=== PATIENT | male | born 1935 | race Caucasian/White ===

== ENCOUNTER → 2018-07-20 11:55 | Outpatient (CLI) | payer MEDICARE, OTHER, SELFPAY ==
[2018-07-20 12:31] LABS: Add Manual Diff / Slide Review NO; Basophils Percent Auto 0.5 % (0-2); Eosinophils Percent Auto 6.8 % (2-4); Hematocrit 43.9 % (41-53); Hemoglobin 14.9 g/dL (13.5-17.5); Lymphocytes Percent Auto 53.1 % (25-40); Mean Corpuscular HGB Conc 33.9 % (30-36); Mean Corpuscular Hemoglobin 32.4 PG (26-34); Mean Corpuscular Volume 95.3 fL (80-100); Monocytes Percent Auto 5.9 % (3-14); Neutrophils Absolute Auto 2600 /uL (3000-5900); Neutrophils Percent Auto 33.7 % (50-75); Platelet Count 151 X10^3/uL (150-400); Red Blood Cell Count 4.61 X10^6/uL (4.5-5.9); Red Cell Distribution Width 15.1 % (11.6-14.8); White Blood Cell Count 7.7 X10^3/uL (4.5-11.0)
[2018-07-20 12:49] LABS: Erythrocyte Sedimentation Rate 6 MM/HR (0-15)
[2018-07-20 12:55] LABS: Creatine Kinase 64 U/L (55-170)
[2018-07-20 13:11] LABS: C-Reactive Protein Quant < 0.5 mg/dL (<1.0)
[2018-07-20 13:57] LABS: TSH w/ Reflex to FT4 3.29 uIU/mL (0.47-4.68)
== END ==
PROVIDERS: PCP Family Medicine; Visit Provider Family Medicine
DX: R29.898 Other symptoms and signs involving the musculoskeletal system (principal); E03.9 Hypothyroidism, unspecified
CPT/HCPCS: 36415; 82550; 84443; 85025; 85651; 86140

== ENCOUNTER → 2018-07-27 10:30 | Outpatient (CLI) | payer MEDICARE, OTHER, SELFPAY ==
--- NOTE | 2018-08-07 09:59 | PM.CARDMON.1 ---
[employer] Pot Tender Report Referral & Results Date Patient Seen: 07/27/18 Requesting provider: Camden Hoang Indication: Palpitations Duration of monitoring (days): 6 Diary information: There were 5 patient diary entries associated only with sinus rhythm There 7 triggered events associated with sinus rhythm, SVT, as well as PACs and PVCs Data: Minimum heart rate identified was 57 beats per minute at 07:32 on 07/30/2018 Maximum sinus heart rate was 133 beats per minute at 13:04 on 07/28/2018 Maximum overall heart rate was 190 beats per minute during a 11.6 sec run of SVT at 03:49 on 08/02/2018 Patient had approximate 1% of identified beats as PACs Patient had less than 1% of identified beats as PVCs Patient had a 6 beat run of ventricular tachycardia Patient also had 17 runs of SVT the fastest of which was 190 beats per minute the longest of which lasted 41.6 sec Impression: This study demonstrates brief episodes of SVT as well as other supraventricular dysrhythmias Patient also had a single 6 beat run of ventricular tachycardia as above Clinical correlation suggested
--- NOTE | 2018-08-07 10:02 | P.HOLT.S_ITS ---
Senior Professional Services Consultant Report Referral & Results Date Patient Seen: 07/27/18 Requesting provider: Camden Hoang Indication: Palpitations Duration of monitoring (days): 6 Diary information: There were 5 patient diary entries associated only with sinus rhythm There 7 triggered events associated with sinus rhythm, SVT, as well as PACs and PVCs Data: Minimum heart rate identified was 57 beats per minute at 07:32 on 2017 Maximum sinus heart rate was 133 beats per minute at 13:04 on 07/28/2018 Maximum overall heart rate was 190 beats per minute during a 11.6 sec run of SVT at 03:49 on 08/02/2018 Patient had approximate 1% of identified beats as PACs Patient had less than 1% of identified beats as PVCs Patient had a 6 beat run of ventricular tachycardia Patient also had 17 runs of SVT the fastest of which was 190 beats per minute the longest of which lasted 41.6 sec Impression: This study demonstrates brief episodes of SVT as well as other supraventricular dysrhythmias Patient also had a single 6 beat run of ventricular tachycardia as above Clinical correlation suggested
== END ==
PROVIDERS: Family Provider Family Medicine; PCP Family Medicine; Visit Provider Family Medicine
DX: R00.2 Palpitations (principal)
CPT/HCPCS: 0296T

== ENCOUNTER → 2019-07-26 13:14 | Outpatient (CLI) | payer MEDICARE, OTHER, SELFPAY ==
--- NOTE | 2019-07-26 13:17 | DI.RAD.S_ITS ---
PROCEDURE: XR HAND RT MIN 3V INDICATIONS: rt hand hogan after fall TECHNIQUE: 3 views of the hand(s) acquired. COMPARISON: None. FINDINGS: Bones: No fractures or dislocations. Carpal bones are normally aligned. No suspicious bony lesions. Soft tissues: No suspicious soft tissue calcifications. IMPRESSION: No trauma. 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 Mild to moderate osteoarthritis at the base of the first metacarpal. Dictated by: Clay Shook M.D. on 07/26/2019 at 21:21 Approved by: Clay Shook M.D. on 07/26/2019 at 21:21
== END ==
PROVIDERS: PCP Family Medicine; Visit Provider Family Medicine
DX: M79.641 Pain in right hand (principal); M19.011 Primary osteoarthritis, right shoulder
CPT/HCPCS: 73130

== ENCOUNTER 2019-07-28 10:15 | Outpatient (RCR) | payer MEDICARE, OTHER, SELFPAY ==
--- NOTE | 2019-06-14 15:37 | PT.OIE ---
Current Diagnoses Chronic embolism and thrombosis of unspecified deep veins of unspecified lower extremity (06/14/19) Radiculopathy, lumbosacral region (06/14/19) Arthrodesis status (06/14/19) Provider Visit Care Team Role Provider Type Camden Hoang MD Family Provider Physician Primary Care Provider Specialty: Family Practice Address: [address] [place] [address], [id number] Email: [email or web address] Howie Otoole MD Attending Provider Physician Specialty: Orthopedics Address: [address] [place] [address], [phone] Email: [email or web address] Initial Evaluation PT-OP-A Visit Information Start: 06/14/19 08:15 Freq: Status: Active Protocol: Document 06/14/19 08:15 AMB (Rec: 06/14/19 17:37 AMB [email or web address]) Out-Patient Physical Therapy Visit Information Visit Information Visit Type Initial Evaluation Visit Start Time 08:15 Visit Stop Time 09:00 Total Visit Minutes 45 Visit Number 1 PT-OP-B Current Condition Start: 06/14/19 08:15 Freq: Status: Active Protocol: Document 06/14/19 08:15 AMB (Rec: 06/14/19 17:37 AMB [email or web address]) Current Condition History of Current Condition Onset Date August 2018 Current Complaints back pain that radiates into left leg making mobility difficult History of Current Condition Timothy reports he fractured his spine playing tennis in August, he is unsure of the level but had to have surgery and documentation looks as if it is a thoracic fusion. He had to go to rehab and has had prior physical therapy that he was very sore from. He has rehabilitated himself previously with aquatic therapy from multiple fractures in 1964 and is hoping to be able to do PT in the pool. He reports his back pain is below his surgery and radiates into the left leg with the left foot going numb and tingling intermittently. Treatment Goals Patient/Caregiver Goals Don socks/shoes, return to tennis. He is concerned about his balance. Prior Functional Status Baseline Function- Recreation/Hobbies Pt was able to play tennis 2 hours a day before his most recent spine surgery, he has not returned to it since. Current Functional Impairments (Reported) Functional Limitations- ADL's difficulty dressing, donning socks and shoes, difficulty bending forward to pick things up from the floor Functional Limitations- Mobility/Gait fearful of falling but denies recent falls, difficulty ascending/descending stairs due to weakness in L leg. 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) PT-OP-C Subjective Start: 06/14/19 08:15 Freq: Status: Active Protocol: Document 06/14/19 08:15 AMB (Rec: 06/14/19 17:37 AMB [email or web address]) Patient Questionnaires Oswestry Low Back Index Oswestry Score 48 Oswestry Impairment 40 to 59% Impaired (Score 40- 59) OP-PT Pain Assessment Location low back/left leg Pain Location Details below surgery/approx L4 dermatome Intensity 6 Scale Used Numeric (1 - 10) PT-OP-D Balance Start: 06/15/19 07:18 Freq: Status: Active Protocol: Document 06/14/19 08:15 AMB (Rec: 06/15/19 07:28 AMB [email or web address]) Balance Tests Single Limb Standing Single Limb- Right 10 seconds Single Limb- Left 10 seconds PT-OP-E Functional Tests Start: 06/15/19 07:18 Freq: Status: Active Protocol: Document 06/14/19 08:15 AMB (Rec: 06/15/19 07:28 AMB [email or web address]) Functional Tests Dynamic Gait Index (DGI) Score 15 DGI Impairment Rating 20 to <40% Impaired (Score 15- 19) PT-OP-G Mobility & Gait Start: 06/14/19 08:15 Freq: Status: Active Protocol: Document 06/14/19 08:15 AMB (Rec: 06/15/19 07:28 AMB [email or web address]) OP Mobility Evaluation Transfers Sit to Stand uses UEs heavily for support OP Gait Assessment Comments Gait Comments Decreased trunk rotation with short step length PT-OP-J Posture/Palpation/Skin Start: 06/14/19 08:15 Freq: Status: Active Protocol: Document 06/14/19 08:15 AMB (Rec: 06/15/19 07:28 AMB [email or web address]) Posture Evaluation Comments Posture Comments flat lumbar and lower thoracic spine with severe kyphosis at thoracic- cervical junction Skin Assessment Incisional Assessment Incision Appearance/Comments scar from upper thoracic to upper lumbar spine, tight paraspinals. Scar adhesions at mid thoracic spine. PT-OP-K Range of Motion Start: 06/14/19 08:32 Freq: Status: Active Protocol: Document 06/14/19 08:15 AMB (Rec: 06/15/19 09:28 AMB [email or web address]) Lumbar Spine Range of Motion Lumbar Spine Active Degrees Testing Position Standing Flexion 40 Extension 15 Lateral Flexion Left 15 Lateral Flexion Right 15 Comments flat thoracic spine PT-OP-M Strength Start: 06/14/19 08:15 Freq: Status: Active Protocol: Document 06/14/19 08:15 AMB (Rec: 06/15/19 09:28 AMB [email or web address]) Hip Strength Hip Manual Muscle Testing Right Flexion (L2) 4+ Good+ Abduction 4+ Good+ Adduction 4+ Good+ Left Flexion (L2) 4- Good- Abduction 4 Good Adduction 4 Good Comments pt's MMT better than function, pt displays weakness in hip/ knee ankle with sit to stand and ascending stairs, especially on L. Knee Strength Knee Manual Muscle Testing Right Flexion (S2) 5 Normal Extension (L3) 5 Normal Left Flexion (S2) 5 Normal Extension (L3) 5 Normal Ankle/Foot Strength Ankle and Foot Manual Muscle Testing Right Dorsiflexion (L4) 4+ Good+ Plantarflexion (S1) 4+ Good+ Left Dorsiflexion (L4) 4+ Good+ Plantarflexion (S1) 4 Good PT-OP-T Assessment and Plan Start: 06/14/19 08:15 Freq: Status: Active Protocol: Document 06/14/19 08:15 AMB (Rec: 06/15/19 09:46 AMB [email or web address]) Physical Therapy Assessment Rehab Potential Rehabilitation Potential Good Evaluation Complexity Number of Personal Factors/Comorbidities 3 or More Number of Body Systems Impaired 4 or More Clinical Presentation at Evaluation Evolving Impairments Impairments Edema Functional Activities Gait Pain Posture ROM Strength Goals Four Impairment fall risk Jail Goal (LTG) Timothy will improve his DGI score to 19/24 to show decreased risk of falling. LTG Duration 10 weeks Three Impairment strength Short Term Goal (STG) Timothy will improve his lower extremity strength so that he can ascend a flight of stairs with one rail with step over step gait pattern. STG Duration 5 weeks Nursing Faculty Goal (LTG) Timothy will improve his strength so that he can move from sit to stand from a standard height chair without the need for UE support. LTG Duration 10 weeks Two Impairment pain Short Term Goal (STG) Timothy will walk for 5 minutes without increasing his back or leg pain from baseline. STG Duration 4 weeks Nursing Faculty Goal (LTG) Timothy will don his shoes and socks without an increase in baseline pain. LTG Duration 10 weeks One Impairment ROM Short Term Goal (STG) Timothy will increase his lumbar flexion AROM to 50 degrees without an increase in pain. STG Duration 4 weeks Assessment Summary Assessment Timothy attends physical therapy with multiple impairments that were recently exacerbated by spinal fusion s/p fracture 10 months ago. He has been unable to return to his prior level of function due to low back and left leg pain, left leg weakness especially with sit to stand and stairs, and reduced spinal range of motion . His DGI score of 15/24 does put him in an increased fall risk category. He will benefit from PT to improve his overall mobility and reduce pain so that he can return as much as possible to his previous level of function. Physical Therapy Plan Frequency and Duration Frequency of Treatment 2x/Week Duration of Treatment 10 weeks Plan of Care Start Date 06/14/19 Plan of Care End Date 08/23/19 Therapeutic Interventions Therapeutic Interventions Aquatic Therapy Balance Training Gait Training Home Exercise Program Manual Therapy Neuromuscular Re-education Self-Care/Home Management Taping Therapeutic Exercises Modalities Cold Pack/Ice Massage Electric Stimulation Hot Packs Next Visit Focus/Plan Next Note Type Treatment Note Next Visit Plan Establish land based HEP for LE strengthening, pain control , and balance gait, then progress with aquatic therapy
--- NOTE | 2019-06-18 11:36 | PT.OTN ---
Current Diagnoses Chronic embolism and thrombosis of unspecified deep veins of unspecified lower extremity (06/18/19) Radiculopathy, lumbosacral region (06/18/19) Arthrodesis status (06/18/19) Physical Therapy Treatment Note PT-OP-A Visit Information Start: 06/14/19 08:15 Freq: Status: Active Protocol: Document 06/18/19 09:00 AMB (Rec: 06/18/19 09:09 AMB [email or web address]) Out-Patient Physical Therapy Visit Information Visit Information Visit Type Treatment Note Visit Start Time 09:00 Visit Stop Time 09:45 Total Visit Minutes 45 Visit Number 2 PT-OP-B Current Condition Start: 06/14/19 08:15 Freq: Status: Active Protocol: Document 06/14/19 08:15 AMB (Rec: 06/14/19 17:37 AMB [email or web address]) Current Condition History of Current Condition Onset Date August 2018 Current Complaints back pain that radiates into left leg making mobility difficult History of Current Condition Timothy reports he fractured his spine playing tennis in August, he is unsure of the level but had to have surgery and documentation looks as if it is a thoracic fusion. He had to go to rehab and has had prior physical therapy that he was very sore from. He has rehabilitated himself previously with aquatic therapy from multiple fractures in 1964 and is hoping to be able to do PT in the pool. He reports his back pain is below his surgery and radiates into the left leg with the left foot going numb and tingling intermittently. Treatment Goals Patient/Caregiver Goals Don socks/shoes, return to tennis. He is concerned about his balance. Prior Functional Status Baseline Function- Recreation/Hobbies Pt was able to play tennis 2 hours a day before his most recent spine surgery, he has not returned to it since. Current Functional Impairments (Reported) Functional Limitations- ADL's difficulty dressing, donning socks and shoes, difficulty bending forward to pick things up from the floor Functional Limitations- Mobility/Gait fearful of falling but denies recent falls, difficulty ascending/descending stairs due to weakness in L leg. 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) PT-OP-C Subjective Start: 06/14/19 08:15 Freq: Status: Active Protocol: Document 06/18/19 09:00 AMB (Rec: 06/18/19 09:09 AMB [id number]) OP-PT Subjective Patient Comments Patient Comments Pt reports he felt fine after evalutation PT-OP-D Balance Start: 06/15/19 07:18 Freq: Status: Active Protocol: Document 06/14/19 08:15 AMB (Rec: 06/15/19 07:28 AMB [email or web address]) Balance Tests Single Limb Standing Single Limb- Right 10 seconds Single Limb- Left 10 seconds PT-OP-E Functional Tests Start: 06/15/19 07:18 Freq: Status: Active Protocol: Document 06/14/19 08:15 AMB (Rec: 06/15/19 07:28 AMB [email or web address]) Functional Tests Dynamic Gait Index (DGI) Score 15 DGI Impairment Rating 20 to <40% Impaired (Score 15- 19) PT-OP-G Mobility & Gait Start: 06/14/19 08:15 Freq: Status: Active Protocol: Document 06/14/19 08:15 AMB (Rec: 06/15/19 07:28 AMB [email or web address]) OP Mobility Evaluation Transfers Sit to Stand uses UEs heavily for support OP Gait Assessment Comments Gait Comments Decreased trunk rotation with short step length PT-OP-J Posture/Palpation/Skin Start: 06/14/19 08:15 Freq: Status: Active Protocol: Document 06/14/19 08:15 AMB (Rec: 06/15/19 07:28 AMB [email or web address]) Posture Evaluation Comments Posture Comments flat lumbar and lower thoracic spine with severe kyphosis at thoracic- cervical junction Skin Assessment Incisional Assessment Incision Appearance/Comments scar from upper thoracic to upper lumbar spine, tight paraspinals. Scar adhesions at mid thoracic spine. PT-OP-K Range of Motion Start: 06/14/19 08:32 Freq: Status: Active Protocol: Document 06/14/19 08:15 AMB (Rec: 06/15/19 09:28 AMB [email or web address]) Lumbar Spine Range of Motion Lumbar Spine Active Degrees Testing Position Standing Flexion 40 Extension 15 Lateral Flexion Left 15 Lateral Flexion Right 15 Comments flat thoracic spine PT-OP-M Strength Start: 06/14/19 08:15 Freq: Status: Active Protocol: Document 08/05/19 08:15 AMB (Rec: 06/15/19 09:28 AMB [email or web address]) Hip Strength Hip Manual Muscle Testing Right Flexion (L2) 4+ Good+ Abduction 4+ Good+ Adduction 4+ Good+ Left Flexion (L2) 4- Good- Abduction 4 Good Adduction 4 Good Comments pt's MMT better than function, pt displays weakness in hip/ knee ankle with sit to stand and ascending stairs, especially on L. Knee Strength Knee Manual Muscle Testing Right Flexion (S2) 5 Normal Extension (L3) 5 Normal Left Flexion (S2) 5 Normal Extension (L3) 5 Normal Ankle/Foot Strength Ankle and Foot Manual Muscle Testing Right Dorsiflexion (L4) 4+ Good+ Plantarflexion (S1) 4+ Good+ Left Dorsiflexion (L4) 4+ Good+ Plantarflexion (S1) 4 Good PT-OP-Q Treatments Start: 06/14/19 08:15 Freq: Status: Active Protocol: Document 06/18/19 09:00 AMB (Rec: 06/18/19 11:36 AMB [email or web address]) Cardio Equipment Recumbent Stepper (Sci-Fit) Duration (Minutes) 7 Resistance 4 Therapeutic Exercises Supine Exercises 5 Supine Exercise Name lower trunk rotation Reps/Minutes 2x10 4 Supine Exercise Name adductor stretch Reps/Minutes 30x2 3 Supine Exercise Name hip flexor stretch Reps/Minutes 30x2 2 Supine Exercise Name hamstring stretch Reps/Minutes 30x4 1 Supine Exercise Name piriformis stretch Reps/Minutes 30x4 PT-OP-T Assessment and Plan Start: 06/14/19 08:15 Freq: Status: Active Protocol: Document 06/18/19 09:00 AMB (Rec: 06/18/19 11:36 AMB [email or web address]) Physical Therapy Assessment Assessment Summary Assessment Timothy needed physical and verbal cueing for correct performance of stretching, but was able to tolerate well, L significantly tighter than R. Physical Therapy Plan Next Visit Focus/Plan Next Note Type Treatment Note Next Visit Plan Progress stretching and core stability land HEP then aquatic program.
--- NOTE | 2019-06-21 16:48 | PT.OTN ---
Current Diagnoses Chronic embolism and thrombosis of unspecified deep veins of unspecified lower extremity (06/21/19) Radiculopathy, lumbosacral region (06/21/19) Arthrodesis status (06/21/19) Physical Therapy Treatment Note PT-OP-A Visit Information Start: 06/14/19 08:15 Freq: Status: Active Protocol: Document 06/21/19 11:18 SAK (Rec: 06/21/19 11:57 SAK [id number]) Out-Patient Physical Therapy Visit Information Visit Information Visit Type Treatment Note Visit Start Time 11:15 Visit Stop Time 12:10 Total Visit Minutes 55 Visit Number 3 PT-OP-B Current Condition Start: 06/14/19 08:15 Freq: Status: Active Protocol: Document 06/14/19 08:15 AMB (Rec: 06/14/19 17:37 AMB [email or web address]) Current Condition History of Current Condition Onset Date August 2018 Current Complaints back pain that radiates into left leg making mobility difficult History of Current Condition Timothy reports he fractured his spine playing tennis in August, he is unsure of the level but had to have surgery and documentation looks as if it is a thoracic fusion. He had to go to rehab and has had prior physical therapy that he was very sore from. He has rehabilitated himself previously with aquatic therapy from multiple fractures in 1964 and is hoping to be able to do PT in the pool. He reports his back pain is below his surgery and radiates into the left leg with the left foot going numb and tingling intermittently. Treatment Goals Patient/Caregiver Goals Don socks/shoes, return to tennis. He is concerned about his balance. Prior Functional Status Baseline Function- Recreation/Hobbies Pt was able to play tennis 2 hours a day before his most recent spine surgery, he has not returned to it since. Current Functional Impairments (Reported) Functional Limitations- ADL's difficulty dressing, donning socks and shoes, difficulty bending forward to pick things up from the floor Functional Limitations- Mobility/Gait fearful of falling but denies recent falls, difficulty ascending/descending stairs due to weakness in L leg. 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 Plus his hot tub stopped working 2 days ago. PT-OP-D Balance Start: 06/15/19 07:18 Freq: Status: Active Protocol: Document 06/14/19 08:15 AMB (Rec: 06/15/19 07:28 AMB [email or web address]) Balance Tests Single Limb Standing Single Limb- Right 10 seconds Single Limb- Left 10 seconds PT-OP-E Functional Tests Start: 06/15/19 07:18 Freq: Status: Active Protocol: Document 06/14/19 08:15 AMB (Rec: 06/15/19 07:28 AMB [email or web address]) Functional Tests Dynamic Gait Index (DGI) Score 15 DGI Impairment Rating 20 to <40% Impaired (Score 15- 19) PT-OP-G Mobility & Gait Start: 06/14/19 08:15 Freq: Status: Active Protocol: Document 06/14/19 08:15 AMB (Rec: 06/15/19 07:28 AMB [email or web address]) OP Mobility Evaluation Transfers Sit to Stand uses UEs heavily for support OP Gait Assessment Comments Gait Comments Decreased trunk rotation with short step length PT-OP-J Posture/Palpation/Skin Start: 06/14/19 08:15 Freq: Status: Active Protocol: Document 06/14/19 08:15 AMB (Rec: 06/15/19 07:28 AMB [email or web address]) Posture Evaluation Comments Posture Comments flat lumbar and lower thoracic spine with severe kyphosis at thoracic- cervical junction Skin Assessment Incisional Assessment Incision Appearance/Comments scar from upper thoracic to upper lumbar spine, tight paraspinals. Scar adhesions at mid thoracic spine. PT-OP-K Range of Motion Start: 06/14/19 08:32 Freq: Status: Active Protocol: Document 06/14/19 08:15 AMB (Rec: 06/15/19 09:28 AMB [email or web address]) Lumbar Spine Range of Motion Lumbar Spine Active Degrees Testing Position Standing Flexion 40 Extension 15 Lateral Flexion Left 15 Lateral Flexion Right 15 Comments flat thoracic spine PT-OP-M Strength Start: 06/14/19 08:15 Freq: Status: Active Protocol: Document 06/14/19 08:15 AMB (Rec: 06/15/19 09:28 AMB [email or web address]) Hip Strength Hip Manual Muscle Testing Right Flexion (L2) 4+ Good+ Abduction 4+ Good+ Adduction 4+ Good+ Left Flexion (L2) 4- Good- Abduction 4 Good Adduction 4 Good Comments pt's MMT better than function, pt displays weakness in hip/ knee ankle with sit to stand and ascending stairs, especially on L. Knee Strength Knee Manual Muscle Testing Right Flexion (S2) 5 Normal Extension (L3) 5 Normal Left Flexion (S2) 5 Normal Extension (L3) 5 Normal Ankle/Foot Strength Ankle and Foot Manual Muscle Testing Right Dorsiflexion (L4) 4+ Good+ Plantarflexion (S1) 4+ Good+ Left Dorsiflexion (L4) 4+ Good+ Plantarflexion (S1) 4 Good PT-OP-Q Treatments Start: 06/14/19 08:15 Freq: Status: Active Protocol: Document 06/21/19 11:18 SAK (Rec: 06/21/19 11:57 SAK [id number]) Cardio Equipment Recumbent Stepper (Sci-Fit) Duration (Minutes) 8 Resistance 4 Gym Equipment Shuttle Recovery Unilateral Squats Resistance 37 Shuttle Recovery Platform Stable Bilateral Squats Resistance 62 Shuttle Recovery Platform Stable Therapeutic Exercises Supine Exercises 5 Supine Exercise Name lower trunk rotation Reps/Minutes 2x10 4 Supine Exercise Name adductor stretch Reps/Minutes 30x2 3 Supine Exercise Name hip flexor stretch Reps/Minutes 30x2 2 Supine Exercise Name hamstring stretch Reps/Minutes 30x4 1 Supine Exercise Name piriformis stretch Reps/Minutes 30x4 PT-OP-R Modalities Start: 06/21/19 11:58 Freq: Status: Active Protocol: Document 06/21/19 11:18 SAK (Rec: 06/21/19 16:47 SAK [id number]) Electric Stimulation Electric Stimulation Interferential Current (IFC) Body Location low back Duration (Minutes) 15 PT-OP-T Assessment and Plan Start: 06/14/19 08:15 Freq: Status: Active Protocol: Document 06/21/19 11:18 SAK (Rec: 06/21/19 11:57 SAK [id number]) Physical Therapy Assessment Goals Four Impairment fall risk Snf Goal (LTG) Timothy will improve his DGI score to 19/24 to show decreased risk of falling. LTG Duration 10 weeks Three Impairment strength Short Term Goal (STG) Timothy will improve his lower extremity strength so that he can ascend a flight of stairs with one rail with step over step gait pattern. STG Duration 5 weeks Alodize Machine Helper Goal (LTG) Timothy will improve his strength so that he can move from sit to stand from a standard height chair without the need for UE support. LTG Duration 10 weeks Two Impairment pain Short Term Goal (STG) Timothy will walk for 5 minutes without increasing his back or leg pain from baseline. STG Duration 4 weeks Snf Goal (LTG) Timothy will don his shoes and socks without an increase in baseline pain. LTG Duration 10 weeks One Impairment ROM Short Term Goal (STG) Timothy will increase his lumbar flexion AROM to 50 degrees without an increase in pain. STG Duration 4 weeks Assessment Summary Assessment Timothy was very stiff and sore today due to taking care of livestock and doing yardwork plus hot tub stopping working 2 days ago. He needs verbal and manual cues for correct exercise performance. He tolerated addition of shuttle leg press well, and benefited from moist heat to lumbar spine during supine exercises. Physical Therapy Plan Frequency and Duration Frequency of Treatment 2x/Week Duration of Treatment 10 weeks Plan of Care Start Date 06/14/19 Plan of Care End Date 08/23/19 Therapeutic Interventions Therapeutic Interventions Aquatic Therapy Balance Training Gait Training Home Exercise Program Manual Therapy Neuromuscular Re-education Self-Care/Home Management Taping Therapeutic Exercises Modalities Cold Pack/Ice Massage Electric Stimulation Hot Packs Next Visit Focus/Plan Next Note Type Treatment Note Next Visit Plan Continue PT per POC, add core stab ex. Aquatic PT when pool reopens.
--- NOTE | 2019-06-23 14:13 | PT.OTN ---
Current Diagnoses Chronic embolism and thrombosis of unspecified deep veins of unspecified lower extremity (06/23/19) Radiculopathy, lumbosacral region (06/23/19) Arthrodesis status (06/23/19) Physical Therapy Treatment Note PT-OP-A Visit Information Start: 06/14/19 08:15 Freq: Status: Active Protocol: Document 06/23/19 11:17 SAK (Rec: 06/23/19 11:49 SAK [id number]) Out-Patient Physical Therapy Visit Information Visit Information Visit Type Treatment Note Visit Start Time 11:15 Visit Stop Time 12:10 Total Visit Minutes 55 Visit Number 3 PT-OP-B Current Condition Start: 06/14/19 08:15 Freq: Status: Active Protocol: Document 06/14/19 08:15 AMB (Rec: 06/14/19 17:37 AMB [email or web address]) Current Condition History of Current Condition Onset Date August 2018 Current Complaints back pain that radiates into left leg making mobility difficult History of Current Condition Timothy reports he fractured his spine playing tennis in August, he is unsure of the level but had to have surgery and documentation looks as if it is a thoracic fusion. He had to go to rehab and has had prior physical therapy that he was very sore from. He has rehabilitated himself previously with aquatic therapy from multiple fractures in 1964 and is hoping to be able to do PT in the pool. He reports his back pain is below his surgery and radiates into the left leg with the left foot going numb and tingling intermittently. Treatment Goals Patient/Caregiver Goals Don socks/shoes, return to tennis. He is concerned about his balance. Prior Functional Status Baseline Function- Recreation/Hobbies Pt was able to play tennis 2 hours a day before his most recent spine surgery, he has not returned to it since. Current Functional Impairments (Reported) Functional Limitations- ADL's difficulty dressing, donning socks and shoes, difficulty bending forward to pick things up from the floor Functional Limitations- Mobility/Gait fearful of falling but denies recent falls, difficulty ascending/descending stairs due to weakness in L leg. 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) PT-OP-C Subjective Start: 06/14/19 08:15 Freq: Status: Active Protocol: Document 06/23/19 11:17 SAK (Rec: 06/23/19 11:49 SAK [id number]) OP-PT Subjective Patient Comments Patient Comments Tingling in bottom of left foot this am. Got hot tub fixed, was in today. Wants to get back to tennis. Has massage therapy 1x/wk PT-OP-D Balance Start: 06/15/19 07:18 Freq: Status: Active Protocol: Document 06/14/19 08:15 AMB (Rec: 06/15/19 07:28 AMB [email or web address]) Balance Tests Single Limb Standing Single Limb- Right 10 seconds Single Limb- Left 10 seconds PT-OP-E Functional Tests Start: 06/15/19 07:18 Freq: Status: Active Protocol: Document 06/14/19 08:15 AMB (Rec: 06/15/19 07:28 AMB [email or web address]) Functional Tests Dynamic Gait Index (DGI) Score 15 DGI Impairment Rating 20 to <40% Impaired (Score 15- 19) PT-OP-G Mobility & Gait Start: 06/14/19 08:15 Freq: Status: Active Protocol: Document 06/14/19 08:15 AMB (Rec: 06/15/19 07:28 AMB [email or web address]) OP Mobility Evaluation Transfers Sit to Stand uses UEs heavily for support OP Gait Assessment Comments Gait Comments Decreased trunk rotation with short step length PT-OP-J Posture/Palpation/Skin Start: 06/14/19 08:15 Freq: Status: Active Protocol: Document 06/14/19 08:15 AMB (Rec: 06/15/19 07:28 AMB [email or web address]) Posture Evaluation Comments Posture Comments flat lumbar and lower thoracic spine with severe kyphosis at thoracic- cervical junction Skin Assessment Incisional Assessment Incision Appearance/Comments scar from upper thoracic to upper lumbar spine, tight paraspinals. Scar adhesions at mid thoracic spine. PT-OP-K Range of Motion Start: 06/14/19 08:32 Freq: Status: Active Protocol: Document 06/14/19 08:15 AMB (Rec: 06/15/19 09:28 AMB [email or web address]) Lumbar Spine Range of Motion Lumbar Spine Active Degrees Testing Position Standing Flexion 40 Extension 15 Lateral Flexion Left 15 Lateral Flexion Right 15 Comments flat thoracic spine PT-OP-M Strength Start: 06/14/19 08:15 Freq: Status: Active Protocol: Document 06/14/19 08:15 AMB (Rec: 06/15/19 09:28 AMB [email or web address]) Hip Strength Hip Manual Muscle Testing Right Flexion (L2) 4+ Good+ Abduction 4+ Good+ Adduction 4+ Good+ Left Flexion (L2) 4- Good- Abduction 4 Good Adduction 4 Good Comments pt's MMT better than function, pt displays weakness in hip/ knee ankle with sit to stand and ascending stairs, especially on L. Knee Strength Knee Manual Muscle Testing Right Flexion (S2) 5 Normal Extension (L3) 5 Normal Left Flexion (S2) 5 Normal Extension (L3) 5 Normal Ankle/Foot Strength Ankle and Foot Manual Muscle Testing Right Dorsiflexion (L4) 4+ Good+ Plantarflexion (S1) 4+ Good+ Left Dorsiflexion (L4) 4+ Good+ Plantarflexion (S1) 4 Good PT-OP-Q Treatments Start: 06/14/19 08:15 Freq: Status: Active Protocol: Document 06/23/19 11:17 SAK (Rec: 06/23/19 11:49 SAK [id number]) Cardio Equipment Recumbent Stepper (Sci-Fit) Duration (Minutes) 10 Resistance 4 Gym Equipment Shuttle Recovery Unilateral Squats Resistance 50 Shuttle Recovery Platform Stable Reps/Time 2x10 Bilateral Squats Resistance 75, 87 Shuttle Recovery Platform Stable Reps/Time 2x10 Therapeutic Exercises Supine Exercises pec stretch Reps/Minutes 30x1 pillow squeeze Reps/Minutes 10x5 SKTC Reps/Minutes 30x2 4 Supine Exercise Name adductor stretch Reps/Minutes 30x2 3 Supine Exercise Name hip flexor stretch Reps/Minutes 30x2 2 Supine Exercise Name hamstring stretch Reps/Minutes 30x4 1 Supine Exercise Name piriformis stretch Reps/Minutes 30x4 Standing Exercises row, shld ext Resistance L2 Reps/Minutes 10x heel/toe raise Reps/Minutes 10x Hip ab/ad Reps/Minutes 10x PT-OP-R Modalities Start: 06/21/19 11:58 Freq: Status: Active Protocol: Document 06/23/19 11:17 SAK (Rec: 06/23/19 11:49 SAK [id number]) Electric Stimulation Electric Stimulation Interferential Current (IFC) Body Location low back Duration (Minutes) 15 Combined With Heat/Cold Hot Pack PT-OP-T Assessment and Plan Start: 06/14/19 08:15 Freq: Status: Active Protocol: Document 06/23/19 11:17 HENRIQUE (Rec: 06/23/19 14:13 [facility] [id number]) Physical Therapy Assessment Goals Four Impairment fall risk Mcc Goal (LTG) Timothy will improve his DGI score to 19/24 to show decreased risk of falling. LTG Duration 10 weeks Three Impairment strength Short Term Goal (STG) Timothy will improve his lower extremity strength so that he can ascend a flight of stairs with one rail with step over step gait pattern. STG Duration 5 weeks Senior Software Quality Engineer Goal (LTG) Timothy will improve his strength so that he can move from sit to stand from a standard height chair without the need for UE support. LTG Duration 10 weeks Two Impairment pain Short Term Goal (STG) Timothy will walk for 5 minutes without increasing his back or leg pain from baseline. STG Duration 4 weeks Senior Software Quality Engineer Goal (LTG) Timothy will don his shoes and socks without an increase in baseline pain. LTG Duration 10 weeks One Impairment ROM Short Term Goal (STG) Timothy will increase his lumbar flexion AROM to 50 degrees without an increase in pain. STG Duration 4 weeks Assessment Summary Assessment Able to tolerate progression of ther ex today, needs moderate cues for postural alignment and core stabilization Physical Therapy Plan Frequency and Duration Frequency of Treatment 2x/Week Duration of Treatment 10 weeks Plan of Care Start Date 06/14/19 Plan of Care End Date 08/23/19 Therapeutic Interventions Therapeutic Interventions Aquatic Therapy Balance Training Gait Training Home Exercise Program Manual Therapy Neuromuscular Re-education Self-Care/Home Management Taping Therapeutic Exercises Modalities Cold Pack/Ice Massage Electric Stimulation Hot Packs Next Visit Focus/Plan Next Note Type Treatment Note Next Visit Plan Continue PT per POC, add core stab ex. Aquatic PT when pool reopens.
--- NOTE | 2019-06-28 13:00 | PT.OTN ---
Current Diagnoses Chronic embolism and thrombosis of unspecified deep veins of unspecified lower extremity (06/28/19) Radiculopathy, lumbosacral region (06/28/19) Arthrodesis status (06/28/19) Physical Therapy Treatment Note PT-OP-A Visit Information Start: 06/14/19 08:15 Freq: Status: Active Protocol: Document 06/29/19 16:24 SAK (Rec: 06/29/19 16:33 SAK [id number]) Out-Patient Physical Therapy Visit Information Visit Information Visit Type Aquatic Treatment Note Visit Start Time 13:00 Visit Stop Time 13:45 Total Visit Minutes 45 Visit Number 5 PT-OP-B Current Condition Start: 06/14/19 08:15 Freq: Status: Active Protocol: Document 06/14/19 08:15 AMB (Rec: 06/14/19 17:37 AMB [email or web address]) Current Condition History of Current Condition Onset Date August 2018 Current Complaints back pain that radiates into left leg making mobility difficult History of Current Condition Timothy reports he fractured his spine playing tennis in August, he is unsure of the level but had to have surgery and documentation looks as if it is a thoracic fusion. He had to go to rehab and has had prior physical therapy that he was very sore from. He has rehabilitated himself previously with aquatic therapy from multiple fractures in 1964 and is hoping to be able to do PT in the pool. He reports his back pain is below his surgery and radiates into the left leg with the left foot going numb and tingling intermittently. Treatment Goals Patient/Caregiver Goals Don socks/shoes, return to tennis. He is concerned about his balance. Prior Functional Status Baseline Function- Recreation/Hobbies Pt was able to play tennis 2 hours a day before his most recent spine surgery, he has not returned to it since. Current Functional Impairments (Reported) Functional Limitations- ADL's difficulty dressing, donning socks and shoes, difficulty bending forward to pick things up from the floor Functional Limitations- Mobility/Gait fearful of falling but denies recent falls, difficulty ascending/descending stairs due to weakness in L leg. 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 Excited to try aquatic therapy. PT-OP-D Balance Start: 06/15/19 07:18 Freq: Status: Active Protocol: Document 06/14/19 08:15 AMB (Rec: 06/15/19 07:28 AMB [email or web address]) Balance Tests Single Limb Standing Single Limb- Right 10 seconds Single Limb- Left 10 seconds PT-OP-E Functional Tests Start: 06/15/19 07:18 Freq: Status: Active Protocol: Document 06/14/19 08:15 AMB (Rec: 06/15/19 07:28 AMB [email or web address]) Functional Tests Dynamic Gait Index (DGI) Score 15 DGI Impairment Rating 20 to <40% Impaired (Score 15- 19) PT-OP-G Mobility & Gait Start: 06/14/19 08:15 Freq: Status: Active Protocol: Document 06/14/19 08:15 AMB (Rec: 06/15/19 07:28 AMB [email or web address]) OP Mobility Evaluation Transfers Sit to Stand uses UEs heavily for support OP Gait Assessment Comments Gait Comments Decreased trunk rotation with short step length PT-OP-J Posture/Palpation/Skin Start: 06/14/19 08:15 Freq: Status: Active Protocol: Document 06/14/19 08:15 AMB (Rec: 06/15/19 07:28 AMB [email or web address]) Posture Evaluation Comments Posture Comments flat lumbar and lower thoracic spine with severe kyphosis at thoracic- cervical junction Skin Assessment Incisional Assessment Incision Appearance/Comments scar from upper thoracic to upper lumbar spine, tight paraspinals. Scar adhesions at mid thoracic spine. PT-OP-K Range of Motion Start: 06/14/19 08:32 Freq: Status: Active Protocol: Document 06/14/19 08:15 AMB (Rec: 06/15/19 09:28 AMB [email or web address]) Lumbar Spine Range of Motion Lumbar Spine Active Degrees Testing Position Standing Flexion 40 Extension 15 Lateral Flexion Left 15 Lateral Flexion Right 15 Comments flat thoracic spine PT-OP-M Strength Start: 06/14/19 08:15 Freq: Status: Active Protocol: Document 06/14/19 08:15 AMB (Rec: 06/15/19 09:28 AMB [email or web address]) Hip Strength Hip Manual Muscle Testing Right Flexion (L2) 4+ Good+ Abduction 4+ Good+ Adduction 4+ Good+ Left Flexion (L2) 4- Good- Abduction 4 Good Adduction 4 Good Comments pt's MMT better than function, pt displays weakness in hip/ knee ankle with sit to stand and ascending stairs, especially on L. Knee Strength Knee Manual Muscle Testing Right Flexion (S2) 5 Normal Extension (L3) 5 Normal Left Flexion (S2) 5 Normal Extension (L3) 5 Normal Ankle/Foot Strength Ankle and Foot Manual Muscle Testing Right Dorsiflexion (L4) 4+ Good+ Plantarflexion (S1) 4+ Good+ Left Dorsiflexion (L4) 4+ Good+ Plantarflexion (S1) 4 Good PT-OP-Q Treatments Start: 06/14/19 08:15 Freq: Status: Active Protocol: Document 06/23/19 11:17 SAK (Rec: 06/23/19 11:49 [facility] [id number]) Cardio Equipment Recumbent Stepper (Sci-Fit) Duration (Minutes) 10 Resistance 4 Gym Equipment Shuttle Recovery Unilateral Squats Resistance 50 Shuttle Recovery Platform Stable Reps/Time 2x10 Bilateral Squats Resistance 75, 87 Shuttle Recovery Platform Stable Reps/Time 2x10 Therapeutic Exercises Supine Exercises pec stretch Reps/Minutes 30x1 pillow squeeze Reps/Minutes 10x5 SKTC Reps/Minutes 30x2 4 Supine Exercise Name adductor stretch Reps/Minutes 30x2 3 Supine Exercise Name hip flexor stretch Reps/Minutes 30x2 2 Supine Exercise Name hamstring stretch Reps/Minutes 30x4 1 Supine Exercise Name piriformis stretch Reps/Minutes 30x4 Standing Exercises row, shld ext Resistance L2 Reps/Minutes 10x heel/toe raise Reps/Minutes 10x Hip ab/ad Reps/Minutes 10x PT-OP-R Modalities Start: 06/21/19 11:58 Freq: Status: Active Protocol: Document 06/23/19 11:17 SAK (Rec: 06/23/19 11:49 SAK [id number]) Electric Stimulation Electric Stimulation Interferential Current (IFC) Body Location low back Duration (Minutes) 15 Combined With Heat/Cold Hot Pack PT-OP-S Aquatic Treatment Start: 06/14/19 08:15 Freq: Status: Active Protocol: Document 06/29/19 16:24 [facility] (Rec: 06/29/19 16:33 [facility] [id number]) Aquatics Treatment Pool Entry/Exit Pool Entry/Exit Method Stairs Assistance Independent Water Walking [place] March Water Level Chest Level Level of Assistance Verbal Cues Marching Water Level Chest Level Level of Assistance Verbal Cues Sideways Water Level Chest Level Level of Assistance Verbal Cues Backwards Water Level Chest Level Level of Assistance Verbal Cues forward Water Level Chest Level Level of Assistance Verbal Cues Lower Extremity Stretches figure-4 Details squat at pool wall Water Level Neck Level Reps/Duration 2x30 ITB Body Position Standing Water Level Chest Level Equipment Small Noodle Reps/Duration 2x30 HS Body Position Standing Water Level Chest Level Equipment Small Noodle Reps/Duration 2x30 Spinal Exercises Deep water DLS Details vertical, medium barbells Water Level [place] Reps/Duration 10x ea Comments pull downs nam and unil, pendulums [place] Activities [place] Activities Bicycle [place] Equipment flotation belt Duration 10 min PT-OP-T Assessment and Plan Start: 06/14/19 08:15 Freq: Status: Active Protocol: Document 06/28/19 13:00 [facility] (Rec: 06/29/19 16:33 [facility] [id number]) Physical Therapy Assessment Goals Four Impairment fall risk [facility] Goal (LTG) Timothy will improve his DGI score to 19/24 to show decreased risk of falling. LTG Duration 10 weeks Three Impairment strength Short Term Goal (STG) Timothy will improve his lower extremity strength so that he can ascend a flight of stairs with one rail with step over step gait pattern. STG Duration 5 weeks [facility] Goal (LTG) Timothy will improve his strength so that he can move from sit to stand from a standard height chair without the need for UE support. LTG Duration 10 weeks Two Impairment pain Short Term Goal (STG) Timothy will walk for 5 minutes without increasing his back or leg pain from baseline. STG Duration 4 weeks [employer] Goal (LTG) Timothy will don his shoes and socks without an increase in baseline pain. LTG Duration 10 weeks One Impairment ROM Short Term Goal (STG) Timothy will increase his lumbar flexion AROM to 50 degrees without an increase in pain. STG Duration 4 weeks Assessment Summary Assessment Good tolerance for aquatic therapy with moderate verbal and manual cues. Comfortable in the water. Feel he will benefit from aquatic PT. Physical Therapy Plan Frequency and Duration Frequency of Treatment 2x/Week Duration of Treatment 10 weeks Plan of Care Start Date 06/14/19 Plan of Care End Date 08/23/19 Therapeutic Interventions Therapeutic Interventions Aquatic Therapy Balance Training Gait Training Home Exercise Program Manual Therapy Neuromuscular Re-education Self-Care/Home Management Taping Therapeutic Exercises Modalities Cold Pack/Ice Massage Electric Stimulation Hot Packs Next Visit Focus/Plan Next Note Type Treatment Note Next Visit Plan Progress aquatic exercises as tolerated. Consider trial of deep water traction
--- NOTE | 2019-06-30 14:57 | PT.OTN ---
Current Diagnoses Chronic embolism and thrombosis of unspecified deep veins of unspecified lower extremity (06/28/19) Radiculopathy, lumbosacral region (06/28/19) Arthrodesis status (06/28/19) Physical Therapy Treatment Note PT-OP-A Visit Information Start: 06/14/19 08:15 Freq: Status: Active Protocol: Document 06/30/19 14:51 SAK (Rec: 06/30/19 14:56 SAK [id number]) Out-Patient Physical Therapy Visit Information Visit Information Visit Type Aquatic Treatment Note Visit Start Time 11:30 Visit Stop Time 12:15 Total Visit Minutes 45 Visit Number 6 PT-OP-B Current Condition Start: 06/14/19 08:15 Freq: Status: Active Protocol: Document 06/14/19 08:15 AMB (Rec: 06/14/19 17:37 AMB [email or web address]) Current Condition History of Current Condition Onset Date August 2018 Current Complaints back pain that radiates into left leg making mobility difficult History of Current Condition Timothy reports he fractured his spine playing tennis in August, he is unsure of the level but had to have surgery and documentation looks as if it is a thoracic fusion. He had to go to rehab and has had prior physical therapy that he was very sore from. He has rehabilitated himself previously with aquatic therapy from multiple fractures in 1964 and is hoping to be able to do PT in the pool. He reports his back pain is below his surgery and radiates into the left leg with the left foot going numb and tingling intermittently. Treatment Goals Patient/Caregiver Goals Don socks/shoes, return to tennis. He is concerned about his balance. Prior Functional Status Baseline Function- Recreation/Hobbies Pt was able to play tennis 2 hours a day before his most recent spine surgery, he has not returned to it since. Current Functional Impairments (Reported) Functional Limitations- ADL's difficulty dressing, donning socks and shoes, difficulty bending forward to pick things up from the floor Functional Limitations- Mobility/Gait fearful of falling but denies recent falls, difficulty ascending/descending stairs due to weakness in L leg. 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 States he wishes he could walk on land PT-OP-D Balance Start: 06/15/19 07:18 Freq: Status: Active Protocol: Document 06/14/19 08:15 AMB (Rec: 06/15/19 07:28 AMB [email or web address]) Balance Tests Single Limb Standing Single Limb- Right 10 seconds Single Limb- Left 10 seconds PT-OP-E Functional Tests Start: 06/15/19 07:18 Freq: Status: Active Protocol: Document 06/14/19 08:15 AMB (Rec: 06/15/19 07:28 AMB [email or web address]) Functional Tests Dynamic Gait Index (DGI) Score 15 DGI Impairment Rating 20 to <40% Impaired (Score 15- 19) PT-OP-G Mobility & Gait Start: 06/14/19 08:15 Freq: Status: Active Protocol: Document 06/14/19 08:15 AMB (Rec: 06/15/19 07:28 AMB [email or web address]) OP Mobility Evaluation Transfers Sit to Stand uses UEs heavily for support OP Gait Assessment Comments Gait Comments Decreased trunk rotation with short step length PT-OP-J Posture/Palpation/Skin Start: 06/14/19 08:15 Freq: Status: Active Protocol: Document 06/14/19 08:15 AMB (Rec: 06/15/19 07:28 AMB [email or web address]) Posture Evaluation Comments Posture Comments flat lumbar and lower thoracic spine with severe kyphosis at thoracic- cervical junction Skin Assessment Incisional Assessment Incision Appearance/Comments scar from upper thoracic to upper lumbar spine, tight paraspinals. Scar adhesions at mid thoracic spine. PT-OP-K Range of Motion Start: 06/14/19 08:32 Freq: Status: Active Protocol: Document 06/14/19 08:15 AMB (Rec: 06/15/19 09:28 AMB [email or web address]) Lumbar Spine Range of Motion Lumbar Spine Active Degrees Testing Position Standing Flexion 40 Extension 15 Lateral Flexion Left 15 Lateral Flexion Right 15 Comments flat thoracic spine PT-OP-M Strength Start: 06/14/19 08:15 Freq: Status: Active Protocol: Document 06/14/19 08:15 AMB (Rec: 06/15/19 09:28 AMB [email or web address]) Hip Strength Hip Manual Muscle Testing Right Flexion (L2) 4+ Good+ Abduction 4+ Good+ Adduction 4+ Good+ Left Flexion (L2) 4- Good- Abduction 4 Good Adduction 4 Good Comments pt's MMT better than function, pt displays weakness in hip/ knee ankle with sit to stand and ascending stairs, especially on L. Knee Strength Knee Manual Muscle Testing Right Flexion (S2) 5 Normal Extension (L3) 5 Normal Left Flexion (S2) 5 Normal Extension (L3) 5 Normal Ankle/Foot Strength Ankle and Foot Manual Muscle Testing Right Dorsiflexion (L4) 4+ Good+ Plantarflexion (S1) 4+ Good+ Left Dorsiflexion (L4) 4+ Good+ Plantarflexion (S1) 4 Good PT-OP-Q Treatments Start: 06/14/19 08:15 Freq: Status: Active Protocol: Document 06/23/19 11:17 SAK (Rec: 06/23/19 11:49 SAK [id number]) Cardio Equipment Recumbent Stepper (Sci-Fit) Duration (Minutes) 10 Resistance 4 Gym Equipment Shuttle Recovery Unilateral Squats Resistance 50 Shuttle Recovery Platform Stable Reps/Time 2x10 Bilateral Squats Resistance 75, 87 Shuttle Recovery Platform Stable Reps/Time 2x10 Therapeutic Exercises Supine Exercises pec stretch Reps/Minutes 30x1 pillow squeeze Reps/Minutes 10x5 SKTC Reps/Minutes 30x2 4 Supine Exercise Name adductor stretch Reps/Minutes 30x2 3 Supine Exercise Name hip flexor stretch Reps/Minutes 30x2 2 Supine Exercise Name hamstring stretch Reps/Minutes 30x4 1 Supine Exercise Name piriformis stretch Reps/Minutes 30x4 Standing Exercises row, shld ext Resistance L2 Reps/Minutes 10x heel/toe raise Reps/Minutes 10x Hip ab/ad Reps/Minutes 10x PT-OP-R Modalities Start: 06/21/19 11:58 Freq: Status: Active Protocol: Document 06/23/19 11:17 SAK (Rec: 06/23/19 11:49 SAK [id number]) Electric Stimulation Electric Stimulation Interferential Current (IFC) Body Location low back Duration (Minutes) 15 Combined With Heat/Cold Hot Pack PT-OP-S Aquatic Treatment Start: 06/14/19 08:15 Freq: Status: Active Protocol: Document 06/30/19 14:51 [facility] (Rec: 06/30/19 14:56 [facility] [id number]) Aquatics Treatment Pool Entry/Exit Pool Entry/Exit Method Stairs Assistance Independent Water Walking [place] March Water Level Chest Level Level of Assistance Verbal Cues Marching Water Level Chest Level Level of Assistance Verbal Cues Sideways Water Level Chest Level Level of Assistance Verbal Cues Backwards Water Level Chest Level Level of Assistance Verbal Cues forward Water Level Chest Level Level of Assistance Verbal Cues Lower Extremity Stretches figure-4 Details squat at pool wall Water Level Neck Level Reps/Duration 2x30 ITB Body Position Standing Water Level Chest Level Equipment Large Noodle Reps/Duration 2x30 HS Body Position Standing Water Level Chest Level Equipment Large Noodle Reps/Duration 2x30 [place] Activities [place] Activities Bicycle Bicycle Backwards [place] Running Equipment flotation belt Duration 15 min Comments 5 rounds of intervals 30:30 run Other deep water traction Details lumbar Body Position Standing Water Level [place] Equipment [place] float, 5# nam PT-OP-T Assessment and Plan Start: 06/14/19 08:15 Freq: Status: Active Protocol: Document 06/30/19 14:51 [facility] (Rec: 06/30/19 14:56 [facility] [id number]) Physical Therapy Assessment Goals Four Impairment fall risk [employer] Goal (LTG) Timothy will improve his DGI score to 19/24 to show decreased risk of falling. LTG Duration 10 weeks Three Impairment strength Short Term Goal (STG) Timothy will improve his lower extremity strength so that he can ascend a flight of stairs with one rail with step over step gait pattern. STG Duration 5 weeks Detention Goal (LTG) Timothy will improve his strength so that he can move from sit to stand from a standard height chair without the need for UE support. LTG Duration 10 weeks Two Impairment pain Short Term Goal (STG) Timothy will walk for 5 minutes without increasing his back or leg pain from baseline. STG Duration 4 weeks Detention Goal (LTG) Timothy will don his shoes and socks without an increase in baseline pain. LTG Duration 10 weeks One Impairment ROM Short Term Goal (STG) Timothy will increase his lumbar flexion AROM to 50 degrees without an increase in pain. STG Duration 4 weeks Assessment Summary Assessment Fair tolerance for deep water traction with 5#. Good tolerance for 5 rounds of intervals in deep water. Frequent cues for postural alignment and core stabilization. Physical Therapy Plan Frequency and Duration Frequency of Treatment 2x/Week Duration of Treatment 10 weeks Plan of Care Start Date 06/14/19 Plan of Care End Date 08/23/19 Therapeutic Interventions Therapeutic Interventions Aquatic Therapy Balance Training Gait Training Home Exercise Program Manual Therapy Neuromuscular Re-education Self-Care/Home Management Taping Therapeutic Exercises Modalities Cold Pack/Ice Massage Electric Stimulation Hot Packs Next Visit Focus/Plan Next Note Type Treatment Note Next Visit Plan Add stretch cord exercises and UE ex with paddles for core strengthening and stabilization.
--- NOTE | 2019-07-05 15:27 | PT.OTN ---
Current Diagnoses Chronic embolism and thrombosis of unspecified deep veins of unspecified lower extremity (07/05/19) Radiculopathy, lumbosacral region (07/05/19) Arthrodesis status (07/05/19) Physical Therapy Treatment Note PT-OP-A Visit Information Start: 06/14/19 08:15 Freq: Status: Active Protocol: Document 07/05/19 13:00 LJ (Rec: 07/05/19 15:26 LJ [email or web address]) Out-Patient Physical Therapy Visit Information Visit Information Visit Type Aquatic Treatment Note Visit Start Time 13:00 Visit Stop Time 13:45 Total Visit Minutes 45 Visit Number 7 PT-OP-B Current Condition Start: 06/14/19 08:15 Freq: Status: Active Protocol: Document 06/14/19 08:15 AMB (Rec: 06/14/19 17:37 AMB [email or web address]) Current Condition History of Current Condition Onset Date August 2018 Current Complaints back pain that radiates into left leg making mobility difficult History of Current Condition Timothy reports he fractured his spine playing tennis in August, he is unsure of the level but had to have surgery and documentation looks as if it is a thoracic fusion. He had to go to rehab and has had prior physical therapy that he was very sore from. He has rehabilitated himself previously with aquatic therapy from multiple fractures in 1964 and is hoping to be able to do PT in the pool. He reports his back pain is below his surgery and radiates into the left leg with the left foot going numb and tingling intermittently. Treatment Goals Patient/Caregiver Goals Don socks/shoes, return to tennis. He is concerned about his balance. Prior Functional Status Baseline Function- Recreation/Hobbies Pt was able to play tennis 2 hours a day before his most recent spine surgery, he has not returned to it since. Current Functional Impairments (Reported) Functional Limitations- ADL's difficulty dressing, donning socks and shoes, difficulty bending forward to pick things up from the floor Functional Limitations- Mobility/Gait fearful of falling but denies recent falls, difficulty ascending/descending stairs due to weakness in L leg. 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 PT-OP-D Balance Start: 06/15/19 07:18 Freq: Status: Active Protocol: Document 06/14/19 08:15 AMB (Rec: 06/15/19 07:28 AMB [email or web address]) Balance Tests Single Limb Standing Single Limb- Right 10 seconds Single Limb- Left 10 seconds PT-OP-E Functional Tests Start: 06/15/19 07:18 Freq: Status: Active Protocol: Document 06/14/19 08:15 AMB (Rec: 06/15/19 07:28 AMB [email or web address]) Functional Tests Dynamic Gait Index (DGI) Score 15 DGI Impairment Rating 20 to <40% Impaired (Score 15- 19) PT-OP-G Mobility & Gait Start: 06/14/19 08:15 Freq: Status: Active Protocol: Document 06/14/19 08:15 AMB (Rec: 06/15/19 07:28 AMB [email or web address]) OP Mobility Evaluation Transfers Sit to Stand uses UEs heavily for support OP Gait Assessment Comments Gait Comments Decreased trunk rotation with short step length PT-OP-J Posture/Palpation/Skin Start: 06/14/19 08:15 Freq: Status: Active Protocol: Document 06/14/19 08:15 AMB (Rec: 06/15/19 07:28 AMB [email or web address]) Posture Evaluation Comments Posture Comments flat lumbar and lower thoracic spine with severe kyphosis at thoracic- cervical junction Skin Assessment Incisional Assessment Incision Appearance/Comments scar from upper thoracic to upper lumbar spine, tight paraspinals. Scar adhesions at mid thoracic spine. PT-OP-K Range of Motion Start: 06/14/19 08:32 Freq: Status: Active Protocol: Document 06/14/19 08:15 AMB (Rec: 06/15/19 09:28 AMB [email or web address]) Lumbar Spine Range of Motion Lumbar Spine Active Degrees Testing Position Standing Flexion 40 Extension 15 Lateral Flexion Left 15 Lateral Flexion Right 15 Comments flat thoracic spine PT-OP-M Strength Start: 06/14/19 08:15 Freq: Status: Active Protocol: Document 06/14/19 08:15 AMB (Rec: 06/15/19 09:28 AMB [email or web address]) Hip Strength Hip Manual Muscle Testing Right Flexion (L2) 4+ Good+ Abduction 4+ Good+ Adduction 4+ Good+ Left Flexion (L2) 4- Good- Abduction 4 Good Adduction 4 Good Comments pt's MMT better than function, pt displays weakness in hip/ knee ankle with sit to stand and ascending stairs, especially on L. Knee Strength Knee Manual Muscle Testing Right Flexion (S2) 5 Normal Extension (L3) 5 Normal Left Flexion (S2) 5 Normal Extension (L3) 5 Normal Ankle/Foot Strength Ankle and Foot Manual Muscle Testing Right Dorsiflexion (L4) 4+ Good+ Plantarflexion (S1) 4+ Good+ Left Dorsiflexion (L4) 4+ Good+ Plantarflexion (S1) 4 Good PT-OP-Q Treatments Start: 06/14/19 08:15 Freq: Status: Active Protocol: Document 06/23/19 11:17 SAK (Rec: 06/23/19 11:49 SAK [id number]) Cardio Equipment Recumbent Stepper (Sci-Fit) Duration (Minutes) 10 Resistance 4 Gym Equipment Shuttle Recovery Unilateral Squats Resistance 50 Shuttle Recovery Platform Stable Reps/Time 2x10 Bilateral Squats Resistance 75, 87 Shuttle Recovery Platform Stable Reps/Time 2x10 Therapeutic Exercises Supine Exercises pec stretch Reps/Minutes 30x1 pillow squeeze Reps/Minutes 10x5 SKTC Reps/Minutes 30x2 4 Supine Exercise Name adductor stretch Reps/Minutes 30x2 3 Supine Exercise Name hip flexor stretch Reps/Minutes 30x2 2 Supine Exercise Name hamstring stretch Reps/Minutes 30x4 1 Supine Exercise Name piriformis stretch Reps/Minutes 30x4 Standing Exercises row, shld ext Resistance L2 Reps/Minutes 10x heel/toe raise Reps/Minutes 10x Hip ab/ad Reps/Minutes 10x PT-OP-R Modalities Start: 06/21/19 11:58 Freq: Status: Active Protocol: Document 06/23/19 11:17 SAK (Rec: 06/23/19 11:49 SAK [id number]) Electric Stimulation Electric Stimulation Interferential Current (IFC) Body Location low back Duration (Minutes) 15 Combined With Heat/Cold Hot Pack PT-OP-S Aquatic Treatment Start: 06/14/19 08:15 Freq: Status: Active Protocol: Document 07/05/19 13:00 JULIET (Rec: 07/05/19 15:26 LJ [email or web address]) Aquatics Treatment Pool Entry/Exit Pool Entry/Exit Method Stairs Assistance Independent Water Walking [place] March Water Level Chest Level Level of Assistance Verbal Cues Marching Water Level Chest Level Level of Assistance Verbal Cues Sideways Water Level Chest Level Level of Assistance Verbal Cues Backwards Water Level Chest Level Level of Assistance Verbal Cues forward Water Level Chest Level Level of Assistance Verbal Cues Lower Extremity Stretches figure-4 Details squat at pool wall Water Level Neck Level Reps/Duration 2x30 ITB Body Position Standing Water Level Chest Level Equipment Large Noodle Reps/Duration 2x45 HS Body Position Standing Water Level Chest Level Equipment Large Noodle Reps/Duration 2x45 Spinal Exercises Deep water DLS Details vertical, medium barbells Water Level [place] Reps/Duration 10x ea Comments pull downs nam and unil, pendulums [place] Activities [place] Activities Bicycle Bicycle Backwards [place] Running Equipment flotation belt Duration 15 min Comments 5 rounds of intervals 30:30 run Other deep water traction Details lumbar Body Position Standing Water Level [place] Equipment [email or web address] float, 5# nam PT-OP-T Assessment and Plan Start: 06/14/19 08:15 Freq: Status: Active Protocol: Document 07/05/19 13:00 JULIET (Rec: 07/05/19 15:26 LJ [email or web address]) Physical Therapy Assessment Goals Four Impairment fall risk Group Home Goal (LTG) Timothy will improve his DGI score to 19/24 to show decreased risk of falling. LTG Duration 10 weeks Three Impairment strength Short Term Goal (STG) Timothy will improve his lower extremity strength so that he can ascend a flight of stairs with one rail with step over step gait pattern. STG Duration 5 weeks Group Home Goal (LTG) Timothy will improve his strength so that he can move from sit to stand from a standard height chair without the need for UE support. LTG Duration 10 weeks Two Impairment pain Short Term Goal (STG) Timothy will walk for 5 minutes without increasing his back or leg pain from baseline. STG Duration 4 weeks Corn Breeder Goal (LTG) Timothy will don his shoes and socks without an increase in baseline pain. LTG Duration 10 weeks One Impairment ROM Short Term Goal (STG) Timothy will increase his lumbar flexion AROM to 50 degrees without an increase in pain. STG Duration 4 weeks Assessment Summary Assessment Pt with forward head position and rounded shoulders requiring postural cues frequently. Good tolerance for exercises and pt remained in the water with lg buoys to continue exercising on his own . Physical Therapy Plan Frequency and Duration Frequency of Treatment 2x/Week Duration of Treatment 10 weeks Plan of Care Start Date 06/14/19 Plan of Care End Date 08/23/19 Therapeutic Interventions Therapeutic Interventions Aquatic Therapy Balance Training Gait Training Home Exercise Program Manual Therapy Neuromuscular Re-education Self-Care/Home Management Taping Therapeutic Exercises Modalities Cold Pack/Ice Massage Electric Stimulation Hot Packs Next Visit Focus/Plan Next Note Type Treatment Note Next Visit Plan Add stretch cord exercises and UE ex with paddles for core strengthening and stabilization.
--- NOTE | 2019-07-07 16:59 | PT.OTN ---
Current Diagnoses Chronic embolism and thrombosis of unspecified deep veins of unspecified lower extremity (07/07/19) Radiculopathy, lumbosacral region (07/07/19) Arthrodesis status (07/07/19) Physical Therapy Treatment Note PT-OP-A Visit Information Start: 06/14/19 08:15 Freq: Status: Active Protocol: Document 07/07/19 16:53 SAK (Rec: 07/07/19 16:59 SAK [id number]) Out-Patient Physical Therapy Visit Information Visit Information Visit Type Aquatic Treatment Note Visit Start Time 12:13 Visit Stop Time 13:00 Total Visit Minutes 47 Visit Number 8 PT-OP-B Current Condition Start: 06/14/19 08:15 Freq: Status: Active Protocol: Document 06/14/19 08:15 AMB (Rec: 06/14/19 17:37 AMB [email or web address]) Current Condition History of Current Condition Onset Date August 2018 Current Complaints back pain that radiates into left leg making mobility difficult History of Current Condition Timothy reports he fractured his spine playing tennis in August, he is unsure of the level but had to have surgery and documentation looks as if it is a thoracic fusion. He had to go to rehab and has had prior physical therapy that he was very sore from. He has rehabilitated himself previously with aquatic therapy from multiple fractures in 1964 and is hoping to be able to do PT in the pool. He reports his back pain is below his surgery and radiates into the left leg with the left foot going numb and tingling intermittently. Treatment Goals Patient/Caregiver Goals Don socks/shoes, return to tennis. He is concerned about his balance. Prior Functional Status Baseline Function- Recreation/Hobbies Pt was able to play tennis 2 hours a day before his most recent spine surgery, he has not returned to it since. Current Functional Impairments (Reported) Functional Limitations- ADL's difficulty dressing, donning socks and shoes, difficulty bending forward to pick things up from the floor Functional Limitations- Mobility/Gait fearful of falling but denies recent falls, difficulty ascending/descending stairs due to weakness in L leg. 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 PT-OP-D Balance Start: 06/15/19 07:18 Freq: Status: Active Protocol: Document 06/14/19 08:15 AMB (Rec: 06/15/19 07:28 AMB [email or web address]) Balance Tests Single Limb Standing Single Limb- Right 10 seconds Single Limb- Left 10 seconds PT-OP-E Functional Tests Start: 06/15/19 07:18 Freq: Status: Active Protocol: Document 06/14/19 08:15 AMB (Rec: 06/15/19 07:28 AMB [email or web address]) Functional Tests Dynamic Gait Index (DGI) Score 15 DGI Impairment Rating 20 to <40% Impaired (Score 15- 19) PT-OP-G Mobility & Gait Start: 06/14/19 08:15 Freq: Status: Active Protocol: Document 06/14/19 08:15 AMB (Rec: 06/15/19 07:28 AMB [email or web address]) OP Mobility Evaluation Transfers Sit to Stand uses UEs heavily for support OP Gait Assessment Comments Gait Comments Decreased trunk rotation with short step length PT-OP-J Posture/Palpation/Skin Start: 06/14/19 08:15 Freq: Status: Active Protocol: Document 06/14/19 08:15 AMB (Rec: 06/15/19 07:28 AMB [email or web address]) Posture Evaluation Comments Posture Comments flat lumbar and lower thoracic spine with severe kyphosis at thoracic- cervical junction Skin Assessment Incisional Assessment Incision Appearance/Comments scar from upper thoracic to upper lumbar spine, tight paraspinals. Scar adhesions at mid thoracic spine. PT-OP-K Range of Motion Start: 06/14/19 08:32 Freq: Status: Active Protocol: Document 06/14/19 08:15 AMB (Rec: 06/15/19 09:28 AMB [email or web address]) Lumbar Spine Range of Motion Lumbar Spine Active Degrees Testing Position Standing Flexion 40 Extension 15 Lateral Flexion Left 15 Lateral Flexion Right 15 Comments flat thoracic spine PT-OP-M Strength Start: 06/14/19 08:15 Freq: Status: Active Protocol: Document 06/14/19 08:15 AMB (Rec: 06/15/19 09:28 AMB [email or web address]) Hip Strength Hip Manual Muscle Testing Right Flexion (L2) 4+ Good+ Abduction 4+ Good+ Adduction 4+ Good+ Left Flexion (L2) 4- Good- Abduction 4 Good Adduction 4 Good Comments pt's MMT better than function, pt displays weakness in hip/ knee ankle with sit to stand and ascending stairs, especially on L. Knee Strength Knee Manual Muscle Testing Right Flexion (S2) 5 Normal Extension (L3) 5 Normal Left Flexion (S2) 5 Normal Extension (L3) 5 Normal Ankle/Foot Strength Ankle and Foot Manual Muscle Testing Right Dorsiflexion (L4) 4+ Good+ Plantarflexion (S1) 4+ Good+ Left Dorsiflexion (L4) 4+ Good+ Plantarflexion (S1) 4 Good PT-OP-Q Treatments Start: 06/14/19 08:15 Freq: Status: Active Protocol: Document 06/23/19 11:17 SAK (Rec: 06/23/19 11:49 [facility] [id number]) Cardio Equipment Recumbent Stepper (Sci-Fit) Duration (Minutes) 10 Resistance 4 Gym Equipment Shuttle Recovery Unilateral Squats Resistance 50 Shuttle Recovery Platform Stable Reps/Time 2x10 Bilateral Squats Resistance 75, 87 Shuttle Recovery Platform Stable Reps/Time 2x10 Therapeutic Exercises Supine Exercises pec stretch Reps/Minutes 30x1 pillow squeeze Reps/Minutes 10x5 SKTC Reps/Minutes 30x2 4 Supine Exercise Name adductor stretch Reps/Minutes 30x2 3 Supine Exercise Name hip flexor stretch Reps/Minutes 30x2 2 Supine Exercise Name hamstring stretch Reps/Minutes 30x4 1 Supine Exercise Name piriformis stretch Reps/Minutes 30x4 Standing Exercises row, shld ext Resistance L2 Reps/Minutes 10x heel/toe raise Reps/Minutes 10x Hip ab/ad Reps/Minutes 10x PT-OP-R Modalities Start: 06/21/19 11:58 Freq: Status: Active Protocol: Document 06/23/19 11:17 SAK (Rec: 06/23/19 11:49 SAK [id number]) Electric Stimulation Electric Stimulation Interferential Current (IFC) Body Location low back Duration (Minutes) 15 Combined With Heat/Cold Hot Pack PT-OP-S Aquatic Treatment Start: 06/14/19 08:15 Freq: Status: Active Protocol: Document 07/07/19 16:53 [facility] (Rec: 07/07/19 16:59 [facility] [id number]) Aquatics Treatment Pool Entry/Exit Pool Entry/Exit Method Stairs Assistance Independent Water Walking [place] March Water Level Chest Level Walking Equipment Resistance Fins large Level of Assistance Verbal Cues Marching Water Level Chest Level Walking Equipment resistance fins large Level of Assistance Verbal Cues Sideways Water Level Chest Level Walking Equipment resistance fins large Level of Assistance Verbal Cues Backwards Water Level Chest Level Walking Equipment resistance fins large Level of Assistance Verbal Cues forward Water Level Chest Level Walking Equipment resistance fins large Level of Assistance Verbal Cues Lower Extremity Stretches figure-4 Details squat at pool wall Water Level Neck Level Reps/Duration 2x30 ITB Body Position Standing Water Level Chest Level Equipment Large Noodle Reps/Duration 2x45 HS Body Position Standing Water Level Chest Level Equipment Large Noodle Reps/Duration 2x45 Spinal Exercises Deep water DLS Details vertical, medium barbells Water Level [place] Reps/Duration 10x ea Comments pull downs nam and unil, pendulums [place] Activities [place] Activities Bicycle,Bicycle Backwards, Cross [place],Running,Sit Kicks Equipment flotation belt Duration 17 min Comments 5 rounds of intervals 30:30 run Other deep water traction Details lumbar Body Position Standing Water Level [place] Equipment [place] float, 7# nam PT-OP-T Assessment and Plan Start: 06/14/19 08:15 Freq: Status: Active Protocol: Document 07/07/19 16:53 [facility] (Rec: 07/07/19 16:59 [facility] [id number]) Physical Therapy Assessment Goals Four Impairment fall risk Intermediate Goal (LTG) Timothy will improve his DGI score to 19/24 to show decreased risk of falling. LTG Duration 10 weeks Three Impairment strength Short Term Goal (STG) Timothy will improve his lower extremity strength so that he can ascend a flight of stairs with one rail with step over step gait pattern. STG Duration 5 weeks Media Strategist Goal (LTG) Timothy will improve his strength so that he can move from sit to stand from a standard height chair without the need for UE support. LTG Duration 10 weeks Two Impairment pain Short Term Goal (STG) Timothy will walk for 5 minutes without increasing his back or leg pain from baseline. STG Duration 4 weeks Media Strategist Goal (LTG) Timothy will don his shoes and socks without an increase in baseline pain. LTG Duration 10 weeks One Impairment ROM Short Term Goal (STG) Timothy will increase his lumbar flexion AROM to 50 degrees without an increase in pain. STG Duration 4 weeks Assessment Summary Assessment Patient tolerating increased intensity of exercises, denied pain except with straight leg march with resistance fins, no pain when modified with smaller range of motion. Physical Therapy Plan Frequency and Duration Frequency of Treatment 2x/Week Duration of Treatment 10 weeks Plan of Care Start Date 06/14/19 Plan of Care End Date 08/23/19 Therapeutic Interventions Therapeutic Interventions Aquatic Therapy,Balance Training,Gait Training,Home Exercise Program,Manual Therapy,Neuromuscular Re- education,Self-Care/Home Management,Taping,Therapeutic Exercises Modalities Cold Pack/Ice Massage,Electric Stimulation,Hot Packs Next Visit Focus/Plan Next Note Type Treatment Note Next Visit Plan Add stretch cord exercises and UE ex with paddles for core strengthening and stabilization. Also functional tennis movements in shallow and possibly with stretch cords.
--- NOTE | 2019-07-14 16:47 | PT.OTN ---
Current Diagnoses Chronic embolism and thrombosis of unspecified deep veins of unspecified lower extremity (07/14/19) Radiculopathy, lumbosacral region (07/14/19) Arthrodesis status (07/14/19) Physical Therapy Treatment Note PT-OP-A Visit Information Start: 06/14/19 08:15 Freq: Status: Active Protocol: Document 07/14/19 10:15 LJ (Rec: 07/14/19 16:47 LJ [email or web address]) Out-Patient Physical Therapy Visit Information Visit Information Visit Type Aquatic Treatment Note Visit Start Time 10:15 Visit Stop Time 11:00 Total Visit Minutes 45 Visit Number 9 Number of CONVALESCENT SITTER Visits 1 PT-OP-B Current Condition Start: 06/14/19 08:15 Freq: Status: Active Protocol: Document 06/14/19 08:15 AMB (Rec: 06/14/19 17:37 AMB [email or web address]) Current Condition History of Current Condition Onset Date August 2018 Current Complaints back pain that radiates into left leg making mobility difficult History of Current Condition Timothy reports he fractured his spine playing tennis in August, he is unsure of the level but had to have surgery and documentation looks as if it is a thoracic fusion. He had to go to rehab and has had prior physical therapy that he was very sore from. He has rehabilitated himself previously with aquatic therapy from multiple fractures in 1964 and is hoping to be able to do PT in the pool. He reports his back pain is below his surgery and radiates into the left leg with the left foot going numb and tingling intermittently. Treatment Goals Patient/Caregiver Goals Don socks/shoes, return to tennis. He is concerned about his balance. Prior Functional Status Baseline Function- Recreation/Hobbies Pt was able to play tennis 2 hours a day before his most recent spine surgery, he has not returned to it since. Current Functional Impairments (Reported) Functional Limitations- ADL's difficulty dressing, donning socks and shoes, difficulty bending forward to pick things up from the floor Functional Limitations- Mobility/Gait fearful of falling but denies recent falls, difficulty ascending/descending stairs due to weakness in L leg. 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 PT-OP-D Balance Start: 06/15/19 07:18 Freq: Status: Active Protocol: Document 06/14/19 08:15 AMB (Rec: 06/15/19 07:28 AMB [email or web address]) Balance Tests Single Limb Standing Single Limb- Right 10 seconds Single Limb- Left 10 seconds PT-OP-E Functional Tests Start: 06/15/19 07:18 Freq: Status: Active Protocol: Document 06/14/19 08:15 AMB (Rec: 06/15/19 07:28 AMB [email or web address]) Functional Tests Dynamic Gait Index (DGI) Score 15 DGI Impairment Rating 20 to <40% Impaired (Score 15- 19) PT-OP-G Mobility & Gait Start: 06/14/19 08:15 Freq: Status: Active Protocol: Document 06/14/19 08:15 AMB (Rec: 06/15/19 07:28 AMB [email or web address]) OP Mobility Evaluation Transfers Sit to Stand uses UEs heavily for support OP Gait Assessment Comments Gait Comments Decreased trunk rotation with short step length PT-OP-J Posture/Palpation/Skin Start: 06/14/19 08:15 Freq: Status: Active Protocol: Document 06/14/19 08:15 AMB (Rec: 06/15/19 07:28 AMB [email or web address]) Posture Evaluation Comments Posture Comments flat lumbar and lower thoracic spine with severe kyphosis at thoracic- cervical junction Skin Assessment Incisional Assessment Incision Appearance/Comments scar from upper thoracic to upper lumbar spine, tight paraspinals. Scar adhesions at mid thoracic spine. PT-OP-K Range of Motion Start: 06/14/19 08:32 Freq: Status: Active Protocol: Document 06/14/19 08:15 AMB (Rec: 06/15/19 09:28 AMB [email or web address]) Lumbar Spine Range of Motion Lumbar Spine Active Degrees Testing Position Standing Flexion 40 Extension 15 Lateral Flexion Left 15 Lateral Flexion Right 15 Comments flat thoracic spine PT-OP-M Strength Start: 06/14/19 08:15 Freq: Status: Active Protocol: Document 06/14/19 08:15 AMB (Rec: 06/15/19 09:28 AMB [email or web address]) Hip Strength Hip Manual Muscle Testing Right Flexion (L2) 4+ Good+ Abduction 4+ Good+ Adduction 4+ Good+ Left Flexion (L2) 4- Good- Abduction 4 Good Adduction 4 Good Comments pt's MMT better than function, pt displays weakness in hip/ knee ankle with sit to stand and ascending stairs, especially on L. Knee Strength Knee Manual Muscle Testing Right Flexion (S2) 5 Normal Extension (L3) 5 Normal Left Flexion (S2) 5 Normal Extension (L3) 5 Normal Ankle/Foot Strength Ankle and Foot Manual Muscle Testing Right Dorsiflexion (L4) 4+ Good+ Plantarflexion (S1) 4+ Good+ Left Dorsiflexion (L4) 4+ Good+ Plantarflexion (S1) 4 Good PT-OP-Q Treatments Start: 06/14/19 08:15 Freq: Status: Active Protocol: Document 06/23/19 11:17 SAK (Rec: 06/23/19 11:49 SAK [id number]) Cardio Equipment Recumbent Stepper (Sci-Fit) Duration (Minutes) 10 Resistance 4 Gym Equipment Shuttle Recovery Unilateral Squats Resistance 50 Shuttle Recovery Platform Stable Reps/Time 2x10 Bilateral Squats Resistance 75, 87 Shuttle Recovery Platform Stable Reps/Time 2x10 Therapeutic Exercises Supine Exercises pec stretch Reps/Minutes 30x1 pillow squeeze Reps/Minutes 10x5 SKTC Reps/Minutes 30x2 4 Supine Exercise Name adductor stretch Reps/Minutes 30x2 3 Supine Exercise Name hip flexor stretch Reps/Minutes 30x2 2 Supine Exercise Name hamstring stretch Reps/Minutes 30x4 1 Supine Exercise Name piriformis stretch Reps/Minutes 30x4 Standing Exercises row, shld ext Resistance L2 Reps/Minutes 10x heel/toe raise Reps/Minutes 10x Hip ab/ad Reps/Minutes 10x PT-OP-R Modalities Start: 06/21/19 11:58 Freq: Status: Active Protocol: Document 06/23/19 11:17 SAK (Rec: 06/23/19 11:49 SAK [id number]) Electric Stimulation Electric Stimulation Interferential Current (IFC) Body Location low back Duration (Minutes) 15 Combined With Heat/Cold Hot Pack PT-OP-S Aquatic Treatment Start: 06/14/19 08:15 Freq: Status: Active Protocol: Document 07/14/19 10:15 JULIET (Rec: 07/14/19 16:47 LJ [email or web address]) Aquatics Treatment Pool Entry/Exit Pool Entry/Exit Method Stairs Assistance Independent Water Walking [place] March Water Level Chest Level Walking Equipment Resistance Fins large Level of Assistance Verbal Cues Marching Water Level Chest Level Walking Equipment resistance fins large Level of Assistance Verbal Cues Sideways Water Level Chest Level Walking Equipment resistance fins large Level of Assistance Verbal Cues Backwards Water Level Chest Level Walking Equipment resistance fins large Level of Assistance Verbal Cues forward Water Level Chest Level Walking Equipment resistance fins large Level of Assistance Verbal Cues Lower Extremity Exercises HS curls Body Position Standing Water Level Chest Level Reps/Duration 2x10 Comments verbal and manual cues for posture Bilateral hip flex/ext, abd/add Body Position Standing Water Level Chest Level Reps/Duration 2x15 ea Comments verbal cues for posture Lower Extremity Stretches figure-4 Details squat at pool wall Water Level Neck Level Reps/Duration 2x30 ITB Body Position Standing Water Level Chest Level Equipment Large Noodle Reps/Duration 2x45 HS Body Position Standing Water Level Chest Level Equipment Large Noodle Reps/Duration 2x45 Upper Extremity Stretches forward walking with paddles Comments cues for keeping arms extended rather than flexing pecs Spinal Exercises Deep water DLS Details vertical, medium barbells Water Level [place] Reps/Duration 10x ea Comments pull downs nam and unil, pendulums [place] Activities [place] Activities Bicycle,Bicycle Backwards, Cross Country,Running,Sit Kicks Equipment flotation belt Duration 12 min Comments 4 rounds of intervals 30:30 run PT-OP-T Assessment and Plan Start: 06/14/19 08:15 Freq: Status: Active Protocol: Document 07/14/19 10:15 JULIET (Rec: 07/14/19 16:47 LJ [email or web address]) Physical Therapy Assessment Goals Four Impairment fall risk Snf Goal (LTG) Timothy will improve his DGI score to 19/24 to show decreased risk of falling. LTG Duration 10 weeks Three Impairment strength Short Term Goal (STG) Timothy will improve his lower extremity strength so that he can ascend a flight of stairs with one rail with step over step gait pattern. STG Duration 5 weeks Control Panel Operator Crude Unit Goal (LTG) Timothy will improve his strength so that he can move from sit to stand from a standard height chair without the need for UE support. LTG Duration 10 weeks Two Impairment pain Short Term Goal (STG) Timothy will walk for 5 minutes without increasing his back or leg pain from baseline. STG Duration 4 weeks Snf Goal (LTG) Timothy will don his shoes and socks without an increase in baseline pain. LTG Duration 10 weeks One Impairment ROM Short Term Goal (STG) Timothy will increase his lumbar flexion AROM to 50 degrees without an increase in pain. STG Duration 4 weeks Assessment Summary Assessment Pt complained of ppain in right low back with soldier march and hip flexion. When cued to tighten glutes pain went away and ROM increased. Pt remained in the water for several minutes after session ended and continued to walk in shallow water. Physical Therapy Plan Frequency and Duration Frequency of Treatment 2x/Week Duration of Treatment 10 weeks Plan of Care Start Date 06/14/19 Plan of Care End Date 08/23/19 Therapeutic Interventions Therapeutic Interventions Aquatic Therapy,Balance Training,Gait Training,Home Exercise Program,Manual Therapy,Neuromuscular Re- education,Self-Care/Home Management,Taping,Therapeutic Exercises Modalities Cold Pack/Ice Massage,Electric Stimulation,Hot Packs Next Visit Focus/Plan Next Note Type Treatment Note Next Visit Plan Add stretch cord exercises and UE ex with paddles for core strengthening and stabilization. Also functional tennis movements in shallow and possibly with stretch cords.
--- NOTE | 2019-07-16 15:48 | PT.OTN ---
Current Diagnoses Chronic embolism and thrombosis of unspecified deep veins of unspecified lower extremity (07/16/19) Radiculopathy, lumbosacral region (07/16/19) Arthrodesis status (07/16/19) Physical Therapy Treatment Note PT-OP-A Visit Information Start: 06/14/19 08:15 Freq: Status: Active Protocol: Document 07/16/19 10:15 LJ (Rec: 07/16/19 15:35 LJ [email or web address]) Out-Patient Physical Therapy Visit Information Visit Information Visit Type Aquatic Treatment Note Visit Start Time 10:15 Visit Stop Time 11:00 Total Visit Minutes 45 Visit Number 9 Number of SPECIAL EFFECTS TECHNICIAN Visits 1 PT-OP-B Current Condition Start: 06/14/19 08:15 Freq: Status: Active Protocol: Document 06/14/19 08:15 AMB (Rec: 06/14/19 17:37 AMB [email or web address]) Current Condition History of Current Condition Onset Date August 2018 Current Complaints back pain that radiates into left leg making mobility difficult History of Current Condition Timothy reports he fractured his spine playing tennis in August, he is unsure of the level but had to have surgery and documentation looks as if it is a thoracic fusion. He had to go to rehab and has had prior physical therapy that he was very sore from. He has rehabilitated himself previously with aquatic therapy from multiple fractures in 1964 and is hoping to be able to do PT in the pool. He reports his back pain is below his surgery and radiates into the left leg with the left foot going numb and tingling intermittently. Treatment Goals Patient/Caregiver Goals Don socks/shoes, return to tennis. He is concerned about his balance. Prior Functional Status Baseline Function- Recreation/Hobbies Pt was able to play tennis 2 hours a day before his most recent spine surgery, he has not returned to it since. Current Functional Impairments (Reported) Functional Limitations- ADL's difficulty dressing, donning socks and shoes, difficulty bending forward to pick things up from the floor Functional Limitations- Mobility/Gait fearful of falling but denies recent falls, difficulty ascending/descending stairs due to weakness in L leg. 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) PT-OP-C Subjective Start: 06/14/19 08:15 Freq: Status: Active Protocol: Document 07/16/19 10:15 LJ (Rec: 07/16/19 15:35 LJ [email or web address]) OP-PT Subjective Patient Comments Patient Comments Pt still complaining about feeling stiff. Says he wants to lose weight and exercise more. He had a massage before pool therapy and MT pointed out a depression on his lateral thigh. Pt states it is not sore or painful but tender when palpated by this therapist. PT-OP-D Balance Start: 06/15/19 07:18 Freq: Status: Active Protocol: Document 06/14/19 08:15 AMB (Rec: 06/15/19 07:28 AMB [email or web address]) Balance Tests Single Limb Standing Single Limb- Right 10 seconds Single Limb- Left 10 seconds PT-OP-E Functional Tests Start: 06/15/19 07:18 Freq: Status: Active Protocol: Document 06/14/19 08:15 AMB (Rec: 06/15/19 07:28 AMB [email or web address]) Functional Tests Dynamic Gait Index (DGI) Score 15 DGI Impairment Rating 20 to <40% Impaired (Score 15- 19) PT-OP-G Mobility & Gait Start: 06/14/19 08:15 Freq: Status: Active Protocol: Document 06/14/19 08:15 AMB (Rec: 06/15/19 07:28 AMB [email or web address]) OP Mobility Evaluation Transfers Sit to Stand uses UEs heavily for support OP Gait Assessment Comments Gait Comments Decreased trunk rotation with short step length PT-OP-J Posture/Palpation/Skin Start: 06/14/19 08:15 Freq: Status: Active Protocol: Document 06/14/19 08:15 AMB (Rec: 06/15/19 07:28 AMB [email or web address]) Posture Evaluation Comments Posture Comments flat lumbar and lower thoracic spine with severe kyphosis at thoracic- cervical junction Skin Assessment Incisional Assessment Incision Appearance/Comments scar from upper thoracic to upper lumbar spine, tight paraspinals. Scar adhesions at mid thoracic spine. PT-OP-K Range of Motion Start: 06/14/19 08:32 Freq: Status: Active Protocol: Document 06/14/19 08:15 AMB (Rec: 06/15/19 09:28 AMB [email or web address]) Lumbar Spine Range of Motion Lumbar Spine Active Degrees Testing Position Standing Flexion 40 Extension 15 Lateral Flexion Left 15 Lateral Flexion Right 15 Comments flat thoracic spine PT-OP-M Strength Start: 06/14/19 08:15 Freq: Status: Active Protocol: Document 06/14/19 08:15 AMB (Rec: 06/15/19 09:28 AMB [email or web address]) Hip Strength Hip Manual Muscle Testing Right Flexion (L2) 4+ Good+ Abduction 4+ Good+ Adduction 4+ Good+ Left Flexion (L2) 4- Good- Abduction 4 Good Adduction 4 Good Comments pt's MMT better than function, pt displays weakness in hip/ knee ankle with sit to stand and ascending stairs, especially on L. Knee Strength Knee Manual Muscle Testing Right Flexion (S2) 5 Normal Extension (L3) 5 Normal Left Flexion (S2) 5 Normal Extension (L3) 5 Normal Ankle/Foot Strength Ankle and Foot Manual Muscle Testing Right Dorsiflexion (L4) 4+ Good+ Plantarflexion (S1) 4+ Good+ Left Dorsiflexion (L4) 4+ Good+ Plantarflexion (S1) 4 Good PT-OP-Q Treatments Start: 06/14/19 08:15 Freq: Status: Active Protocol: Document 06/23/19 11:17 SAK (Rec: 06/23/19 11:49 SAK [id number]) Cardio Equipment Recumbent Stepper (Sci-Fit) Duration (Minutes) 10 Resistance 4 Gym Equipment Shuttle Recovery Unilateral Squats Resistance 50 Shuttle Recovery Platform Stable Reps/Time 2x10 Bilateral Squats Resistance 75, 87 Shuttle Recovery Platform Stable Reps/Time 2x10 Therapeutic Exercises Supine Exercises pec stretch Reps/Minutes 30x1 pillow squeeze Reps/Minutes 10x5 SKTC Reps/Minutes 30x2 4 Supine Exercise Name adductor stretch Reps/Minutes 30x2 3 Supine Exercise Name hip flexor stretch Reps/Minutes 30x2 2 Supine Exercise Name hamstring stretch Reps/Minutes 30x4 1 Supine Exercise Name piriformis stretch Reps/Minutes 30x4 Standing Exercises row, shld ext Resistance L2 Reps/Minutes 10x heel/toe raise Reps/Minutes 10x Hip ab/ad Reps/Minutes 10x PT-OP-R Modalities Start: 06/21/19 11:58 Freq: Status: Active Protocol: Document 06/23/19 11:17 SAK (Rec: 06/23/19 11:49 SAK [id number]) Electric Stimulation Electric Stimulation Interferential Current (IFC) Body Location low back Duration (Minutes) 15 Combined With Heat/Cold Hot Pack PT-OP-S Aquatic Treatment Start: 06/14/19 08:15 Freq: Status: Active Protocol: Document 07/16/19 10:15 JULIET (Rec: 07/16/19 15:35 LJ [email or web address]) Aquatics Treatment Pool Entry/Exit Pool Entry/Exit Method Stairs Assistance Independent Water Walking [place] March Water Level Chest Level Walking Equipment Resistance Fins large Level of Assistance Verbal Cues Marching Water Level Chest Level Walking Equipment resistance fins large Level of Assistance Verbal Cues Sideways Water Level Chest Level Walking Equipment resistance fins large Level of Assistance Verbal Cues Backwards Water Level Chest Level Walking Equipment resistance fins large Level of Assistance Verbal Cues forward Water Level Chest Level Walking Equipment resistance fins large Level of Assistance Verbal Cues Comments added arm floats for increased resistance and pec stretch Lower Extremity Exercises HS curls Body Position Standing Water Level Chest Level Reps/Duration 2x10 Comments verbal and manual cues for posture Bilateral hip flex/ext, abd/add Body Position Standing Water Level Chest Level Reps/Duration 2x15 ea Comments verbal cues for posture Lower Extremity Stretches figure-4 Details squat at pool wall Water Level Neck Level Reps/Duration 2x30 ITB Body Position Standing Water Level Chest Level Equipment Large Noodle Reps/Duration 2x45 Balance seated on lg noodle Body Position Sitting Water Level Chest Level Reps/Duration 12 min Comments with movement and without [place] Activities [place] Activities Bicycle,Cross Country Equipment flotation belt Duration 12 min PT-OP-T Assessment and Plan Start: 06/14/19 08:15 Freq: Status: Active Protocol: Document 07/16/19 10:15 JULIET (Rec: 07/16/19 15:35 [email or web address]) Physical Therapy Assessment Goals Four Impairment fall risk Haunted History Tour Guide Goal (LTG) Timothy will improve his DGI score to 19/24 to show decreased risk of falling. LTG Duration 10 weeks Three Impairment strength Short Term Goal (STG) Timothy will improve his lower extremity strength so that he can ascend a flight of stairs with one rail with step over step gait pattern. STG Duration 5 weeks Haunted History Tour Guide Goal (LTG) Timothy will improve his strength so that he can move from sit to stand from a standard height chair without the need for UE support. LTG Duration 10 weeks Two Impairment pain Short Term Goal (STG) Timothy will walk for 5 minutes without increasing his back or leg pain from baseline. STG Duration 4 weeks Fdc Goal (LTG) Timothy will don his shoes and socks without an increase in baseline pain. LTG Duration 10 weeks One Impairment ROM Short Term Goal (STG) Timothy will increase his lumbar flexion AROM to 50 degrees without an increase in pain. STG Duration 4 weeks Assessment Summary Assessment Pt had a few c/o slight, short instances of pain with directional changes during exercise. Had some difficulty with balance on noodle inintially but was able to stabilize with movement and gentle perturbations after a few minutes. Physical Therapy Plan Frequency and Duration Frequency of Treatment 2x/Week Duration of Treatment 10 weeks Plan of Care Start Date 06/14/19 Plan of Care End Date 08/23/19 Therapeutic Interventions Therapeutic Interventions Aquatic Therapy,Balance Training,Gait Training,Home Exercise Program,Manual Therapy,Neuromuscular Re- education,Self-Care/Home Management,Taping,Therapeutic Exercises Modalities Cold Pack/Ice Massage,Electric Stimulation,Hot Packs Next Visit Focus/Plan Next Note Type Treatment Note Next Visit Plan Add stretch cord exercises and UE ex with paddles for core strengthening and stabilization. Also functional tennis movements in shallow and possibly with stretch cords.
--- NOTE | 2019-07-19 15:57 | PT.OTN ---
Current Diagnoses Chronic embolism and thrombosis of unspecified deep veins of unspecified lower extremity (07/19/19) Radiculopathy, lumbosacral region (07/19/19) Arthrodesis status (07/19/19) Physical Therapy Treatment Note PT-OP-A Visit Information Start: 06/14/19 08:15 Freq: Status: Active Protocol: Document 07/19/19 10:15 LJ (Rec: 07/19/19 15:57 LJ [id number]) Out-Patient Physical Therapy Visit Information Visit Information Visit Type Aquatic Treatment Note Visit Start Time 10:15 Visit Stop Time 11:00 Total Visit Minutes 45 Visit Number 10 Number of PROGRAM SUPPORT CLERK Visits 2 PT-OP-B Current Condition Start: 06/14/19 08:15 Freq: Status: Active Protocol: Document 06/14/19 08:15 AMB (Rec: 06/14/19 17:37 AMB [email or web address]) Current Condition History of Current Condition Onset Date August 2018 Current Complaints back pain that radiates into left leg making mobility difficult History of Current Condition Timothy reports he fractured his spine playing tennis in August, he is unsure of the level but had to have surgery and documentation looks as if it is a thoracic fusion. He had to go to rehab and has had prior physical therapy that he was very sore from. He has rehabilitated himself previously with aquatic therapy from multiple fractures in 1964 and is hoping to be able to do PT in the pool. He reports his back pain is below his surgery and radiates into the left leg with the left foot going numb and tingling intermittently. Treatment Goals Patient/Caregiver Goals Don socks/shoes, return to tennis. He is concerned about his balance. Prior Functional Status Baseline Function- Recreation/Hobbies Pt was able to play tennis 2 hours a day before his most recent spine surgery, he has not returned to it since. Current Functional Impairments (Reported) Functional Limitations- ADL's difficulty dressing, donning socks and shoes, difficulty bending forward to pick things up from the floor Functional Limitations- Mobility/Gait fearful of falling but denies recent falls, difficulty ascending/descending stairs due to weakness in L leg. 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 PT-OP-D Balance Start: 06/15/19 07:18 Freq: Status: Active Protocol: Document 06/14/19 08:15 AMB (Rec: 06/15/19 07:28 AMB [email or web address]) Balance Tests Single Limb Standing Single Limb- Right 10 seconds Single Limb- Left 10 seconds PT-OP-E Functional Tests Start: 06/15/19 07:18 Freq: Status: Active Protocol: Document 06/14/19 08:15 AMB (Rec: 06/15/19 07:28 AMB [email or web address]) Functional Tests Dynamic Gait Index (DGI) Score 15 DGI Impairment Rating 20 to <40% Impaired (Score 15- 19) PT-OP-G Mobility & Gait Start: 06/14/19 08:15 Freq: Status: Active Protocol: Document 06/14/19 08:15 AMB (Rec: 06/15/19 07:28 AMB [email or web address]) OP Mobility Evaluation Transfers Sit to Stand uses UEs heavily for support OP Gait Assessment Comments Gait Comments Decreased trunk rotation with short step length PT-OP-J Posture/Palpation/Skin Start: 06/14/19 08:15 Freq: Status: Active Protocol: Document 06/14/19 08:15 AMB (Rec: 06/15/19 07:28 AMB [email or web address]) Posture Evaluation Comments Posture Comments flat lumbar and lower thoracic spine with severe kyphosis at thoracic- cervical junction Skin Assessment Incisional Assessment Incision Appearance/Comments scar from upper thoracic to upper lumbar spine, tight paraspinals. Scar adhesions at mid thoracic spine. PT-OP-K Range of Motion Start: 06/14/19 08:32 Freq: Status: Active Protocol: Document 06/14/19 08:15 AMB (Rec: 06/15/19 09:28 AMB [email or web address]) Lumbar Spine Range of Motion Lumbar Spine Active Degrees Testing Position Standing Flexion 40 Extension 15 Lateral Flexion Left 15 Lateral Flexion Right 15 Comments flat thoracic spine PT-OP-M Strength Start: 06/14/19 08:15 Freq: Status: Active Protocol: Document 06/14/19 08:15 AMB (Rec: 06/15/19 09:28 AMB [email or web address]) Hip Strength Hip Manual Muscle Testing Right Flexion (L2) 4+ Good+ Abduction 4+ Good+ Adduction 4+ Good+ Left Flexion (L2) 4- Good- Abduction 4 Good Adduction 4 Good Comments pt's MMT better than function, pt displays weakness in hip/ knee ankle with sit to stand and ascending stairs, especially on L. Knee Strength Knee Manual Muscle Testing Right Flexion (S2) 5 Normal Extension (L3) 5 Normal Left Flexion (S2) 5 Normal Extension (L3) 5 Normal Ankle/Foot Strength Ankle and Foot Manual Muscle Testing Right Dorsiflexion (L4) 4+ Good+ Plantarflexion (S1) 4+ Good+ Left Dorsiflexion (L4) 4+ Good+ Plantarflexion (S1) 4 Good PT-OP-Q Treatments Start: 06/14/19 08:15 Freq: Status: Active Protocol: Document 06/23/19 11:17 SAK (Rec: 06/23/19 11:49 SAK [id number]) Cardio Equipment Recumbent Stepper (Sci-Fit) Duration (Minutes) 10 Resistance 4 Gym Equipment Shuttle Recovery Unilateral Squats Resistance 50 Shuttle Recovery Platform Stable Reps/Time 2x10 Bilateral Squats Resistance 75, 87 Shuttle Recovery Platform Stable Reps/Time 2x10 Therapeutic Exercises Supine Exercises pec stretch Reps/Minutes 30x1 pillow squeeze Reps/Minutes 10x5 SKTC Reps/Minutes 30x2 4 Supine Exercise Name adductor stretch Reps/Minutes 30x2 3 Supine Exercise Name hip flexor stretch Reps/Minutes 30x2 2 Supine Exercise Name hamstring stretch Reps/Minutes 30x4 1 Supine Exercise Name piriformis stretch Reps/Minutes 30x4 Standing Exercises row, shld ext Resistance L2 Reps/Minutes 10x heel/toe raise Reps/Minutes 10x Hip ab/ad Reps/Minutes 10x PT-OP-R Modalities Start: 06/21/19 11:58 Freq: Status: Active Protocol: Document 06/23/19 11:17 SAK (Rec: 06/23/19 11:49 SAK [id number]) Electric Stimulation Electric Stimulation Interferential Current (IFC) Body Location low back Duration (Minutes) 15 Combined With Heat/Cold Hot Pack PT-OP-S Aquatic Treatment Start: 06/14/19 08:15 Freq: Status: Active Protocol: Document 07/19/19 10:15 JULIET (Rec: 07/19/19 15:57 LJ [id number]) Aquatics Treatment Pool Entry/Exit Pool Entry/Exit Method Stairs Assistance Independent Water Walking [place] March Water Level Chest Level Walking Equipment Resistance Fins large Level of Assistance Verbal Cues Marching Water Level Chest Level Walking Equipment resistance fins large Level of Assistance Verbal Cues Sideways Water Level Chest Level Walking Equipment Ankle Weight- 5.0# Level of Assistance Verbal Cues Backwards Water Level Chest Level Walking Equipment Ankle Weight- 5.0# Level of Assistance Verbal Cues forward Water Level Chest Level Walking Equipment Ankle Weight- 5.0# Level of Assistance Verbal Cues Lower Extremity Exercises Bilateral hip flex/ext, abd/add Body Position Standing Water Level Chest Level Reps/Duration 2x15 ea Comments verbal cues for posture Lower Extremity Stretches ITB Body Position Standing Water Level Chest Level Equipment Large Noodle Reps/Duration 2x45 HS Body Position Standing Water Level Chest Level Equipment Large Noodle Reps/Duration 2x45 Upper Extremity Exercises flex/ext, abd/add, overhead ext- Details varying forms of tennis swings Body Position Standing Water Level Chest Level Equipment green band attached to flag pole Reps/Duration 5 min Upper Extremity Stretches forward walking with paddles Comments cues for keeping arms extended rather than flexing pecs Spinal Exercises Deep water DLS Details vertical, medium barbells Water Level [place] Reps/Duration 10x ea Comments pull downs nam and unil, pendulums Balance kneeling on lg noodle Reps/Duration 5 min Comments with difficulty seated on lg noodle Body Position Sitting Water Level Chest Level Reps/Duration 5 min Comments with movement and without [place] Activities [place] Activities Bicycle,Cross Country Duration 8 min PT-OP-T Assessment and Plan Start: 06/14/19 08:15 Freq: Status: Active Protocol: Document 07/19/19 10:15 JULIET (Rec: 07/19/19 15:57 JULIET [id number]) Physical Therapy Assessment Goals Four Impairment fall risk Usp Goal (LTG) Timothy will improve his DGI score to 19/24 to show decreased risk of falling. LTG Duration 10 weeks Three Impairment strength Short Term Goal (STG) Timothy will improve his lower extremity strength so that he can ascend a flight of stairs with one rail with step over step gait pattern. STG Duration 5 weeks Usp Goal (LTG) Timothy will improve his strength so that he can move from sit to stand from a standard height chair without the need for UE support. LTG Duration 10 weeks Two Impairment pain Short Term Goal (STG) Timothy will walk for 5 minutes without increasing his back or leg pain from baseline. STG Duration 4 weeks Architectural Renderer Goal (LTG) Timothy will don his shoes and socks without an increase in baseline pain. LTG Duration 10 weeks One Impairment ROM Short Term Goal (STG) Timothy will increase his lumbar flexion AROM to 50 degrees without an increase in pain. STG Duration 4 weeks Assessment Summary Assessment No c/o pain this session. Pt is improving with posture when cued. Re'q verbal cueing with tennis swimg exercises. Pt remained after session to continue water walking. Physical Therapy Plan Frequency and Duration Frequency of Treatment 2x/Week Duration of Treatment 10 weeks Plan of Care Start Date 06/14/19 Plan of Care End Date 08/23/19 Therapeutic Interventions Therapeutic Interventions Aquatic Therapy,Balance Training,Gait Training,Home Exercise Program,Manual Therapy,Neuromuscular Re- education,Self-Care/Home Management,Taping,Therapeutic Exercises Modalities Cold Pack/Ice Massage,Electric Stimulation,Hot Packs Next Visit Focus/Plan Next Note Type Treatment Note Next Visit Plan Continue with functional tennis movements and posture correction.
--- NOTE | 2019-07-21 14:24 | PT.OTN ---
Current Diagnoses Chronic embolism and thrombosis of unspecified deep veins of unspecified lower extremity (07/21/19) Radiculopathy, lumbosacral region (07/21/19) Arthrodesis status (07/21/19) Physical Therapy Treatment Note PT-OP-A Visit Information Start: 06/14/19 08:15 Freq: Status: Active Protocol: Document 07/21/19 10:15 LJ (Rec: 07/21/19 14:23 LJ [email or web address]) Out-Patient Physical Therapy Visit Information Visit Information Visit Type Aquatic Treatment Note Visit Start Time 10:15 Visit Stop Time 11:00 Total Visit Minutes 45 Visit Number 10 Number of TRANSPORTATION ESCORT Visits 2 PT-OP-B Current Condition Start: 06/14/19 08:15 Freq: Status: Active Protocol: Document 06/14/19 08:15 AMB (Rec: 06/14/19 17:37 AMB [email or web address]) Current Condition History of Current Condition Onset Date August 2018 Current Complaints back pain that radiates into left leg making mobility difficult History of Current Condition Timothy reports he fractured his spine playing tennis in August, he is unsure of the level but had to have surgery and documentation looks as if it is a thoracic fusion. He had to go to rehab and has had prior physical therapy that he was very sore from. He has rehabilitated himself previously with aquatic therapy from multiple fractures in 1964 and is hoping to be able to do PT in the pool. He reports his back pain is below his surgery and radiates into the left leg with the left foot going numb and tingling intermittently. Treatment Goals Patient/Caregiver Goals Don socks/shoes, return to tennis. He is concerned about his balance. Prior Functional Status Baseline Function- Recreation/Hobbies Pt was able to play tennis 2 hours a day before his most recent spine surgery, he has not returned to it since. Current Functional Impairments (Reported) Functional Limitations- ADL's difficulty dressing, donning socks and shoes, difficulty bending forward to pick things up from the floor Functional Limitations- Mobility/Gait fearful of falling but denies recent falls, difficulty ascending/descending stairs due to weakness in L leg. 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) PT-OP-C Subjective Start: 06/14/19 08:15 Freq: Status: Active Protocol: Document 07/21/19 10:15 LJ (Rec: 07/21/19 14:23 LJ [email or web address]) OP-PT Subjective Patient Comments Patient Comments Pt has no complaints of pain today. PT-OP-D Balance Start: 06/15/19 07:18 Freq: Status: Active Protocol: Document 06/14/19 08:15 AMB (Rec: 06/15/19 07:28 AMB [email or web address]) Balance Tests Single Limb Standing Single Limb- Right 10 seconds Single Limb- Left 10 seconds PT-OP-E Functional Tests Start: 06/15/19 07:18 Freq: Status: Active Protocol: Document 06/14/19 08:15 AMB (Rec: 06/15/19 07:28 AMB [email or web address]) Functional Tests Dynamic Gait Index (DGI) Score 15 DGI Impairment Rating 20 to <40% Impaired (Score 15- 19) PT-OP-G Mobility & Gait Start: 06/14/19 08:15 Freq: Status: Active Protocol: Document 06/14/19 08:15 AMB (Rec: 06/15/19 07:28 AMB [email or web address]) OP Mobility Evaluation Transfers Sit to Stand uses UEs heavily for support OP Gait Assessment Comments Gait Comments Decreased trunk rotation with short step length PT-OP-J Posture/Palpation/Skin Start: 06/14/19 08:15 Freq: Status: Active Protocol: Document 06/14/19 08:15 AMB (Rec: 06/15/19 07:28 AMB [email or web address]) Posture Evaluation Comments Posture Comments flat lumbar and lower thoracic spine with severe kyphosis at thoracic- cervical junction Skin Assessment Incisional Assessment Incision Appearance/Comments scar from upper thoracic to upper lumbar spine, tight paraspinals. Scar adhesions at mid thoracic spine. PT-OP-K Range of Motion Start: 06/14/19 08:32 Freq: Status: Active Protocol: Document 06/14/19 08:15 AMB (Rec: 06/15/19 09:28 AMB [email or web address]) Lumbar Spine Range of Motion Lumbar Spine Active Degrees Testing Position Standing Flexion 40 Extension 15 Lateral Flexion Left 15 Lateral Flexion Right 15 Comments flat thoracic spine PT-OP-M Strength Start: 06/14/19 08:15 Freq: Status: Active Protocol: Document 06/14/19 08:15 AMB (Rec: 06/15/19 09:28 AMB [email or web address]) Hip Strength Hip Manual Muscle Testing Right Flexion (L2) 4+ Good+ Abduction 4+ Good+ Adduction 4+ Good+ Left Flexion (L2) 4- Good- Abduction 4 Good Adduction 4 Good Comments pt's MMT better than function, pt displays weakness in hip/ knee ankle with sit to stand and ascending stairs, especially on L. Knee Strength Knee Manual Muscle Testing Right Flexion (S2) 5 Normal Extension (L3) 5 Normal Left Flexion (S2) 5 Normal Extension (L3) 5 Normal Ankle/Foot Strength Ankle and Foot Manual Muscle Testing Right Dorsiflexion (L4) 4+ Good+ Plantarflexion (S1) 4+ Good+ Left Dorsiflexion (L4) 4+ Good+ Plantarflexion (S1) 4 Good PT-OP-Q Treatments Start: 06/14/19 08:15 Freq: Status: Active Protocol: Document 06/23/19 11:17 [facility] (Rec: 06/23/19 11:49 [facility] [id number]) Cardio Equipment Recumbent Stepper (Sci-Fit) Duration (Minutes) 10 Resistance 4 Gym Equipment Shuttle Recovery Unilateral Squats Resistance 50 Shuttle Recovery Platform Stable Reps/Time 2x10 Bilateral Squats Resistance 75, 87 Shuttle Recovery Platform Stable Reps/Time 2x10 Therapeutic Exercises Supine Exercises pec stretch Reps/Minutes 30x1 pillow squeeze Reps/Minutes 10x5 SKTC Reps/Minutes 30x2 4 Supine Exercise Name adductor stretch Reps/Minutes 30x2 3 Supine Exercise Name hip flexor stretch Reps/Minutes 30x2 2 Supine Exercise Name hamstring stretch Reps/Minutes 30x4 1 Supine Exercise Name piriformis stretch Reps/Minutes 30x4 Standing Exercises row, shld ext Resistance L2 Reps/Minutes 10x heel/toe raise Reps/Minutes 10x Hip ab/ad Reps/Minutes 10x PT-OP-R Modalities Start: 06/21/19 11:58 Freq: Status: Active Protocol: Document 06/23/19 11:17 SAK (Rec: 06/23/19 11:49 SAK [id number]) Electric Stimulation Electric Stimulation Interferential Current (IFC) Body Location low back Duration (Minutes) 15 Combined With Heat/Cold Hot Pack PT-OP-S Aquatic Treatment Start: 06/14/19 08:15 Freq: Status: Active Protocol: Document 07/21/19 10:15 JULIET (Rec: 07/21/19 14:23 [email or web address]) Aquatics Treatment Pool Entry/Exit Pool Entry/Exit Method Stairs Assistance Independent Water Walking [place] March Water Level Chest Level Walking Equipment Ankle Weight- 2.5# Level of Assistance Verbal Cues Marching Water Level Chest Level Walking Equipment Ankle Weight- 2.5# Level of Assistance Verbal Cues Sideways Water Level Chest Level Walking Equipment Ankle Weight- 2.5# Level of Assistance Verbal Cues Backwards Water Level Chest Level Walking Equipment Ankle Weight- 2.5# Level of Assistance Verbal Cues forward Water Level Chest Level Walking Equipment Ankle Weight- 2.5# Level of Assistance Verbal Cues Lower Extremity Exercises HS curls Body Position Standing Water Level Chest Level Equipment Ankle Weight- 2.5# Reps/Duration 2x10 Comments verbal and manual cues for posture Bilateral hip flex/ext, abd/add Body Position Standing Water Level Chest Level Equipment Ankle Weight- 2.5# Reps/Duration 2x15 ea Comments verbal cues for posture Lower Extremity Stretches ITB Body Position Standing Water Level Chest Level Reps/Duration 2x45 Comments using table HS Body Position Standing Water Level Chest Level Reps/Duration 2x45 Comments using table Upper Extremity Exercises lat pull downs Body Position Standing Water Level Chest Level Reps/Duration 2x10 stretch cords Details rows, ER - bilat Body Position Standing Water Level Chest Level Reps/Duration 2x10 flex/ext, abd/add, overhead ext- Details varying forms of tennis swings Body Position Standing Water Level Chest Level Equipment green band attached to flag pole Reps/Duration 5 min Upper Extremity Stretches forward walking with paddles Comments cues for keeping arms extended rather than flexing pecs Spinal Exercises trunk rotation Body Position Standing Water Level Chest Level Equipment stretch cords Reps/Duration 2x10 both directions [place] Activities [place] Activities Bicycle,Cross [place] Duration 10 min PT-OP-T Assessment and Plan Start: 06/14/19 08:15 Freq: Status: Active Protocol: Document 07/21/19 10:15 JULIET (Rec: 07/21/19 14:23 [email or web address]) Physical Therapy Assessment Goals Four Impairment fall risk Longterm Goal (LTG) Timothy will improve his DGI score to 19/24 to show decreased risk of falling. LTG Duration 10 weeks Three Impairment strength Short Term Goal (STG) Timothy will improve his lower extremity strength so that he can ascend a flight of stairs with one rail with step over step gait pattern. STG Duration 5 weeks Longterm Goal (LTG) Timothy will improve his strength so that he can move from sit to stand from a standard height chair without the need for UE support. LTG Duration 10 weeks Two Impairment pain Short Term Goal (STG) Timothy will walk for 5 minutes without increasing his back or leg pain from baseline. STG Duration 4 weeks Longterm Goal (LTG) Timothy will don his shoes and socks without an increase in baseline pain. LTG Duration 10 weeks One Impairment ROM Short Term Goal (STG) Timothy will increase his lumbar flexion AROM to 50 degrees without an increase in pain. STG Duration 4 weeks Assessment Summary Assessment No c/o pain this session. Pt is improving with posture when cued. Using table for HS stretches and piriformis stretch seemed more effective than noodle. Pt remained after session to continue water walking. Physical Therapy Plan Frequency and Duration Frequency of Treatment 2x/Week Duration of Treatment 10 weeks Plan of Care Start Date 06/14/19 Plan of Care End Date 08/23/19 Therapeutic Interventions Therapeutic Interventions Aquatic Therapy,Balance Training,Gait Training,Home Exercise Program,Manual Therapy,Neuromuscular Re- education,Self-Care/Home Management,Taping,Therapeutic Exercises Modalities Cold Pack/Ice Massage,Electric Stimulation,Hot Packs Next Visit Focus/Plan Next Note Type Treatment Note Next Visit Plan Continue with functional tennis movements and posture correction. Increase resistance as tolerated
--- NOTE | 2019-07-26 15:31 | PT.OTN ---
Current Diagnoses Chronic embolism and thrombosis of unspecified deep veins of unspecified lower extremity (07/26/19) Radiculopathy, lumbosacral region (07/26/19) Arthrodesis status (07/26/19) Physical Therapy Treatment Note PT-OP-A Visit Information Start: 06/14/19 08:15 Freq: Status: Active Protocol: Document 07/26/19 10:15 LJ (Rec: 07/26/19 15:31 LJ [id number]) Out-Patient Physical Therapy Visit Information Visit Information Visit Type Aquatic Treatment Note Visit Start Time 10:15 Visit Stop Time 11:00 Total Visit Minutes 45 Visit Number 10 Number of ENVIRONMENTAL SERVICES FLOOR TECH Visits 2 PT-OP-B Current Condition Start: 06/14/19 08:15 Freq: Status: Active Protocol: Document 06/14/19 08:15 AMB (Rec: 06/14/19 17:37 AMB [email or web address]) Current Condition History of Current Condition Onset Date August 2018 Current Complaints back pain that radiates into left leg making mobility difficult History of Current Condition Timothy reports he fractured his spine playing tennis in August, he is unsure of the level but had to have surgery and documentation looks as if it is a thoracic fusion. He had to go to rehab and has had prior physical therapy that he was very sore from. He has rehabilitated himself previously with aquatic therapy from multiple fractures in 1964 and is hoping to be able to do PT in the pool. He reports his back pain is below his surgery and radiates into the left leg with the left foot going numb and tingling intermittently. Treatment Goals Patient/Caregiver Goals Don socks/shoes, return to tennis. He is concerned about his balance. Prior Functional Status Baseline Function- Recreation/Hobbies Pt was able to play tennis 2 hours a day before his most recent spine surgery, he has not returned to it since. Current Functional Impairments (Reported) Functional Limitations- ADL's difficulty dressing, donning socks and shoes, difficulty bending forward to pick things up from the floor Functional Limitations- Mobility/Gait fearful of falling but denies recent falls, difficulty ascending/descending stairs due to weakness in L leg. 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 States he has no pain anywhere else but is kind of stiff all over. Right thumb is swollen and pt was probably going to the walk in clinic after the pool session. PT-OP-D Balance Start: 06/15/19 07:18 Freq: Status: Active Protocol: Document 06/14/19 08:15 AMB (Rec: 06/15/19 07:28 AMB [email or web address]) Balance Tests Single Limb Standing Single Limb- Right 10 seconds Single Limb- Left 10 seconds PT-OP-E Functional Tests Start: 06/15/19 07:18 Freq: Status: Active Protocol: Document 06/14/19 08:15 AMB (Rec: 06/15/19 07:28 AMB [email or web address]) Functional Tests Dynamic Gait Index (DGI) Score 15 DGI Impairment Rating 20 to <40% Impaired (Score 15- 19) PT-OP-G Mobility & Gait Start: 06/14/19 08:15 Freq: Status: Active Protocol: Document 06/14/19 08:15 AMB (Rec: 06/15/19 07:28 AMB [email or web address]) OP Mobility Evaluation Transfers Sit to Stand uses UEs heavily for support OP Gait Assessment Comments Gait Comments Decreased trunk rotation with short step length PT-OP-J Posture/Palpation/Skin Start: 06/14/19 08:15 Freq: Status: Active Protocol: Document 06/14/19 08:15 AMB (Rec: 06/15/19 07:28 AMB [email or web address]) Posture Evaluation Comments Posture Comments flat lumbar and lower thoracic spine with severe kyphosis at thoracic- cervical junction Skin Assessment Incisional Assessment Incision Appearance/Comments scar from upper thoracic to upper lumbar spine, tight paraspinals. Scar adhesions at mid thoracic spine. PT-OP-K Range of Motion Start: 06/14/19 08:32 Freq: Status: Active Protocol: Document 06/14/19 08:15 AMB (Rec: 06/15/19 09:28 AMB [email or web address]) Lumbar Spine Range of Motion Lumbar Spine Active Degrees Testing Position Standing Flexion 40 Extension 15 Lateral Flexion Left 15 Lateral Flexion Right 15 Comments flat thoracic spine PT-OP-M Strength Start: 06/14/19 08:15 Freq: Status: Active Protocol: Document 06/14/19 08:15 AMB (Rec: 06/15/19 09:28 AMB [email or web address]) Hip Strength Hip Manual Muscle Testing Right Flexion (L2) 4+ Good+ Abduction 4+ Good+ Adduction 4+ Good+ Left Flexion (L2) 4- Good- Abduction 4 Good Adduction 4 Good Comments pt's MMT better than function, pt displays weakness in hip/ knee ankle with sit to stand and ascending stairs, especially on L. Knee Strength Knee Manual Muscle Testing Right Flexion (S2) 5 Normal Extension (L3) 5 Normal Left Flexion (S2) 5 Normal Extension (L3) 5 Normal Ankle/Foot Strength Ankle and Foot Manual Muscle Testing Right Dorsiflexion (L4) 4+ Good+ Plantarflexion (S1) 4+ Good+ Left Dorsiflexion (L4) 4+ Good+ Plantarflexion (S1) 4 Good PT-OP-Q Treatments Start: 06/14/19 08:15 Freq: Status: Active Protocol: Document 06/23/19 11:17 SAK (Rec: 06/23/19 11:49 SAK [id number]) Cardio Equipment Recumbent Stepper (Sci-Fit) Duration (Minutes) 10 Resistance 4 Gym Equipment Shuttle Recovery Unilateral Squats Resistance 50 Shuttle Recovery Platform Stable Reps/Time 2x10 Bilateral Squats Resistance 75, 87 Shuttle Recovery Platform Stable Reps/Time 2x10 Therapeutic Exercises Supine Exercises pec stretch Reps/Minutes 30x1 pillow squeeze Reps/Minutes 10x5 SKTC Reps/Minutes 30x2 4 Supine Exercise Name adductor stretch Reps/Minutes 30x2 3 Supine Exercise Name hip flexor stretch Reps/Minutes 30x2 2 Supine Exercise Name hamstring stretch Reps/Minutes 30x4 1 Supine Exercise Name piriformis stretch Reps/Minutes 30x4 Standing Exercises row, shld ext Resistance L2 Reps/Minutes 10x heel/toe raise Reps/Minutes 10x Hip ab/ad Reps/Minutes 10x PT-OP-R Modalities Start: 06/21/19 11:58 Freq: Status: Active Protocol: Document 06/23/19 11:17 SAK (Rec: 06/23/19 11:49 SAK [id number]) Electric Stimulation Electric Stimulation Interferential Current (IFC) Body Location low back Duration (Minutes) 15 Combined With Heat/Cold Hot Pack PT-OP-S Aquatic Treatment Start: 06/14/19 08:15 Freq: Status: Active Protocol: Document 07/26/19 10:15 JULIET (Rec: 07/26/19 15:31 [id number]) Aquatics Treatment Pool Entry/Exit Pool Entry/Exit Method Stairs Assistance Independent Water Walking [place] March Water Level Chest Level Level of Assistance Verbal Cues Marching Water Level Chest Level Sideways Water Level Chest Level Backwards Water Level Chest Level Level of Assistance Verbal Cues forward Water Level Chest Level Level of Assistance Verbal Cues Lower Extremity Exercises hip circles Body Position Standing Water Level Chest Level Equipment Ankle Floats Reps/Duration 2x15 each direction HS curls Body Position Standing Water Level Chest Level Equipment Ankle Floats Reps/Duration 2x10 Bilateral hip flex/ext, abd/add Body Position Standing Water Level Chest Level Equipment Ankle Floats Reps/Duration 2x15 ea Comments verbal cues for posture; limited hand hold Lower Extremity Stretches figure-4 Details squat at pool wall Water Level Neck Level Reps/Duration 2x30 ITB Body Position Standing Water Level Chest Level Reps/Duration 2x45 Comments using table HS Body Position Standing Water Level Chest Level Equipment Large Noodle Reps/Duration 2x45 Upper Extremity Exercises lat pull downs Body Position Standing Water Level Chest Level Equipment UE paddles Reps/Duration 2x10 Comments no paddle in right hand flex/ext, abd/add, overhead ext- Details varying forms of tennis swings Body Position Standing Water Level Chest Level Equipment UE paddles Reps/Duration 2 min Comments left hand using paddle Upper Extremity Stretches forward walking with paddles Comments left hand using paddle Spinal Exercises Deep water DLS Details vertical, medium barbells Water Level [place] Reps/Duration 10x ea Comments pull downs nam and unil, pendulums [place] Activities [place] Activities Bicycle,Cross [place] Duration 10 min PT-OP-T Assessment and Plan Start: 06/14/19 08:15 Freq: Status: Active Protocol: Document 07/26/19 10:15 JULIET (Rec: 07/26/19 15:31 JULIET [id number]) Physical Therapy Assessment Goals Four Impairment fall risk Mechanical Design Engineer Goal (LTG) Timothy will improve his DGI score to 19/24 to show decreased risk of falling. LTG Duration 10 weeks Three Impairment strength Short Term Goal (STG) Timothy will improve his lower extremity strength so that he can ascend a flight of stairs with one rail with step over step gait pattern. STG Duration 5 weeks Mechanical Design Engineer Goal (LTG) Timothy will improve his strength so that he can move from sit to stand from a standard height chair without the need for UE support. LTG Duration 10 weeks Two Impairment pain Short Term Goal (STG) Timothy will walk for 5 minutes without increasing his back or leg pain from baseline. STG Duration 4 weeks Alf Goal (LTG) Timothy will don his shoes and socks without an increase in baseline pain. LTG Duration 10 weeks One Impairment ROM Short Term Goal (STG) Timothy will increase his lumbar flexion AROM to 50 degrees without an increase in pain. STG Duration 4 weeks Assessment Summary Assessment Pt used the ankle floats for stretching and resistance exercises. Used modified hand hold with BBs in deep water. Pt was given HEP for aquatic exercise. Physical Therapy Plan Frequency and Duration Frequency of Treatment 2x/Week Duration of Treatment 10 weeks Plan of Care Start Date 06/14/19 Plan of Care End Date 08/23/19 Therapeutic Interventions Therapeutic Interventions Aquatic Therapy,Balance Training,Gait Training,Home Exercise Program,Manual Therapy,Neuromuscular Re- education,Self-Care/Home Management,Taping,Therapeutic Exercises Modalities Cold Pack/Ice Massage,Electric Stimulation,Hot Packs Next Visit Focus/Plan Next Note Type Treatment Note Next Visit Plan Pt given HEP for aquatic exercises. Review exercises next visit.
--- NOTE | 2019-07-28 20:26 | PT.OTN ---
Current Diagnoses Chronic embolism and thrombosis of unspecified deep veins of unspecified lower extremity (07/28/19) Radiculopathy, lumbosacral region (07/28/19) Arthrodesis status (07/28/19) Physical Therapy Treatment Note PT-OP-A Visit Information Start: 06/14/19 08:15 Freq: Status: Active Protocol: Document 07/28/19 10:15 SAK (Rec: 07/28/19 20:26 SAK [id number]) Out-Patient Physical Therapy Visit Information Visit Information Visit Type Aquatic Treatment Note Visit Start Time 10:15 Visit Stop Time 11:00 Total Visit Minutes 45 Visit Number 11 Number of SCRAP CUTTER Visits 2 PT-OP-B Current Condition Start: 06/14/19 08:15 Freq: Status: Active Protocol: Document 06/14/19 08:15 AMB (Rec: 06/14/19 17:37 AMB [email or web address]) Current Condition History of Current Condition Onset Date August 2018 Current Complaints back pain that radiates into left leg making mobility difficult History of Current Condition Timothy reports he fractured his spine playing tennis in August, he is unsure of the level but had to have surgery and documentation looks as if it is a thoracic fusion. He had to go to rehab and has had prior physical therapy that he was very sore from. He has rehabilitated himself previously with aquatic therapy from multiple fractures in 1964 and is hoping to be able to do PT in the pool. He reports his back pain is below his surgery and radiates into the left leg with the left foot going numb and tingling intermittently. Treatment Goals Patient/Caregiver Goals Don socks/shoes, return to tennis. He is concerned about his balance. Prior Functional Status Baseline Function- Recreation/Hobbies Pt was able to play tennis 2 hours a day before his most recent spine surgery, he has not returned to it since. Current Functional Impairments (Reported) Functional Limitations- ADL's difficulty dressing, donning socks and shoes, difficulty bending forward to pick things up from the floor Functional Limitations- Mobility/Gait fearful of falling but denies recent falls, difficulty ascending/descending stairs due to weakness in L leg. 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 Plans to continue with aquatic exercises independently, was issued handouts last session. PT-OP-D Balance Start: 06/15/19 07:18 Freq: Status: Active Protocol: Document 06/14/19 08:15 AMB (Rec: 06/15/19 07:28 AMB [email or web address]) Balance Tests Single Limb Standing Single Limb- Right 10 seconds Single Limb- Left 10 seconds PT-OP-E Functional Tests Start: 06/15/19 07:18 Freq: Status: Active Protocol: Document 06/14/19 08:15 AMB (Rec: 06/15/19 07:28 AMB [email or web address]) Functional Tests Dynamic Gait Index (DGI) Score 15 DGI Impairment Rating 20 to <40% Impaired (Score 15- 19) PT-OP-G Mobility & Gait Start: 06/14/19 08:15 Freq: Status: Active Protocol: Document 06/14/19 08:15 AMB (Rec: 06/15/19 07:28 AMB [email or web address]) OP Mobility Evaluation Transfers Sit to Stand uses UEs heavily for support OP Gait Assessment Comments Gait Comments Decreased trunk rotation with short step length PT-OP-J Posture/Palpation/Skin Start: 06/14/19 08:15 Freq: Status: Active Protocol: Document 06/14/19 08:15 AMB (Rec: 06/15/19 07:28 AMB [email or web address]) Posture Evaluation Comments Posture Comments flat lumbar and lower thoracic spine with severe kyphosis at thoracic- cervical junction Skin Assessment Incisional Assessment Incision Appearance/Comments scar from upper thoracic to upper lumbar spine, tight paraspinals. Scar adhesions at mid thoracic spine. PT-OP-K Range of Motion Start: 06/14/19 08:32 Freq: Status: Active Protocol: Document 06/14/19 08:15 AMB (Rec: 06/15/19 09:28 AMB [email or web address]) Lumbar Spine Range of Motion Lumbar Spine Active Degrees Testing Position Standing Flexion 40 Extension 15 Lateral Flexion Left 15 Lateral Flexion Right 15 Comments flat thoracic spine PT-OP-M Strength Start: 06/14/19 08:15 Freq: Status: Active Protocol: Document 06/14/19 08:15 AMB (Rec: 06/15/19 09:28 AMB [email or web address]) Hip Strength Hip Manual Muscle Testing Right Flexion (L2) 4+ Good+ Abduction 4+ Good+ Adduction 4+ Good+ Left Flexion (L2) 4- Good- Abduction 4 Good Adduction 4 Good Comments pt's MMT better than function, pt displays weakness in hip/ knee ankle with sit to stand and ascending stairs, especially on L. Knee Strength Knee Manual Muscle Testing Right Flexion (S2) 5 Normal Extension (L3) 5 Normal Left Flexion (S2) 5 Normal Extension (L3) 5 Normal Ankle/Foot Strength Ankle and Foot Manual Muscle Testing Right Dorsiflexion (L4) 4+ Good+ Plantarflexion (S1) 4+ Good+ Left Dorsiflexion (L4) 4+ Good+ Plantarflexion (S1) 4 Good PT-OP-Q Treatments Start: 06/14/19 08:15 Freq: Status: Active Protocol: Document 06/23/19 11:17 SAK (Rec: 06/23/19 11:49 [facility] [id number]) Cardio Equipment Recumbent Stepper (Sci-Fit) Duration (Minutes) 10 Resistance 4 Gym Equipment Shuttle Recovery Unilateral Squats Resistance 50 Shuttle Recovery Platform Stable Reps/Time 2x10 Bilateral Squats Resistance 75, 87 Shuttle Recovery Platform Stable Reps/Time 2x10 Therapeutic Exercises Supine Exercises pec stretch Reps/Minutes 30x1 pillow squeeze Reps/Minutes 10x5 SKTC Reps/Minutes 30x2 4 Supine Exercise Name adductor stretch Reps/Minutes 30x2 3 Supine Exercise Name hip flexor stretch Reps/Minutes 30x2 2 Supine Exercise Name hamstring stretch Reps/Minutes 30x4 1 Supine Exercise Name piriformis stretch Reps/Minutes 30x4 Standing Exercises row, shld ext Resistance L2 Reps/Minutes 10x heel/toe raise Reps/Minutes 10x Hip ab/ad Reps/Minutes 10x PT-OP-R Modalities Start: 06/21/19 11:58 Freq: Status: Active Protocol: Document 06/23/19 11:17 SAK (Rec: 06/23/19 11:49 SAK [id number]) Electric Stimulation Electric Stimulation Interferential Current (IFC) Body Location low back Duration (Minutes) 15 Combined With Heat/Cold Hot Pack PT-OP-S Aquatic Treatment Start: 06/14/19 08:15 Freq: Status: Active Protocol: Document 07/28/19 10:15 HENRIQUE (Rec: 07/28/19 20:26 [facility] [id number]) Aquatics Treatment Pool Entry/Exit Pool Entry/Exit Method Stairs Assistance Independent Water Walking [place] March Water Level Chest Level Level of Assistance Verbal Cues Marching Water Level Chest Level Sideways Water Level Chest Level Backwards Water Level Chest Level Level of Assistance Verbal Cues forward Water Level Chest Level Level of Assistance Verbal Cues Lower Extremity Exercises hip circles Body Position Standing Water Level Chest Level Equipment Ankle Floats Reps/Duration 2x15 each direction HS curls Body Position Standing Water Level Chest Level Equipment Ankle Floats Reps/Duration 2x10 Bilateral hip flex/ext, abd/add Body Position Standing Water Level Chest Level Equipment Ankle Floats Reps/Duration 2x15 ea Comments verbal cues for posture; limited hand hold Lower Extremity Stretches figure-4 Details squat at pool wall Water Level Neck Level Reps/Duration 2x30 ITB Body Position Standing Water Level Chest Level Reps/Duration 2x45 Comments large noodle HS Body Position Standing Water Level Chest Level Equipment Large Noodle Reps/Duration 2x45 Upper Extremity Exercises figure 8 Body Position Standing Water Level Chest Level Equipment water dots Reps/Duration 20x Comments emphasis on core stab flex/ext, abd/add, overhead ext- Details varying forms of tennis swings Body Position Standing Water Level Chest Level Equipment UE paddles Reps/Duration 2 min Comments emphasis on core stab, wt shift Upper Extremity Stretches forward walking with paddles Comments nam Spinal Exercises Deep water DLS Details vertical, medium barbells Water Level [place] Reps/Duration 10x ea Comments pull downs nam and unil, pendulums [place] Activities [place] Activities Bicycle,Cross Country,Running Duration 10 min Comments 5 sets intervals 30:30 PT-OP-T Assessment and Plan Start: 06/14/19 08:15 Freq: Status: Active Protocol: Document 07/28/19 10:15 HENRIQUE (Rec: 07/28/19 20:26 [facility] [id number]) Physical Therapy Assessment Goals Four Impairment fall risk Outsole Tacker Goal (LTG) Timothy will improve his DGI score to 19/24 to show decreased risk of falling. LTG Duration 10 weeks Three Impairment strength Short Term Goal (STG) Timothy will improve his lower extremity strength so that he can ascend a flight of stairs with one rail with step over step gait pattern. STG Duration 5 weeks Fpc Goal (LTG) Timothy will improve his strength so that he can move from sit to stand from a standard height chair without the need for UE support. LTG Duration 10 weeks Two Impairment pain Short Term Goal (STG) Timothy will walk for 5 minutes without increasing his back or leg pain from baseline. STG Duration 4 weeks Fpc Goal (LTG) Timothy will don his shoes and socks without an increase in baseline pain. LTG Duration 10 weeks One Impairment ROM Short Term Goal (STG) Timothy will increase his lumbar flexion AROM to 50 degrees without an increase in pain. STG Duration 4 weeks Assessment Summary Assessment Patient ready for discharge to independent aquatic exercise program. He is highly motivated to continue and is considering attending community aquatic execise class to continue to address his impairments. May benefit from further PT in the future but is not interested in land- based PT at this time. Physical Therapy Plan Frequency and Duration Frequency of Treatment 2x/Week Duration of Treatment 10 weeks Plan of Care Start Date 06/14/19 Plan of Care End Date 08/23/19 Therapeutic Interventions Therapeutic Interventions Aquatic Therapy,Balance Training,Gait Training,Home Exercise Program,Manual Therapy,Neuromuscular Re- education,Self-Care/Home Management,Taping,Therapeutic Exercises Modalities Cold Pack/Ice Massage,Electric Stimulation,Hot Packs Discharge Physical Therapy Discharge Reasons Plateau in Progress
== END 2019-07-28 11:08 ==
LOC: PHYS 10:15
PROVIDERS: Family Provider Family Medicine; PCP Family Medicine; Visit Provider Physical Medicine & Rehabilitation
DX: M54.17 Radiculopathy, lumbosacral region (principal); Z98.1 Arthrodesis status; I82.509 Chronic embolism and thrombosis of unspecified deep veins of unspecified lower extremity
CPT/HCPCS: 97014; 97110; 97113; 97162; G0283

== ENCOUNTER → 2020-05-16 10:09 | Outpatient (CLI) | payer MEDICARE, OTHER, SELFPAY ==
[2020-05-16 10:44] LABS: Add Manual Diff / Slide Review NO; Basophils Absolute Auto 0 /uL (0-100); Basophils Percent Auto 0.5 % (0-2); Eosinophils Absolute Auto 300 /uL (0-450); Eosinophils Percent Auto 4.3 % (2-4); Hemoglobin 14.7 g/dL (13.5-17.5); Lymphocytes Absolute Auto 2400 /uL (1100-4500); Lymphocytes Percent Auto 40.5 % (25-40); Mean Corpuscular HGB Conc 33.4 % (30-36); Mean Corpuscular Hemoglobin 32.3 PG (26-34); Mean Corpuscular Volume 96.7 fL (80-100); Monocytes Absolute Auto 500 /uL (0-900); Monocytes Percent Auto 7.5 % (3-14); Neutrophils Absolute Auto 2800 /uL (1500-7000); Neutrophils Percent Auto 47.2 % (50-75); Platelet Count 144 X10^3/uL (150-400); Red Blood Cell Count 4.55 X10^6/uL (4.5-5.9); Red Cell Distribution Width 15.4 % (11.6-14.8)
[2020-05-16 10:56] LABS: Alanine Aminotransferase 28 IU/L (<50); Albumin 4.2 g/dL (3.5-5.0); Albumin Globulin Ratio 1.2 (1.0-2.8); Alkaline Phosphatase 81 U/L (38-126); Aspartate Aminotransferase 37 IU/L (17-59); BUN Creatinine Ratio 14.1 (6-22); Blood Urea Nitrogen 13 mg/dL (9-20); Calcium 9.4 mg/dL (8.4-10.2); Carbon Dioxide 29 mmol/L (22-32); Chloride 102 mmol/L (98-107); Estimated Glomerular Filt Rate > 60.0 mL/min (>60); Globulin 3.5 g/dL (1.7-4.1); Glucose 117 mg/dL (80-110); HEMOLYSIS < 15 (0-50); Potassium 4.5 mmol/L (3.4-5.1); Sodium 136 mmol/L (137-145); Total Protein 7.7 g/dL (6.3-8.2)
== END ==
PROVIDERS: PCP Family Medicine
DX: C82.90 Follicular lymphoma, unspecified, unspecified site (principal)
CPT/HCPCS: 36415; 80053; 85025

== ENCOUNTER → 2021-05-09 12:33 | Outpatient (CLI) | payer MEDICARE, OTHER, SELFPAY ==
--- NOTE | 2021-05-09 12:38 | DI.ECHO.S_ITS ---
[facility] +---------+ : : [address] : : : : [id number] : : : : Phone: [phone]+ Echocardiogram Report + + :Name: JOO MENA Study Date: 05/09/2021 Height: 72 in : :[facility] ReadingLocation: Weight: 250 lb : : Gender: Male BSA: 2.3 m2 : :: 1935 Age: 85 yrs BP: 157/92 mmHg: :Reason For Study: EDEMA : :Ordering Physician: KUSUM, : :DANIEL Performed By: Anahi Edwards : :Referring: DANIEL NOE : + + Interpretation Summary The study quality was technically difficult. The left ventricular cavity is small. The ejection fraction is estimated to be 65-70%. The right ventricle is not well visualized. The right ventricular systolic function is normal. All the valves were not well visualized however no gross abnormalities seen. The IVC is of normal diameter and collapses greater than 50% with a sniff. This suggests a low right atrial pressure of 3 mm Hg. Procedure: A two-dimensional transthoracic echocardiogram with color flow and Doppler was performed. The study quality was technically difficult. A contrast injection of Definity was performed to improve assessment of LV function. The patient was in sinus rhythm with heart rates between 73-79 bpm during the exam. Left Ventricle: The left ventricular cavity is small. There is normal left ventricular wall thickness. There is no thrombus. The ejection fraction is estimated to be 65-70%. There are no focal wall motion abnormalities. Diastolic parameters suggest a relaxation abnormality of the left ventricle, consistent with probable normal filling pressures. Right Ventricle: The right ventricle is not well visualized. The right ventricular systolic function is normal. Atria: The left atrial size is normal. Right atrial size is normal. There is no Doppler evidence for an interatrial shunt. Mitral Valve: There is mild mitral annular calcification. The mitral valve is not well visualized. The mitral valve leaflets are mildly calcified. There is trace mitral regurgitation. Aortic Valve: The aortic valve is not well visualized. There is no aortic valve stenosis. No aortic regurgitation is present. Tricuspid Valve: The tricuspid valve is not well visualized, but is grossly normal. There is trace tricuspid regurgitation. Pulmonary artery pressures cannot be estimated because of the lack of a measurable TR jet velocity but the IVC suggests a CVP of around 3 mmHg. Pulmonic Valve: The pulmonic valve is not well visualized. There is no pulmonic valvular regurgitation. Great Vessels: The aortic root is normal size. The dimensions of the ascending aorta are normal. The IVC is of normal diameter and collapses greater than 50% with a sniff. This suggests a low right atrial pressure of 3 mm Hg. Pericardium/ Pleura There is no pericardial effusion. There is no pleural effusion. MMode/2D Measurements & Calculations LVIDd: 3.5 cm LVOT diam: 2.3 cm LVIDs: 2.3 cm Ao root diam: 3.5 cm FS: 34.6 % asc Aorta Diam: 3.1 cm IVSd: 0.74 cm Ao Arch Diam (Prox Trans): 3.0 cm LVPWd: 0.94 cm LV cisse. diameter/BSA (cm/m^2): 1.5 LV sys. diameter/BSA (cm/m^2): 0.98 LA A2 area: 19.3 cm2 RA long axis: 4.9 cm LA A4 area: 20.1 cm2 RA area: 19.4 cm2 LA length (vol): 5.3 cm RA vol: 65.3 ml LA vol: 62.5 ml RA : 27.9 ml/m2 LA vol index: 26.7 ml/m2 IVC diam: 1.0 cm TAPSE: 1.8 cm Doppler Measurements & Calculations Ao V2 max: 97.7 cm/sec LVOT Max Casey: 104.6 cm/sec Ao V2 mean: 69.5 cm/sec LV V1 max P.4 mmHg Ao max P.8 mmHg LV V1 VTI: 19.7 cm Ao mean P.2 mmHg NORTH(I,D): 3.8 cm2 Ao V2 VTI: 20.9 cm NORTH(V,D): 4.3 cm2 sev ratio: 0.95 NORTH indexed to BSA (cm^2/m^2): 1.6 MV E max casey: 93.2 cm/sec PA V2 max: 65.9 cm/sec MV A max casey: 118.6 cm/sec PA V2 mean: 46.9 cm/sec MV E/A: 0.79 PA mean P.99 mmHg Med Peak E' Casey: 6.9 cm/sec PA pr(Accel): 48.2 mmHg E/E' med: 13.6 Lat Peak E' Casey: 6.5 cm/sec E/E' lat: 14.3 E/e' average: 13.9 MV dec time: 0.24 sec SV(LVOT): 79.1 ml Reading Physician:04:15 PM
[2021-05-09 14:00] LABS: Add Manual Diff / Slide Review NO; Basophils Absolute Auto 0 /uL (0-100); Basophils Percent Auto 0.5 % (0-2); Eosinophils Absolute Auto 200 /uL (0-450); Eosinophils Percent Auto 3.8 % (2-4); Hematocrit 41.2 % (41-53); Hemoglobin 13.7 g/dL (13.5-17.5); Lymphocytes Absolute Auto 2500 /uL (1100-4500); Lymphocytes Percent Auto 41.2 % (25-40); Mean Corpuscular HGB Conc 33.3 % (30-36); Mean Corpuscular Hemoglobin 33.1 PG (26-34); Mean Corpuscular Volume 99.3 fL (80-100); Monocytes Absolute Auto 300 /uL (0-900); Monocytes Percent Auto 5.5 % (3-14); Neutrophils Absolute Auto 3000 /uL (1500-7000); Platelet Count 151 X10^3/uL (150-400); Red Blood Cell Count 4.15 X10^6/uL (4.5-5.9); Red Cell Distribution Width 14.5 % (11.6-14.8)
[2021-05-09 14:32] LABS: Alanine Aminotransferase 23 IU/L (<50); Albumin Globulin Ratio 1.1 (1.0-2.8); Alkaline Phosphatase 70 U/L (38-126); Aspartate Aminotransferase 31 IU/L (17-59); BUN Creatinine Ratio 22.2 (6-22); Bilirubin Total 0.8 mg/dL (0.2-1.3); Blood Urea Nitrogen 16 mg/dL (9-20); Calcium 9.3 mg/dL (8.4-10.2); Carbon Dioxide 28 mmol/L (22-32); Chloride 106 mmol/L (98-107); Estimated Glomerular Filt Rate > 60.0 mL/min (>60); Globulin 3.6 g/dL (1.7-4.1); Glucose 101 mg/dL (80-110); HEMOLYSIS < 15 (0-50); Potassium 4.6 mmol/L (3.4-5.1); Sodium 139 mmol/L (137-145); Total Protein 7.6 g/dL (6.3-8.2)
[2021-05-09 16:22] LABS: TSH w/ Reflex to FT4 2.11 uIU/mL (0.47-4.68)
== END ==
PROVIDERS: PCP Family Medicine; Referring Provider Family Medicine; Visit Provider Family Medicine
DX: R06.02 Shortness of breath (principal); R60.9 Edema, unspecified; E03.9 Hypothyroidism, unspecified
CPT/HCPCS: 36415; 80053; 84443; 85025; 93306; Q9957

== ENCOUNTER → 2021-09-17 07:56 | Outpatient (CLI) | payer MEDICARE, OTHER, SELFPAY ==
[2021-09-17 08:43] LABS: Add Manual Diff / Slide Review NO; Basophils Absolute Auto 0 /uL (0-100); Basophils Percent Auto 0.5 % (0-2); Eosinophils Absolute Auto 200 /uL (0-450); Eosinophils Percent Auto 4.2 % (2-4); Hematocrit 43.3 % (41-53); Hemoglobin 14.5 g/dL (13.5-17.5); Lymphocytes Absolute Auto 2400 /uL (1100-4500); Lymphocytes Percent Auto 42.8 % (25-40); Mean Corpuscular HGB Conc 33.5 % (30-36); Mean Corpuscular Volume 98.4 fL (80-100); Monocytes Absolute Auto 300 /uL (0-900); Monocytes Percent Auto 5.8 % (3-14); Neutrophils Absolute Auto 2700 /uL (1500-7000); Neutrophils Percent Auto 46.7 % (50-75); Platelet Count 166 X10^3/uL (150-400); White Blood Cell Count 5.7 X10^3/uL (4.5-11.0)
[2021-09-17 09:39] LABS: Alanine Aminotransferase 34 IU/L (<50); Albumin 4.1 g/dL (3.5-5.0); Albumin Globulin Ratio 1.3 (1.0-2.8); Alkaline Phosphatase 88 U/L (38-126); Aspartate Aminotransferase 36 IU/L (17-59); BUN Creatinine Ratio 16.7 (6-22); Bilirubin Total 0.8 mg/dL (0.2-1.3); Blood Urea Nitrogen 14 mg/dL (9-20); Calcium 9.3 mg/dL (8.4-10.2); Carbon Dioxide 32 mmol/L (22-32); Chloride 102 mmol/L (98-107); Estimated Glomerular Filt Rate > 60.0 mL/min (>60); Globulin 3.2 g/dL (1.7-4.1); Glucose 112 mg/dL (80-110); HEMOLYSIS < 15 (0-50); Lactate Dehydrogenase 377 U/L (313-618); Potassium 5.1 mmol/L (3.4-5.1); Sodium 139 mmol/L (137-145); Total Protein 7.3 g/dL (6.3-8.2)
== END ==
PROVIDERS: PCP Family Medicine; Referring Provider Internal Medicine Hematology & Oncology; Visit Provider Internal Medicine Hematology & Oncology
DX: C85.93 Non-Hodgkin lymphoma, unspecified, intra-abdominal lymph nodes (principal)
CPT/HCPCS: 36415; 80053; 83615; 85025

== ENCOUNTER 2021-11-07 12:00 | Outpatient (RCR) | payer MEDICARE, OTHER, SELFPAY ==
--- NOTE | 2021-09-27 15:15 | PT.OPPOC ---
Physical, Occupational & Speech Therapy At [facility] Current Diagnoses Other abnormalities of gait and mobility (09/27/21) Weakness (09/27/21) Visit Care Team Role Provider Type Camden Hoang MD Attending Provider Physician Primary Care Provider Referring Provider Specialty: Family Practice Address: [address] [place] [address], [id number] Email: [email or web address] Plan Of Care PT-OP-T Assessment and Plan Start: 09/27/21 17:44 Freq: Status: Active Protocol: Document 09/27/21 14:30 DCW (Rec: 09/28/21 09:01 DCW [id number]) Physical Therapy Assessment Rehab Potential Rehabilitation Potential Fair Evaluation Complexity Number of Personal Factors/Comorbidities 3 or More Number of Body Systems Impaired 3 Clinical Presentation at Evaluation Unstable Impairments Impairments Activity Tolerance,Edema, Functional Activities, Functional Mobility,ROM,Soft Tissue Mobility,Strength Goals Three Impairment Pt exhibits extreme edeema in bilateral lower extremities Internet Webmaster Goal (LTG) Pt LE circumfrential measurements to decrease by at least 2 cm around bilateral knees, mid calf, and transmalleolar measures to decrease total volume of lower legs in order to improve pt's ability to ambulate and lift legs. LTG Duration 11/27/21 Two Impairment Pt ambulates 883' without an AD during his 6 MWT Internet Webmaster Goal (LTG) Pt to demonstrate ability to ambulate 1075' without an assistive device during a 6 MWT to demonstrate improved gait speed and activity tolerance LTG Duration 11/27/21 One Impairment Pt does not have an appropriate home exercise program Short Term Goal (STG) Pt to be independent and compliant with an appropriate HEP STG Duration 10/27/21 Assessment Summary Assessment Pt presents with myriad symptoms including severe lower extremity edema, decreased activity levels, hip weakness (specifically bilateral flexion and right internal rotation), and low back pain secondary to a long history of multiple back fractures. Pt's main concern is his edema, and he feels strongly that since his most recent injury, he has become very sedentary, and if he can get more active, he can better control his swelling. Physical therapy will be slightly restricted, in that come November, pt will be leaving the area for [place], and therefore wants to work on improving activity tolerance and getting a good exercise plan for home prior to leaving the [facility]. Physical Therapy Plan Frequency and Duration Frequency of Treatment 2x/Week Duration of Treatment Two months Plan of Care Start Date 09/27/21 Plan of Care End Date 11/27/21 Therapeutic Interventions Therapeutic Interventions Aquatic Therapy,Home Exercise Program,Lymphedema Management, Manual Therapy,Patient/ Caregiver Education,Self-Care/ Home Management,Soft Tissue Mobilization,Therapeutic Activities,Therapeutic Exercises Next Visit Focus/Plan Next Note Type Treatment Note Next Visit Plan Edema management, increased activity tolerance Plan of Care Dates Plan of Care Start Date 09/27/21 Plan of Care End Date 11/27/21 Electronically Signed by: Sanjay Zuleta PT 09/28/21 0903 Please Sign and Return: I have reviewed this Plan of Care and certify that the skilled therapy services above are required to meet the patient?s needs. Physician Signature Date Printed Name and Credentials Clinical Instructor Signature Printed Name and Credentials
--- NOTE | 2021-09-27 15:15 | PT.OIE ---
Current Diagnoses Other abnormalities of gait and mobility (09/27/21) Weakness (09/27/21) Visit Care Team Role Provider Type Camden Hoang MD Attending Provider Physician Primary Care Provider Referring Provider Specialty: Family Practice Address: [address] [place] [address], [id number] Email: [email or web address] Physical Therapy Initial Evaluation PT-OP-A Visit Information Start: 09/27/21 17:44 Freq: Status: Active Protocol: Document 09/27/21 14:30 DCW (Rec: 09/27/21 17:53 DCW [id number]) Out-Patient Physical Therapy Visit Information Visit Information Visit Type Initial Evaluation Visit Start Time 14:30 Visit Stop Time 15:15 Total Visit Minutes 45 Visit Number 1 Number of AUTOMOBILE MECHANIC RADIATOR Visits 0 Evaluation Information Evaluation Date 09/27/21 PT-OP-B Current Condition Start: 09/27/21 17:44 Freq: Status: Active Protocol: Document 09/27/21 14:30 DCW (Rec: 09/27/21 17:53 DCW [id number]) Current Condition History of Current Condition Onset Date Multi-year history Current Complaints LE edema, decreased activity tolerance, weakness History of Current Condition Pt is an 85 year old male presenting with worsening lower extremity edema. Pt notes that no one has been able to tell him what is causing his swelling, but he and his PCP feel that if he is more active, it may help. 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 At that time, he broke his right shoulder, his neck, clavicle, 10 ribs, an dpunctured a lung. Admits he wore a back brace for 18 years, and then I got sick of it and threw it out. Was doing fairly well overall until, after retiring, he began playing tennis, and two years ago, dove for a ball, crashed into a fence, and broke two vertebrae. Pt reports he has had both a laminectomy and two 16 rods placed in his thoracic spine, and it feels much better, but now his low back bothers him more. He does experience radicular pain in his left leg when up doing too much. Pt' s main goal is to just improve his activity level in hopes that it reduces his leg edema. Treatment Goals Patient/Caregiver Goals Pt wants to increased activity tolerance and activty levels to see if it helps his LE edema PT-OP-C Subjective Start: 09/27/21 17:44 Freq: Status: Active Protocol: Document 09/27/21 14:30 DCW (Rec: 09/27/21 17:53 DCW [id number]) OP-PT Subjective Patient Comments Patient Comments I struggle picking things up off the floor, I just find that I can't get down there, I don't have much motion. OP-PT Pain Assessment Location Lower Back Intensity 8 Scale Used Numeric (0 - 10) Description Shooting Frequency Occasional Radiating Location Lateral left thigh, across anterior knee, into lateral lower leg PT-OP-E Functional Tests Start: 09/27/21 17:44 Freq: Status: Active Protocol: Document 09/27/21 14:30 DCW (Rec: 09/27/21 17:54 DCW [id number]) Functional Tests 6 Minute Walk Test Distance 883' Device Used none Comments 2.45 ft/sec PT-OP-J Posture/Palpation/Skin Start: 09/28/21 08:30 Freq: Status: Active Protocol: Document 09/27/21 14:30 DCW (Rec: 09/28/21 08:36 DCW [id number]) Skin Assessment Circumference Measurement 5 Location L Mid-arch Measurement (Centimeters) 26.7 Comments R = 26.2 4 Location L Figure-8 Measurement (Centimeters) 69.6 Comments R = 68.8 3 Location L Transmalleolar Measurement (Centimeters) 39.0 Comments R = 37.1 2 Location L Mid-calf Measurement (Centimeters) 42.4 Comments R = 39.9 1 Location L Knee Measurement (Centimeters) 44.5 Comments R = 44.0 cm PT-OP-M Strength Start: 09/27/21 17:44 Freq: Status: Active Protocol: Document 09/27/21 14:30 DCW (Rec: 09/28/21 08:36 DCW [id number]) Hip Strength Hip Manual Muscle Testing Right Flexion (L2) 4 Good Extension (S1) 4+ Good+ Abduction 4 Good Adduction 4 Good External Rotation 4+ Good+ Internal Rotation 3+ Fair+ Left Flexion (L2) 4- Good- Extension (S1) 4+ Good+ Abduction 4 Good Adduction 4 Good External Rotation 4+ Good+ Internal Rotation 4 Good Knee Strength Knee Manual Muscle Testing Right Flexion (S2) 4+ Good+ Extension (L3) 5 Normal Left Flexion (S2) 4+ Good+ Extension (L3) 5 Normal Ankle/Foot Strength Ankle and Foot Manual Muscle Testing Right Dorsiflexion (L4) 4 Good Plantarflexion (S1) 4 Good Left Dorsiflexion (L4) 4 Good Plantarflexion (S1) 4 Good PT-OP-T Assessment and Plan Start: 09/27/21 17:44 Freq: Status: Active Protocol: Document 09/27/21 14:30 DCW (Rec: 09/28/21 09:01 DCW [id number]) Physical Therapy Assessment Rehab Potential Rehabilitation Potential Fair Evaluation Complexity Number of Personal Factors/Comorbidities 3 or More Number of Body Systems Impaired 3 Clinical Presentation at Evaluation Unstable Impairments Impairments Activity Tolerance,Edema, Functional Activities, Functional Mobility,ROM,Soft Tissue Mobility,Strength Goals Three Impairment Pt exhibits extreme edeema in bilateral lower extremities Skilled Nursing Goal (LTG) Pt LE circumfrential measurements to decrease by at least 2 cm around bilateral knees, mid calf, and transmalleolar measures to decrease total volume of lower legs in order to improve pt's ability to ambulate and lift legs. LTG Duration 11/27/21 Two Impairment Pt ambulates 883' without an AD during his 6 MWT Skilled Nursing Goal (LTG) Pt to demonstrate ability to ambulate 1075' without an assistive device during a 6 MWT to demonstrate improved gait speed and activity tolerance LTG Duration 11/27/21 One Impairment Pt does not have an appropriate home exercise program Short Term Goal (STG) Pt to be independent and compliant with an appropriate HEP STG Duration 10/27/21 Assessment Summary Assessment Pt presents with myriad symptoms including severe lower extremity edema, decreased activity levels, hip weakness (specifically bilateral flexion and right internal rotation), and low back pain secondary to a long history of multiple back fractures. Pt's main concern is his edema, and he feels strongly that since his most recent injury, he has become very sedentary, and if he can get more active, he can better control his swelling. Physical therapy will be slightly restricted, in that come November, pt will be leaving the area for [place], and therefore wants to work on improving activity tolerance and getting a good exercise plan for home prior to leaving the state. Physical Therapy Plan Frequency and Duration Frequency of Treatment 2x/Week Duration of Treatment Two months Plan of Care Start Date 09/27/21 Plan of Care End Date 11/27/21 Therapeutic Interventions Therapeutic Interventions Aquatic Therapy,Home Exercise Program,Lymphedema Management, Manual Therapy,Patient/ Caregiver Education,Self-Care/ Home Management,Soft Tissue Mobilization,Therapeutic Activities,Therapeutic Exercises Next Visit Focus/Plan Next Note Type Treatment Note Next Visit Plan Edema management, increased activity tolerance
--- NOTE | 2021-09-28 09:01 | PT.OIE ---
Current Diagnoses Other abnormalities of gait and mobility (09/27/21) Weakness (09/27/21) Visit Care Team Role Provider Type Camden Hoang MD Attending Provider Physician Primary Care Provider Referring Provider Specialty: Family Practice Address: [address] [place] [address], [id number] Email: [email or web address] Physical Therapy Initial Evaluation PT-OP-A Visit Information Start: 09/27/21 17:44 Freq: Status: Active Protocol: Document 09/27/21 14:30 DCW (Rec: 09/27/21 17:53 DCW [id number]) Out-Patient Physical Therapy Visit Information Visit Information Visit Type Initial Evaluation Visit Start Time 14:30 Visit Stop Time 15:15 Total Visit Minutes 45 Visit Number 1 Number of CONTINUOUS PICKLING LINE PICKLER Visits 0 Evaluation Information Evaluation Date 09/27/21 PT-OP-B Current Condition Start: 09/27/21 17:44 Freq: Status: Active Protocol: Document 09/27/21 14:30 DCW (Rec: 09/27/21 17:53 DCW [id number]) Current Condition History of Current Condition Onset Date Multi-year history Current Complaints LE edema, decreased activity tolerance, weakness History of Current Condition Pt is an 85 year old male presenting with worsening lower extremity edema. Pt notes that no one has been able to tell him what is causing his swelling, but he and his PCP feel that if he is more active, it may help. 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 At that time, he broke his right shoulder, his neck, clavicle, 10 ribs, an punctured a lung. Admits he wore a back brace for 18 years, and then I got sick of it and threw it out. Was doing fairly well overall until, after retiring, he began playing tennis, and two years ago, dove for a ball, crashed into a fence, and broke two vertebrae. Pt reports he has had both a laminectomy and two 16 rods placed in his thoracic spine, and it feels much better, but now his low back bothers him more. He does experience radicular pain in his left leg when up doing too much. Pt' s main goal is to just improve his activity level in hopes that it reduces his leg edema. Treatment Goals Patient/Caregiver Goals Pt wants to increased activity tolerance and activty levels to see if it helps his LE edema PT-OP-C Subjective Start: 09/27/21 17:44 Freq: Status: Active Protocol: Document 09/27/21 14:30 DCW (Rec: 09/27/21 17:53 DCW [id number]) OP-PT Subjective Patient Comments Patient Comments I struggle picking things up off the floor, I just find that I can't get down there, I don't have much motion. OP-PT Pain Assessment Location Lower Back Intensity 8 Scale Used Numeric (0 - 10) Description Shooting Frequency Occasional Radiating Location Lateral left thigh, across anterior knee, into lateral lower leg PT-OP-E Functional Tests Start: 09/27/21 17:44 Freq: Status: Active Protocol: Document 09/27/21 14:30 DCW (Rec: 09/27/21 17:54 DCW [id number]) Functional Tests 6 Minute Walk Test Distance 883' Device Used none Comments 2.45 ft/sec PT-OP-J Posture/Palpation/Skin Start: 09/28/21 08:30 Freq: Status: Active Protocol: Document 09/27/21 14:30 DCW (Rec: 09/28/21 08:36 DCW [id number]) Skin Assessment Circumference Measurement 5 Location L Mid-arch Measurement (Centimeters) 26.7 Comments R = 26.2 4 Location L Figure-8 Measurement (Centimeters) 69.6 Comments R = 68.8 3 Location L Transmalleolar Measurement (Centimeters) 39.0 Comments R = 37.1 2 Location L Mid-calf Measurement (Centimeters) 42.4 Comments R = 39.9 1 Location L Knee Measurement (Centimeters) 44.5 Comments R = 44.0 cm PT-OP-M Strength Start: 09/27/21 17:44 Freq: Status: Active Protocol: Document 09/27/21 14:30 DCW (Rec: 09/28/21 08:36 DCW [id number]) Hip Strength Hip Manual Muscle Testing Right Flexion (L2) 4 Good Extension (S1) 4+ Good+ Abduction 4 Good Adduction 4 Good External Rotation 4+ Good+ Internal Rotation 3+ Fair+ Left Flexion (L2) 4- Good- Extension (S1) 4+ Good+ Abduction 4 Good Adduction 4 Good External Rotation 4+ Good+ Internal Rotation 4 Good Knee Strength Knee Manual Muscle Testing Right Flexion (S2) 4+ Good+ Extension (L3) 5 Normal Left Flexion (S2) 4+ Good+ Extension (L3) 5 Normal Ankle/Foot Strength Ankle and Foot Manual Muscle Testing Right Dorsiflexion (L4) 4 Good Plantarflexion (S1) 4 Good Left Dorsiflexion (L4) 4 Good Plantarflexion (S1) 4 Good PT-OP-T Assessment and Plan Start: 09/27/21 17:44 Freq: Status: Active Protocol: Document 09/27/21 14:30 DCW (Rec: 09/28/21 09:01 DCW [id number]) Physical Therapy Assessment Rehab Potential Rehabilitation Potential Fair Evaluation Complexity Number of Personal Factors/Comorbidities 3 or More Number of Body Systems Impaired 3 Clinical Presentation at Evaluation Unstable Impairments Impairments Activity Tolerance,Edema, Functional Activities, Functional Mobility,ROM,Soft Tissue Mobility,Strength Goals Three Impairment Pt exhibits extreme edeema in bilateral lower extremities Fpc Goal (LTG) Pt LE circumfrential measurements to decrease by at least 2 cm around bilateral knees, mid calf, and transmalleolar measures to decrease total volume of lower legs in order to improve pt's ability to ambulate and lift legs. LTG Duration 11/27/21 Two Impairment Pt ambulates 883' without an AD during his 6 MWT Fire Controlman Goal (LTG) Pt to demonstrate ability to ambulate 1075' without an assistive device during a 6 MWT to demonstrate improved gait speed and activity tolerance LTG Duration 11/27/21 One Impairment Pt does not have an appropriate home exercise program Short Term Goal (STG) Pt to be independent and compliant with an appropriate HEP STG Duration 10/27/21 Assessment Summary Assessment Pt presents with myriad symptoms including severe lower extremity edema, decreased activity levels, hip weakness (specifically bilateral flexion and right internal rotation), and low back pain secondary to a long history of multiple back fractures. Pt's main concern is his edema, and he feels strongly that since his most recent injury, he has become very sedentary, and if he can get more active, he can better control his swelling. Physical therapy will be slightly restricted, in that come November, pt will be leaving the area for [place], and therefore wants to work on improving activity tolerance and getting a good exercise plan for home prior to leaving the state. Physical Therapy Plan Frequency and Duration Frequency of Treatment 2x/Week Duration of Treatment Two months Plan of Care Start Date 09/27/21 Plan of Care End Date 11/27/21 Therapeutic Interventions Therapeutic Interventions Aquatic Therapy,Home Exercise Program,Lymphedema Management, Manual Therapy,Patient/ Caregiver Education,Self-Care/ Home Management,Soft Tissue Mobilization,Therapeutic Activities,Therapeutic Exercises Next Visit Focus/Plan Next Note Type Treatment Note Next Visit Plan Edema management, increased activity tolerance
--- NOTE | 2021-10-01 09:03 | PT.OTN ---
Current Diagnoses Other abnormalities of gait and mobility (10/01/21) Weakness (10/01/21) Physical Therapy Treatment Note PT-OP-A Visit Information Start: 09/27/21 17:44 Freq: Status: Active Protocol: Document 10/01/21 08:14 SP (Rec: 10/01/21 09:04 SP [id number]) Out-Patient Physical Therapy Visit Information Visit Information Visit Type Treatment Note Visit Start Time 08:15 Visit Stop Time 09:03 Total Visit Minutes 48 Visit Number 2 Number of FIBER MACHINE TENDER Visits 1 Evaluation Information Evaluation Date 09/27/21 PT-OP-B Current Condition Start: 09/27/21 17:44 Freq: Status: Active Protocol: Document 09/27/21 14:30 DCW (Rec: 09/27/21 17:53 DCW [id number]) Current Condition History of Current Condition Onset Date Multi-year history Current Complaints LE edema, decreased activity tolerance, weakness History of Current Condition Pt is an 85 year old male presenting with worsening lower extremity edema. Pt notes that no one has been able to tell him what is causing his swelling, but he and his PCP feel that if he is more active, it may help. 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 At that time, he broke his right shoulder, his neck, clavicle, 10 ribs, an dpunctured a lung. Admits he wore a back brace for 18 years, and then I got sick of it and threw it out. Was doing fairly well overall until, after retiring, he began playing tennis, and two years ago, dove for a ball, crashed into a fence, and broke two vertebrae. Pt reports he has had both a laminectomy and two 16 rods placed in his thoracic spine, and it feels much better, but now his low back bothers him more. He does experience radicular pain in his left leg when up doing too much. Pt' s main goal is to just improve his activity level in hopes that it reduces his leg edema. Treatment Goals Patient/Caregiver Goals Pt wants to increased activity tolerance and activty levels to see if it helps his LE edema PT-OP-C Subjective Start: 09/27/21 17:44 Freq: Status: Active Protocol: Document 10/01/21 08:14 SP (Rec: 10/01/21 09:04 SP [id number]) OP-PT Subjective Patient Comments Patient Comments Pt stated felt ok after last time, didn't do much just assessed what can do. Pt reported can only sleep on R side at home. Pt states leaves in Nov back to [place] for 4 months. So wants to get as active as can til then to allow back to tennis activities. Frustrated with L leg lymphedema and pain having and trying to find someone that knows more about the edema and how get it to go away, decrease pain and get stronger back to playing tennis. PT-OP-E Functional Tests Start: 09/27/21 17:44 Freq: Status: Active Protocol: Document 09/27/21 14:30 DCW (Rec: 09/27/21 17:54 DCW [id number]) Functional Tests 6 Minute Walk Test Distance 883' Device Used none Comments 2.45 ft/sec PT-OP-J Posture/Palpation/Skin Start: 09/28/21 08:30 Freq: Status: Active Protocol: Document 09/27/21 14:30 DCW (Rec: 09/28/21 08:36 DCW [id number]) Skin Assessment Circumference Measurement 5 Location L Mid-arch Measurement (Centimeters) 26.7 Comments R = 26.2 4 Location L Figure-8 Measurement (Centimeters) 69.6 Comments R = 68.8 3 Location L Transmalleolar Measurement (Centimeters) 39.0 Comments R = 37.1 2 Location L Mid-calf Measurement (Centimeters) 42.4 Comments R = 39.9 1 Location L Knee Measurement (Centimeters) 44.5 Comments R = 44.0 cm PT-OP-M Strength Start: 09/27/21 17:44 Freq: Status: Active Protocol: Document 09/27/21 14:30 DCW (Rec: 09/28/21 08:36 DCW [id number]) Hip Strength Hip Manual Muscle Testing Right Flexion (L2) 4 Good Extension (S1) 4+ Good+ Abduction 4 Good Adduction 4 Good External Rotation 4+ Good+ Internal Rotation 3+ Fair+ Left Flexion (L2) 4- Good- Extension (S1) 4+ Good+ Abduction 4 Good Adduction 4 Good External Rotation 4+ Good+ Internal Rotation 4 Good Knee Strength Knee Manual Muscle Testing Right Flexion (S2) 4+ Good+ Extension (L3) 5 Normal Left Flexion (S2) 4+ Good+ Extension (L3) 5 Normal Ankle/Foot Strength Ankle and Foot Manual Muscle Testing Right Dorsiflexion (L4) 4 Good Plantarflexion (S1) 4 Good Left Dorsiflexion (L4) 4 Good Plantarflexion (S1) 4 Good PT-OP-Q Treatments Start: 09/27/21 17:44 Freq: Status: Active Protocol: Document 10/01/21 08:14 SP (Rec: 10/01/21 09:04 SP [id number]) Therapeutic Exercises Sitting Exercises sciatic nerve glide w/ AP Sitting Exercise Name L> R tight ( added to HEP) Side left Reps/Minutes x5 Comments hip hinge to tolerant range w/ tolerant LE knee ext w/add small range AP sit<> stands Equipment Used BUE>1 hand table, other on lap Reps/Minutes x5 Comments cued scoot forward, feet under , hip hinge up/ down- improved painfree hip abd Sitting Exercise Name added to HEP Resistance Tb #2 Reps/Minutes x10 Comments good feedback response hip adduction isometric Sitting Exercise Name added to HEP Equipment Used small ball Reps/Minutes 5s x10 Comments cued Standing Exercises Self STMs Standing Exercise Name interscap, glut, lumbar paraspinals Side bilateral Equipment Used tennis ball on wall Self-Care/Home Management Treatment Education Patient Education Body Mechanics,Home Exercise Program,Pain Management Other Education Initiated seated clamshell, hip add isometric, sciatic nerve glide, sit<>stands and self STMs using ball on wall with good feedback with low level reps and rest between sets for decrease latent response. Provided handouts for recall and form. Pt motiviated to get better before Scottie moves back to warmer weather for 4 months. PT-OP-T Assessment and Plan Start: 09/27/21 17:44 Freq: Status: Active Protocol: Document 10/01/21 08:14 SP (Rec: 10/01/21 09:04 SP [id number]) Physical Therapy Assessment Goals Three Impairment Pt exhibits extreme edeema in bilateral lower extremities [place] Hand Goal (LTG) Pt LE circumfrential measurements to decrease by at least 2 cm around bilateral knees, mid calf, and transmalleolar measures to decrease total volume of lower legs in order to improve pt's ability to ambulate and lift legs. LTG Duration 11/27/21 Two Impairment Pt ambulates 883' without an AD during his 6 MWT Half-Way Goal (LTG) Pt to demonstrate ability to ambulate 1075' without an assistive device during a 6 MWT to demonstrate improved gait speed and activity tolerance LTG Duration 11/27/21 One Impairment Pt does not have an appropriate home exercise program Short Term Goal (STG) Pt to be independent and compliant with an appropriate HEP STG Duration 10/27/21 Assessment Summary Assessment Tx focused on initiating comfort positioning HEP that can be successful but not over tired to be able to get around. Pt good understanding, set up and response to seated HEP today to continue to do at home, will recheck in future tx and progress as able . Discussed PT next tx is specialized in lymphedema and can further address this and give guidence on activities to progress forward during 1 month's time have, due to leaving town for 4 months end of Oct/ beginning of Nov. Pt in agreement a good plan for future appts. Pt had good response, painfree during seated activities and self STMs in standing for LBP carryover at home with HO given for recall/ form. Physical Therapy Plan Frequency and Duration Frequency of Treatment 2x/Week Duration of Treatment Two months Plan of Care Start Date 09/27/21 Plan of Care End Date 11/27/21 Therapeutic Interventions Therapeutic Interventions Aquatic Therapy,Home Exercise Program,Lymphedema Management, Manual Therapy,Patient/ Caregiver Education,Self-Care/ Home Management,Soft Tissue Mobilization,Therapeutic Activities,Therapeutic Exercises Next Visit Focus/Plan Next Note Type Treatment Note Next Visit Plan Recheck HEP seated last tx. Next appt: address L LE Lymphedema management, progression safet for increased activity tolerance
--- NOTE | 2021-10-08 13:11 | PT.OTN ---
Current Diagnoses Other abnormalities of gait and mobility (10/08/21) Weakness (10/08/21) Physical Therapy Treatment Note PT-OP-A Visit Information Start: 09/27/21 17:44 Freq: Status: Active Protocol: Document 10/08/21 07:33 ER (Rec: 10/08/21 09:46 ER [id number]) Out-Patient Physical Therapy Visit Information Visit Information Visit Type Treatment Note Visit Note ABIGAIL Nichols lead treatment and provided education under direct supervision and instruction of JAMARCUS Chatterjee. Visit Start Time 07:33 Visit Stop Time 08:15 Total Visit Minutes 43 Visit Number 3 Number of REINFORCING IRON WORKER HELPER Visits 2 PT-OP-B Current Condition Start: 09/27/21 17:44 Freq: Status: Active Protocol: Document 09/27/21 14:30 DCW (Rec: 09/27/21 17:53 DCW [id number]) Current Condition History of Current Condition Onset Date Multi-year history Current Complaints LE edema, decreased activity tolerance, weakness History of Current Condition Pt is an 85 year old male presenting with worsening lower extremity edema. Pt notes that no one has been able to tell him what is causing his swelling, but he and his PCP feel that if he is more active, it may help. 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 At that time, he broke his right shoulder, his neck, clavicle, 10 ribs, an dpunctured a lung. Admits he wore a back brace for 18 years, and then I got sick of it and threw it out. Was doing fairly well overall until, after retiring, he began playing tennis, and two years ago, dove for a ball, crashed into a fence, and broke two vertebrae. Pt reports he has had both a laminectomy and two 16 rods placed in his thoracic spine, and it feels much better, but now his low back bothers him more. He does experience radicular pain in his left leg when up doing too much. Pt' s main goal is to just improve his activity level in hopes that it reduces his leg edema. Treatment Goals Patient/Caregiver Goals Pt wants to increased activity tolerance and activty levels to see if it helps his LE edema PT-OP-C Subjective Start: 09/27/21 17:44 Freq: Status: Active Protocol: Document 10/08/21 07:33 ER (Rec: 10/08/21 09:46 ER [id number]) OP-PT Subjective Patient Comments Patient Comments Patient stated that he had some groin pain with some home exercises (unspecified), but resolved quickly. PT-OP-E Functional Tests Start: 09/27/21 17:44 Freq: Status: Active Protocol: Document 09/27/21 14:30 DCW (Rec: 09/27/21 17:54 DCW [id number]) Functional Tests 6 Minute Walk Test Distance 883' Device Used none Comments 2.45 ft/sec PT-OP-J Posture/Palpation/Skin Start: 09/28/21 08:30 Freq: Status: Active Protocol: Document 09/27/21 14:30 DCW (Rec: 09/28/21 08:36 DCW [id number]) Skin Assessment Circumference Measurement 5 Location L Mid-arch Measurement (Centimeters) 26.7 Comments R = 26.2 4 Location L Figure-8 Measurement (Centimeters) 69.6 Comments R = 68.8 3 Location L Transmalleolar Measurement (Centimeters) 39.0 Comments R = 37.1 2 Location L Mid-calf Measurement (Centimeters) 42.4 Comments R = 39.9 1 Location L Knee Measurement (Centimeters) 44.5 Comments R = 44.0 cm PT-OP-M Strength Start: 09/27/21 17:44 Freq: Status: Active Protocol: Document 09/27/21 14:30 DCW (Rec: 09/28/21 08:36 DCW [id number]) Hip Strength Hip Manual Muscle Testing Right Flexion (L2) 4 Good Extension (S1) 4+ Good+ Abduction 4 Good Adduction 4 Good External Rotation 4+ Good+ Internal Rotation 3+ Fair+ Left Flexion (L2) 4- Good- Extension (S1) 4+ Good+ Abduction 4 Good Adduction 4 Good External Rotation 4+ Good+ Internal Rotation 4 Good Knee Strength Knee Manual Muscle Testing Right Flexion (S2) 4+ Good+ Extension (L3) 5 Normal Left Flexion (S2) 4+ Good+ Extension (L3) 5 Normal Ankle/Foot Strength Ankle and Foot Manual Muscle Testing Right Dorsiflexion (L4) 4 Good Plantarflexion (S1) 4 Good Left Dorsiflexion (L4) 4 Good Plantarflexion (S1) 4 Good PT-OP-Q Treatments Start: 09/27/21 17:44 Freq: Status: Active Protocol: Document 10/08/21 07:33 ER (Rec: 10/08/21 09:46 ER [id number]) Therapeutic Exercises Supine Exercises Supine clamshells Supine Exercise Name in hooklying added to HEP Side bilateral Reps/Minutes 10x Comments for L>R LE lymphedema management elevated heel slides Supine Exercise Name TA with lower legs elevated ( bolster under calves and feet) added to HEP Side bilateral Reps/Minutes 15x each Comments Modified to hands over tummy to brace for hernia. for lymphedema management Ankle pumps Supine Exercise Name with lower legs elevated ( bolster under calves and feet) added HEP Side bilateral Reps/Minutes 2 min Comments for lymphedema management Sitting Exercises sciatic nerve glide w/ AP Sitting Exercise Name Reviewed HEP Side bilateral Reps/Minutes x5 Comments finds effective on L though tight HS, R feels like ROM sit<> stands Sitting Exercise Name reviewed HEP Equipment Used BUE suppport Reps/Minutes x10 Comments cues to come to full height on standing, tires after 2 with 1 UE support hip abd Sitting Exercise Name reviewed HEP Resistance Tb #2 (full length for ease of usage, to hard to don/ doff loop) Reps/Minutes x10 Comments good feedback response hip adduction isometric Sitting Exercise Name reviewed HEP Equipment Used small ball (thigh master at home) Reps/Minutes 5s x10 Comments good form good inner thigh muscle work Gait Training Gait Activity 6MWT Device Used 0 Level of Assistance S Surface firm Distance/Duration 877 ft Treatment Focus baseline endurance assessment Comments Pt demonstrated stooped posture, moderate L recurvatum , shortened stride, and decreased foot clearance L>R Pt began to become SOB in last minue. Cues for increased stride length, upright posture . Decreased foot clearance resolved with increased stride length. Self-Care/Home Management Treatment Education Patient Education Body Mechanics,Home Exercise Program,Pain Management Other Education Instructed on lymphedema management exercises in supine . PT-OP-T Assessment and Plan Start: 09/27/21 17:44 Freq: Status: Active Protocol: Document 10/08/21 07:33 ER (Rec: 10/08/21 09:46 ER [id number]) Physical Therapy Assessment Goals Three Impairment Pt exhibits extreme edeema in bilateral lower extremities Halfway Goal (LTG) Pt LE circumfrential measurements to decrease by at least 2 cm around bilateral knees, mid calf, and transmalleolar measures to decrease total volume of lower legs in order to improve pt's ability to ambulate and lift legs. LTG Duration 11/27/21 Two Impairment Pt ambulates 883' without an AD during his 6 MWT Halfway Goal (LTG) Pt to demonstrate ability to ambulate 1075' without an assistive device during a 6 MWT to demonstrate improved gait speed and activity tolerance LTG Duration 11/27/21 One Impairment Pt does not have an appropriate home exercise program Short Term Goal (STG) Pt to be independent and compliant with an appropriate HEP STG Duration 10/27/21 Assessment Summary Assessment Reviewed HEP. Pt unable to do more than 2 STS w/o B UE support, tires quickly demonstrating decreased strength and endurance. Noted tight hamstrings on L with sciatic nerve glide. Instructed on lymphedema management exercises in supine . Heel slides and clamshells required modification to hands laid across tummy to support TA during ex. Pt instructed not to push or put excessive strain of abdominals due to heriation. Gait required cues for stride length and upright posture. Improved efficiency and decreased energy expenditure with increased stride length. Still became mildly SOB in last minute of 6MWT. Physical Therapy Plan Frequency and Duration Frequency of Treatment 2x/Week Duration of Treatment Two months Plan of Care Start Date 09/27/21 Plan of Care End Date 11/27/21 Therapeutic Interventions Therapeutic Interventions Aquatic Therapy,Home Exercise Program,Lymphedema Management, Manual Therapy,Patient/ Caregiver Education,Self-Care/ Home Management,Soft Tissue Mobilization,Therapeutic Activities,Therapeutic Exercises Next Visit Focus/Plan Next Note Type Treatment Note Next Visit Plan Check response to HEP for lymphedema. Review and adjust for safety and effectiveness. Recheck HEP seated last tx. Next appt: PT to address L LE Lymphedema management, progression safet for increased activity tolerance
--- NOTE | 2021-10-10 17:38 | PT.OTN ---
Current Diagnoses Other abnormalities of gait and mobility (10/10/21) Weakness (10/10/21) Physical Therapy Treatment Note PT-OP-A Visit Information Start: 09/27/21 17:44 Freq: Status: Active Protocol: Document 10/10/21 14:38 MA (Rec: 10/10/21 15:19 MA [id number]) Out-Patient Physical Therapy Visit Information Visit Information Visit Type Treatment Note Visit Start Time 14:30 Visit Stop Time 15:15 Total Visit Minutes 45 Visit Number 4 Number of SOIL SCIENTIST Visits 3 PT-OP-B Current Condition Start: 09/27/21 17:44 Freq: Status: Active Protocol: Document 09/27/21 14:30 DCW (Rec: 09/27/21 17:53 DCW [id number]) Current Condition History of Current Condition Onset Date Multi-year history Current Complaints LE edema, decreased activity tolerance, weakness History of Current Condition Pt is an 85 year old male presenting with worsening lower extremity edema. Pt notes that no one has been able to tell him what is causing his swelling, but he and his PCP feel that if he is more active, it may help. 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 At that time, he broke his right shoulder, his neck, clavicle, 10 ribs, an dpunctured a lung. Admits he wore a back brace for 18 years, and then I got sick of it and threw it out. Was doing fairly well overall until, after retiring, he began playing tennis, and two years ago, dove for a ball, crashed into a fence, and broke two vertebrae. Pt reports he has had both a laminectomy and two 16 rods placed in his thoracic spine, and it feels much better, but now his low back bothers him more. He does experience radicular pain in his left leg when up doing too much. Pt' s main goal is to just improve his activity level in hopes that it reduces his leg edema. Treatment Goals Patient/Caregiver Goals Pt wants to increased activity tolerance and activty levels to see if it helps his LE edema PT-OP-C Subjective Start: 09/27/21 17:44 Freq: Status: Active Protocol: Document 10/10/21 14:38 MA (Rec: 12/01/21 15:19 MA [id number]) OP-PT Subjective Patient Comments Patient Comments Pt states, my butt is sore from last session PT-OP-E Functional Tests Start: 09/27/21 17:44 Freq: Status: Active Protocol: Document 09/27/21 14:30 DCW (Rec: 09/27/21 17:54 DCW [id number]) Functional Tests 6 Minute Walk Test Distance 883' Device Used none Comments 2.45 ft/sec PT-OP-J Posture/Palpation/Skin Start: 09/28/21 08:30 Freq: Status: Active Protocol: Document 09/27/21 14:30 DCW (Rec: 09/28/21 08:36 DCW [id number]) Skin Assessment Circumference Measurement 5 Location L Mid-arch Measurement (Centimeters) 26.7 Comments R = 26.2 4 Location L Figure-8 Measurement (Centimeters) 69.6 Comments R = 68.8 3 Location L Transmalleolar Measurement (Centimeters) 39.0 Comments R = 37.1 2 Location L Mid-calf Measurement (Centimeters) 42.4 Comments R = 39.9 1 Location L Knee Measurement (Centimeters) 44.5 Comments R = 44.0 cm PT-OP-M Strength Start: 09/27/21 17:44 Freq: Status: Active Protocol: Document 09/27/21 14:30 DCW (Rec: 09/28/21 08:36 DCW [id number]) Hip Strength Hip Manual Muscle Testing Right Flexion (L2) 4 Good Extension (S1) 4+ Good+ Abduction 4 Good Adduction 4 Good External Rotation 4+ Good+ Internal Rotation 3+ Fair+ Left Flexion (L2) 4- Good- Extension (S1) 4+ Good+ Abduction 4 Good Adduction 4 Good External Rotation 4+ Good+ Internal Rotation 4 Good Knee Strength Knee Manual Muscle Testing Right Flexion (S2) 4+ Good+ Extension (L3) 5 Normal Left Flexion (S2) 4+ Good+ Extension (L3) 5 Normal Ankle/Foot Strength Ankle and Foot Manual Muscle Testing Right Dorsiflexion (L4) 4 Good Plantarflexion (S1) 4 Good Left Dorsiflexion (L4) 4 Good Plantarflexion (S1) 4 Good PT-OP-Q Treatments Start: 09/27/21 17:44 Freq: Status: Active Protocol: Document 10/10/21 14:38 MA (Rec: 10/10/21 15:19 MA [id number]) Cardio Equipment Recumbent Elliptical (Biodex) Duration (Minutes) 5 Resistance 1 Seat Position 12 Therapeutic Exercises Supine Exercises SLR Supine Exercise Name Straight leg raise Side bilateral Reps/Minutes 2x6 Comments cues for core engagement due to hernia elevated heel slides Supine Exercise Name TA with lower legs elevated ( bolster under calves and feet) added to HEP Side bilateral Reps/Minutes 15x each Comments Modified to hands over tummy to brace for hernia. for lymphedema management Ankle pumps Supine Exercise Name with lower legs elevated ( bolster under calves and feet) added HEP Side bilateral Reps/Minutes 2 min Comments for lymphedema management Sitting Exercises sciatic nerve glide w/ AP Sitting Exercise Name Reviewed HEP Side bilateral Reps/Minutes x5 Comments finds effective on L though tight HS, R feels like ROM sit<> stands Sitting Exercise Name reviewed HEP Equipment Used BUE suppport Reps/Minutes x10 Comments cues to come to full height on standing, tires after 2 with 1 UE support hip abd Sitting Exercise Name reviewed HEP Resistance Tb #2 (full length for ease of usage, to hard to don/ doff loop) Reps/Minutes x10 Comments good feedback response hip adduction isometric Sitting Exercise Name reviewed HEP Equipment Used small ball (thigh master at home) Reps/Minutes 5s x10 Comments good form good inner thigh muscle work Self-Care/Home Management Treatment Education Other Education Educated pt in aquatic therapy for swelling and elevating LEs for lymphedema managmenet. PT-OP-T Assessment and Plan Start: 09/27/21 17:44 Freq: Status: Active Protocol: Document 10/10/21 14:38 MA (Rec: 10/10/21 15:19 MA [id number]) Physical Therapy Assessment Goals Three Impairment Pt exhibits extreme edeema in bilateral lower extremities [facility] Goal (LTG) Pt LE circumfrential measurements to decrease by at least 2 cm around bilateral knees, mid calf, and transmalleolar measures to decrease total volume of lower legs in order to improve pt's ability to ambulate and lift legs. LTG Duration 11/27/21 Two Impairment Pt ambulates 883' without an AD during his 6 MWT [employer] Goal (LTG) Pt to demonstrate ability to ambulate 1075' without an assistive device during a 6 MWT to demonstrate improved gait speed and activity tolerance LTG Duration 11/27/21 One Impairment Pt does not have an appropriate home exercise program Short Term Goal (STG) Pt to be independent and compliant with an appropriate HEP STG Duration 10/27/21 Assessment Summary Assessment Reviewed HEP with pt fatiguing quickly throughout exercises requiring frequent rest breaks . Attempted SLR with pt having difficutly lifting LLE independenlty and having increased LBP with difficulty engageing core. Pt brought in his thigh master and prefers perfomring adduction exercise with it vs ball. Discussed aquatic therapy with pt who states he will not try aquatic therapy in [place] due to the cold temps in the pool but he does aquatic work outs 5x/ wk usually when he is in [place]. He returns to [place] in November and will get a referral for aquatic PT there. Physical Therapy Plan Frequency and Duration Frequency of Treatment 2x/Week Duration of Treatment Two months Plan of Care Start Date 09/27/21 Plan of Care End Date 11/27/21 Therapeutic Interventions Therapeutic Interventions Aquatic Therapy,Home Exercise Program,Lymphedema Management, Manual Therapy,Patient/ Caregiver Education,Self-Care/ Home Management,Soft Tissue Mobilization,Therapeutic Activities,Therapeutic Exercises Next Visit Focus/Plan Next Note Type Treatment Note Next Visit Plan Check response to HEP for lymphedema. Review and adjust for safety and effectiveness. Recheck HEP seated last tx. Next appt: PT to address L LE Lymphedema management, progression safet for increased activity tolerance
--- NOTE | 2021-10-15 14:40 | PT.OTN ---
Current Diagnoses Other abnormalities of gait and mobility (10/15/21) Weakness (10/15/21) Physical Therapy Treatment Note PT-OP-A Visit Information Start: 09/27/21 17:44 Freq: Status: Active Protocol: Document 10/15/21 08:15 ER (Rec: 10/15/21 10:25 ER [id number]) Out-Patient Physical Therapy Visit Information Visit Information Visit Type Treatment Note Visit Note ABIGAIL Nichols lead treatment and provided education under the direct supervision and instruction of COMPLAINT COORDINATOR Shena Visit Start Time 08:15 Visit Stop Time 09:00 Total Visit Minutes 45 Visit Number 5 Number of COMPLAINT COORDINATOR Visits 4 PT-OP-B Current Condition Start: 09/27/21 17:44 Freq: Status: Active Protocol: Document 09/27/21 14:30 DCW (Rec: 09/27/21 17:53 DCW [id number]) Current Condition History of Current Condition Onset Date Multi-year history Current Complaints LE edema, decreased activity tolerance, weakness History of Current Condition Pt is an 85 year old male presenting with worsening lower extremity edema. Pt notes that no one has been able to tell him what is causing his swelling, but he and his PCP feel that if he is more active, it may help. 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 At that time, he broke his right shoulder, his neck, clavicle, 10 ribs, an dpunctured a lung. Admits he wore a back brace for 18 years, and then I got sick of it and threw it out. Was doing fairly well overall until, after retiring, he began playing tennis, and two years ago, dove for a ball, crashed into a fence, and broke two vertebrae. Pt reports he has had both a laminectomy and two 16 rods placed in his thoracic spine, and it feels much better, but now his low back bothers him more. He does experience radicular pain in his left leg when up doing too much. Pt' s main goal is to just improve his activity level in hopes that it reduces his leg edema. Treatment Goals Patient/Caregiver Goals Pt wants to increased activity tolerance and activty levels to see if it helps his LE edema PT-OP-C Subjective Start: 09/27/21 17:44 Freq: Status: Active Protocol: Document 10/15/21 08:15 ER (Rec: 10/15/21 10:25 ER [id number]) OP-PT Subjective Patient Comments Patient Comments Pt indicated that he had pain in his L lower leg for approximately 15 seconds and then it faded and returned. Indicated that it continued all day long. He walked and stretched, and eventually it resolved on its own. Pt getting a massage once a week with lymphedema management. Pt said he can stand for a couple of hours, but then becomes fatigued. Pt said that when he wakes up in the mornings, edema is less, and R leg looks normal to him. PT-OP-E Functional Tests Start: 09/27/21 17:44 Freq: Status: Active Protocol: Document 09/27/21 14:30 DCW (Rec: 09/27/21 17:54 DCW [id number]) Functional Tests 6 Minute Walk Test Distance 883' Device Used none Comments 2.45 ft/sec PT-OP-J Posture/Palpation/Skin Start: 09/28/21 08:30 Freq: Status: Active Protocol: Document 09/27/21 14:30 DCW (Rec: 09/28/21 08:36 DCW [id number]) Skin Assessment Circumference Measurement 5 Location L Mid-arch Measurement (Centimeters) 26.7 Comments R = 26.2 4 Location L Figure-8 Measurement (Centimeters) 69.6 Comments R = 68.8 3 Location L Transmalleolar Measurement (Centimeters) 39.0 Comments R = 37.1 2 Location L Mid-calf Measurement (Centimeters) 42.4 Comments R = 39.9 1 Location L Knee Measurement (Centimeters) 44.5 Comments R = 44.0 cm PT-OP-M Strength Start: 09/27/21 17:44 Freq: Status: Active Protocol: Document 09/27/21 14:30 DCW (Rec: 09/28/21 08:36 DCW [id number]) Hip Strength Hip Manual Muscle Testing Right Flexion (L2) 4 Good Extension (S1) 4+ Good+ Abduction 4 Good Adduction 4 Good External Rotation 4+ Good+ Internal Rotation 3+ Fair+ Left Flexion (L2) 4- Good- Extension (S1) 4+ Good+ Abduction 4 Good Adduction 4 Good External Rotation 4+ Good+ Internal Rotation 4 Good Knee Strength Knee Manual Muscle Testing Right Flexion (S2) 4+ Good+ Extension (L3) 5 Normal Left Flexion (S2) 4+ Good+ Extension (L3) 5 Normal Ankle/Foot Strength Ankle and Foot Manual Muscle Testing Right Dorsiflexion (L4) 4 Good Plantarflexion (S1) 4 Good Left Dorsiflexion (L4) 4 Good Plantarflexion (S1) 4 Good PT-OP-Q Treatments Start: 09/27/21 17:44 Freq: Status: Active Protocol: Document 10/15/21 08:15 ER (Rec: 10/15/21 10:25 ER [id number]) Therapeutic Exercises Supine Exercises Diaphragmatic Breathing Supine Exercise Name for lymphedema mgmt Reps/Minutes 2 min Comments cues to breath in through nose , relax, allow tummy to fill and fall Supine clamshells Supine Exercise Name in hooklying added to HEP Side bilateral Reps/Minutes 20x, 10x, 10x Comments for L>R LE lymphedema management elevated heel slides Supine Exercise Name TA with lower legs elevated ( bolster under calves and feet) added to HEP Side bilateral Reps/Minutes 20x, 10x, 10x Comments Modified to hands over tummy to brace for hernia. for lymphedema management Ankle pumps Supine Exercise Name with lower legs elevated ( bolster under calves and feet) added HEP Side bilateral Reps/Minutes 2 min, 1 min, Comments for lymphedema management Sitting Exercises sciatic nerve glide w/ AP Sitting Exercise Name Reviewed HEP Side bilateral Reps/Minutes x10 ea side Comments very tight on L ham Like a board {Pt indicates helps with walking sit<> stands Sitting Exercise Name reviewed HEP Equipment Used BUE suppport Reps/Minutes x10 Comments good form with BUE on knees. Gait Training Gait Activity 6MWT Device Used 0 Level of Assistance SBA Surface firm Distance/Duration 995 Comments Pt reported feeling wobbley, but maintained pace with no LOB. Pt demonstrated stooped posture, shortened stride, decreased foot clearance with toe of R foot catching the floor x 2. No imbalance resulting. Pt was able to perform full test without becoming SOB. Decreased foot clearance resolved with cues to increase stride length. Cues to maintain upright posture. Manual Therapy Treatment Soft Tissue Mobilization retrograde lymphatic gentle STMs Body Location L anterior hip<> thigh<>lower leg<> foot Mobilization Type Manual Lymphatic Drainage Intensity/Depth Superficial Body Position Hooklying Comments 10 min Modest decrease in edema. Pt reported able to move LLE a little better post tx. Self-Care/Home Management Treatment Education Patient Education Body Mechanics,Home Exercise Program,Pain Management Other Education Pt educated on lymphedema management, use of compression hose (daytime hours only at this time) use of potential assistive device for donning compression hose. Provided with sheet for potential assistive device. PT-OP-T Assessment and Plan Start: 09/27/21 17:44 Freq: Status: Active Protocol: Document 10/15/21 08:15 ER (Rec: 10/15/21 10:25 ER [id number]) Physical Therapy Assessment Goals Three Impairment Pt exhibits extreme edeema in bilateral lower extremities Sharebroker Goal (LTG) Pt LE circumfrential measurements to decrease by at least 2 cm around bilateral knees, mid calf, and transmalleolar measures to decrease total volume of lower legs in order to improve pt's ability to ambulate and lift legs. LTG Duration 11/27/21 Two Impairment Pt ambulates 883' without an AD during his 6 MWT [facility] Goal (LTG) Pt to demonstrate ability to ambulate 1075' without an assistive device during a 6 MWT to demonstrate improved gait speed and activity tolerance LTG Duration 11/27/21 One Impairment Pt does not have an appropriate home exercise program Short Term Goal (STG) Pt to be independent and compliant with an appropriate HEP STG Duration 10/27/21 Assessment Summary Assessment Pt entered clinic with tight, edemic LLE L>R. Complained of pain in L calf that lasted 15 seconds at a time all day yesterday. He performed his home exercises with no resolution to pain. Pain resolved on it's own later in the day. Inspected BLE distal to knee. Found significant edema along both legs, extending through ankles and into feet. Skin was tight, but undamaged. Skin temperature WNL, no redness or wounds noted. Initiated manual therapy, which produced minimal reduction in edema. Pt performed lymphatic drainage exercises, with Pt reporting some reduction in tightness. Pt increased 6MWT to 995', from 887'. Gait is unchanged from previous observations, but Pt did not become SOB. Instructed Pt to bring shorts next time, as well as compression hose and any assisistive device he is using to don same. Pt. is looking to leave area in November. His primary complaint remains pain and swelling in his LLE. Physical Therapy Plan Frequency and Duration Frequency of Treatment 2x/Week Duration of Treatment Two months Plan of Care Start Date 09/27/21 Plan of Care End Date 11/27/21 Therapeutic Interventions Therapeutic Interventions Aquatic Therapy,Home Exercise Program,Lymphedema Management, Manual Therapy,Patient/ Caregiver Education,Self-Care/ Home Management,Soft Tissue Mobilization,Therapeutic Activities,Therapeutic Exercises Next Visit Focus/Plan Next Note Type Treatment Note Next Visit Plan Continue lymphedema management treatment and education. Address compression hose and assistive devices to help Pt don them. Check response to HEP and review for lymphedema. Adjust for safety and effectiveness. Next appt: PT to address L LE Lymphedema management, progression safet for increased activity tolerance
--- NOTE | 2021-10-17 15:14 | PT.OTN ---
Current Diagnoses Other abnormalities of gait and mobility (10/17/21) Weakness (10/17/21) Physical Therapy Treatment Note PT-OP-A Visit Information Start: 09/27/21 17:44 Freq: Status: Active Protocol: Document 10/17/21 13:57 AW (Rec: 10/17/21 13:58 AW [id number]) Out-Patient Physical Therapy Visit Information Visit Information Visit Type Treatment Note Visit Start Time 13:00 Visit Stop Time 13:57 Total Visit Minutes 57 Visit Number 6 Number of PHARMACY DELIVERY DRIVER Visits 0 Evaluation Information Evaluation Date 09/27/21 PT-OP-B Current Condition Start: 09/27/21 17:44 Freq: Status: Active Protocol: Document 09/27/21 14:30 DCW (Rec: 09/27/21 17:53 DCW [id number]) Current Condition History of Current Condition Onset Date Multi-year history Current Complaints LE edema, decreased activity tolerance, weakness History of Current Condition Pt is an 85 year old male presenting with worsening lower extremity edema. Pt notes that no one has been able to tell him what is causing his swelling, but he and his PCP feel that if he is more active, it may help. 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 At that time, he broke his right shoulder, his neck, clavicle, 10 ribs, an dpunctured a lung. Admits he wore a back brace for 18 years, and then I got sick of it and threw it out. Was doing fairly well overall until, after retiring, he began playing tennis, and two years ago, dove for a ball, crashed into a fence, and broke two vertebrae. Pt reports he has had both a laminectomy and two 16 rods placed in his thoracic spine, and it feels much better, but now his low back bothers him more. He does experience radicular pain in his left leg when up doing too much. Pt' s main goal is to just improve his activity level in hopes that it reduces his leg edema. Treatment Goals Patient/Caregiver Goals Pt wants to increased activity tolerance and activty levels to see if it helps his LE edema PT-OP-C Subjective Start: 09/27/21 17:44 Freq: Status: Active Protocol: Document 10/17/21 13:57 AW (Rec: 10/17/21 14:56 AW [id number]) OP-PT Subjective Patient Comments Patient Comments I sure hope you can help me with this swelling. PT-OP-E Functional Tests Start: 09/27/21 17:44 Freq: Status: Active Protocol: Document 09/27/21 14:30 DCW (Rec: 09/27/21 17:54 DCW [id number]) Functional Tests 6 Minute Walk Test Distance 883' Device Used none Comments 2.45 ft/sec PT-OP-J Posture/Palpation/Skin Start: 09/28/21 08:30 Freq: Status: Active Protocol: Document 09/27/21 14:30 DCW (Rec: 09/28/21 08:36 DCW [id number]) Skin Assessment Circumference Measurement 5 Location L Mid-arch Measurement (Centimeters) 26.7 Comments R = 26.2 4 Location L Figure-8 Measurement (Centimeters) 69.6 Comments R = 68.8 3 Location L Transmalleolar Measurement (Centimeters) 39.0 Comments R = 37.1 2 Location L Mid-calf Measurement (Centimeters) 42.4 Comments R = 39.9 1 Location L Knee Measurement (Centimeters) 44.5 Comments R = 44.0 cm PT-OP-M Strength Start: 09/27/21 17:44 Freq: Status: Active Protocol: Document 09/27/21 14:30 DCW (Rec: 09/28/21 08:36 DCW [id number]) Hip Strength Hip Manual Muscle Testing Right Flexion (L2) 4 Good Extension (S1) 4+ Good+ Abduction 4 Good Adduction 4 Good External Rotation 4+ Good+ Internal Rotation 3+ Fair+ Left Flexion (L2) 4- Good- Extension (S1) 4+ Good+ Abduction 4 Good Adduction 4 Good External Rotation 4+ Good+ Internal Rotation 4 Good Knee Strength Knee Manual Muscle Testing Right Flexion (S2) 4+ Good+ Extension (L3) 5 Normal Left Flexion (S2) 4+ Good+ Extension (L3) 5 Normal Ankle/Foot Strength Ankle and Foot Manual Muscle Testing Right Dorsiflexion (L4) 4 Good Plantarflexion (S1) 4 Good Left Dorsiflexion (L4) 4 Good Plantarflexion (S1) 4 Good PT-OP-Q Treatments Start: 09/27/21 17:44 Freq: Status: Active Protocol: Document 10/17/21 13:57 AW (Rec: 10/17/21 13:58 AW [id number]) Cardio Equipment Recumbent Elliptical (Biodex) Duration (Minutes) 5 Resistance 1 Seat Position 12 Therapeutic Exercises Supine Exercises Diaphragmatic Breathing Supine Exercise Name for lymphedema mgmt Reps/Minutes 2 min Comments cues to breath in through nose , relax, allow tummy to fill and fall Ankle pumps Supine Exercise Name with lower legs elevated ( bolster under calves and feet) added HEP Side bilateral Reps/Minutes 2 min, 1 min, Comments for lymphedema management Self-Care/Home Management Treatment Education Other Education Edema management. See lymphedema treatment section for details Lymphedema Treatment Manual Lymphatic Drainage Location BLE Duration 35 min Comments Focused on AIA pathways BLE to increase lymphangiomotoricity . Applied Cetaphil to BLE for skin care and educated pt on importance of maintaining intact skin. Compression Garment Assessment Compression Garment Assessment Details Assisted pt to don his own knee-high compression socks using pt's own sock slider. Pt would likely benefit from higher level of compression and may need alternate donning device. Patient Education Lymphedema Pathology Initiated education on superficial lymphatic system and rationale for tx Compression Garments Pt would likely benefit from compression wrapping PT-OP-T Assessment and Plan Start: 09/27/21 17:44 Freq: Status: Active Protocol: Document 10/17/21 13:57 AW (Rec: 10/17/21 15:14 AW [id number]) Physical Therapy Assessment Goals Three Impairment Pt exhibits extreme edeema in bilateral lower extremities Bike Technician Goal (LTG) Pt LE circumfrential measurements to decrease by at least 2 cm around bilateral knees, mid calf, and transmalleolar measures to decrease total volume of lower legs in order to improve pt's ability to ambulate and lift legs. LTG Duration 11/27/21 Two Impairment Pt ambulates 883' without an AD during his 6 MWT [facility] Goal (LTG) Pt to demonstrate ability to ambulate 1075' without an assistive device during a 6 MWT to demonstrate improved gait speed and activity tolerance LTG Duration 11/27/21 One Impairment Pt does not have an appropriate home exercise program Short Term Goal (STG) Pt to be independent and compliant with an appropriate HEP STG Duration 10/27/21 Assessment Summary Assessment Pt has fibrotic changes to lower extremities consistent with lymphedema. He would benefit from therapy specifically directed at edema reduction. Will forward this treatment note to referring provider for hopeful update to PT plan of care. Physical Therapy Plan Frequency and Duration Frequency of Treatment 2x/Week Duration of Treatment Two months Plan of Care Start Date 09/27/21 Plan of Care End Date 11/27/21 Therapeutic Interventions Therapeutic Interventions Aquatic Therapy,Home Exercise Program,Lymphedema Management, Manual Therapy,Patient/ Caregiver Education,Self-Care/ Home Management,Soft Tissue Mobilization,Therapeutic Activities,Therapeutic Exercises Next Visit Focus/Plan Next Note Type Treatment Note Next Visit Plan Continue lymphedema management treatment and education. Address compression hose and assistive devices to help Pt don them. Check response to HEP and review for lymphedema. Adjust for safety and effectiveness. Next appt: PT to address L LE Lymphedema management, progression safet for increased activity tolerance
--- NOTE | 2021-10-22 10:30 | PT.OTN ---
Current Diagnoses Other abnormalities of gait and mobility (10/22/21) Weakness (10/22/21) Physical Therapy Treatment Note PT-OP-A Visit Information Start: 09/27/21 17:44 Freq: Status: Active Protocol: Document 10/22/21 09:49 DCW (Rec: 10/22/21 10:29 DCW [id number]) Out-Patient Physical Therapy Visit Information Visit Information Visit Type Treatment Note Visit Start Time 09:49 Visit Stop Time 10:30 Total Visit Minutes 41 Visit Number 7 Number of BINDER SORTER Visits 0 Evaluation Information Evaluation Date 09/27/21 PT-OP-B Current Condition Start: 09/27/21 17:44 Freq: Status: Active Protocol: Document 09/27/21 14:30 DCW (Rec: 09/27/21 17:53 DCW [id number]) Current Condition History of Current Condition Onset Date Multi-year history Current Complaints LE edema, decreased activity tolerance, weakness History of Current Condition Pt is an 85 year old male presenting with worsening lower extremity edema. Pt notes that no one has been able to tell him what is causing his swelling, but he and his PCP feel that if he is more active, it may help. 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 At that time, he broke his right shoulder, his neck, clavicle, 10 ribs, an dpunctured a lung. Admits he wore a back brace for 18 years, and then I got sick of it and threw it out. Was doing fairly well overall until, after retiring, he began playing tennis, and two years ago, dove for a ball, crashed into a fence, and broke two vertebrae. Pt reports he has had both a laminectomy and two 16 rods placed in his thoracic spine, and it feels much better, but now his low back bothers him more. He does experience radicular pain in his left leg when up doing too much. Pt' s main goal is to just improve his activity level in hopes that it reduces his leg edema. Treatment Goals Patient/Caregiver Goals Pt wants to increased activity tolerance and activty levels to see if it helps his LE edema PT-OP-C Subjective Start: 09/27/21 17:44 Freq: Status: Active Protocol: Document 10/22/21 09:49 DCW (Rec: 10/22/21 10:29 DCW [id number]) OP-PT Subjective Patient Comments Patient Comments That woman gave me those socks for my legs, and ever since I've had a little pain in my knee. PT-OP-E Functional Tests Start: 09/27/21 17:44 Freq: Status: Active Protocol: Document 09/27/21 14:30 DCW (Rec: 09/27/21 17:54 DCW [id number]) Functional Tests 6 Minute Walk Test Distance 883' Device Used none Comments 2.45 ft/sec PT-OP-J Posture/Palpation/Skin Start: 09/28/21 08:30 Freq: Status: Active Protocol: Document 09/27/21 14:30 DCW (Rec: 09/28/21 08:36 DCW [id number]) Skin Assessment Circumference Measurement 5 Location L Mid-arch Measurement (Centimeters) 26.7 Comments R = 26.2 4 Location L Figure-8 Measurement (Centimeters) 69.6 Comments R = 68.8 3 Location L Transmalleolar Measurement (Centimeters) 39.0 Comments R = 37.1 2 Location L Mid-calf Measurement (Centimeters) 42.4 Comments R = 39.9 1 Location L Knee Measurement (Centimeters) 44.5 Comments R = 44.0 cm PT-OP-M Strength Start: 09/27/21 17:44 Freq: Status: Active Protocol: Document 09/27/21 14:30 DCW (Rec: 09/28/21 08:36 DCW [id number]) Hip Strength Hip Manual Muscle Testing Right Flexion (L2) 4 Good Extension (S1) 4+ Good+ Abduction 4 Good Adduction 4 Good External Rotation 4+ Good+ Internal Rotation 3+ Fair+ Left Flexion (L2) 4- Good- Extension (S1) 4+ Good+ Abduction 4 Good Adduction 4 Good External Rotation 4+ Good+ Internal Rotation 4 Good Knee Strength Knee Manual Muscle Testing Right Flexion (S2) 4+ Good+ Extension (L3) 5 Normal Left Flexion (S2) 4+ Good+ Extension (L3) 5 Normal Ankle/Foot Strength Ankle and Foot Manual Muscle Testing Right Dorsiflexion (L4) 4 Good Plantarflexion (S1) 4 Good Left Dorsiflexion (L4) 4 Good Plantarflexion (S1) 4 Good PT-OP-Q Treatments Start: 09/27/21 17:44 Freq: Status: Active Protocol: Document 10/22/21 09:49 DCW (Rec: 10/22/21 10:29 DCW [id number]) Cardio Equipment Recumbent Elliptical (Biodex) Duration (Minutes) 6 Resistance 4 Seat Position 12 Gym Equipment Shuttle Recovery Bilateral Heel Raises Resistance 75# Unilateral Squats Resistance 50# Shuttle Recovery Platform Stable Reps/Time 2x10 Bilateral Squats Resistance 100# Shuttle Recovery Platform Stable Reps/Time 2x10 Therapeutic Exercises Supine Exercises Hip Adduction Supine Exercise Name Adductor ball squeeze Side bilateral Resistance small ball SLR Supine Exercise Name Straight leg raise Side bilateral Reps/Minutes x8 Comments cues for core engagement due to hernia Supine clamshells Supine Exercise Name in hooklying Side bilateral Resistance Lv 2 Equipment Used T-band Sidelying Exercises Hip Abduction Sidelying Exercise Name hip abd Side left Reps/Minutes x6 Comments difficulty lying on L side Sitting Exercises calf stretch Sitting Exercise Name Seated calf stretch Side bilateral hamstring stretch Sitting Exercise Name Seated HS stretch Side bilateral Manual Therapy Treatment Soft Tissue Mobilization gastroc Body Location B calf STM Mobilization Type Strumming,Sustained Pressure Body Position Sitting PT-OP-T Assessment and Plan Start: 09/27/21 17:44 Freq: Status: Active Protocol: Document 10/22/21 09:49 DCW (Rec: 10/22/21 10:29 DCW [id number]) Physical Therapy Assessment Goals Three Impairment Pt exhibits extreme edeema in bilateral lower extremities Veterinarian Helper Goal (LTG) Pt LE circumfrential measurements to decrease by at least 2 cm around bilateral knees, mid calf, and transmalleolar measures to decrease total volume of lower legs in order to improve pt's ability to ambulate and lift legs. LTG Duration 11/27/21 Two Impairment Pt ambulates 883' without an AD during his 6 MWT Long-Term Goal (LTG) Pt to demonstrate ability to ambulate 1075' without an assistive device during a 6 MWT to demonstrate improved gait speed and activity tolerance LTG Duration 11/27/21 One Impairment Pt does not have an appropriate home exercise program Short Term Goal (STG) Pt to be independent and compliant with an appropriate HEP STG Duration 10/27/21 Assessment Summary Assessment Pt showing fairly good improvement with edema levels since eval, pt happy with current progress, discussed continuing as scheduled or switching to Lymphedema PT, decided to continue as scheduled for now, although pt will be leaving for [place] at the end of this month. Physical Therapy Plan Frequency and Duration Frequency of Treatment 2x/Week Duration of Treatment Two months Plan of Care Start Date 09/27/21 Plan of Care End Date 11/27/21 Therapeutic Interventions Therapeutic Interventions Aquatic Therapy,Home Exercise Program,Lymphedema Management, Manual Therapy,Patient/ Caregiver Education,Self-Care/ Home Management,Soft Tissue Mobilization,Therapeutic Activities,Therapeutic Exercises Next Visit Focus/Plan Next Note Type Treatment Note Next Visit Plan Continue lymphedema management treatment and education. Address compression hose and assistive devices to help Pt don them. Check response to HEP and review for lymphedema. Adjust for safety and effectiveness. Next appt: PT to address L LE Lymphedema management, progression safet for increased activity tolerance
--- NOTE | 2021-10-24 17:12 | PT.OTN ---
Current Diagnoses Other abnormalities of gait and mobility (10/24/21) Weakness (10/24/21) Physical Therapy Treatment Note PT-OP-A Visit Information Start: 09/27/21 17:44 Freq: Status: Active Protocol: Document 10/24/21 14:30 AW (Rec: 10/24/21 14:32 AW [id number]) Out-Patient Physical Therapy Visit Information Visit Information Visit Type Treatment Note Visit Start Time 13:45 Visit Stop Time 14:30 Total Visit Minutes 45 Visit Number 8 Number of TRAFFIC WAREHOUSE SUPERVISOR Visits 0 Evaluation Information Evaluation Date 09/27/21 PT-OP-B Current Condition Start: 09/27/21 17:44 Freq: Status: Active Protocol: Document 09/27/21 14:30 DCW (Rec: 09/27/21 17:53 DCW [id number]) Current Condition History of Current Condition Onset Date Multi-year history Current Complaints LE edema, decreased activity tolerance, weakness History of Current Condition Pt is an 85 year old male presenting with worsening lower extremity edema. Pt notes that no one has been able to tell him what is causing his swelling, but he and his PCP feel that if he is more active, it may help. 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 At that time, he broke his right shoulder, his neck, clavicle, 10 ribs, an dpunctured a lung. Admits he wore a back brace for 18 years, and then I got sick of it and threw it out. Was doing fairly well overall until, after retiring, he began playing tennis, and two years ago, dove for a ball, crashed into a fence, and broke two vertebrae. Pt reports he has had both a laminectomy and two 16 rods placed in his thoracic spine, and it feels much better, but now his low back bothers him more. He does experience radicular pain in his left leg when up doing too much. Pt' s main goal is to just improve his activity level in hopes that it reduces his leg edema. Treatment Goals Patient/Caregiver Goals Pt wants to increased activity tolerance and activty levels to see if it helps his LE edema PT-OP-C Subjective Start: 09/27/21 17:44 Freq: Status: Active Protocol: Document 10/24/21 14:30 AW (Rec: 10/24/21 14:32 AW [id number]) OP-PT Subjective Patient Comments Patient Comments I'm a little wobbly today. Pt confirms he is interested in continuing with exercise- based approach to PT PT-OP-E Functional Tests Start: 09/27/21 17:44 Freq: Status: Active Protocol: Document 09/27/21 14:30 DCW (Rec: 09/27/21 17:54 DCW [id number]) Functional Tests 6 Minute Walk Test Distance 883' Device Used none Comments 2.45 ft/sec PT-OP-J Posture/Palpation/Skin Start: 09/28/21 08:30 Freq: Status: Active Protocol: Document 09/27/21 14:30 DCW (Rec: 09/28/21 08:36 DCW [id number]) Skin Assessment Circumference Measurement 5 Location L Mid-arch Measurement (Centimeters) 26.7 Comments R = 26.2 4 Location L Figure-8 Measurement (Centimeters) 69.6 Comments R = 68.8 3 Location L Transmalleolar Measurement (Centimeters) 39.0 Comments R = 37.1 2 Location L Mid-calf Measurement (Centimeters) 42.4 Comments R = 39.9 1 Location L Knee Measurement (Centimeters) 44.5 Comments R = 44.0 cm PT-OP-M Strength Start: 09/27/21 17:44 Freq: Status: Active Protocol: Document 09/27/21 14:30 DCW (Rec: 09/28/21 08:36 DCW [id number]) Hip Strength Hip Manual Muscle Testing Right Flexion (L2) 4 Good Extension (S1) 4+ Good+ Abduction 4 Good Adduction 4 Good External Rotation 4+ Good+ Internal Rotation 3+ Fair+ Left Flexion (L2) 4- Good- Extension (S1) 4+ Good+ Abduction 4 Good Adduction 4 Good External Rotation 4+ Good+ Internal Rotation 4 Good Knee Strength Knee Manual Muscle Testing Right Flexion (S2) 4+ Good+ Extension (L3) 5 Normal Left Flexion (S2) 4+ Good+ Extension (L3) 5 Normal Ankle/Foot Strength Ankle and Foot Manual Muscle Testing Right Dorsiflexion (L4) 4 Good Plantarflexion (S1) 4 Good Left Dorsiflexion (L4) 4 Good Plantarflexion (S1) 4 Good PT-OP-Q Treatments Start: 09/27/21 17:44 Freq: Status: Active Protocol: Document 10/24/21 14:30 AW (Rec: 10/24/21 14:32 AW [id number]) Cardio Equipment Recumbent Stepper (Sci-Fit) Duration (Minutes) 6 Resistance 3 Seat Position 14 Therapeutic Exercises Supine Exercises Hip Adduction Supine Exercise Name Adductor ball squeeze Side bilateral Resistance small ball SLR Supine Exercise Name Straight leg raise Side bilateral Reps/Minutes x8 Comments cues for core engagement due to hernia Supine clamshells Supine Exercise Name in hooklying Side bilateral Resistance Lv 2 Equipment Used T-band Ankle pumps Supine Exercise Name with lower legs elevated ( bolster under calves and feet) added HEP Side bilateral Reps/Minutes 1 min x 2 Comments encouraged increased mm recruitment Sitting Exercises sit<> stands Equipment Used BUE suppport; 22 tx mat Reps/Minutes x10 Comments good form with BUE on knees. Manual Therapy Treatment Soft Tissue Mobilization retrograde lymphatic gentle STMs Body Location L anterior hip<> thigh<>lower leg<> foot Mobilization Type Manual Lymphatic Drainage Intensity/Depth Superficial Body Position Hooklying Comments 10 min abbreviated tx before ther ex PT-OP-T Assessment and Plan Start: 09/27/21 17:44 Freq: Status: Active Protocol: Document 10/24/21 14:30 AW (Rec: 10/24/21 17:12 AW [id number]) Physical Therapy Assessment Goals Three Impairment Pt exhibits extreme edeema in bilateral lower extremities Nursing Home Goal (LTG) Pt LE circumfrential measurements to decrease by at least 2 cm around bilateral knees, mid calf, and transmalleolar measures to decrease total volume of lower legs in order to improve pt's ability to ambulate and lift legs. LTG Duration 11/27/21 Two Impairment Pt ambulates 883' without an AD during his 6 MWT Copyist Goal (LTG) Pt to demonstrate ability to ambulate 1075' without an assistive device during a 6 MWT to demonstrate improved gait speed and activity tolerance LTG Duration 11/27/21 One Impairment Pt does not have an appropriate home exercise program Short Term Goal (STG) Pt to be independent and compliant with an appropriate HEP STG Duration 10/27/21 Assessment Summary Assessment Pt fatigues easily and complains of soreness after last PT session. Educated pt on soreness vs pain and need for continued exercise to improve tissue adaptation. Pt agrees to continue with exercise-based approach to edema management. Encouraged pt to continue using compression garments for improvement in lymphatic flow. Physical Therapy Plan Frequency and Duration Frequency of Treatment 2x/Week Duration of Treatment Two months Plan of Care Start Date 09/27/21 Plan of Care End Date 11/27/21 Therapeutic Interventions Therapeutic Interventions Aquatic Therapy,Home Exercise Program,Lymphedema Management, Manual Therapy,Patient/ Caregiver Education,Self-Care/ Home Management,Soft Tissue Mobilization,Therapeutic Activities,Therapeutic Exercises Next Visit Focus/Plan Next Note Type Treatment Note Next Visit Plan Continue lymphedema management treatment and education. Assess response to HEP. Consider circumferential or other measurements to track edema progress.
--- NOTE | 2021-10-29 10:28 | PT.OTN ---
Current Diagnoses Other abnormalities of gait and mobility (10/29/21) Weakness (10/29/21) Physical Therapy Treatment Note PT-OP-A Visit Information Start: 09/27/21 17:44 Freq: Status: Active Protocol: Document 10/29/21 09:45 DCW (Rec: 10/29/21 10:28 DCW [id number]) Out-Patient Physical Therapy Visit Information Visit Information Visit Type Treatment Note Visit Start Time 09:45 Visit Stop Time 10:30 Total Visit Minutes 45 Visit Number 9 Number of BOTTLING LINE ATTENDANT Visits 0 Evaluation Information Evaluation Date 09/27/21 PT-OP-B Current Condition Start: 09/27/21 17:44 Freq: Status: Active Protocol: Document 09/27/21 14:30 DCW (Rec: 09/27/21 17:53 DCW [id number]) Current Condition History of Current Condition Onset Date Multi-year history Current Complaints LE edema, decreased activity tolerance, weakness History of Current Condition Pt is an 85 year old male presenting with worsening lower extremity edema. Pt notes that no one has been able to tell him what is causing his swelling, but he and his PCP feel that if he is more active, it may help. 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 At that time, he broke his right shoulder, his neck, clavicle, 10 ribs, an dpunctured a lung. Admits he wore a back brace for 18 years, and then I got sick of it and threw it out. Was doing fairly well overall until, after retiring, he began playing tennis, and two years ago, dove for a ball, crashed into a fence, and broke two vertebrae. Pt reports he has had both a laminectomy and two 16 rods placed in his thoracic spine, and it feels much better, but now his low back bothers him more. He does experience radicular pain in his left leg when up doing too much. Pt' s main goal is to just improve his activity level in hopes that it reduces his leg edema. Treatment Goals Patient/Caregiver Goals Pt wants to increased activity tolerance and activty levels to see if it helps his LE edema PT-OP-C Subjective Start: 09/27/21 17:44 Freq: Status: Active Protocol: Document 10/29/21 09:45 DCW (Rec: 10/29/21 10:28 DCW [id number]) OP-PT Subjective Patient Comments Patient Comments I just seem ot be unsteady on my feet, I don't really know why. PT-OP-E Functional Tests Start: 09/27/21 17:44 Freq: Status: Active Protocol: Document 09/27/21 14:30 DCW (Rec: 09/27/21 17:54 DCW [id number]) Functional Tests 6 Minute Walk Test Distance 883' Device Used none Comments 2.45 ft/sec PT-OP-J Posture/Palpation/Skin Start: 09/28/21 08:30 Freq: Status: Active Protocol: Document 09/27/21 14:30 DCW (Rec: 09/28/21 08:36 DCW [id number]) Skin Assessment Circumference Measurement 5 Location L Mid-arch Measurement (Centimeters) 26.7 Comments R = 26.2 4 Location L Figure-8 Measurement (Centimeters) 69.6 Comments R = 68.8 3 Location L Transmalleolar Measurement (Centimeters) 39.0 Comments R = 37.1 2 Location L Mid-calf Measurement (Centimeters) 42.4 Comments R = 39.9 1 Location L Knee Measurement (Centimeters) 44.5 Comments R = 44.0 cm PT-OP-M Strength Start: 09/27/21 17:44 Freq: Status: Active Protocol: Document 09/27/21 14:30 DCW (Rec: 09/28/21 08:36 DCW [id number]) Hip Strength Hip Manual Muscle Testing Right Flexion (L2) 4 Good Extension (S1) 4+ Good+ Abduction 4 Good Adduction 4 Good External Rotation 4+ Good+ Internal Rotation 3+ Fair+ Left Flexion (L2) 4- Good- Extension (S1) 4+ Good+ Abduction 4 Good Adduction 4 Good External Rotation 4+ Good+ Internal Rotation 4 Good Knee Strength Knee Manual Muscle Testing Right Flexion (S2) 4+ Good+ Extension (L3) 5 Normal Left Flexion (S2) 4+ Good+ Extension (L3) 5 Normal Ankle/Foot Strength Ankle and Foot Manual Muscle Testing Right Dorsiflexion (L4) 4 Good Plantarflexion (S1) 4 Good Left Dorsiflexion (L4) 4 Good Plantarflexion (S1) 4 Good PT-OP-Q Treatments Start: 09/27/21 17:44 Freq: Status: Active Protocol: Document 10/29/21 09:45 DCW (Rec: 10/29/21 10:28 DCW [id number]) Cardio Equipment Recumbent Elliptical (Biodex) Duration (Minutes) 6 Resistance 5 Seat Position 13 Gym Equipment Shuttle Recovery Bilateral Heel Raises Resistance 75# Unilateral Squats Resistance 50# Shuttle Recovery Platform Stable Reps/Time 2x10 Bilateral Squats Resistance 100# Shuttle Recovery Platform Stable Reps/Time 2x10 Therapeutic Exercises Supine Exercises Hip Adduction Supine Exercise Name Adductor ball squeeze Side bilateral Resistance small ball SLR Supine Exercise Name Straight leg raise Side bilateral Reps/Minutes x8 Comments cues for core engagement due to hernia Supine clamshells Supine Exercise Name in hooklying Side bilateral Resistance Lv 2 Equipment Used T-band Sidelying Exercises Clamshell Sidelying Exercise Name Clamshell Side left Comments difficulty lying on L side Sitting Exercises calf stretch Sitting Exercise Name Seated calf stretch Side bilateral hamstring stretch Sitting Exercise Name Seated HS stretch Side bilateral Manual Therapy Treatment Soft Tissue Mobilization gastroc Body Location B calf STM Mobilization Type Strumming,Sustained Pressure Body Position Sitting PT-OP-T Assessment and Plan Start: 09/27/21 17:44 Freq: Status: Active Protocol: Document 10/29/21 09:45 DCW (Rec: 10/29/21 10:28 DCW [id number]) Physical Therapy Assessment Goals Three Impairment Pt exhibits extreme edeema in bilateral lower extremities Shoe Repair Cobbler Goal (LTG) Pt LE circumfrential measurements to decrease by at least 2 cm around bilateral knees, mid calf, and transmalleolar measures to decrease total volume of lower legs in order to improve pt's ability to ambulate and lift legs. LTG Duration 11/27/21 Two Impairment Pt ambulates 883' without an AD during his 6 MWT Senior Living Goal (LTG) Pt to demonstrate ability to ambulate 1075' without an assistive device during a 6 MWT to demonstrate improved gait speed and activity tolerance LTG Duration 11/27/21 One Impairment Pt does not have an appropriate home exercise program Short Term Goal (STG) Pt to be independent and compliant with an appropriate HEP STG Duration 10/27/21 Assessment Summary Assessment Pt fairly tired out today, but happy with how his legs are responding. Was complaining of low back tightness at end of session today. Physical Therapy Plan Frequency and Duration Frequency of Treatment 2x/Week Duration of Treatment Two months Plan of Care Start Date 09/27/21 Plan of Care End Date 11/27/21 Therapeutic Interventions Therapeutic Interventions Aquatic Therapy,Home Exercise Program,Lymphedema Management, Manual Therapy,Patient/ Caregiver Education,Self-Care/ Home Management,Soft Tissue Mobilization,Therapeutic Activities,Therapeutic Exercises Next Visit Focus/Plan Next Note Type Treatment Note Next Visit Plan Continue lymphedema management treatment and education. Assess response to HEP. Consider circumferential or other measurements to track edema progress.
--- NOTE | 2021-10-31 12:44 | PT.OTN ---
Current Diagnoses Other abnormalities of gait and mobility (10/31/21) Weakness (10/31/21) Physical Therapy Treatment Note PT-OP-A Visit Information Start: 09/27/21 17:44 Freq: Status: Active Protocol: Document 10/31/21 12:00 DCW (Rec: 10/31/21 12:44 DCW [id number]) Out-Patient Physical Therapy Visit Information Visit Information Visit Type Treatment Note Visit Start Time 12:00 Visit Stop Time 12:45 Total Visit Minutes 45 Visit Number 10 Number of DETECTIVE PRIVATE EYE Visits 0 Evaluation Information Evaluation Date 09/27/21 PT-OP-B Current Condition Start: 09/27/21 17:44 Freq: Status: Active Protocol: Document 09/27/21 14:30 DCW (Rec: 09/27/21 17:53 DCW [id number]) Current Condition History of Current Condition Onset Date Multi-year history Current Complaints LE edema, decreased activity tolerance, weakness History of Current Condition Pt is an 85 year old male presenting with worsening lower extremity edema. Pt notes that no one has been able to tell him what is causing his swelling, but he and his PCP feel that if he is more active, it may help. 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 At that time, he broke his right shoulder, his neck, clavicle, 10 ribs, an dpunctured a lung. Admits he wore a back brace for 18 years, and then I got sick of it and threw it out. Was doing fairly well overall until, after retiring, he began playing tennis, and two years ago, dove for a ball, crashed into a fence, and broke two vertebrae. Pt reports he has had both a laminectomy and two 16 rods placed in his thoracic spine, and it feels much better, but now his low back bothers him more. He does experience radicular pain in his left leg when up doing too much. Pt' s main goal is to just improve his activity level in hopes that it reduces his leg edema. Treatment Goals Patient/Caregiver Goals Pt wants to increased activity tolerance and activty levels to see if it helps his LE edema PT-OP-C Subjective Start: 09/27/21 17:44 Freq: Status: Active Protocol: Document 10/31/21 12:00 DCW (Rec: 10/31/21 12:44 DCW [id number]) OP-PT Subjective Patient Comments Patient Comments I should be more limber today , I just had a massage. Pt notes that he took his compression socks off for the massage, and so his legs are more swollen than what they have been. PT-OP-E Functional Tests Start: 09/27/21 17:44 Freq: Status: Active Protocol: Document 09/27/21 14:30 DCW (Rec: 09/27/21 17:54 DCW [id number]) Functional Tests 6 Minute Walk Test Distance 883' Device Used none Comments 2.45 ft/sec PT-OP-J Posture/Palpation/Skin Start: 09/28/21 08:30 Freq: Status: Active Protocol: Document 09/27/21 14:30 DCW (Rec: 09/28/21 08:36 DCW [id number]) Skin Assessment Circumference Measurement 5 Location L Mid-arch Measurement (Centimeters) 26.7 Comments R = 26.2 4 Location L Figure-8 Measurement (Centimeters) 69.6 Comments R = 68.8 3 Location L Transmalleolar Measurement (Centimeters) 39.0 Comments R = 37.1 2 Location L Mid-calf Measurement (Centimeters) 42.4 Comments R = 39.9 1 Location L Knee Measurement (Centimeters) 44.5 Comments R = 44.0 cm PT-OP-M Strength Start: 09/27/21 17:44 Freq: Status: Active Protocol: Document 09/27/21 14:30 DCW (Rec: 09/28/21 08:36 DCW [id number]) Hip Strength Hip Manual Muscle Testing Right Flexion (L2) 4 Good Extension (S1) 4+ Good+ Abduction 4 Good Adduction 4 Good External Rotation 4+ Good+ Internal Rotation 3+ Fair+ Left Flexion (L2) 4- Good- Extension (S1) 4+ Good+ Abduction 4 Good Adduction 4 Good External Rotation 4+ Good+ Internal Rotation 4 Good Knee Strength Knee Manual Muscle Testing Right Flexion (S2) 4+ Good+ Extension (L3) 5 Normal Left Flexion (S2) 4+ Good+ Extension (L3) 5 Normal Ankle/Foot Strength Ankle and Foot Manual Muscle Testing Right Dorsiflexion (L4) 4 Good Plantarflexion (S1) 4 Good Left Dorsiflexion (L4) 4 Good Plantarflexion (S1) 4 Good PT-OP-Q Treatments Start: 09/27/21 17:44 Freq: Status: Active Protocol: Document 10/31/21 12:00 DCW (Rec: 10/31/21 12:44 DCW [id number]) Cardio Equipment Recumbent Elliptical (Biodex) Duration (Minutes) 6 Resistance 5 Seat Position 13 Gym Equipment Shuttle Recovery Bilateral Heel Raises Resistance 75# Unilateral Squats Resistance 50# Shuttle Recovery Platform Stable Reps/Time 2x10 Bilateral Squats Resistance 100# Shuttle Recovery Platform Stable Reps/Time 2x10 Therapeutic Ball LTR Exercise Details Low Trunk Rotations Ball Size/Color Red - 55 cm Body Position Supine Therapeutic Exercises Supine Exercises SAQ Supine Exercise Name SAQ Side bilateral Hip Adduction Supine Exercise Name Adductor ball squeeze Side bilateral Resistance small ball SLR Supine Exercise Name Straight leg raise Side bilateral Reps/Minutes x8 Comments cues for core engagement due to hernia Supine clamshells Supine Exercise Name in hooklying Side bilateral Resistance Lv 2 Equipment Used T-band Sitting Exercises calf stretch Sitting Exercise Name Seated calf stretch Side bilateral hamstring stretch Sitting Exercise Name Seated HS stretch Side bilateral Manual Therapy Treatment Soft Tissue Mobilization gastroc Body Location B calf STM Mobilization Type Strumming,Sustained Pressure Body Position Sitting PT-OP-T Assessment and Plan Start: 09/27/21 17:44 Freq: Status: Active Protocol: Document 10/31/21 12:00 DCW (Rec: 10/31/21 12:44 DCW [id number]) Physical Therapy Assessment Goals Three Impairment Pt exhibits extreme edeema in bilateral lower extremities Prison Goal (LTG) Pt LE circumfrential measurements to decrease by at least 2 cm around bilateral knees, mid calf, and transmalleolar measures to decrease total volume of lower legs in order to improve pt's ability to ambulate and lift legs. LTG Duration 11/27/21 Two Impairment Pt ambulates 883' without an AD during his 6 MWT Prison Goal (LTG) Pt to demonstrate ability to ambulate 1075' without an assistive device during a 6 MWT to demonstrate improved gait speed and activity tolerance LTG Duration 11/27/21 One Impairment Pt does not have an appropriate home exercise program Short Term Goal (STG) Pt to be independent and compliant with an appropriate HEP STG Duration 10/27/21 Assessment Summary Assessment Pt again fairly tired today with rehab activities, increased LE edema today, noted his back has been a bit better since last session. Physical Therapy Plan Frequency and Duration Frequency of Treatment 2x/Week Duration of Treatment Two months Plan of Care Start Date 09/27/21 Plan of Care End Date 11/27/21 Therapeutic Interventions Therapeutic Interventions Aquatic Therapy,Home Exercise Program,Lymphedema Management, Manual Therapy,Patient/ Caregiver Education,Self-Care/ Home Management,Soft Tissue Mobilization,Therapeutic Activities,Therapeutic Exercises Next Visit Focus/Plan Next Note Type Treatment Note Next Visit Plan Continue lymphedema management treatment and education. Assess response to HEP. Consider circumferential or other measurements to track edema progress.
--- NOTE | 2021-11-07 12:46 | PT.OTN ---
Current Diagnoses Other abnormalities of gait and mobility (11/07/21) Weakness (11/07/21) Physical Therapy Treatment Note PT-OP-A Visit Information Start: 09/27/21 17:44 Freq: Status: Active Protocol: Document 11/07/21 12:00 DCW (Rec: 11/07/21 12:46 DCW [id number]) Out-Patient Physical Therapy Visit Information Visit Information Visit Type Treatment Note Visit Start Time 12:00 Visit Stop Time 12:45 Total Visit Minutes 45 Visit Number 11 Number of PROSTHODONTIST/EDUCATOR Visits 0 Evaluation Information Evaluation Date 09/27/21 PT-OP-B Current Condition Start: 09/27/21 17:44 Freq: Status: Active Protocol: Document 09/27/21 14:30 DCW (Rec: 09/27/21 17:53 DCW [id number]) Current Condition History of Current Condition Onset Date Multi-year history Current Complaints LE edema, decreased activity tolerance, weakness History of Current Condition Pt is an 85 year old male presenting with worsening lower extremity edema. Pt notes that no one has been able to tell him what is causing his swelling, but he and his PCP feel that if he is more active, it may help. 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 At that time, he broke his right shoulder, his neck, clavicle, 10 ribs, an dpunctured a lung. Admits he wore a back brace for 18 years, and then I got sick of it and threw it out. Was doing fairly well overall until, after retiring, he began playing tennis, and two years ago, dove for a ball, crashed into a fence, and broke two vertebrae. Pt reports he has had both a laminectomy and two 16 rods placed in his thoracic spine, and it feels much better, but now his low back bothers him more. He does experience radicular pain in his left leg when up doing too much. Pt' s main goal is to just improve his activity level in hopes that it reduces his leg edema. Treatment Goals Patient/Caregiver Goals Pt wants to increased activity tolerance and activty levels to see if it helps his LE edema PT-OP-C Subjective Start: 09/27/21 17:44 Freq: Status: Active Protocol: Document 11/07/21 12:00 DCW (Rec: 11/07/21 12:46 DCW [id number]) OP-PT Subjective Patient Comments Patient Comments Pt removed compression socks today prior to a massage, feels edema is a little worse now. PT-OP-E Functional Tests Start: 09/27/21 17:44 Freq: Status: Active Protocol: Document 11/07/21 12:00 DCW (Rec: 11/07/21 12:15 DCW [id number]) Functional Tests 6 Minute Walk Test Distance 1036' Device Used none Comments 2.88 ft/sec PT-OP-J Posture/Palpation/Skin Start: 09/28/21 08:30 Freq: Status: Active Protocol: Document 11/07/21 12:00 DCW (Rec: 11/07/21 12:15 DCW [id number]) Skin Assessment Circumference Measurement 5 Location L Mid-arch Measurement (Centimeters) 26.8 Comments R = 26.5 4 Location L Figure-8 Measurement (Centimeters) 72.6 Comments R = 66.0 3 Location L Transmalleolar Measurement (Centimeters) 39.5 Comments R = 36.8 2 Location L Mid-calf Measurement (Centimeters) 45.1 Comments R = 42.9 PT-OP-M Strength Start: 09/27/21 17:44 Freq: Status: Active Protocol: Document 09/27/21 14:30 DCW (Rec: 09/28/21 08:36 DCW [id number]) Hip Strength Hip Manual Muscle Testing Right Flexion (L2) 4 Good Extension (S1) 4+ Good+ Abduction 4 Good Adduction 4 Good External Rotation 4+ Good+ Internal Rotation 3+ Fair+ Left Flexion (L2) 4- Good- Extension (S1) 4+ Good+ Abduction 4 Good Adduction 4 Good External Rotation 4+ Good+ Internal Rotation 4 Good Knee Strength Knee Manual Muscle Testing Right Flexion (S2) 4+ Good+ Extension (L3) 5 Normal Left Flexion (S2) 4+ Good+ Extension (L3) 5 Normal Ankle/Foot Strength Ankle and Foot Manual Muscle Testing Right Dorsiflexion (L4) 4 Good Plantarflexion (S1) 4 Good Left Dorsiflexion (L4) 4 Good Plantarflexion (S1) 4 Good PT-OP-Q Treatments Start: 09/27/21 17:44 Freq: Status: Active Protocol: Document 11/07/21 12:00 DCW (Rec: 11/07/21 12:46 DCW [id number]) Gym Equipment Cable Column (Body Solid) Hip Adduction Resistance 30# Reps/Time 2x15 Hip Abduction Resistance 30# Reps/Time 2x15 Shuttle Recovery Bilateral Heel Raises Resistance 75# Unilateral Squats Resistance 50# Shuttle Recovery Platform Stable Reps/Time 2x10 Bilateral Squats Resistance 100# Shuttle Recovery Platform Stable Reps/Time 2x10 Manual Therapy Treatment Other Other Manual Treatments Circumfrential measurements, 6MWT PT-OP-T Assessment and Plan Start: 09/27/21 17:44 Freq: Status: Active Protocol: Document 11/07/21 12:00 DCW (Rec: 11/07/21 12:46 DCW [id number]) Physical Therapy Assessment Goals Three Impairment Pt exhibits extreme edeema in bilateral lower extremities [facility] Goal (LTG) Pt LE circumfrential measurements to decrease by at least 2 cm around bilateral knees, mid calf, and transmalleolar measures to decrease total volume of lower legs in order to improve pt's ability to ambulate and lift legs. LTG Duration 11/27/21 Two Impairment Pt ambulates 883' without an AD during his 6 MWT Flange Machine Operator Goal (LTG) Pt to demonstrate ability to ambulate 1075' without an assistive device during a 6 MWT to demonstrate improved gait speed and activity tolerance LTG Duration 11/27/21 One Impairment Pt does not have an appropriate home exercise program Short Term Goal (STG) Pt to be independent and compliant with an appropriate HEP STG Duration Met Assessment Summary Assessment Pt unfortunately showing increased LE edema today, was doing much better, however has been less consistent with wearing compression socks recently. Pt will be discharged at this time, leaving the state for the winter. Recommended pt continue to work on strengthening and increasing activity tolerance at gym he has access to at the place he is staying in [place]. Physical Therapy Plan Frequency and Duration Frequency of Treatment 2x/Week Duration of Treatment Two months Plan of Care Start Date 09/27/21 Plan of Care End Date 11/27/21 Therapeutic Interventions Therapeutic Interventions Aquatic Therapy,Home Exercise Program,Lymphedema Management, Manual Therapy,Patient/ Caregiver Education,Self-Care/ Home Management,Soft Tissue Mobilization,Therapeutic Activities,Therapeutic Exercises Discharge Physical Therapy Discharge Reasons No Longer Attending PT Next Visit Focus/Plan Next Note Type Discharge Summary Next Visit Plan Pt leaving state
== END 2021-12-11 08:44 ==
LOC: PHYS 12:00
PROVIDERS: PCP Family Medicine; Referring Provider Family Medicine; Visit Provider Family Medicine
DX: R53.1 Weakness (principal); R26.89 Other abnormalities of gait and mobility
CPT/HCPCS: 97110; 97116; 97140; 97162; 97535

== ENCOUNTER → 2022-11-01 10:54 | Outpatient (CLI) | payer MEDICARE, OTHER, SELFPAY ==
[2022-11-01 11:34] LABS: Add Manual Diff / Slide Review NO; Basophils Absolute Auto 0 /uL (0-100); Basophils Percent Auto 0.4 % (0-2); Eosinophils Absolute Auto 200 /uL (0-450); Eosinophils Percent Auto 4.9 % (2-4); Hematocrit 43.9 % (41-53); Hemoglobin 14.5 g/dL (13.5-17.5); Lymphocytes Absolute Auto 1900 /uL (1100-4500); Lymphocytes Percent Auto 40.5 % (25-40); Mean Corpuscular HGB Conc 32.9 % (30-36); Mean Corpuscular Hemoglobin 32.6 PG (26-34); Mean Corpuscular Volume 99.2 fL (80-100); Monocytes Absolute Auto 200 /uL (0-900); Monocytes Percent Auto 4.8 % (3-14); Neutrophils Absolute Auto 2400 /uL (1500-7000); Neutrophils Percent Auto 49.4 % (50-75); Platelet Count 170 X10^3/uL (150-400); Red Blood Cell Count 4.43 X10^6/uL (4.5-5.9); Red Cell Distribution Width 15.2 % (11.6-14.8); White Blood Cell Count 4.8 X10^3/uL (4.5-11.0)
[2022-11-01 12:08] LABS: Alanine Aminotransferase 53 IU/L (<50); Albumin 3.7 g/dL (3.5-5.0); Alkaline Phosphatase 82 U/L (38-126); Aspartate Aminotransferase 33 IU/L (17-59); BUN Creatinine Ratio 16.7 (6-22); Bilirubin Total 1.4 mg/dL (0.2-1.3); Blood Urea Nitrogen 13 mg/dL (9-20); Calcium 8.8 mg/dL (8.4-10.2); Carbon Dioxide 33 mmol/L (22-32); Chloride 101 mmol/L (98-107); Cholesterol 236 mg/dL (140-199); Estimated Glomerular Filt Rate > 60 mL/min (>60); Globulin 3.7 g/dL (1.7-4.1); Glucose 115 mg/dL (80-110); HDL Cholesterol 69 mg/dL (40-60); HEMOLYSIS < 15 (0-50); LDL Cholesterol Calculated 151 mg/dL (<100); Lactate Dehydrogenase 155 U/L (120-246); Potassium 4.5 mmol/L (3.4-5.1); Sodium 139 mmol/L (137-145); Total Protein 7.4 g/dL (6.3-8.2); Triglycerides 81 mg/dL (35-150)
[2022-11-01 12:38] LABS: Thyroid Stimulating Hormone 3.64 uIU/mL (0.47-4.68)
== END ==
PROVIDERS: PCP Family Medicine; Referring Provider Family Medicine; Visit Provider Family Medicine
DX: E03.9 Hypothyroidism, unspecified (principal); I82.409 Acute embolism and thrombosis of unspecified deep veins of unspecified lower extremity; I89.0 Lymphedema, not elsewhere classified; Z79.899 Other long term (current) drug therapy; C82.93 Follicular lymphoma, unspecified, intra-abdominal lymph nodes
CPT/HCPCS: 36415; 80053; 80061; 83615; 84443; 85025

== ENCOUNTER 2022-11-07 09:45 | Outpatient (RCR) | payer MEDICARE, OTHER, SELFPAY ==
--- NOTE | 2022-08-21 08:45 | PT.OIE ---
Current Diagnoses Lymphedema, not elsewhere classified (08/21/22) Difficulty in walking, not elsewhere classified (08/21/22) Edema, unspecified (08/21/22) Visit Care Team Role Provider Type Camden Hoang MD Attending Provider Physician Primary Care Provider Referring Provider Specialty: Family Practice Address: [address] [place] [address], [id number] Email: [email or web address] Physical Therapy Initial Evaluation PT-OP-A Visit Information Start: 08/20/22 17:31 Freq: Status: Active Protocol: Document 08/21/22 10:30 AW (Rec: 08/20/22 17:38 AW [id number]) Out-Patient Physical Therapy Visit Information Visit Information Visit Type Initial Evaluation Visit Start Time 09:00 Visit Stop Time 10:30 Total Visit Minutes 90 Visit Number 11/28 Evaluation Information Evaluation Date 08/21/22 PT-OP-B Current Condition Start: 08/20/22 17:31 Freq: Status: Active Protocol: Document 08/21/22 10:30 AW (Rec: 08/20/22 17:38 AW [id number]) Current Condition History of Current Condition Onset Date a few years, worsening Current Complaints bilateral lower extremity swelling, impaired mobility History of Current Condition Timothy has dealt with ongoing lower extremity edema that has been present for a few years. Has a history of factor V Leiden mutation, recurrent deep vein thrombosis, on chronic anticoagulation. He has [id number]-[id number] compression socks and likes how they feel but is unable to don them without great difficulty. His feet feel like balloons at the end of the day. He states they go down at night, but then they re-accumulate. He states elevation helps, but he spends more and more time in the chair. He has tried oral Lasix which has not been helpful and he does not like the side effects, which is causing increased urination. He states elevation does help. Heavy feeling in his legs has been limiting his ability to walk very far and he has had at least two falls in the past few months. He is not using any assistive device today but states he sometimes uses a walking stick or cane. He has trouble picking up objects from the floor. 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 At that time, he broke his right shoulder, his neck, clavicle, 10 ribs, and punctured a lung. He was doing relatively well overall until he fell during a tennis match a few years ago and broke two vertebrae. He had laminectomy and two 16 rods placed in his thoracic spine. He continues to have back and left leg pain. Left leg usually feels achy but is sometimes shooting and radiating into the back of his leg. Prior Treatments and Tests No prior treatment for lymphedema. Pt was seen at this clinic last year but had hoped to decrease swelling by increasing activity and exercise. Treatment Goals Patient/Caregiver Goals Reduce swelling to make it easier to get more exercise. Pt would like to be able to walk 1-2 miles at a time. Prior Functional Status Baseline Function- ADL's Independent Baseline Function- Mobility Independent Baseline Function- Gait Independent, no device Current Functional Impairments (Reported) Functional Limitations- ADL's Difficulty donning regular socks. Only wears shoes he can slip on. Can not don compression socks without assist. Functional Limitations- Mobility/Gait Recent falls reported. Pt able to ambulate ~10 minutes at a time and often needs walking stick or cane. Personal Factors Other Personal Factors That May Effect Pt plans to spend winter in Therapy/[place]. Will leave in November . PT-OP-C Subjective Start: 08/20/22 17:31 Freq: Status: Active Protocol: Document 08/21/22 10:30 AW (Rec: 08/21/22 14:19 AW [id number]) OP-PT Subjective Patient Comments Patient Comments I'll do anything you tell me to. I just want this swelling gone so I can do more. Patient Questionnaires Lymphedema Life Impact Score Lymphedema Score 36 Lymphedema Impairment 20 to 39% Impaired (Score 33- 46) OP-PT Pain Assessment Pain Assessment Grid Paper Pain Assessment Grid Completed Yes: Scanned to EMR PT-OP-D Balance Start: 08/20/22 17:31 Freq: Status: Active Protocol: Document 08/21/22 10:30 AW (Rec: 08/21/22 14:19 AW [id number]) Tinetti Balance Assessment Sitting Balance Sitting Balance Steady, safe Arising from Chair Ability to Arise Able, uses arms to help Attempts to Arise Able, requires >1 attempt Standing Balance Immediate Standing Balance Steady with support Standing Balance Steady, wide stance Nudged Response Begins to fall Standing with Eyes Closed Unsteady Turning Step Pattern Turning 360 Degrees Discontinuous steps Stability Turning 360 Degrees Unsteady, grabs/staggers Sitting Down Sitting Down Uses arms or unsteady Gait and Step Initiation of Gait No hesitancy Right Foot Step Length Does pass stance foot Right Foot Step Height Does not clear floor Left Foot Step Length Does pass stance foot Left Foot Step Height Does not clear floor Step Description Step Symmetry Step length appears equal Step Continuity Steps appear continuous Gait Description Path Description Mild/moderate deviation Trunk Description No sway but posturing Walking Stance Heels apart Scoring and Interpretation Tinetti Composite Score (points) 13 Interpretation of Scores High risk for falls(< 19) Tinetti Impairment Rating from Composite 40 to <60% Impaired (Score 12- Score 16) PT-OP-G Mobility & Gait Start: 08/20/22 17:31 Freq: Status: Active Protocol: Document 08/21/22 10:30 AW (Rec: 08/21/22 14:28 AW [id number]) OP Mobility Evaluation Bed Mobility Supine to and from Sit painful and needing min assist to move legs off table after wrapping treatment Transfers Sit to Stand heavy use of hands Functional Movements Squats unable to pick item up from the floor OP Gait Assessment Gait Gait Assistance Required: Standby Assistance,Contact Guard Assist Assistive Devices Assistive Device None Gait Deviations General Gait Pattern Antalgic,Decreased Stride Length,Decreased Feet Clearance,Flexed Trunk,Wide Based Gait Comments Gait Comments Gait limited by heaviness in lower legs, weakness bilaterally, and poor balance. PT-OP-H Neuro Start: 08/20/22 17:31 Freq: Status: Active Protocol: Document 08/21/22 10:30 AW (Rec: 08/21/22 14:28 AW [id number]) Sensation Evaluation Gross Sensation Gross Sensation Left LE Impaired,Right LE Impaired Sensation Description Numbness Comments Summary Comments Dull light touch sensation in bilateral feet PT-OP-J Posture/Palpation/Skin Start: 08/20/22 17:31 Freq: Status: Active Protocol: Document 08/21/22 10:30 AW (Rec: 08/21/22 14:28 AW [id number]) Skin Assessment Other Assessments Skin Assessment Comments Edematous BLE (3+ pitting) with some skin tautness. No wounds. Ankles and lower legs most affected by swelling. See circumferential measurements documented separately. PT-OP-K Range of Motion Start: 08/20/22 17:31 Freq: Status: Active Protocol: Document 08/21/22 10:30 AW (Rec: 08/21/22 17:37 AW [id number]) Hip Goniometric Range of Motion Hip ROM Limitations Comments AROM hip extension past neutral is limited Knee Goniometric Range of Motion Knee ROM Limitations Knee ROM Limitations Soft Tissue Tightness Comments Pt lacks full knee extension bilaterally but left is more affected than right Ankle and Foot Goniometric Range of Motion Ankle and Foot ROM Limitations ROM Limitations Swelling PT-OP-M Strength Start: 08/20/22 17:31 Freq: Status: Active Protocol: Document 08/21/22 10:30 AW (Rec: 08/21/22 17:37 AW [id number]) Hip Strength Hip Manual Muscle Testing Left Flexion (L2) 4- Good- Extension (S1) 4- Good- Abduction 4- Good- External Rotation 4 Good Internal Rotation 4- Good- Right Flexion (L2) 4 Good Extension (S1) 4 Good Abduction 4 Good External Rotation 4 Good Internal Rotation 4- Good- Knee Strength Knee Manual Muscle Testing bilat Flexion (S2) 4+ Good+ Extension (L3) 5 Normal Ankle/Foot Strength Ankle and Foot Manual Muscle Testing bilat Dorsiflexion (L4) 4 Good Plantarflexion (S1) 4- Good- PT-OP-N Lymphedema Start: 08/20/22 17:31 Freq: Status: Active Protocol: Document 08/21/22 10:30 AW (Rec: 08/21/22 14:33 AW [id number]) Lymphedema Measurements Lower Extremity Circumference Measurements Right Affected MT Heads 27.3 cm Mid-foot 27.7 cm Medial Malleolus 35.7 cm 10 cm From Medial Malleolus 31.6 cm 20 cm From Medial Malleolus 37.6 cm 30 cm From Medial Malleolus 41.7 cm 40 cm From Medial Malleolus 39.3 cm 50 cm From Medial Malleolus 46.2 cm 60 cm From Medial Malleolus 49.5 cm 70 cm From Medial Malleolus 54.9 cm Knee Joint 44 cm Left Affected MT Heads 26.8 cm Mid-foot 28.2 cm Medial Malleolus 38.2 cm 10 cm From Medial Malleolus 36 cm 20 cm From Medial Malleolus 40 cm 30 cm From Medial Malleolus 42.9 cm 40 cm From Medial Malleolus 39.2 cm 50 cm From Medial Malleolus 45 cm 60 cm From Medial Malleolus 48.8 cm 70 cm From Medial Malleolus 54.1 cm Knee Joint 43.1 cm PT-OP-Q Treatments Start: 08/20/22 17:31 Freq: Status: Active Protocol: Document 08/21/22 10:30 AW (Rec: 08/21/22 17:37 AW [id number]) Lymphedema Treatment Manual Lymphatic Drainage Location BLE Duration 55 min Comments MLD focused on AIA pathways to stimulate lymphangiomotoricity. Lymphedema Wrapping Body Location BLE Materials Tricofix, Artiflex, and Comprilan 6, 8, 10, 12). Wrapped toes with coban today since toe wraps not available. Other Cetaphil lotion applied to BLE . Educated pt on importance of skin care component of CDT. Sequential Lymphedema Exercises Comments Discussed but not performed today due to time constraints. Compression Garment Assessment Compression Garment Assessment Details Asked pt to bring own compression socks next visit to assess fit and assist with troubleshooting donning problems. Patient Education Lymphedema Pathology Eduated pt on superficial vs deep lymphatic system and rationale for tx Lymphedema Precautions Educated pt to avoid scratches or punctures PT-OP-T Assessment and Plan Start: 08/20/22 17:31 Freq: Status: Active Protocol: Document 08/21/22 10:30 AW (Rec: 08/21/22 17:39 AW [id number]) Physical Therapy Assessment Rehab Potential Rehabilitation Potential Good Evaluation Complexity Number of Personal Factors/Comorbidities 1-2 Number of Body Systems Impaired 4 or More Clinical Presentation at Evaluation Evolving Impairments Impairments Balance,Edema,Gait,Pain,ROM, Sensation,Soft Tissue Mobility ,Strength,Transfers Other Concerns Fall Risk high per Tinetti score 13 and self-reported history of falls Barriers to Rehabilitation Timothy lives alone and has history of back pain which limits his ability to tend to his legs and to don compression garments. Goals Three Impairment lymphedema BLE Short Term Goal (STG) Pt and his spouse will be instructed in all aspects of lymphedema care including skin care, manual lymphatic drainage, lymphedema exercises , and compression garments or alternative. STG Duration 10/02/22 Art Psychotherapist Or Therapist Goal (LTG) Pt will demonstrate reduction and stabilization of lymphedema (no change greater than 1 cm over the course of 1 week) and be independent with all aspects of lymphedema self-care including donning/ doffing compression garment or alternative. LTG Duration 11/13/22 Two Impairment impaired balance Art Psychotherapist Or Therapist Goal (LTG) Pt will improve Tinetti score from 13 to 20 or greater as a measure of reduced falls risk LTG Duration 11/13/22 One Impairment function limited by lymphedema Senior Care Goal (LTG) Pt will score 15 or less on Lymphedema Life Impact Scale ( 36 at initial eval) as a measure of improvement in daily function LTG Duration 11/13/22 Assessment Summary Assessment Timothy is an 86 yo man with long history of back pain and reduced activity levels. He has had lower extremity swelling for the past two years. Swelling and associated heaviness in the legs is limiting his function. Skin is intact and pt has no wounds at this time. Lower extremity weakness is most apparent proximally. Timothy tolerated manual lymphatic drainage and compression bandaging today without significant complaint. He is motivated to reduce his swelling but treatment may be complicated by his lack of assist at home combined with difficulty donning his own compression socks. May need to consider compression alternative such as velcro- style wraps for maintenance phase. Timothy should benefit from physical therapy to decrease lymphedema, improve functional mobility, and educate him on lymphedema care for long-term independent management. Physical Therapy Plan Frequency and Duration Frequency of Treatment 3x/Week Duration of treatment (weeks) 12 Plan of Care Start Date 08/21/22 Plan of Care End Date 11/13/22 Therapeutic Interventions Therapeutic Interventions Balance Training,Gait Training ,Home Exercise Program, Lymphedema Management,Manual Therapy,Patient/Caregiver Education,Self-Care/Home Management,Soft Tissue Mobilization,Therapeutic Activities,Therapeutic Exercises Modalities Cold Pack/Ice Massage, Vasopneumatic Devices Next Visit Focus/Plan Next Note Type Treatment Note Next Visit Plan Continue lymphedema management with MLD, bilateral LE bandaging including toes pending response to today's bandaging. Consider use of lymphedema pump. Follow up on pt's own compression garments . Lymphedema exercises.
--- NOTE | 2022-08-21 08:46 | PT.OPPOC ---
Physical, Occupational & Speech Therapy At Current Diagnoses Lymphedema, not elsewhere classified (08/21/22) Difficulty in walking, not elsewhere classified (08/21/22) Edema, unspecified (08/21/22) Visit Care Team Role Provider Type Camden Hoang MD Attending Provider Physician Primary Care Provider Referring Provider Specialty: Family Practice Address: [address] [place] [address], [place] Email: [email or web address] Plan Of Care PT-OP-T Assessment and Plan Start: 08/20/22 17:31 Freq: Status: Active Protocol: Document 08/21/22 10:30 AW (Rec: 08/21/22 17:39 AW [id number]) Physical Therapy Assessment Rehab Potential Rehabilitation Potential Good Evaluation Complexity Number of Personal Factors/Comorbidities 1-2 Number of Body Systems Impaired 4 or More Clinical Presentation at Evaluation Evolving Impairments Impairments Balance,Edema,Gait,Pain,ROM, Sensation,Soft Tissue Mobility ,Strength,Transfers Other Concerns Fall Risk high per Tinetti score 13 and self-reported history of falls Barriers to Rehabilitation Timothy lives alone and has history of back pain which limits his ability to tend to his legs and to don compression garments. Goals Three Impairment lymphedema BLE Short Term Goal (STG) Pt and his spouse will be instructed in all aspects of lymphedema care including skin care, manual lymphatic drainage, lymphedema exercises , and compression garments or alternative. STG Duration 10/02/22 Group Home Goal (LTG) Pt will demonstrate reduction and stabilization of lymphedema (no change greater than 1 cm over the course of 1 week) and be independent with all aspects of lymphedema self-care including donning/ doffing compression garment or alternative. LTG Duration 11/13/22 Two Impairment impaired balance Group Home Goal (LTG) Pt will improve Tinetti score from 13 to 20 or greater as a measure of reduced falls risk LTG Duration 11/13/22 One Impairment function limited by lymphedema High School Guidance Counselor Goal (LTG) Pt will score 15 or less on Lymphedema Life Impact Scale ( 36 at initial eval) as a measure of improvement in daily function LTG Duration 11/13/22 Assessment Summary Assessment Timothy is an 86 yo man with long history of back pain and reduced activity levels. He has had lower extremity swelling for the past two years. Swelling and associated heaviness in the legs is limiting his function. Skin is intact and pt has no wounds at this time. Lower extremity weakness is most apparent proximally. Timothy tolerated manual lymphatic drainage and compression bandaging today without significant complaint. He is motivated to reduce his swelling but treatment may be complicated by his lack of assist at home combined with difficulty donning his own compression socks. May need to consider compression alternative such as velcro- style wraps for maintenance phase. Timothy should benefit from physical therapy to decrease lymphedema, improve functional mobility, and educate him on lymphedema care for long-term independent management. Physical Therapy Plan Frequency and Duration Frequency of Treatment 3x/Week Duration of treatment (weeks) 12 Plan of Care Start Date 08/21/22 Plan of Care End Date 11/13/22 Therapeutic Interventions Therapeutic Interventions Balance Training,Gait Training ,Home Exercise Program, Lymphedema Management,Manual Therapy,Patient/Caregiver Education,Self-Care/Home Management,Soft Tissue Mobilization,Therapeutic Activities,Therapeutic Exercises Modalities Cold Pack/Ice Massage, Vasopneumatic Devices Next Visit Focus/Plan Next Note Type Treatment Note Next Visit Plan Continue lymphedema management with MLD, bilateral LE bandaging including toes pending response to today's bandaging. Consider use of lymphedema pump. Follow up on pt's own compression garments . Lymphedema exercises. Plan of Care Dates Plan of Care Start Date 08/21/22 Plan of Care End Date 11/13/22 Electronically Signed by: Ana Hedz PT 08/22/22 0846 If you are in agreement with this Plan of Care, please return a signed and dated copy. I have reviewed this Plan of Care and certify that the skilled therapy services above are required to meet the patient?s needs. Physician Signature Date Printed Name and Credentials Clinical Instructor Signature Printed Name and Credentials
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
--- NOTE | 2022-08-29 17:08 | PT.OTN ---
Current Diagnoses Lymphedema, not elsewhere classified (08/29/22) Difficulty in walking, not elsewhere classified (08/29/22) Edema, unspecified (08/29/22) Physical Therapy Treatment Note PT-OP-A Visit Information Start: 08/20/22 17:31 Freq: Status: Active Protocol: Document 08/29/22 14:20 AW (Rec: 08/29/22 14:23 AW [id number]) Out-Patient Physical Therapy Visit Information Visit Information Visit Type Treatment Note Visit Start Time 13:05 Visit Stop Time 14:20 Total Visit Minutes 75 Visit Number 01/26 Evaluation Information Evaluation Date 08/21/22 PT-OP-B Current Condition Start: 08/20/22 17:31 Freq: Status: Active Protocol: Document 08/21/22 10:30 AW (Rec: 08/20/22 17:38 AW [id number]) Current Condition History of Current Condition Onset Date a few years, worsening Current Complaints bilateral lower extremity swelling, impaired mobility History of Current Condition Timothy has dealt with ongoing lower extremity edema that has been present for a few years. Has a history of factor V Leiden mutation, recurrent deep vein thrombosis, on chronic anticoagulation. He has [id number] compression socks and likes how they feel but is unable to don them without great difficulty. His feet feel like balloons at the end of the day. He states they go down at night, but then they re-accumulate. He states elevation helps, but he spends more and more time in the chair. He has tried oral Lasix which has not been helpful and he does not like the side effects, which is causing increased urination. He states elevation does help. Heavy feeling in his legs has been limiting his ability to walk very far and he has had at least two falls in the past few months. He is not using any assistive device today but states he sometimes uses a walking stick or cane. He has trouble picking up objects from the floor. 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 At that time, he broke his right shoulder, his neck, clavicle, 10 ribs, and punctured a lung. He was doing relatively well overall until he fell during a tennis match a few years ago and broke two vertebrae. He had laminectomy and two 16 rods placed in his thoracic spine. He continues to have back and left leg pain. Left leg usually feels achy but is sometimes shooting and radiating into the back of his leg. Prior Treatments and Tests No prior treatment for lymphedema. Pt was seen at this clinic last year but had hoped to decrease swelling by increasing activity and exercise. Treatment Goals Patient/Caregiver Goals Reduce swelling to make it easier to get more exercise. Pt would like to be able to walk 1-2 miles at a time. Prior Functional Status Baseline Function- ADL's Independent Baseline Function- Mobility Independent Baseline Function- Gait Independent, no device Current Functional Impairments (Reported) Functional Limitations- ADL's Difficulty donning regular socks. Only wears shoes he can slip on. Can not don compression socks without assist. Functional Limitations- Mobility/Gait Recent falls reported. Pt able to ambulate ~10 minutes at a time and often needs walking stick or cane. Personal Factors Other Personal Factors That May Effect Pt plans to spend winter in Therapy/[place] [place]. Will leave in November . PT-OP-C Subjective Start: 08/20/22 17:31 Freq: Status: Active Protocol: Document 08/29/22 14:20 AW (Rec: 08/29/22 14:23 AW [id number]) OP-PT Subjective Patient Comments Patient Comments Walking with wraps was ok. Maybe somewhat limiting but manageable. Toes were more comfortable with gauze wraps vs coban. PT-OP-D Balance Start: 08/20/22 17:31 Freq: Status: Active Protocol: Document 08/21/22 10:30 AW (Rec: 08/21/22 14:19 AW [id number]) Tinetti Balance Assessment Sitting Balance Sitting Balance Steady, safe Arising from Chair Ability to Arise Able, uses arms to help Attempts to Arise Able, requires >1 attempt Standing Balance Immediate Standing Balance Steady with support Standing Balance Steady, wide stance Nudged Response Begins to fall Standing with Eyes Closed Unsteady Turning Step Pattern Turning 360 Degrees Discontinuous steps Stability Turning 360 Degrees Unsteady, grabs/staggers Sitting Down Sitting Down Uses arms or unsteady Gait and Step Initiation of Gait No hesitancy Right Foot Step Length Does pass stance foot Right Foot Step Height Does not clear floor Left Foot Step Length Does pass stance foot Left Foot Step Height Does not clear floor Step Description Step Symmetry Step length appears equal Step Continuity Steps appear continuous Gait Description Path Description Mild/moderate deviation Trunk Description No sway but posturing Walking Stance Heels apart Scoring and Interpretation Tinetti Composite Score (points) 13 Interpretation of Scores High risk for falls(< 19) Tinetti Impairment Rating from Composite 40 to <60% Impaired (Score 12- Score 16) PT-OP-G Mobility & Gait Start: 08/20/22 17:31 Freq: Status: Active Protocol: Document 08/21/22 10:30 AW (Rec: 08/21/22 14:28 AW [id number]) OP Mobility Evaluation Bed Mobility Supine to and from Sit painful and needing min assist to move legs off table after wrapping treatment Transfers Sit to Stand heavy use of hands Functional Movements Squats unable to pick item up from the floor OP Gait Assessment Gait Gait Assistance Required: Standby Assistance,Contact Guard Assist Assistive Devices Assistive Device None Gait Deviations General Gait Pattern Antalgic,Decreased Stride Length,Decreased Feet Clearance,Flexed Trunk,Wide Based Gait Comments Gait Comments Gait limited by heaviness in lower legs, weakness bilaterally, and poor balance. PT-OP-H Neuro Start: 08/20/22 17:31 Freq: Status: Active Protocol: Document 08/21/22 10:30 AW (Rec: 08/21/22 14:28 AW [id number]) Sensation Evaluation Gross Sensation Gross Sensation Left LE Impaired,Right LE Impaired Sensation Description Numbness Comments Summary Comments Dull light touch sensation in bilateral feet PT-OP-J Posture/Palpation/Skin Start: 08/20/22 17:31 Freq: Status: Active Protocol: Document 08/21/22 10:30 AW (Rec: 08/21/22 14:28 AW [id number]) Skin Assessment Other Assessments Skin Assessment Comments Edematous BLE (3+ pitting) with some skin tautness. No wounds. Ankles and lower legs most affected by swelling. See circumferential measurements documented separately. PT-OP-K Range of Motion Start: 08/20/22 17:31 Freq: Status: Active Protocol: Document 08/21/22 10:30 AW (Rec: 08/21/22 17:37 AW [id number]) Hip Goniometric Range of Motion Hip ROM Limitations Comments AROM hip extension past neutral is limited Knee Goniometric Range of Motion Knee ROM Limitations Knee ROM Limitations Soft Tissue Tightness Comments Pt lacks full knee extension bilaterally but left is more affected than right Ankle and Foot Goniometric Range of Motion Ankle and Foot ROM Limitations ROM Limitations Swelling PT-OP-M Strength Start: 08/20/22 17:31 Freq: Status: Active Protocol: Document 08/21/22 10:30 AW (Rec: 08/21/22 17:37 AW [id number]) Hip Strength Hip Manual Muscle Testing Left Flexion (L2) 4- Good- Extension (S1) 4- Good- Abduction 4- Good- External Rotation 4 Good Internal Rotation 4- Good- Right Flexion (L2) 4 Good Extension (S1) 4 Good Abduction 4 Good External Rotation 4 Good Internal Rotation 4- Good- Knee Strength Knee Manual Muscle Testing bilat Flexion (S2) 4+ Good+ Extension (L3) 5 Normal Ankle/Foot Strength Ankle and Foot Manual Muscle Testing bilat Dorsiflexion (L4) 4 Good Plantarflexion (S1) 4- Good- PT-OP-N Lymphedema Start: 08/20/22 17:31 Freq: Status: Active Protocol: Document 08/29/22 14:20 AW (Rec: 08/29/22 17:05 AW [id number]) Lymphedema Measurements Lower Extremity Circumference Measurements Right Affected MT Heads 26.1 cm Mid-foot 25.5 cm Medial Malleolus 35.3 cm 10 cm From Medial Malleolus 29.2 cm 20 cm From Medial Malleolus 35.2 cm 30 cm From Medial Malleolus 40 cm 40 cm From Medial Malleolus 39 cm 50 cm From Medial Malleolus 47.5 cm 60 cm From Medial Malleolus 51 cm Left Affected MT Heads 25.8 cm Mid-foot 25.6 cm Medial Malleolus 34.2 cm 10 cm From Medial Malleolus 30.1 cm 20 cm From Medial Malleolus 37 cm 30 cm From Medial Malleolus 41.5 cm 40 cm From Medial Malleolus 41.6 cm 50 cm From Medial Malleolus 47.1 cm 60 cm From Medial Malleolus 50.8 cm PT-OP-Q Treatments Start: 08/20/22 17:31 Freq: Status: Active Protocol: Document 08/29/22 14:20 AW (Rec: 08/29/22 17:05 AW [id number]) Therapeutic Activity Therapeutic Activity LB dressing Name LB dressing Comments Pt needs min assist to doff/ don pants while wrapped. Lymphedema Treatment Manual Lymphatic Drainage Location BLE Duration 50 min Comments MLD focused on AIA pathways to stimulate lymphangiomotoricity. Lymphedema Wrapping Body Location BLE Materials Toe wraps with light compression for pt tolerance. Tricofix, Artiflex, and Comprilan 6, 8, 10, 12). Added Komprex medial and lateral malleolus bilaterally Other Cetaphil lotion applied to BLE . Educated pt on importance of skin care component of CDT. Sequential Lymphedema Exercises Comments Discussed but not performed today due to time constraints. PT-OP-R Modalities Start: 08/20/22 17:31 Freq: Status: Active Protocol: Document 08/28/22 14:30 AW (Rec: 08/28/22 17:39 AW [id number]) Compression Pump Treatment Treatment Location LLE Pressure Amount (mmHg) (mmHG) 60 Inflation Time (Seconds) 45 Deflation Time (Seconds) 10 Treatment Duration (minutes) 20 Treatment Tolerance Fair Treatment Comments Pt responded positively to treatment with pump and did have some distal reduction after use. PT-OP-T Assessment and Plan Start: 08/20/22 17:31 Freq: Status: Active Protocol: Document 08/29/22 14:20 AW (Rec: 08/29/22 14:23 AW [id number]) Physical Therapy Assessment Goals Three Impairment lymphedema BLE Short Term Goal (STG) Pt and his spouse will be instructed in all aspects of lymphedema care including skin care, manual lymphatic drainage, lymphedema exercises , and compression garments or alternative. STG Duration 10/02/22 Alf Goal (LTG) Pt will demonstrate reduction and stabilization of lymphedema (no change greater than 1 cm over the course of 1 week) and be independent with all aspects of lymphedema self-care including donning/ doffing compression garment or alternative. LTG Duration 11/13/22 Two Impairment impaired balance Pin Cleaner Goal (LTG) Pt will improve Tinetti score from 13 to 20 or greater as a measure of reduced falls risk LTG Duration 11/13/22 One Impairment function limited by lymphedema Alf Goal (LTG) Pt will score 15 or less on Lymphedema Life Impact Scale ( 36 at initial eval) as a measure of improvement in daily function LTG Duration 11/13/22 Assessment Summary Assessment Timothy had good distal reduction per circumferntial measurements today but some more proximal measurements increased. May be helpful to wrap above knees but pt may not tolerate in terms of mobility which is already affected by wrapping to knees. Timothy shows good response to two consecutive days' treatment. We were unable to use the pneumatic pump today as it was being used for another patient but will consider it again at future visits. Timothy's legs were wrapped again today and PT continued discussion of lifelong management. Encouraged pt to trial knee high compression garments after removing wraps tomorrow. Physical Therapy Plan Frequency and Duration Frequency of Treatment 3x/Week Duration of treatment (weeks) 12 Plan of Care Start Date 08/21/22 Plan of Care End Date 11/13/22 Therapeutic Interventions Therapeutic Interventions Balance Training,Gait Training ,Home Exercise Program, Lymphedema Management,Manual Therapy,Patient/Caregiver Education,Self-Care/Home Management,Soft Tissue Mobilization,Therapeutic Activities,Therapeutic Exercises Modalities Cold Pack/Ice Massage, Vasopneumatic Devices Next Visit Focus/Plan Next Note Type Treatment Note Next Visit Plan Continue lymphedema management with MLD, bilateral LE bandaging including toes pending response to today's bandaging. Consider use of lymphedema pump. Follow up on pt's own compression garments . Lymphedema exercises.
--- NOTE | 2022-09-04 17:13 | PT.OTN ---
Current Diagnoses Lymphedema, not elsewhere classified (09/04/22) Difficulty in walking, not elsewhere classified (09/04/22) Edema, unspecified (09/04/22) Physical Therapy Treatment Note PT-OP-A Visit Information Start: 08/20/22 17:31 Freq: Status: Active Protocol: Document 09/04/22 14:32 AW (Rec: 09/04/22 17:13 AW [id number]) Out-Patient Physical Therapy Visit Information Visit Information Visit Type Treatment Note Visit Start Time 14:30 Visit Stop Time 15:54 Total Visit Minutes 84 Visit Number 02/26 Evaluation Information Evaluation Date 08/21/22 PT-OP-B Current Condition Start: 08/20/22 17:31 Freq: Status: Active Protocol: Document 08/21/22 10:30 AW (Rec: 08/20/22 17:38 AW [id number]) Current Condition History of Current Condition Onset Date a few years, worsening Current Complaints bilateral lower extremity swelling, impaired mobility History of Current Condition Timothy has dealt with ongoing lower extremity edema that has been present for a few years. Has a history of factor V Leiden mutation, recurrent deep vein thrombosis, on chronic anticoagulation. He has [id number] compression socks and likes how they feel but is unable to don them without great difficulty. His feet feel like balloons at the end of the day. He states they go down at night, but then they re-accumulate. He states elevation helps, but he spends more and more time in the chair. He has tried oral Lasix which has not been helpful and he does not like the side effects, which is causing increased urination. He states elevation does help. Heavy feeling in his legs has been limiting his ability to walk very far and he has had at least two falls in the past few months. He is not using any assistive device today but states he sometimes uses a walking stick or cane. He has trouble picking up objects from the floor. 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 At that time, he broke his right shoulder, his neck, clavicle, 10 ribs, and punctured a lung. He was doing relatively well overall until he fell during a tennis match a few years ago and broke two vertebrae. He had laminectomy and two 16 rods placed in his thoracic spine. He continues to have back and left leg pain. Left leg usually feels achy but is sometimes shooting and radiating into the back of his leg. Prior Treatments and Tests No prior treatment for lymphedema. Pt was seen at this clinic last year but had hoped to decrease swelling by increasing activity and exercise. Treatment Goals Patient/Caregiver Goals Reduce swelling to make it easier to get more exercise. Pt would like to be able to walk 1-2 miles at a time. Prior Functional Status Baseline Function- ADL's Independent Baseline Function- Mobility Independent Baseline Function- Gait Independent, no device Current Functional Impairments (Reported) Functional Limitations- ADL's Difficulty donning regular socks. Only wears shoes he can slip on. Can not don compression socks without assist. Functional Limitations- Mobility/Gait Recent falls reported. Pt able to ambulate ~10 minutes at a time and often needs walking stick or cane. Personal Factors Other Personal Factors That May Effect Pt plans to spend winter in [facility] [place]. Will leave in November . PT-OP-C Subjective Start: 08/20/22 17:31 Freq: Status: Active Protocol: Document 09/04/22 14:32 AW (Rec: 09/04/22 17:13 AW [id number]) OP-PT Subjective Patient Comments Patient Comments Had right lateral foot pain with wrapping after last visit . Sleep was very poor and pt had to have his unwrap early the next morning. PT-OP-D Balance Start: 08/20/22 17:31 Freq: Status: Active Protocol: Document 08/21/22 10:30 AW (Rec: 08/21/22 14:19 AW [id number]) Tinetti Balance Assessment Sitting Balance Sitting Balance Steady, safe Arising from Chair Ability to Arise Able, uses arms to help Attempts to Arise Able, requires >1 attempt Standing Balance Immediate Standing Balance Steady with support Standing Balance Steady, wide stance Nudged Response Begins to fall Standing with Eyes Closed Unsteady Turning Step Pattern Turning 360 Degrees Discontinuous steps Stability Turning 360 Degrees Unsteady, grabs/staggers Sitting Down Sitting Down Uses arms or unsteady Gait and Step Initiation of Gait No hesitancy Right Foot Step Length Does pass stance foot Right Foot Step Height Does not clear floor Left Foot Step Length Does pass stance foot Left Foot Step Height Does not clear floor Step Description Step Symmetry Step length appears equal Step Continuity Steps appear continuous Gait Description Path Description Mild/moderate deviation Trunk Description No sway but posturing Walking Stance Heels apart Scoring and Interpretation Tinetti Composite Score (points) 13 Interpretation of Scores High risk for falls(< 19) Tinetti Impairment Rating from Composite 40 to <60% Impaired (Score 12- Score 16) PT-OP-G Mobility & Gait Start: 08/20/22 17:31 Freq: Status: Active Protocol: Document 08/21/22 10:30 AW (Rec: 08/21/22 14:28 AW [id number]) OP Mobility Evaluation Bed Mobility Supine to and from Sit painful and needing min assist to move legs off table after wrapping treatment Transfers Sit to Stand heavy use of hands Functional Movements Squats unable to pick item up from the floor OP Gait Assessment Gait Gait Assistance Required: Standby Assistance,Contact Guard Assist Assistive Devices Assistive Device None Gait Deviations General Gait Pattern Antalgic,Decreased Stride Length,Decreased Feet Clearance,Flexed Trunk,Wide Based Gait Comments Gait Comments Gait limited by heaviness in lower legs, weakness bilaterally, and poor balance. PT-OP-H Neuro Start: 08/20/22 17:31 Freq: Status: Active Protocol: Document 08/21/22 10:30 AW (Rec: 08/21/22 14:28 AW [id number]) Sensation Evaluation Gross Sensation Gross Sensation Left LE Impaired,Right LE Impaired Sensation Description Numbness Comments Summary Comments Dull light touch sensation in bilateral feet PT-OP-J Posture/Palpation/Skin Start: 08/20/22 17:31 Freq: Status: Active Protocol: Document 08/21/22 10:30 AW (Rec: 08/21/22 14:28 AW [id number]) Skin Assessment Other Assessments Skin Assessment Comments Edematous BLE (3+ pitting) with some skin tautness. No wounds. Ankles and lower legs most affected by swelling. See circumferential measurements documented separately. PT-OP-K Range of Motion Start: 08/20/22 17:31 Freq: Status: Active Protocol: Document 08/21/22 10:30 AW (Rec: 08/21/22 17:37 AW [id number]) Hip Goniometric Range of Motion Hip ROM Limitations Comments AROM hip extension past neutral is limited Knee Goniometric Range of Motion Knee ROM Limitations Knee ROM Limitations Soft Tissue Tightness Comments Pt lacks full knee extension bilaterally but left is more affected than right Ankle and Foot Goniometric Range of Motion Ankle and Foot ROM Limitations ROM Limitations Swelling PT-OP-M Strength Start: 08/20/22 17:31 Freq: Status: Active Protocol: Document 08/21/22 10:30 AW (Rec: 08/21/22 17:37 AW [id number]) Hip Strength Hip Manual Muscle Testing Left Flexion (L2) 4- Good- Extension (S1) 4- Good- Abduction 4- Good- External Rotation 4 Good Internal Rotation 4- Good- Right Flexion (L2) 4 Good Extension (S1) 4 Good Abduction 4 Good External Rotation 4 Good Internal Rotation 4- Good- Knee Strength Knee Manual Muscle Testing bilat Flexion (S2) 4+ Good+ Extension (L3) 5 Normal Ankle/Foot Strength Ankle and Foot Manual Muscle Testing bilat Dorsiflexion (L4) 4 Good Plantarflexion (S1) 4- Good- PT-OP-N Lymphedema Start: 08/20/22 17:31 Freq: Status: Active Protocol: Document 09/04/22 14:32 AW (Rec: 09/04/22 17:13 AW [id number]) Lymphedema Measurements Lower Extremity Circumference Measurements Right Affected MT Heads 26.6 cm Mid-foot 27.4 cm Medial Malleolus 36 cm 10 cm From Medial Malleolus 32.5 cm 20 cm From Medial Malleolus 37.1 cm 30 cm From Medial Malleolus 41.9 cm 40 cm From Medial Malleolus 40 cm 50 cm From Medial Malleolus 46.6 cm 60 cm From Medial Malleolus 50.3 cm Left Affected MT Heads 26.8 cm Mid-foot 27.6 cm Medial Malleolus 40 cm 10 cm From Medial Malleolus 34.3 cm 20 cm From Medial Malleolus 40 cm 30 cm From Medial Malleolus 41.7 cm 40 cm From Medial Malleolus 39.5 cm 50 cm From Medial Malleolus 45.2 cm 60 cm From Medial Malleolus 48.8 cm - All measurements are pre-pump. Left ankle did reduce 1.5 cm after pump PT-OP-Q Treatments Start: 08/20/22 17:31 Freq: Status: Active Protocol: Document 09/04/22 14:32 AW (Rec: 09/04/22 17:13 AW [id number]) Therapeutic Activity Therapeutic Activity LB dressing Name donning compression socks Reps/Minutes 15 Comments Used medi cook. First rep, pt needed mod A for LLE, min A for RLE. 2nd rep, pt was able to complete doffing and donning min A with medi cook device. Pt states his will be able to assist at home . Lymphedema Treatment Manual Lymphatic Drainage Location BLE Duration 50 min Comments MLD focused on AIA pathways to stimulate lymphangiomotoricity. Treated RLE while pump on LLE. Short tx for RLE while pump on RLE Lymphedema Wrapping Other [place] lotion applied to BLE . Pt requested no wrapping today but open to donning own compression stockings with AD Sequential Lymphedema Exercises Location BLE Duration 10 min Comments Performed all exercises. PT provided handout for performance at home Compression Garment Assessment Compression Garment Assessment Details Assisted pt to don 20-30 mm Hg knee high stockings using [email or web address] cook donning device. See notes in Therapeutic Activities above. Patient Education Compression Garments Education on donning as above PT-OP-R Modalities Start: 08/20/22 17:31 Freq: Status: Active Protocol: Document 09/04/22 14:32 AW (Rec: 09/04/22 17:13 AW [id number]) Compression Pump Treatment Treatment Location LLE Pressure Amount (mmHg) (mmHG) 60 Inflation Time (Seconds) 45 Deflation Time (Seconds) 10 Treatment Duration (minutes) 50 Treatment Tolerance Good Treatment Comments BLE today with black foam situated around ankles during tx. Left ankle reduced 1.5 cm after pump. PT-OP-T Assessment and Plan Start: 08/20/22 17:31 Freq: Status: Active Protocol: Document 09/04/22 14:32 AW (Rec: 09/04/22 17:13 AW [id number]) Physical Therapy Assessment Goals Three Impairment lymphedema BLE Short Term Goal (STG) Pt and his spouse will be instructed in all aspects of lymphedema care including skin care, manual lymphatic drainage, lymphedema exercises , and compression garments or alternative. STG Duration 10/02/22 Material Coordinator Goal (LTG) Pt will demonstrate reduction and stabilization of lymphedema (no change greater than 1 cm over the course of 1 week) and be independent with all aspects of lymphedema self-care including donning/ doffing compression garment or alternative. LTG Duration 11/13/22 Two Impairment impaired balance Fpc Goal (LTG) Pt will improve Tinetti score from 13 to 20 or greater as a measure of reduced falls risk LTG Duration 11/13/22 One Impairment function limited by lymphedema Material Coordinator Goal (LTG) Pt will score 15 or less on Lymphedema Life Impact Scale ( 36 at initial eval) as a measure of improvement in daily function LTG Duration 11/13/22 Assessment Summary Assessment Timothy measurements were scattered today with some reduction but left foot and ankle showing increased swelling. He does respond well to pneumatic compression with at least 1.5 cm reduction in ankle after pump. Feel pt would benefit from home pump such as Flexitouch. Timothy does not tolerate compression bandaging well but is very open to learning how to don compression garments with some sort of assistive device. Trialed medi cook today and pt was able to don and doff with min assist using this device. Pt borrowed the medi cook to continue with compression at home. Will assess response to more consistent compression afforded by [id number], circular knit stockings at next visit. Physical Therapy Plan Frequency and Duration Frequency of Treatment 3x/Week Duration of treatment (weeks) 12 Plan of Care Start Date 08/21/22 Plan of Care End Date 11/13/22 Therapeutic Interventions Therapeutic Interventions Balance Training,Gait Training ,Home Exercise Program, Lymphedema Management,Manual Therapy,Patient/Caregiver Education,Self-Care/Home Management,Soft Tissue Mobilization,Therapeutic Activities,Therapeutic Exercises Modalities Cold Pack/Ice Massage, Vasopneumatic Devices Next Visit Focus/Plan Next Note Type Treatment Note Next Visit Plan RETURN MEDI COOK Measure. Continue lymphedema management with MLD, work on compression alternatives. Consider Flexitouch for home. Follow up on pt donning own compression garments. Lymphedema exercises.
--- NOTE | 2022-09-10 16:41 | PT.OTN ---
Current Diagnoses Lymphedema, not elsewhere classified (09/10/22) Difficulty in walking, not elsewhere classified (09/10/22) Edema, unspecified (09/10/22) Physical Therapy Treatment Note PT-OP-A Visit Information Start: 08/20/22 17:31 Freq: Status: Active Protocol: Document 09/10/22 15:17 AW (Rec: 09/10/22 16:41 AW [id number]) Out-Patient Physical Therapy Visit Information Visit Information Visit Type Treatment Note Visit Start Time 15:15 Visit Stop Time 16:29 Total Visit Minutes 74 Visit Number 03/28 Evaluation Information Evaluation Date 08/21/22 PT-OP-B Current Condition Start: 08/20/22 17:31 Freq: Status: Active Protocol: Document 08/21/22 10:30 AW (Rec: 08/20/22 17:38 AW [id number]) Current Condition History of Current Condition Onset Date a few years, worsening Current Complaints bilateral lower extremity swelling, impaired mobility History of Current Condition Timothy has dealt with ongoing lower extremity edema that has been present for a few years. Has a history of factor V Leiden mutation, recurrent deep vein thrombosis, on chronic anticoagulation. He has [id number] compression socks and likes how they feel but is unable to don them without great difficulty. His feet feel like balloons at the end of the day. He states they go down at night, but then they re-accumulate. He states elevation helps, but he spends more and more time in the chair. He has tried oral Lasix which has not been helpful and he does not like the side effects, which is causing increased urination. He states elevation does help. Heavy feeling in his legs has been limiting his ability to walk very far and he has had at least two falls in the past few months. He is not using any assistive device today but states he sometimes uses a walking stick or cane. He has trouble picking up objects from the floor. 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 At that time, he broke his right shoulder, his neck, clavicle, 10 ribs, and punctured a lung. He was doing relatively well overall until he fell during a tennis match a few years ago and broke two vertebrae. He had laminectomy and two 16 rods placed in his thoracic spine. He continues to have back and left leg pain. Left leg usually feels achy but is sometimes shooting and radiating into the back of his leg. Prior Treatments and Tests No prior treatment for lymphedema. Pt was seen at this clinic last year but had hoped to decrease swelling by increasing activity and exercise. Treatment Goals Patient/Caregiver Goals Reduce swelling to make it easier to get more exercise. Pt would like to be able to walk 1-2 miles at a time. Prior Functional Status Baseline Function- ADL's Independent Baseline Function- Mobility Independent Baseline Function- Gait Independent, no device Current Functional Impairments (Reported) Functional Limitations- ADL's Difficulty donning regular socks. Only wears shoes he can slip on. Can not don compression socks without assist. Functional Limitations- Mobility/Gait Recent falls reported. Pt able to ambulate ~10 minutes at a time and often needs walking stick or cane. Personal Factors Other Personal Factors That May Effect Pt plans to spend winter in [facility] [place]. Will leave in November . PT-OP-C Subjective Start: 08/20/22 17:31 Freq: Status: Active Protocol: Document 09/10/22 15:17 AW (Rec: 09/10/22 16:41 AW [id number]) OP-PT Subjective Patient Comments Patient Comments I put my shoes on without the shoe horn today. I think I might need smaller shoes. PT-OP-D Balance Start: 08/20/22 17:31 Freq: Status: Active Protocol: Document 08/21/22 10:30 AW (Rec: 08/21/22 14:19 AW [id number]) Tinetti Balance Assessment Sitting Balance Sitting Balance Steady, safe Arising from Chair Ability to Arise Able, uses arms to help Attempts to Arise Able, requires >1 attempt Standing Balance Immediate Standing Balance Steady with support Standing Balance Steady, wide stance Nudged Response Begins to fall Standing with Eyes Closed Unsteady Turning Step Pattern Turning 360 Degrees Discontinuous steps Stability Turning 360 Degrees Unsteady, grabs/staggers Sitting Down Sitting Down Uses arms or unsteady Gait and Step Initiation of Gait No hesitancy Right Foot Step Length Does pass stance foot Right Foot Step Height Does not clear floor Left Foot Step Length Does pass stance foot Left Foot Step Height Does not clear floor Step Description Step Symmetry Step length appears equal Step Continuity Steps appear continuous Gait Description Path Description Mild/moderate deviation Trunk Description No sway but posturing Walking Stance Heels apart Scoring and Interpretation Tinetti Composite Score (points) 13 Interpretation of Scores High risk for falls(< 19) Tinetti Impairment Rating from Composite 40 to <60% Impaired (Score 12- Score 16) PT-OP-G Mobility & Gait Start: 08/20/22 17:31 Freq: Status: Active Protocol: Document 08/21/22 10:30 AW (Rec: 08/21/22 14:28 AW [id number]) OP Mobility Evaluation Bed Mobility Supine to and from Sit painful and needing min assist to move legs off table after wrapping treatment Transfers Sit to Stand heavy use of hands Functional Movements Squats unable to pick item up from the floor OP Gait Assessment Gait Gait Assistance Required: Standby Assistance,Contact Guard Assist Assistive Devices Assistive Device None Gait Deviations General Gait Pattern Antalgic,Decreased Stride Length,Decreased Feet Clearance,Flexed Trunk,Wide Based Gait Comments Gait Comments Gait limited by heaviness in lower legs, weakness bilaterally, and poor balance. PT-OP-H Neuro Start: 08/20/22 17:31 Freq: Status: Active Protocol: Document 08/21/22 10:30 AW (Rec: 08/21/22 14:28 AW [id number]) Sensation Evaluation Gross Sensation Gross Sensation Left LE Impaired,Right LE Impaired Sensation Description Numbness Comments Summary Comments Dull light touch sensation in bilateral feet PT-OP-J Posture/Palpation/Skin Start: 08/20/22 17:31 Freq: Status: Active Protocol: Document 08/21/22 10:30 AW (Rec: 08/21/22 14:28 AW [id number]) Skin Assessment Other Assessments Skin Assessment Comments Edematous BLE (3+ pitting) with some skin tautness. No wounds. Ankles and lower legs most affected by swelling. See circumferential measurements documented separately. PT-OP-K Range of Motion Start: 08/20/22 17:31 Freq: Status: Active Protocol: Document 08/21/22 10:30 AW (Rec: 08/21/22 17:37 AW [id number]) Hip Goniometric Range of Motion Hip ROM Limitations Comments AROM hip extension past neutral is limited Knee Goniometric Range of Motion Knee ROM Limitations Knee ROM Limitations Soft Tissue Tightness Comments Pt lacks full knee extension bilaterally but left is more affected than right Ankle and Foot Goniometric Range of Motion Ankle and Foot ROM Limitations ROM Limitations Swelling PT-OP-M Strength Start: 08/20/22 17:31 Freq: Status: Active Protocol: Document 08/21/22 10:30 AW (Rec: 08/21/22 17:37 AW [id number]) Hip Strength Hip Manual Muscle Testing Left Flexion (L2) 4- Good- Extension (S1) 4- Good- Abduction 4- Good- External Rotation 4 Good Internal Rotation 4- Good- Right Flexion (L2) 4 Good Extension (S1) 4 Good Abduction 4 Good External Rotation 4 Good Internal Rotation 4- Good- Knee Strength Knee Manual Muscle Testing bilat Flexion (S2) 4+ Good+ Extension (L3) 5 Normal Ankle/Foot Strength Ankle and Foot Manual Muscle Testing bilat Dorsiflexion (L4) 4 Good Plantarflexion (S1) 4- Good- PT-OP-N Lymphedema Start: 08/20/22 17:31 Freq: Status: Active Protocol: Document 09/10/22 15:17 AW (Rec: 09/10/22 16:41 AW [id number]) Lymphedema Measurements Lower Extremity Circumference Measurements Right Affected MT Heads 26 cm Mid-foot 25.7 cm Medial Malleolus 31 cm 10 cm From Medial Malleolus 26.5 cm 20 cm From Medial Malleolus 41 cm 30 cm From Medial Malleolus 41.5 cm 40 cm From Medial Malleolus 40.7 cm 50 cm From Medial Malleolus 47.9 cm 60 cm From Medial Malleolus 51.2 cm Left Affected MT Heads 25.6 cm Mid-foot 26.7 cm Medial Malleolus 32 cm 10 cm From Medial Malleolus 31 cm 20 cm From Medial Malleolus 41.8 cm 30 cm From Medial Malleolus 45.7 cm 40 cm From Medial Malleolus 40.3 cm 50 cm From Medial Malleolus 46.1 cm 60 cm From Medial Malleolus 51.6 cm - Significant reduction at foot and ankle. Tourniquet affect very obvious BLE as evidenced by measurements. PT-OP-Q Treatments Start: 08/20/22 17:31 Freq: Status: Active Protocol: Document 09/10/22 15:17 AW (Rec: 09/10/22 16:41 AW [id number]) Cardio Equipment Recumbent Elliptical ([place]) Duration (Minutes) 10 Resistance 3>4 Seat Position 12 Other after MLD and compression Therapeutic Activity Therapeutic Activity LB dressing Name donning compression socks Reps/Minutes 10 Comments Reviewed use of medi cook which pt has found very useful at home. Min A to don and doff. Lymphedema Treatment Manual Lymphatic Drainage Location BLE Duration 45 min Comments MLD focused on AIA pathways to stimulate lymphangiomotoricity. Treated RLE while pump on LLE. Short tx for RLE while pump on RLE. Reduced tourniquet effect after pump. Lymphedema Wrapping Other Cetaphil lotion applied to BLE . Donned pt's own 20-30 mm Hg circular knit compression socks today. Sequential Lymphedema Exercises Comments Discussed continuing at home Compression Garment Assessment Compression Garment Assessment Details Pt arrived with garments that had a higher degree of compression to 20 cm above malleolus and less compression proximally. He had tourniqueting as evidenced by circumferential measurements but distal reduction in swelling was impressive PT-OP-R Modalities Start: 08/20/22 17:31 Freq: Status: Active Protocol: Document 09/10/22 15:17 AW (Rec: 09/10/22 16:41 AW [id number]) Compression Pump Treatment Treatment Location LLE Pressure Amount (mmHg) (mmHG) 60 Inflation Time (Seconds) 45 Deflation Time (Seconds) 10 Treatment Duration (minutes) 40 Treatment Tolerance Good Treatment Comments BLE today. Tourniquet effect above ankles significantly reduced post-pump. PT-OP-T Assessment and Plan Start: 08/20/22 17:31 Freq: Status: Active Protocol: Document 09/10/22 15:17 AW (Rec: 09/10/22 16:41 AW [id number]) Physical Therapy Assessment Goals Three Impairment lymphedema BLE Short Term Goal (STG) Pt and his spouse will be instructed in all aspects of lymphedema care including skin care, manual lymphatic drainage, lymphedema exercises , and compression garments or alternative. STG Duration 10/02/22 Usp Goal (LTG) Pt will demonstrate reduction and stabilization of lymphedema (no change greater than 1 cm over the course of 1 week) and be independent with all aspects of lymphedema self-care including donning/ doffing compression garment or alternative. LTG Duration 11/13/22 Two Impairment impaired balance Usp Goal (LTG) Pt will improve Tinetti score from 13 to 20 or greater as a measure of reduced falls risk LTG Duration 11/13/22 One Impairment function limited by lymphedema Usp Goal (LTG) Pt will score 15 or less on Lymphedema Life Impact Scale ( 36 at initial eval) as a measure of improvement in daily function LTG Duration 11/13/22 Assessment Summary Assessment Timothy arrived with compression garments that had high pressure distally and less compression proximally - different materials for each section - which had resulted in a tourniquet effect but distal swelling was clearly reduced. Tourniquet effect was greatly reduced post- treatment. Pt seems to be responding very well to regular compression. He will be buying his own donning device such as medi cook. If circumferential measurements stabilize with [id number] compression, that may be enough but he may still benefit from getting measured for custom garments. Will continue to assess. Physical Therapy Plan Frequency and Duration Frequency of Treatment 3x/Week Duration of treatment (weeks) 12 Plan of Care Start Date 08/21/22 Plan of Care End Date 11/13/22 Therapeutic Interventions Therapeutic Interventions Balance Training,Gait Training ,Home Exercise Program, Lymphedema Management,Manual Therapy,Patient/Caregiver Education,Self-Care/Home Management,Soft Tissue Mobilization,Therapeutic Activities,Therapeutic Exercises Modalities Cold Pack/Ice Massage, Vasopneumatic Devices Next Visit Focus/Plan Next Note Type Treatment Note Next Visit Plan RETURN MEDI COOK Measure. Continue lymphedema management with MLD, work on compression alternatives. Follow up on pt donning own compression garments. Lymphedema exercises.
--- NOTE | 2022-09-17 16:53 | PT.OTN ---
Current Diagnoses Lymphedema, not elsewhere classified (09/17/22) Difficulty in walking, not elsewhere classified (09/17/22) Edema, unspecified (09/17/22) Physical Therapy Treatment Note PT-OP-A Visit Information Start: 08/20/22 17:31 Freq: Status: Active Protocol: Document 09/17/22 15:21 AW (Rec: 09/17/22 16:52 AW [id number]) Out-Patient Physical Therapy Visit Information Visit Information Visit Type Treatment Note Visit Start Time 15:15 Visit Stop Time 16:30 Total Visit Minutes 75 Visit Number 04/28 Evaluation Information Evaluation Date 08/21/22 PT-OP-B Current Condition Start: 08/20/22 17:31 Freq: Status: Active Protocol: Document 08/21/22 10:30 AW (Rec: 08/20/22 17:38 AW [id number]) Current Condition History of Current Condition Onset Date a few years, worsening Current Complaints bilateral lower extremity swelling, impaired mobility History of Current Condition Timothy has dealt with ongoing lower extremity edema that has been present for a few years. Has a history of factor V Leiden mutation, recurrent deep vein thrombosis, on chronic anticoagulation. He has [id number] compression socks and likes how they feel but is unable to don them without great difficulty. His feet feel like balloons at the end of the day. He states they go down at night, but then they re-accumulate. He states elevation helps, but he spends more and more time in the chair. He has tried oral Lasix which has not been helpful and he does not like the side effects, which is causing increased urination. He states elevation does help. Heavy feeling in his legs has been limiting his ability to walk very far and he has had at least two falls in the past few months. He is not using any assistive device today but states he sometimes uses a walking stick or cane. He has trouble picking up objects from the floor. 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 At that time, he broke his right shoulder, his neck, clavicle, 10 ribs, and punctured a lung. He was doing relatively well overall until he fell during a tennis match a few years ago and broke two vertebrae. He had laminectomy and two 16 rods placed in his thoracic spine. He continues to have back and left leg pain. Left leg usually feels achy but is sometimes shooting and radiating into the back of his leg. Prior Treatments and Tests No prior treatment for lymphedema. Pt was seen at this clinic last year but had hoped to decrease swelling by increasing activity and exercise. Treatment Goals Patient/Caregiver Goals Reduce swelling to make it easier to get more exercise. Pt would like to be able to walk 1-2 miles at a time. Prior Functional Status Baseline Function- ADL's Independent Baseline Function- Mobility Independent Baseline Function- Gait Independent, no device Current Functional Impairments (Reported) Functional Limitations- ADL's Difficulty donning regular socks. Only wears shoes he can slip on. Can not don compression socks without assist. Functional Limitations- Mobility/Gait Recent falls reported. Pt able to ambulate ~10 minutes at a time and often needs walking stick or cane. Personal Factors Other Personal Factors That May Effect Pt plans to spend winter in [facility] [place]. Will leave in November . PT-OP-C Subjective Start: 08/20/22 17:31 Freq: Status: Active Protocol: Document 09/17/22 15:21 AW (Rec: 09/17/22 16:52 AW [id number]) OP-PT Subjective Patient Comments Patient Comments Timothy thinks he might be a little more swollen today. He has been able to get his compression socks on by himself a few times using the medi cook. PT-OP-D Balance Start: 08/20/22 17:31 Freq: Status: Active Protocol: Document 08/21/22 10:30 AW (Rec: 08/21/22 14:19 AW [id number]) Tinetti Balance Assessment Sitting Balance Sitting Balance Steady, safe Arising from Chair Ability to Arise Able, uses arms to help Attempts to Arise Able, requires >1 attempt Standing Balance Immediate Standing Balance Steady with support Standing Balance Steady, wide stance Nudged Response Begins to fall Standing with Eyes Closed Unsteady Turning Step Pattern Turning 360 Degrees Discontinuous steps Stability Turning 360 Degrees Unsteady, grabs/staggers Sitting Down Sitting Down Uses arms or unsteady Gait and Step Initiation of Gait No hesitancy Right Foot Step Length Does pass stance foot Right Foot Step Height Does not clear floor Left Foot Step Length Does pass stance foot Left Foot Step Height Does not clear floor Step Description Step Symmetry Step length appears equal Step Continuity Steps appear continuous Gait Description Path Description Mild/moderate deviation Trunk Description No sway but posturing Walking Stance Heels apart Scoring and Interpretation Tinetti Composite Score (points) 13 Interpretation of Scores High risk for falls(< 19) Tinetti Impairment Rating from Composite 40 to <60% Impaired (Score 12- Score 16) PT-OP-G Mobility & Gait Start: 08/20/22 17:31 Freq: Status: Active Protocol: Document 08/21/22 10:30 AW (Rec: 08/21/22 14:28 AW [id number]) OP Mobility Evaluation Bed Mobility Supine to and from Sit painful and needing min assist to move legs off table after wrapping treatment Transfers Sit to Stand heavy use of hands Functional Movements Squats unable to pick item up from the floor OP Gait Assessment Gait Gait Assistance Required: Standby Assistance,Contact Guard Assist Assistive Devices Assistive Device None Gait Deviations General Gait Pattern Antalgic,Decreased Stride Length,Decreased Feet Clearance,Flexed Trunk,Wide Based Gait Comments Gait Comments Gait limited by heaviness in lower legs, weakness bilaterally, and poor balance. PT-OP-H Neuro Start: 08/20/22 17:31 Freq: Status: Active Protocol: Document 08/21/22 10:30 AW (Rec: 08/21/22 14:28 AW [id number]) Sensation Evaluation Gross Sensation Gross Sensation Left LE Impaired,Right LE Impaired Sensation Description Numbness Comments Summary Comments Dull light touch sensation in bilateral feet PT-OP-J Posture/Palpation/Skin Start: 08/20/22 17:31 Freq: Status: Active Protocol: Document 08/21/22 10:30 AW (Rec: 08/21/22 14:28 AW [id number]) Skin Assessment Other Assessments Skin Assessment Comments Edematous BLE (3+ pitting) with some skin tautness. No wounds. Ankles and lower legs most affected by swelling. See circumferential measurements documented separately. PT-OP-K Range of Motion Start: 08/20/22 17:31 Freq: Status: Active Protocol: Document 08/21/22 10:30 AW (Rec: 08/21/22 17:37 AW [id number]) Hip Goniometric Range of Motion Hip ROM Limitations Comments AROM hip extension past neutral is limited Knee Goniometric Range of Motion Knee ROM Limitations Knee ROM Limitations Soft Tissue Tightness Comments Pt lacks full knee extension bilaterally but left is more affected than right Ankle and Foot Goniometric Range of Motion Ankle and Foot ROM Limitations ROM Limitations Swelling PT-OP-M Strength Start: 08/20/22 17:31 Freq: Status: Active Protocol: Document 08/21/22 10:30 AW (Rec: 08/21/22 17:37 AW [id number]) Hip Strength Hip Manual Muscle Testing Left Flexion (L2) 4- Good- Extension (S1) 4- Good- Abduction 4- Good- External Rotation 4 Good Internal Rotation 4- Good- Right Flexion (L2) 4 Good Extension (S1) 4 Good Abduction 4 Good External Rotation 4 Good Internal Rotation 4- Good- Knee Strength Knee Manual Muscle Testing bilat Flexion (S2) 4+ Good+ Extension (L3) 5 Normal Ankle/Foot Strength Ankle and Foot Manual Muscle Testing bilat Dorsiflexion (L4) 4 Good Plantarflexion (S1) 4- Good- PT-OP-N Lymphedema Start: 08/20/22 17:31 Freq: Status: Active Protocol: Document 09/17/22 15:21 AW (Rec: 09/17/22 16:52 AW [id number]) Lymphedema Measurements Lower Extremity Circumference Measurements Right Affected MT Heads 26.1 cm Mid-foot 26.1 cm Medial Malleolus 33.3 cm 10 cm From Medial Malleolus 31.3 cm 20 cm From Medial Malleolus 35.5 cm 30 cm From Medial Malleolus 42.5 cm 40 cm From Medial Malleolus 40.4 cm 50 cm From Medial Malleolus 47.5 cm 60 cm From Medial Malleolus 50.9 cm Left Affected MT Heads 27 cm Mid-foot 26.3 cm Medial Malleolus 34.2 cm 10 cm From Medial Malleolus 33.9 cm 20 cm From Medial Malleolus 40 cm 30 cm From Medial Malleolus 41.6 cm 40 cm From Medial Malleolus 40.6 cm 50 cm From Medial Malleolus 46.4 cm 60 cm From Medial Malleolus 52.5 cm - Increased measurements today possibly related to pt having ankle/brachial index measured earlier today. PT-OP-Q Treatments Start: 08/20/22 17:31 Freq: Status: Active Protocol: Document 09/17/22 15:21 AW (Rec: 09/17/22 16:52 AW [id number]) Cardio Equipment Recumbent Elliptical (Biodex) Duration (Minutes) 10 Resistance 5 Seat Position 12 Other after MLD and compression Therapeutic Activity Therapeutic Activity LB dressing Name donning compression socks Reps/Minutes 10 Comments Reviewed use of medi cook which pt has found very useful at home. Min A (10%) to don and doff. Lymphedema Treatment Manual Lymphatic Drainage Location BLE Duration 45 min Comments MLD focused on AIA pathways to stimulate lymphangiomotoricity. Treated RLE while pump on LLE. Short tx for RLE while pump on RLE. Reduced tourniquet effect after pump. Lymphedema Wrapping Other Cetaphil lotion applied to BLE . Donned pt's own 20-30 mm Hg circular knit compression socks today. Sequential Lymphedema Exercises Location BLE Comments Discussed continuing at home Compression Garment Assessment Compression Garment Assessment Details Assisted pt to don 20-30 mm Hg knee high stockings using medi cook donning device. Decreased assist compared with last visits. PT-OP-R Modalities Start: 08/20/22 17:31 Freq: Status: Active Protocol: Document 09/17/22 15:21 AW (Rec: 09/17/22 16:52 AW [id number]) Compression Pump Treatment Treatment Location LLE Pressure Amount (mmHg) (mmHG) 60 Inflation Time (Seconds) 45 Deflation Time (Seconds) 10 Treatment Duration (minutes) 40 Treatment Tolerance Good Treatment Comments BLE today with black foam situated around ankles. Ankles reduced 1 cm R and 1.5 cm L after pump. PT-OP-T Assessment and Plan Start: 08/20/22 17:31 Freq: Status: Active Protocol: Document 09/17/22 15:21 AW (Rec: 09/17/22 16:52 AW [id number]) Physical Therapy Assessment Goals Three Impairment lymphedema BLE Short Term Goal (STG) Pt and his spouse will be instructed in all aspects of lymphedema care including skin care, manual lymphatic drainage, lymphedema exercises , and compression garments or alternative. STG Duration 10/02/22 Cloth Washer Back Tender Goal (LTG) Pt will demonstrate reduction and stabilization of lymphedema (no change greater than 1 cm over the course of 1 week) and be independent with all aspects of lymphedema self-care including donning/ doffing compression garment or alternative. LTG Duration 11/13/22 Two Impairment impaired balance Cloth Washer Back Tender Goal (LTG) Pt will improve Tinetti score from 13 to 20 or greater as a measure of reduced falls risk LTG Duration 11/13/22 One Impairment function limited by lymphedema Longterm Goal (LTG) Pt will score 15 or less on Lymphedema Life Impact Scale ( 36 at initial eval) as a measure of improvement in daily function LTG Duration 11/13/22 Assessment Summary Assessment Timothy had ankle brachial index measured today but does not know the results. Concerned that ankle compression may have resulted in increased distal swelling today which is evident in circumferential measurements. Pt is doing well with compression garments at home with medi cook device. He is hoping to buy one but continues to borrow clinic device at this time. He would likely benefit from flat knit or higher compression garments . Strongly feel pt would benefit from lymphedema pump for home as he is unable to perform self MLD and his is limited in her ability as well. Pt has consistently had decreased circumferential measurements post-pump treatment and would benefit from consistent compression pump at home. Physical Therapy Plan Frequency and Duration Frequency of Treatment 3x/Week Duration of treatment (weeks) 12 Plan of Care Start Date 08/21/22 Plan of Care End Date 11/13/22 Therapeutic Interventions Therapeutic Interventions Balance Training,Gait Training ,Home Exercise Program, Lymphedema Management,Manual Therapy,Patient/Caregiver Education,Self-Care/Home Management,Soft Tissue Mobilization,Therapeutic Activities,Therapeutic Exercises Modalities Cold Pack/Ice Massage, Vasopneumatic Devices Next Visit Focus/Plan Next Note Type Treatment Note Next Visit Plan RETURN MEDI COOK Measure. Continue lymphedema management with MLD, work on compression alternatives. Follow up on pt donning own compression garments. Lymphedema exercises.
--- NOTE | 2022-09-24 16:50 | PT.OTN ---
Current Diagnoses Lymphedema, not elsewhere classified (09/24/22) Difficulty in walking, not elsewhere classified (09/24/22) Edema, unspecified (09/24/22) Physical Therapy Treatment Note PT-OP-A Visit Information Start: 08/20/22 17:31 Freq: Status: Active Protocol: Document 09/24/22 15:16 AW (Rec: 09/24/22 16:50 AW [id number]) Out-Patient Physical Therapy Visit Information Visit Information Visit Type Treatment Note Visit Start Time 15:20 Visit Stop Time 16:40 Total Visit Minutes 80 Visit Number 05/28 Evaluation Information Evaluation Date 08/21/22 PT-OP-B Current Condition Start: 08/20/22 17:31 Freq: Status: Active Protocol: Document 08/21/22 10:30 AW (Rec: 08/20/22 17:38 AW [id number]) Current Condition History of Current Condition Onset Date a few years, worsening Current Complaints bilateral lower extremity swelling, impaired mobility History of Current Condition Timothy has dealt with ongoing lower extremity edema that has been present for a few years. Has a history of factor V Leiden mutation, recurrent deep vein thrombosis, on chronic anticoagulation. He has [id number] compression socks and likes how they feel but is unable to don them without great difficulty. His feet feel like balloons at the end of the day. He states they go down at night, but then they re-accumulate. He states elevation helps, but he spends more and more time in the chair. He has tried oral Lasix which has not been helpful and he does not like the side effects, which is causing increased urination. He states elevation does help. Heavy feeling in his legs has been limiting his ability to walk very far and he has had at least two falls in the past few months. He is not using any assistive device today but states he sometimes uses a walking stick or cane. He has trouble picking up objects from the floor. 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 At that time, he broke his right shoulder, his neck, clavicle, 10 ribs, and punctured a lung. He was doing relatively well overall until he fell during a tennis match a few years ago and broke two vertebrae. He had laminectomy and two 16 rods placed in his thoracic spine. He continues to have back and left leg pain. Left leg usually feels achy but is sometimes shooting and radiating into the back of his leg. Prior Treatments and Tests No prior treatment for lymphedema. Pt was seen at this clinic last year but had hoped to decrease swelling by increasing activity and exercise. Treatment Goals Patient/Caregiver Goals Reduce swelling to make it easier to get more exercise. Pt would like to be able to walk 1-2 miles at a time. Prior Functional Status Baseline Function- ADL's Independent Baseline Function- Mobility Independent Baseline Function- Gait Independent, no device Current Functional Impairments (Reported) Functional Limitations- ADL's Difficulty donning regular socks. Only wears shoes he can slip on. Can not don compression socks without assist. Functional Limitations- Mobility/Gait Recent falls reported. Pt able to ambulate ~10 minutes at a time and often needs walking stick or cane. Personal Factors Other Personal Factors That May Effect Pt plans to spend winter in [facility] [place]. Will leave in November . PT-OP-C Subjective Start: 08/20/22 17:31 Freq: Status: Active Protocol: Document 09/24/22 15:16 AW (Rec: 09/24/22 16:50 AW [id number]) OP-PT Subjective Patient Comments Patient Comments Had a hard weekend with back pain but is feeling better today. Timothy bought a vibration plate for home but has not used it yet. He is hoping it will be a good compliment to lymphedema treatment. PT-OP-D Balance Start: 08/20/22 17:31 Freq: Status: Active Protocol: Document 08/21/22 10:30 AW (Rec: 08/21/22 14:19 AW [id number]) Tinetti Balance Assessment Sitting Balance Sitting Balance Steady, safe Arising from Chair Ability to Arise Able, uses arms to help Attempts to Arise Able, requires >1 attempt Standing Balance Immediate Standing Balance Steady with support Standing Balance Steady, wide stance Nudged Response Begins to fall Standing with Eyes Closed Unsteady Turning Step Pattern Turning 360 Degrees Discontinuous steps Stability Turning 360 Degrees Unsteady, grabs/staggers Sitting Down Sitting Down Uses arms or unsteady Gait and Step Initiation of Gait No hesitancy Right Foot Step Length Does pass stance foot Right Foot Step Height Does not clear floor Left Foot Step Length Does pass stance foot Left Foot Step Height Does not clear floor Step Description Step Symmetry Step length appears equal Step Continuity Steps appear continuous Gait Description Path Description Mild/moderate deviation Trunk Description No sway but posturing Walking Stance Heels apart Scoring and Interpretation Tinetti Composite Score (points) 13 Interpretation of Scores High risk for falls(< 19) Tinetti Impairment Rating from Composite 40 to <60% Impaired (Score 12- Score 16) PT-OP-G Mobility & Gait Start: 08/20/22 17:31 Freq: Status: Active Protocol: Document 08/21/22 10:30 AW (Rec: 08/21/22 14:28 AW [id number]) OP Mobility Evaluation Bed Mobility Supine to and from Sit painful and needing min assist to move legs off table after wrapping treatment Transfers Sit to Stand heavy use of hands Functional Movements Squats unable to pick item up from the floor OP Gait Assessment Gait Gait Assistance Required: Standby Assistance,Contact Guard Assist Assistive Devices Assistive Device None Gait Deviations General Gait Pattern Antalgic,Decreased Stride Length,Decreased Feet Clearance,Flexed Trunk,Wide Based Gait Comments Gait Comments Gait limited by heaviness in lower legs, weakness bilaterally, and poor balance. PT-OP-H Neuro Start: 08/20/22 17:31 Freq: Status: Active Protocol: Document 08/21/22 10:30 AW (Rec: 08/21/22 14:28 AW [id number]) Sensation Evaluation Gross Sensation Gross Sensation Left LE Impaired,Right LE Impaired Sensation Description Numbness Comments Summary Comments Dull light touch sensation in bilateral feet PT-OP-J Posture/Palpation/Skin Start: 08/20/22 17:31 Freq: Status: Active Protocol: Document 08/21/22 10:30 AW (Rec: 08/21/22 14:28 AW [id number]) Skin Assessment Other Assessments Skin Assessment Comments Edematous BLE (3+ pitting) with some skin tautness. No wounds. Ankles and lower legs most affected by swelling. See circumferential measurements documented separately. PT-OP-K Range of Motion Start: 08/20/22 17:31 Freq: Status: Active Protocol: Document 08/21/22 10:30 AW (Rec: 08/21/22 17:37 AW [id number]) Hip Goniometric Range of Motion Hip ROM Limitations Comments AROM hip extension past neutral is limited Knee Goniometric Range of Motion Knee ROM Limitations Knee ROM Limitations Soft Tissue Tightness Comments Pt lacks full knee extension bilaterally but left is more affected than right Ankle and Foot Goniometric Range of Motion Ankle and Foot ROM Limitations ROM Limitations Swelling PT-OP-M Strength Start: 08/20/22 17:31 Freq: Status: Active Protocol: Document 08/21/22 10:30 AW (Rec: 08/21/22 17:37 AW [id number]) Hip Strength Hip Manual Muscle Testing Left Flexion (L2) 4- Good- Extension (S1) 4- Good- Abduction 4- Good- External Rotation 4 Good Internal Rotation 4- Good- Right Flexion (L2) 4 Good Extension (S1) 4 Good Abduction 4 Good External Rotation 4 Good Internal Rotation 4- Good- Knee Strength Knee Manual Muscle Testing bilat Flexion (S2) 4+ Good+ Extension (L3) 5 Normal Ankle/Foot Strength Ankle and Foot Manual Muscle Testing bilat Dorsiflexion (L4) 4 Good Plantarflexion (S1) 4- Good- PT-OP-N Lymphedema Start: 08/20/22 17:31 Freq: Status: Active Protocol: Document 09/24/22 15:16 AW (Rec: 09/24/22 16:50 AW [id number]) Lymphedema Measurements Lower Extremity Circumference Measurements Right Affected MT Heads 25.8 cm Mid-foot 26.4 cm Medial Malleolus 34 cm 10 cm From Medial Malleolus 30.9 cm 20 cm From Medial Malleolus 36.8 cm 30 cm From Medial Malleolus 41.3 cm 40 cm From Medial Malleolus 39.3 cm 50 cm From Medial Malleolus 47 cm 60 cm From Medial Malleolus 51.2 cm Left Affected MT Heads 26.9 cm Mid-foot 26.2 cm Medial Malleolus 35.2 cm 10 cm From Medial Malleolus 34.2 cm 20 cm From Medial Malleolus 39.6 cm 30 cm From Medial Malleolus 41.9 cm 40 cm From Medial Malleolus 39.6 cm 50 cm From Medial Malleolus 45.9 cm 60 cm From Medial Malleolus 51.3 cm - Slight reduction distally. More stable proximally. PT-OP-Q Treatments Start: 08/20/22 17:31 Freq: Status: Active Protocol: Document 09/24/22 15:16 AW (Rec: 09/24/22 16:50 AW [id number]) Therapeutic Activity Therapeutic Activity LB dressing Name donning compression socks Reps/Minutes 10 Comments Reviewed use of medi cook which pt has found very useful at home. Min A (10%) to don and doff. Lymphedema Treatment Manual Lymphatic Drainage Location BLE Duration 45 min Comments MLD focused on AIA pathways to stimulate lymphangiomotoricity. Treated RLE while pump on LLE. Short tx for RLE while pump on RLE. Lymphedema Wrapping Other Cetaphil lotion applied to BLE . Donned pt's own 20-30 mm Hg circular knit compression socks today. Added Dermagrip G over socks toes to knees. Sequential Lymphedema Exercises Location BLE Duration 10 min Comments Performed in sittin reps x 2 sets Compression Garment Assessment Compression Garment Assessment Details Assisted pt to don 20-30 mm Hg knee high stockings using medi cook donning device. Added Dermagrip G toes to knees to cover compression Patient Education Compression Garments Education on donning as above PT-OP-R Modalities Start: 08/20/22 17:31 Freq: Status: Active Protocol: Document 09/24/22 15:16 AW (Rec: 09/24/22 16:50 AW [id number]) Compression Pump Treatment Treatment Location LLE Pressure Amount (mmHg) (mmHG) 60 Inflation Time (Seconds) 30 Deflation Time (Seconds) 10 Treatment Duration (minutes) 40 Treatment Tolerance Good Treatment Comments BLE today with black foam situated around ankles. PT-OP-T Assessment and Plan Start: 08/20/22 17:31 Freq: Status: Active Protocol: Document 09/24/22 15:16 AW (Rec: 09/24/22 16:50 AW [id number]) Physical Therapy Assessment Goals Three Impairment lymphedema BLE Short Term Goal (STG) Pt and his spouse will be instructed in all aspects of lymphedema care including skin care, manual lymphatic drainage, lymphedema exercises , and compression garments or alternative. STG Duration 10/02/22 [facility] Goal (LTG) Pt will demonstrate reduction and stabilization of lymphedema (no change greater than 1 cm over the course of 1 week) and be independent with all aspects of lymphedema self-care including donning/ doffing compression garment or alternative. LTG Duration 11/13/22 Two Impairment impaired balance [facility] Goal (LTG) Pt will improve Tinetti score from 13 to 20 or greater as a measure of reduced falls risk LTG Duration 11/13/22 One Impairment function limited by lymphedema [facility] Goal (LTG) Pt will score 15 or less on Lymphedema Life Impact Scale ( 36 at initial eval) as a measure of improvement in daily function LTG Duration 11/13/22 Assessment Summary Assessment Distal edema is reducing slowly over time. Pt certainly would benefit from a higher level of compression for further reduction. Strongly feel pt would benefit from lymphedema pump for home as he is unable to perform self MLD and his is limited in her ability as well. Pt has consistently had decreased circumferential measurements post-pump treatment and would benefit from consistent compression pump at home. Physical Therapy Plan Frequency and Duration Frequency of Treatment 3x/Week Duration of treatment (weeks) 12 Plan of Care Start Date 08/21/22 Plan of Care End Date 11/13/22 Therapeutic Interventions Therapeutic Interventions Balance Training,Gait Training ,Home Exercise Program, Lymphedema Management,Manual Therapy,Patient/Caregiver Education,Self-Care/Home Management,Soft Tissue Mobilization,Therapeutic Activities,Therapeutic Exercises Modalities Cold Pack/Ice Massage, Vasopneumatic Devices Next Visit Focus/Plan Next Note Type Treatment Note Next Visit Plan RETURN MEDI COOK Measure. Continue lymphedema management with MLD, work on compression alternatives. Follow up on pt donning own compression garments. Lymphedema exercises.
--- NOTE | 2022-10-01 16:50 | PT.OTN ---
Current Diagnoses Lymphedema, not elsewhere classified (10/01/22) Difficulty in walking, not elsewhere classified (10/01/22) Edema, unspecified (10/01/22) Physical Therapy Treatment Note PT-OP-A Visit Information Start: 08/20/22 17:31 Freq: Status: Active Protocol: Document 10/01/22 15:15 AW (Rec: 10/01/22 16:50 AW [id number]) Out-Patient Physical Therapy Visit Information Visit Information Visit Type Treatment Note Visit Start Time 15:15 Visit Stop Time 16:40 Total Visit Minutes 85 Visit Number 06/28 Evaluation Information Evaluation Date 08/21/22 PT-OP-B Current Condition Start: 08/20/22 17:31 Freq: Status: Active Protocol: Document 08/21/22 10:30 AW (Rec: 08/20/22 17:38 AW [id number]) Current Condition History of Current Condition Onset Date a few years, worsening Current Complaints bilateral lower extremity swelling, impaired mobility History of Current Condition Timothy has dealt with ongoing lower extremity edema that has been present for a few years. Has a history of factor V Leiden mutation, recurrent deep vein thrombosis, on chronic anticoagulation. He has [id number] compression socks and likes how they feel but is unable to don them without great difficulty. His feet feel like balloons at the end of the day. He states they go down at night, but then they re-accumulate. He states elevation helps, but he spends more and more time in the chair. He has tried oral Lasix which has not been helpful and he does not like the side effects, which is causing increased urination. He states elevation does help. Heavy feeling in his legs has been limiting his ability to walk very far and he has had at least two falls in the past few months. He is not using any assistive device today but states he sometimes uses a walking stick or cane. He has trouble picking up objects from the floor. 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 At that time, he broke his right shoulder, his neck, clavicle, 10 ribs, and punctured a lung. He was doing relatively well overall until he fell during a tennis match a few years ago and broke two vertebrae. He had laminectomy and two 16 rods placed in his thoracic spine. He continues to have back and left leg pain. Left leg usually feels achy but is sometimes shooting and radiating into the back of his leg. Prior Treatments and Tests No prior treatment for lymphedema. Pt was seen at this clinic last year but had hoped to decrease swelling by increasing activity and exercise. Treatment Goals Patient/Caregiver Goals Reduce swelling to make it easier to get more exercise. Pt would like to be able to walk 1-2 miles at a time. Prior Functional Status Baseline Function- ADL's Independent Baseline Function- Mobility Independent Baseline Function- Gait Independent, no device Current Functional Impairments (Reported) Functional Limitations- ADL's Difficulty donning regular socks. Only wears shoes he can slip on. Can not don compression socks without assist. Functional Limitations- Mobility/Gait Recent falls reported. Pt able to ambulate ~10 minutes at a time and often needs walking stick or cane. Personal Factors Other Personal Factors That May Effect Pt plans to spend winter in Therapy/[place]overy [place]. Will leave in November . PT-OP-C Subjective Start: 08/20/22 17:31 Freq: Status: Active Protocol: Document 10/01/22 15:15 AW (Rec: 10/01/22 16:50 AW [id number]) OP-PT Subjective Patient Comments Patient Comments I'm walking around on toothpicks! Look at how small my ankles are. PT-OP-D Balance Start: 08/20/22 17:31 Freq: Status: Active Protocol: Document 08/21/22 10:30 AW (Rec: 08/21/22 14:19 AW [id number]) Tinetti Balance Assessment Sitting Balance Sitting Balance Steady, safe Arising from Chair Ability to Arise Able, uses arms to help Attempts to Arise Able, requires >1 attempt Standing Balance Immediate Standing Balance Steady with support Standing Balance Steady, wide stance Nudged Response Begins to fall Standing with Eyes Closed Unsteady Turning Step Pattern Turning 360 Degrees Discontinuous steps Stability Turning 360 Degrees Unsteady, grabs/staggers Sitting Down Sitting Down Uses arms or unsteady Gait and Step Initiation of Gait No hesitancy Right Foot Step Length Does pass stance foot Right Foot Step Height Does not clear floor Left Foot Step Length Does pass stance foot Left Foot Step Height Does not clear floor Step Description Step Symmetry Step length appears equal Step Continuity Steps appear continuous Gait Description Path Description Mild/moderate deviation Trunk Description No sway but posturing Walking Stance Heels apart Scoring and Interpretation Tinetti Composite Score (points) 13 Interpretation of Scores High risk for falls(< 19) Tinetti Impairment Rating from Composite 40 to <60% Impaired (Score 12- Score 16) PT-OP-G Mobility & Gait Start: 08/20/22 17:31 Freq: Status: Active Protocol: Document 08/21/22 10:30 AW (Rec: 08/21/22 14:28 AW [id number]) OP Mobility Evaluation Bed Mobility Supine to and from Sit painful and needing min assist to move legs off table after wrapping treatment Transfers Sit to Stand heavy use of hands Functional Movements Squats unable to pick item up from the floor OP Gait Assessment Gait Gait Assistance Required: Standby Assistance,Contact Guard Assist Assistive Devices Assistive Device None Gait Deviations General Gait Pattern Antalgic,Decreased Stride Length,Decreased Feet Clearance,Flexed Trunk,Wide Based Gait Comments Gait Comments Gait limited by heaviness in lower legs, weakness bilaterally, and poor balance. PT-OP-H Neuro Start: 08/20/22 17:31 Freq: Status: Active Protocol: Document 08/21/22 10:30 AW (Rec: 08/21/22 14:28 AW [id number]) Sensation Evaluation Gross Sensation Gross Sensation Left LE Impaired,Right LE Impaired Sensation Description Numbness Comments Summary Comments Dull light touch sensation in bilateral feet PT-OP-J Posture/Palpation/Skin Start: 08/20/22 17:31 Freq: Status: Active Protocol: Document 08/21/22 10:30 AW (Rec: 08/21/22 14:28 AW [id number]) Skin Assessment Other Assessments Skin Assessment Comments Edematous BLE (3+ pitting) with some skin tautness. No wounds. Ankles and lower legs most affected by swelling. See circumferential measurements documented separately. PT-OP-K Range of Motion Start: 08/20/22 17:31 Freq: Status: Active Protocol: Document 08/21/22 10:30 AW (Rec: 08/21/22 17:37 AW [id number]) Hip Goniometric Range of Motion Hip ROM Limitations Comments AROM hip extension past neutral is limited Knee Goniometric Range of Motion Knee ROM Limitations Knee ROM Limitations Soft Tissue Tightness Comments Pt lacks full knee extension bilaterally but left is more affected than right Ankle and Foot Goniometric Range of Motion Ankle and Foot ROM Limitations ROM Limitations Swelling PT-OP-M Strength Start: 08/20/22 17:31 Freq: Status: Active Protocol: Document 08/21/22 10:30 AW (Rec: 08/21/22 17:37 AW [id number]) Hip Strength Hip Manual Muscle Testing Left Flexion (L2) 4- Good- Extension (S1) 4- Good- Abduction 4- Good- External Rotation 4 Good Internal Rotation 4- Good- Right Flexion (L2) 4 Good Extension (S1) 4 Good Abduction 4 Good External Rotation 4 Good Internal Rotation 4- Good- Knee Strength Knee Manual Muscle Testing bilat Flexion (S2) 4+ Good+ Extension (L3) 5 Normal Ankle/Foot Strength Ankle and Foot Manual Muscle Testing bilat Dorsiflexion (L4) 4 Good Plantarflexion (S1) 4- Good- PT-OP-N Lymphedema Start: 08/20/22 17:31 Freq: Status: Active Protocol: Document 10/01/22 15:15 AW (Rec: 10/01/22 16:50 AW [id number]) Lymphedema Measurements Lower Extremity Circumference Measurements Right Affected MT Heads 26.3 cm Mid-foot 26.2 cm Medial Malleolus 32 cm 10 cm From Medial Malleolus 29.7 cm 20 cm From Medial Malleolus 36.3 cm 30 cm From Medial Malleolus 40.4 cm 40 cm From Medial Malleolus 40.8 cm 50 cm From Medial Malleolus 47.5 cm 60 cm From Medial Malleolus 52.3 cm Left Affected MT Heads 26.8 cm Mid-foot 26.3 cm Medial Malleolus 34.6 cm 10 cm From Medial Malleolus 32 cm 20 cm From Medial Malleolus 36.5 cm 30 cm From Medial Malleolus 40.3 cm 40 cm From Medial Malleolus 40.3 cm 50 cm From Medial Malleolus 46.1 cm 60 cm From Medial Malleolus 51.5 cm - Good distal reduction, especially at ankles, bilaterally. PT-OP-Q Treatments Start: 08/20/22 17:31 Freq: Status: Active Protocol: Document 10/01/22 15:15 AW (Rec: 10/01/22 16:50 AW [id number]) Cardio Equipment Recumbent Elliptical (RIGID) Duration (Minutes) 10 Resistance 7 (8 min); 10 (last 2 min) Seat Position 12 Other after MLD and compression Therapeutic Activity Therapeutic Activity LB dressing Name donning compression socks Reps/Minutes 10 Comments Pt did not have medi cook today. Trialed use of sock aid but pt unable to get foot through smaller aperture. Assisted pt to don Tubigrip toes to knees. Pt agreed to apply compression socks at home tonight. Lymphedema Treatment Manual Lymphatic Drainage Location BLE Duration 45 min Comments MLD focused on AIA pathways to stimulate lymphangiomotoricity. Treated RLE while pump on LLE. Short tx for LLE while pump on RLE. Lymphedema Wrapping Other Cetaphil lotion applied to BLE . Donned Dermagrip G toes to knees. Sequential Lymphedema Exercises Location BLE Comments Discussed continuing at home Other Other Education on use of double layer (socks + tubigrip for better reduction. PT-OP-R Modalities Start: 08/20/22 17:31 Freq: Status: Active Protocol: Document 10/01/22 15:15 AW (Rec: 10/01/22 16:50 AW [id number]) Compression Pump Treatment Treatment Location LLE Pressure Amount (mmHg) (mmHG) 60 Inflation Time (Seconds) 30 Deflation Time (Seconds) 10 Treatment Duration (minutes) 40 Treatment Tolerance Good Treatment Comments BLE today with chip bags situated around ankles. PT-OP-T Assessment and Plan Start: 08/20/22 17:31 Freq: Status: Active Protocol: Document 10/01/22 15:15 AW (Rec: 10/01/22 16:50 AW [id number]) Physical Therapy Assessment Goals Three Impairment lymphedema BLE Short Term Goal (STG) Pt and his spouse will be instructed in all aspects of lymphedema care including skin care, manual lymphatic drainage, lymphedema exercises , and compression garments or alternative. STG Duration 10/02/22 Detention Goal (LTG) Pt will demonstrate reduction and stabilization of lymphedema (no change greater than 1 cm over the course of 1 week) and be independent with all aspects of lymphedema self-care including donning/ doffing compression garment or alternative. LTG Duration 11/13/22 Two Impairment impaired balance Par[employer] Plant Operator Goal (LTG) Pt will improve Tinetti score from 13 to 20 or greater as a measure of reduced falls risk LTG Duration 11/13/22 One Impairment function limited by lymphedema [employer] Plant Operator Goal (LTG) Pt will score 15 or less on Lymphedema Life Impact Scale ( 36 at initial eval) as a measure of improvement in daily function LTG Duration 11/13/22 Assessment Summary Assessment Distal edema showed good response to Dermagrip layer added over compression socks. Pt was able to don all MOD I this AM. Fibrosis around ankle and in posterior shank is gradually softening. Pt is hopeful to stabilize swelling reduction before leaving for [place] early November. Physical Therapy Plan Frequency and Duration Frequency of Treatment 3x/Week Duration of treatment (weeks) 12 Plan of Care Start Date 08/21/22 Plan of Care End Date 11/13/22 Therapeutic Interventions Therapeutic Interventions Balance Training,Gait Training ,Home Exercise Program, Lymphedema Management,Manual Therapy,Patient/Caregiver Education,Self-Care/Home Management,Soft Tissue Mobilization,Therapeutic Activities,Therapeutic Exercises Modalities Cold Pack/Ice Massage, Vasopneumatic Devices Next Visit Focus/Plan Next Note Type Treatment Note Next Visit Plan RETURN MEDI COOK Measure. Continue lymphedema management with MLD, work on compression alternatives. Follow up on pt donning own compression garments. Lymphedema exercises.
--- NOTE | 2022-10-09 15:48 | PT-OP ANOTE ---
Pt did not show for scheduled appointment today. Attempted to call but there was no answer and no voice mail.
--- NOTE | 2022-10-10 14:14 | PT.OTN ---
Current Diagnoses Lymphedema, not elsewhere classified (10/10/22) Difficulty in walking, not elsewhere classified (10/10/22) Edema, unspecified (10/10/22) Physical Therapy Treatment Note PT-OP-A Visit Information Start: 08/20/22 17:31 Freq: Status: Active Protocol: Document 10/10/22 13:02 AW (Rec: 10/10/22 13:59 AW [id number]) Out-Patient Physical Therapy Visit Information Visit Information Visit Type Treatment Note Visit Start Time 13:00 Visit Stop Time 14:15 Total Visit Minutes 75 Visit Number 07/29 Evaluation Information Evaluation Date 08/21/22 PT-OP-B Current Condition Start: 08/20/22 17:31 Freq: Status: Active Protocol: Document 08/21/22 10:30 AW (Rec: 08/20/22 17:38 AW [id number]) Current Condition History of Current Condition Onset Date a few years, worsening Current Complaints bilateral lower extremity swelling, impaired mobility History of Current Condition Timothy has dealt with ongoing lower extremity edema that has been present for a few years. Has a history of factor V Leiden mutation, recurrent deep vein thrombosis, on chronic anticoagulation. He has [id number] compression socks and likes how they feel but is unable to don them without great difficulty. His feet feel like balloons at the end of the day. He states they go down at night, but then they re-accumulate. He states elevation helps, but he spends more and more time in the chair. He has tried oral Lasix which has not been helpful and he does not like the side effects, which is causing increased urination. He states elevation does help. Heavy feeling in his legs has been limiting his ability to walk very far and he has had at least two falls in the past few months. He is not using any assistive device today but states he sometimes uses a walking stick or cane. He has trouble picking up objects from the floor. 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 At that time, he broke his right shoulder, his neck, clavicle, 10 ribs, and punctured a lung. He was doing relatively well overall until he fell during a tennis match a few years ago and broke two vertebrae. He had laminectomy and two 16 rods placed in his thoracic spine. He continues to have back and left leg pain. Left leg usually feels achy but is sometimes shooting and radiating into the back of his leg. Prior Treatments and Tests No prior treatment for lymphedema. Pt was seen at this clinic last year but had hoped to decrease swelling by increasing activity and exercise. Treatment Goals Patient/Caregiver Goals Reduce swelling to make it easier to get more exercise. Pt would like to be able to walk 1-2 miles at a time. Prior Functional Status Baseline Function- ADL's Independent Baseline Function- Mobility Independent Baseline Function- Gait Independent, no device Current Functional Impairments (Reported) Functional Limitations- ADL's Difficulty donning regular socks. Only wears shoes he can slip on. Can not don compression socks without assist. Functional Limitations- Mobility/Gait Recent falls reported. Pt able to ambulate ~10 minutes at a time and often needs walking stick or cane. Personal Factors Other Personal Factors That May Effect Pt plans to spend winter in Therapy/[place]. Will leave in November . PT-OP-C Subjective Start: 08/20/22 17:31 Freq: Status: Active Protocol: Document 10/10/22 13:02 AW (Rec: 10/10/22 13:59 AW [id number]) OP-PT Subjective Patient Comments Patient Comments Pt feels his feet and ankles are significantly less swollen PT-OP-D Balance Start: 08/20/22 17:31 Freq: Status: Active Protocol: Document 08/21/22 10:30 AW (Rec: 08/21/22 14:19 AW [id number]) Tinetti Balance Assessment Sitting Balance Sitting Balance Steady, safe Arising from Chair Ability to Arise Able, uses arms to help Attempts to Arise Able, requires >1 attempt Standing Balance Immediate Standing Balance Steady with support Standing Balance Steady, wide stance Nudged Response Begins to fall Standing with Eyes Closed Unsteady Turning Step Pattern Turning 360 Degrees Discontinuous steps Stability Turning 360 Degrees Unsteady, grabs/staggers Sitting Down Sitting Down Uses arms or unsteady Gait and Step Initiation of Gait No hesitancy Right Foot Step Length Does pass stance foot Right Foot Step Height Does not clear floor Left Foot Step Length Does pass stance foot Left Foot Step Height Does not clear floor Step Description Step Symmetry Step length appears equal Step Continuity Steps appear continuous Gait Description Path Description Mild/moderate deviation Trunk Description No sway but posturing Walking Stance Heels apart Scoring and Interpretation Tinetti Composite Score (points) 13 Interpretation of Scores High risk for falls(< 19) Tinetti Impairment Rating from Composite 40 to <60% Impaired (Score 12- Score 16) PT-OP-G Mobility & Gait Start: 08/20/22 17:31 Freq: Status: Active Protocol: Document 08/21/22 10:30 AW (Rec: 08/21/22 14:28 AW [id number]) OP Mobility Evaluation Bed Mobility Supine to and from Sit painful and needing min assist to move legs off table after wrapping treatment Transfers Sit to Stand heavy use of hands Functional Movements Squats unable to pick item up from the floor OP Gait Assessment Gait Gait Assistance Required: Standby Assistance,Contact Guard Assist Assistive Devices Assistive Device None Gait Deviations General Gait Pattern Antalgic,Decreased Stride Length,Decreased Feet Clearance,Flexed Trunk,Wide Based Gait Comments Gait Comments Gait limited by heaviness in lower legs, weakness bilaterally, and poor balance. PT-OP-H Neuro Start: 08/20/22 17:31 Freq: Status: Active Protocol: Document 08/21/22 10:30 AW (Rec: 08/21/22 14:28 AW [id number]) Sensation Evaluation Gross Sensation Gross Sensation Left LE Impaired,Right LE Impaired Sensation Description Numbness Comments Summary Comments Dull light touch sensation in bilateral feet PT-OP-J Posture/Palpation/Skin Start: 08/20/22 17:31 Freq: Status: Active Protocol: Document 08/21/22 10:30 AW (Rec: 08/21/22 14:28 AW [id number]) Skin Assessment Other Assessments Skin Assessment Comments Edematous BLE (3+ pitting) with some skin tautness. No wounds. Ankles and lower legs most affected by swelling. See circumferential measurements documented separately. PT-OP-K Range of Motion Start: 08/20/22 17:31 Freq: Status: Active Protocol: Document 08/21/22 10:30 AW (Rec: 08/21/22 17:37 AW [id number]) Hip Goniometric Range of Motion Hip ROM Limitations Comments AROM hip extension past neutral is limited Knee Goniometric Range of Motion Knee ROM Limitations Knee ROM Limitations Soft Tissue Tightness Comments Pt lacks full knee extension bilaterally but left is more affected than right Ankle and Foot Goniometric Range of Motion Ankle and Foot ROM Limitations ROM Limitations Swelling PT-OP-M Strength Start: 08/20/22 17:31 Freq: Status: Active Protocol: Document 08/21/22 10:30 AW (Rec: 08/21/22 17:37 AW [id number]) Hip Strength Hip Manual Muscle Testing Left Flexion (L2) 4- Good- Extension (S1) 4- Good- Abduction 4- Good- External Rotation 4 Good Internal Rotation 4- Good- Right Flexion (L2) 4 Good Extension (S1) 4 Good Abduction 4 Good External Rotation 4 Good Internal Rotation 4- Good- Knee Strength Knee Manual Muscle Testing bilat Flexion (S2) 4+ Good+ Extension (L3) 5 Normal Ankle/Foot Strength Ankle and Foot Manual Muscle Testing bilat Dorsiflexion (L4) 4 Good Plantarflexion (S1) 4- Good- PT-OP-N Lymphedema Start: 08/20/22 17:31 Freq: Status: Active Protocol: Document 10/10/22 13:02 AW (Rec: 10/10/22 13:59 AW [id number]) Lymphedema Measurements Lower Extremity Circumference Measurements Right Affected MT Heads 25 cm Mid-foot 25.6 cm Medial Malleolus 30.8 cm 10 cm From Medial Malleolus 27.7 cm 20 cm From Medial Malleolus 33.1 cm 30 cm From Medial Malleolus 38.8 cm 40 cm From Medial Malleolus 40 cm 50 cm From Medial Malleolus 47.8 cm 60 cm From Medial Malleolus 50.8 cm Left Affected MT Heads 26 cm Mid-foot 25 cm Medial Malleolus 29.8 cm 10 cm From Medial Malleolus 27.5 cm 20 cm From Medial Malleolus 33.2 cm 30 cm From Medial Malleolus 39.3 cm 40 cm From Medial Malleolus 38 cm 50 cm From Medial Malleolus 46 cm 60 cm From Medial Malleolus 49.9 cm - Impressive distal reduction. Foot and ankle reduced 1-4.5 cm. Decreased fibrosis. PT-OP-Q Treatments Start: 08/20/22 17:31 Freq: Status: Active Protocol: Document 10/10/22 13:02 AW (Rec: 10/10/22 13:59 AW [id number]) Lymphedema Treatment Manual Lymphatic Drainage Location BLE Duration 30 min Comments MLD focused on AIA pathways to stimulate lymphangiomotoricity. Treated RLE while pump on LLE. Short tx for LLE while pump on RLE. Lymphedema Wrapping Other Cetaphil lotion applied to BLE . Donned pt's own 20-30 mm Hg circular knit compression socks today. Added Dermagrip G over socks toes to knees. Sequential Lymphedema Exercises Location BLE Comments Discussed continuing at home Compression Garment Assessment Compression Garment Assessment Details Assisted pt to don 20-30 mm Hg knee high stockings using medi cook donning device. Added Dermagrip G toes to knees to cover compression socks. Patient Education Compression Garments Education on donning as above Other Other Educated to continue with double layer of socks + tubigrip. Printed [email or web address] listing for [employer] donning device for pt to obtain for home. PT-OP-R Modalities Start: 08/20/22 17:31 Freq: Status: Active Protocol: Document 10/10/22 13:02 AW (Rec: 10/10/22 13:59 AW [id number]) Compression Pump Treatment Treatment Location LLE Pressure Amount (mmHg) (mmHG) 60 Inflation Time (Seconds) 30 Deflation Time (Seconds) 10 Treatment Duration (minutes) 30 Treatment Tolerance Good Treatment Comments BLE today with chip bags situated around ankles. PT-OP-T Assessment and Plan Start: 08/20/22 17:31 Freq: Status: Active Protocol: Document 10/10/22 13:02 AW (Rec: 10/10/22 13:59 AW [id number]) Physical Therapy Assessment Goals Three Impairment lymphedema BLE Short Term Goal (STG) Pt and his spouse will be instructed in all aspects of lymphedema care including skin care, manual lymphatic drainage, lymphedema exercises , and compression garments or alternative. 10/10/22 - PROGRESS primarily regarding consistent compression. Pt still lacks understanding of importance of MLD and consistent exercise. STG Duration 10/02/22 Prison Goal (LTG) Pt will demonstrate reduction and stabilization of lymphedema (no change greater than 1 cm over the course of 1 week) and be independent with all aspects of lymphedema self-care including donning/ doffing compression garment or alternative. LTG Duration 11/13/22 Two Impairment impaired balance Manager Knowledge Goal (LTG) Pt will improve Tinetti score from 13 to 20 or greater as a measure of reduced falls risk LTG Duration 11/13/22 One Impairment function limited by lymphedema Manager Knowledge Goal (LTG) Pt will score 15 or less on Lymphedema Life Impact Scale ( 36 at initial eval) as a measure of improvement in daily function LTG Duration 11/13/22 Assessment Summary Assessment Impressive reduction at foot and ankle noted today in response to dual layer compression (circular knit socks + Dermagrip G). Further softening noted in fibrotic tissues around ankle and posterior shank. Educated pt on donning device needed for home and where to purchase. Physical Therapy Plan Frequency and Duration Frequency of Treatment 3x/Week Duration of treatment (weeks) 12 Plan of Care Start Date 08/21/22 Plan of Care End Date 11/13/22 Therapeutic Interventions Therapeutic Interventions Balance Training,Gait Training ,Home Exercise Program, Lymphedema Management,Manual Therapy,Patient/Caregiver Education,Self-Care/Home Management,Soft Tissue Mobilization,Therapeutic Activities,Therapeutic Exercises Modalities Cold Pack/Ice Massage, Vasopneumatic Devices Next Visit Focus/Plan Next Note Type Treatment Note Next Visit Plan RETURN MEDI COOK Measure. Continue lymphedema management with MLD, work on compression alternatives. Follow up on pt donning own compression garments. Lymphedema exercises.
--- NOTE | 2022-10-15 14:11 | PT.OTN ---
Current Diagnoses Lymphedema, not elsewhere classified (10/15/22) Difficulty in walking, not elsewhere classified (10/15/22) Edema, unspecified (10/15/22) Physical Therapy Treatment Note PT-OP-A Visit Information Start: 08/20/22 17:31 Freq: Status: Active Protocol: Document 10/15/22 12:48 AW (Rec: 10/15/22 14:11 AW [id number]) Out-Patient Physical Therapy Visit Information Visit Information Visit Type Progress Note Visit Start Time 13:00 Visit Stop Time 14:00 Total Visit Minutes 60 Visit Number 08/28 Evaluation Information Evaluation Date 08/21/22 PT-OP-B Current Condition Start: 08/20/22 17:31 Freq: Status: Active Protocol: Document 08/21/22 10:30 AW (Rec: 08/20/22 17:38 AW [id number]) Current Condition History of Current Condition Onset Date a few years, worsening Current Complaints bilateral lower extremity swelling, impaired mobility History of Current Condition Timothy has dealt with ongoing lower extremity edema that has been present for a few years. Has a history of factor V Leiden mutation, recurrent deep vein thrombosis, on chronic anticoagulation. He has [id number] compression socks and likes how they feel but is unable to don them without great difficulty. His feet feel like balloons at the end of the day. He states they go down at night, but then they re-accumulate. He states elevation helps, but he spends more and more time in the chair. He has tried oral Lasix which has not been helpful and he does not like the side effects, which is causing increased urination. He states elevation does help. Heavy feeling in his legs has been limiting his ability to walk very far and he has had at least two falls in the past few months. He is not using any assistive device today but states he sometimes uses a walking stick or cane. He has trouble picking up objects from the floor. 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 At that time, he broke his right shoulder, his neck, clavicle, 10 ribs, and punctured a lung. He was doing relatively well overall until he fell during a tennis match a few years ago and broke two vertebrae. He had laminectomy and two 16 rods placed in his thoracic spine. He continues to have back and left leg pain. Left leg usually feels achy but is sometimes shooting and radiating into the back of his leg. Prior Treatments and Tests No prior treatment for lymphedema. Pt was seen at this clinic last year but had hoped to decrease swelling by increasing activity and exercise. Treatment Goals Patient/Caregiver Goals Reduce swelling to make it easier to get more exercise. Pt would like to be able to walk 1-2 miles at a time. Prior Functional Status Baseline Function- ADL's Independent Baseline Function- Mobility Independent Baseline Function- Gait Independent, no device Current Functional Impairments (Reported) Functional Limitations- ADL's Difficulty donning regular socks. Only wears shoes he can slip on. Can not don compression socks without assist. Functional Limitations- Mobility/Gait Recent falls reported. Pt able to ambulate ~10 minutes at a time and often needs walking stick or cane. Personal Factors Other Personal Factors That May Effect Pt plans to spend winter in [place] [place]. Will leave in November . PT-OP-C Subjective Start: 08/20/22 17:31 Freq: Status: Active Protocol: Document 10/15/22 12:48 AW (Rec: 10/15/22 14:11 AW [id number]) OP-PT Subjective Patient Comments Patient Comments Pt bought new, smaller shoes but has not tried them on yet. PT-OP-D Balance Start: 08/20/22 17:31 Freq: Status: Active Protocol: Document 08/21/22 10:30 AW (Rec: 08/21/22 14:19 AW [id number]) Tinetti Balance Assessment Sitting Balance Sitting Balance Steady, safe Arising from Chair Ability to Arise Able, uses arms to help Attempts to Arise Able, requires >1 attempt Standing Balance Immediate Standing Balance Steady with support Standing Balance Steady, wide stance Nudged Response Begins to fall Standing with Eyes Closed Unsteady Turning Step Pattern Turning 360 Degrees Discontinuous steps Stability Turning 360 Degrees Unsteady, grabs/staggers Sitting Down Sitting Down Uses arms or unsteady Gait and Step Initiation of Gait No hesitancy Right Foot Step Length Does pass stance foot Right Foot Step Height Does not clear floor Left Foot Step Length Does pass stance foot Left Foot Step Height Does not clear floor Step Description Step Symmetry Step length appears equal Step Continuity Steps appear continuous Gait Description Path Description Mild/moderate deviation Trunk Description No sway but posturing Walking Stance Heels apart Scoring and Interpretation Tinetti Composite Score (points) 13 Interpretation of Scores High risk for falls(< 19) Tinetti Impairment Rating from Composite 40 to <60% Impaired (Score 12- Score 16) PT-OP-G Mobility & Gait Start: 08/20/22 17:31 Freq: Status: Active Protocol: Document 08/21/22 10:30 AW (Rec: 08/21/22 14:28 AW [id number]) OP Mobility Evaluation Bed Mobility Supine to and from Sit painful and needing min assist to move legs off table after wrapping treatment Transfers Sit to Stand heavy use of hands Functional Movements Squats unable to pick item up from the floor OP Gait Assessment Gait Gait Assistance Required: Standby Assistance,Contact Guard Assist Assistive Devices Assistive Device None Gait Deviations General Gait Pattern Antalgic,Decreased Stride Length,Decreased Feet Clearance,Flexed Trunk,Wide Based Gait Comments Gait Comments Gait limited by heaviness in lower legs, weakness bilaterally, and poor balance. PT-OP-H Neuro Start: 08/20/22 17:31 Freq: Status: Active Protocol: Document 08/21/22 10:30 AW (Rec: 08/21/22 14:28 AW [id number]) Sensation Evaluation Gross Sensation Gross Sensation Left LE Impaired,Right LE Impaired Sensation Description Numbness Comments Summary Comments Dull light touch sensation in bilateral feet PT-OP-J Posture/Palpation/Skin Start: 08/20/22 17:31 Freq: Status: Active Protocol: Document 08/21/22 10:30 AW (Rec: 08/21/22 14:28 AW [id number]) Skin Assessment Other Assessments Skin Assessment Comments Edematous BLE (3+ pitting) with some skin tautness. No wounds. Ankles and lower legs most affected by swelling. See circumferential measurements documented separately. PT-OP-K Range of Motion Start: 08/20/22 17:31 Freq: Status: Active Protocol: Document 08/21/22 10:30 AW (Rec: 08/21/22 17:37 AW [id number]) Hip Goniometric Range of Motion Hip ROM Limitations Comments AROM hip extension past neutral is limited Knee Goniometric Range of Motion Knee ROM Limitations Knee ROM Limitations Soft Tissue Tightness Comments Pt lacks full knee extension bilaterally but left is more affected than right Ankle and Foot Goniometric Range of Motion Ankle and Foot ROM Limitations ROM Limitations Swelling PT-OP-M Strength Start: 08/20/22 17:31 Freq: Status: Active Protocol: Document 08/21/22 10:30 AW (Rec: 08/21/22 17:37 AW [id number]) Hip Strength Hip Manual Muscle Testing Left Flexion (L2) 4- Good- Extension (S1) 4- Good- Abduction 4- Good- External Rotation 4 Good Internal Rotation 4- Good- Right Flexion (L2) 4 Good Extension (S1) 4 Good Abduction 4 Good External Rotation 4 Good Internal Rotation 4- Good- Knee Strength Knee Manual Muscle Testing bilat Flexion (S2) 4+ Good+ Extension (L3) 5 Normal Ankle/Foot Strength Ankle and Foot Manual Muscle Testing bilat Dorsiflexion (L4) 4 Good Plantarflexion (S1) 4- Good- PT-OP-N Lymphedema Start: 08/20/22 17:31 Freq: Status: Active Protocol: Document 10/15/22 12:48 AW (Rec: 10/15/22 14:11 AW [id number]) Lymphedema Measurements Lower Extremity Circumference Measurements Right Affected MT Heads 26.2 cm Mid-foot 26.1 cm Medial Malleolus 29.8 cm 10 cm From Medial Malleolus 27.2 cm 20 cm From Medial Malleolus 32.5 cm 30 cm From Medial Malleolus 39 cm 40 cm From Medial Malleolus 41 cm 50 cm From Medial Malleolus 46.7 cm 60 cm From Medial Malleolus 51.8 cm Left Affected MT Heads 26 cm Mid-foot 25.6 cm Medial Malleolus 29.6 cm 10 cm From Medial Malleolus 27.8 cm 20 cm From Medial Malleolus 34 cm 30 cm From Medial Malleolus 39 cm 40 cm From Medial Malleolus 38.5 cm 50 cm From Medial Malleolus 46.2 cm 60 cm From Medial Malleolus 51 cm - Pt arrived with single layer on toes, double layer from midfoot to knee. Slight increase in circumference at toes is related to lack of double compression. All other measurements stable within 1 cm. PT-OP-Q Treatments Start: 08/20/22 17:31 Freq: Status: Active Protocol: Document 10/15/22 12:48 AW (Rec: 10/15/22 14:11 AW [id number]) Cardio Equipment Recumbent Elliptical (Biodex) Duration (Minutes) 10 Resistance 10 Seat Position 11 seen Other after MLD and compression Therapeutic Exercises Standing Exercises 1/4 squat Standing Exercise Name 1/4 squat Equipment Used // support Reps/Minutes 2x10 Comments HEP heel and toe raises Standing Exercise Name heel and toe raises Side bilateral Equipment Used // support Reps/Minutes 2x10 Comments HEP Therapeutic Activity Therapeutic Activity LB dressing Name donning compression socks Reps/Minutes 10 Comments Pt did not have medi cook today. Trialed use of sock aid but pt unable to get foot through smaller aperture. Assisted pt to don Tubigrip toes to knees. Pt agreed to apply compression socks at home tonight. Self-Care/Home Management Treatment Education Patient Education Home Exercise Program Other Education Added heel/toe lift and 1/4 squat to HEP Lymphedema Treatment Manual Lymphatic Drainage Location BLE Duration 30 min Comments MLD focused on AIA pathways to stimulate lymphangiomotoricity. Lymphedema Wrapping Other Cetaphil lotion applied to BLE . Donned Demagrip G toes to knees. Sequential Lymphedema Exercises Location BLE Comments Discussed continuing at home Patient Education Compression Garments Education on donning as above Other Other Educated to continue with double layer of socks + tubigrip. Pt has purchased medi cook for home use but hasn't received it yet. PT-OP-R Modalities Start: 08/20/22 17:31 Freq: Status: Active Protocol: Document 10/10/22 13:02 AW (Rec: 10/10/22 13:59 AW [id number]) Compression Pump Treatment Treatment Location LLE Pressure Amount (mmHg) (mmHG) 60 Inflation Time (Seconds) 30 Deflation Time (Seconds) 10 Treatment Duration (minutes) 30 Treatment Tolerance Good Treatment Comments BLE today with chip bags situated around ankles. PT-OP-T Assessment and Plan Start: 08/20/22 17:31 Freq: Status: Active Protocol: Document 10/15/22 12:48 AW (Rec: 10/15/22 14:11 AW [id number]) Physical Therapy Assessment Goals Three Impairment lymphedema BLE Short Term Goal (STG) Pt and his spouse will be instructed in all aspects of lymphedema care including skin care, manual lymphatic drainage, lymphedema exercises , and compression garments or alternative. 10/10/22 - PROGRESS primarily regarding consistent compression. Pt still lacks understanding of importance of MLD and consistent exercise. STG Duration 10/02/22 Screwhead Polisher Goal (LTG) Pt will demonstrate reduction and stabilization of lymphedema (no change greater than 1 cm over the course of 1 week) and be independent with all aspects of lymphedema self-care including donning/ doffing compression garment or alternative. LTG Duration 11/13/22 Two Impairment impaired balance Alf Goal (LTG) Pt will improve Tinetti score from 13 to 20 or greater as a measure of reduced falls risk LTG Duration 11/13/22 One Impairment function limited by lymphedema Alf Goal (LTG) Pt will score 15 or less on Lymphedema Life Impact Scale ( 36 at initial eval) as a measure of improvement in daily function LTG Duration 11/13/22 Assessment Summary Assessment Stable measurements at all points except toes today. Of note, pt arrived with single layer only at toes. Double layer was present from midfoot to knees. Pt is benefitting from circular knit compression (20-30 mm Hg) and Demagrip toes to knees. Plan to continue with current treatment and shift focus to exercise to promote lymph flow and strengthening. Physical Therapy Plan Frequency and Duration Frequency of Treatment 3x/Week Duration of treatment (weeks) 12 Plan of Care Start Date 08/21/22 Plan of Care End Date 11/13/22 Therapeutic Interventions Therapeutic Interventions Balance Training,Gait Training ,Home Exercise Program, Lymphedema Management,Manual Therapy,Patient/Caregiver Education,Self-Care/Home Management,Soft Tissue Mobilization,Therapeutic Activities,Therapeutic Exercises Modalities Cold Pack/Ice Massage, Vasopneumatic Devices Next Visit Focus/Plan Next Note Type Progress Note Next Visit Plan RETURN MEDI COOK Measure. Continue lymphedema management with MLD, work on compression alternatives. Exercise to promote lymphatic flow and strength.
--- NOTE | 2022-10-17 11:10 | PT.OTN ---
Current Diagnoses Lymphedema, not elsewhere classified (10/17/22) Difficulty in walking, not elsewhere classified (10/17/22) Edema, unspecified (10/17/22) Physical Therapy Treatment Note PT-OP-A Visit Information Start: 08/20/22 17:31 Freq: Status: Active Protocol: Document 10/17/22 09:01 AW (Rec: 10/17/22 11:10 AW [id number]) Out-Patient Physical Therapy Visit Information Visit Information Visit Type Progress Note Visit Start Time 09:45 Visit Stop Time 10:54 Total Visit Minutes 69 Visit Number 09/28 Evaluation Information Evaluation Date 08/21/22 PT-OP-B Current Condition Start: 08/20/22 17:31 Freq: Status: Active Protocol: Document 08/21/22 10:30 AW (Rec: 08/20/22 17:38 AW [id number]) Current Condition History of Current Condition Onset Date a few years, worsening Current Complaints bilateral lower extremity swelling, impaired mobility History of Current Condition Timothy has dealt with ongoing lower extremity edema that has been present for a few years. Has a history of factor V Leiden mutation, recurrent deep vein thrombosis, on chronic anticoagulation. He has [id number] compression socks and likes how they feel but is unable to don them without great difficulty. His feet feel like balloons at the end of the day. He states they go down at night, but then they re-accumulate. He states elevation helps, but he spends more and more time in the chair. He has tried oral Lasix which has not been helpful and he does not like the side effects, which is causing increased urination. He states elevation does help. Heavy feeling in his legs has been limiting his ability to walk very far and he has had at least two falls in the past few months. He is not using any assistive device today but states he sometimes uses a walking stick or cane. He has trouble picking up objects from the floor. 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 At that time, he broke his right shoulder, his neck, clavicle, 10 ribs, and punctured a lung. He was doing relatively well overall until he fell during a tennis match a few years ago and broke two vertebrae. He had laminectomy and two 16 rods placed in his thoracic spine. He continues to have back and left leg pain. Left leg usually feels achy but is sometimes shooting and radiating into the back of his leg. Prior Treatments and Tests No prior treatment for lymphedema. Pt was seen at this clinic last year but had hoped to decrease swelling by increasing activity and exercise. Treatment Goals Patient/Caregiver Goals Reduce swelling to make it easier to get more exercise. Pt would like to be able to walk 1-2 miles at a time. Prior Functional Status Baseline Function- ADL's Independent Baseline Function- Mobility Independent Baseline Function- Gait Independent, no device Current Functional Impairments (Reported) Functional Limitations- ADL's Difficulty donning regular socks. Only wears shoes he can slip on. Can not don compression socks without assist. Functional Limitations- Mobility/Gait Recent falls reported. Pt able to ambulate ~10 minutes at a time and often needs walking stick or cane. Personal Factors Other Personal Factors That May Effect Pt plans to spend winter in [place]/[facility] [place]. Will leave in November . PT-OP-C Subjective Start: 08/20/22 17:31 Freq: Status: Active Protocol: Document 10/17/22 09:01 AW (Rec: 10/17/22 11:10 AW [id number]) OP-PT Subjective Patient Comments Patient Comments Pt has been having some foot pain at night, wonders if it might be related to compression. PT-OP-D Balance Start: 08/20/22 17:31 Freq: Status: Active Protocol: Document 08/21/22 10:30 AW (Rec: 08/21/22 14:19 AW [id number]) Tinetti Balance Assessment Sitting Balance Sitting Balance Steady, safe Arising from Chair Ability to Arise Able, uses arms to help Attempts to Arise Able, requires >1 attempt Standing Balance Immediate Standing Balance Steady with support Standing Balance Steady, wide stance Nudged Response Begins to fall Standing with Eyes Closed Unsteady Turning Step Pattern Turning 360 Degrees Discontinuous steps Stability Turning 360 Degrees Unsteady, grabs/staggers Sitting Down Sitting Down Uses arms or unsteady Gait and Step Initiation of Gait No hesitancy Right Foot Step Length Does pass stance foot Right Foot Step Height Does not clear floor Left Foot Step Length Does pass stance foot Left Foot Step Height Does not clear floor Step Description Step Symmetry Step length appears equal Step Continuity Steps appear continuous Gait Description Path Description Mild/moderate deviation Trunk Description No sway but posturing Walking Stance Heels apart Scoring and Interpretation Tinetti Composite Score (points) 13 Interpretation of Scores High risk for falls(< 19) Tinetti Impairment Rating from Composite 40 to <60% Impaired (Score 12- Score 16) PT-OP-G Mobility & Gait Start: 08/20/22 17:31 Freq: Status: Active Protocol: Document 08/21/22 10:30 AW (Rec: 08/21/22 14:28 AW [id number]) OP Mobility Evaluation Bed Mobility Supine to and from Sit painful and needing min assist to move legs off table after wrapping treatment Transfers Sit to Stand heavy use of hands Functional Movements Squats unable to pick item up from the floor OP Gait Assessment Gait Gait Assistance Required: Standby Assistance,Contact Guard Assist Assistive Devices Assistive Device None Gait Deviations General Gait Pattern Antalgic,Decreased Stride Length,Decreased Feet Clearance,Flexed Trunk,Wide Based Gait Comments Gait Comments Gait limited by heaviness in lower legs, weakness bilaterally, and poor balance. PT-OP-H Neuro Start: 08/20/22 17:31 Freq: Status: Active Protocol: Document 08/21/22 10:30 AW (Rec: 08/21/22 14:28 AW [id number]) Sensation Evaluation Gross Sensation Gross Sensation Left LE Impaired,Right LE Impaired Sensation Description Numbness Comments Summary Comments Dull light touch sensation in bilateral feet PT-OP-J Posture/Palpation/Skin Start: 08/20/22 17:31 Freq: Status: Active Protocol: Document 08/21/22 10:30 AW (Rec: 08/21/22 14:28 AW [id number]) Skin Assessment Other Assessments Skin Assessment Comments Edematous BLE (3+ pitting) with some skin tautness. No wounds. Ankles and lower legs most affected by swelling. See circumferential measurements documented separately. PT-OP-K Range of Motion Start: 08/20/22 17:31 Freq: Status: Active Protocol: Document 08/21/22 10:30 AW (Rec: 08/21/22 17:37 AW [id number]) Hip Goniometric Range of Motion Hip ROM Limitations Comments AROM hip extension past neutral is limited Knee Goniometric Range of Motion Knee ROM Limitations Knee ROM Limitations Soft Tissue Tightness Comments Pt lacks full knee extension bilaterally but left is more affected than right Ankle and Foot Goniometric Range of Motion Ankle and Foot ROM Limitations ROM Limitations Swelling PT-OP-M Strength Start: 08/20/22 17:31 Freq: Status: Active Protocol: Document 08/21/22 10:30 AW (Rec: 08/21/22 17:37 AW [id number]) Hip Strength Hip Manual Muscle Testing Left Flexion (L2) 4- Good- Extension (S1) 4- Good- Abduction 4- Good- External Rotation 4 Good Internal Rotation 4- Good- Right Flexion (L2) 4 Good Extension (S1) 4 Good Abduction 4 Good External Rotation 4 Good Internal Rotation 4- Good- Knee Strength Knee Manual Muscle Testing bilat Flexion (S2) 4+ Good+ Extension (L3) 5 Normal Ankle/Foot Strength Ankle and Foot Manual Muscle Testing bilat Dorsiflexion (L4) 4 Good Plantarflexion (S1) 4- Good- PT-OP-N Lymphedema Start: 08/20/22 17:31 Freq: Status: Active Protocol: Document 10/17/22 09:01 AW (Rec: 10/17/22 11:10 AW [id number]) Lymphedema Measurements Lower Extremity Circumference Measurements Right Affected MT Heads 26.6 cm Mid-foot 25.5 cm Medial Malleolus 29.7 cm 10 cm From Medial Malleolus 27.5 cm 20 cm From Medial Malleolus 33.8 cm 30 cm From Medial Malleolus 39.2 cm 40 cm From Medial Malleolus 37.9 cm 50 cm From Medial Malleolus 47.1 cm 60 cm From Medial Malleolus 51.4 cm Left Affected MT Heads 25.7 cm Mid-foot 25.8 cm Medial Malleolus 30.2 cm 10 cm From Medial Malleolus 29.8 cm 20 cm From Medial Malleolus 34.7 cm 30 cm From Medial Malleolus 40 cm 40 cm From Medial Malleolus 37.2 cm 50 cm From Medial Malleolus 46 cm 60 cm From Medial Malleolus 50 cm PT-OP-Q Treatments Start: 08/20/22 17:31 Freq: Status: Active Protocol: Document 10/17/22 09:01 AW (Rec: 10/17/22 11:10 AW [id number]) Cardio Equipment Recumbent Stepper (Sci-Fit) Duration (Minutes) 8 Resistance 2>3>2 Seat Position 13 Other 1 mile Therapeutic Exercises Standing Exercises hip extension Standing Exercise Name hip extension Side bilateral Equipment Used // support Reps/Minutes 2x5 hip abduction Standing Exercise Name hip abduction Side bilateral Equipment Used // support Reps/Minutes 2x5 1/4 squat Standing Exercise Name 1/4 squat Equipment Used // support Reps/Minutes 2x10 Comments HEP heel and toe raises Standing Exercise Name heel and toe raises Side bilateral Equipment Used // support Reps/Minutes 2x10 Comments HEP Therapeutic Activity Therapeutic Activity LB dressing Name donning compression socks Reps/Minutes 10 Comments 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 Assisted pt to don circular knit OTC compression socks and Tubigrip toes to knees. Educated pt to ensure tubigrip extends to toes for best pressure gradient. Self-Care/Home Management Treatment Education Patient Education Home Exercise Program Other Education Advised strengthening exercise every other day at least and to continue with lymph exercises including diaphragmatic breathing daily. Lymphedema Treatment Manual Lymphatic Drainage Location BLE Duration 30 min Comments MLD focused on AIA pathways to stimulate lymphangiomotoricity. Lymphedema Wrapping Other Cetaphil lotion applied to BLE . Donned OTC compression socks and Demagrip G toes to knees. Sequential Lymphedema Exercises Location BLE Comments Discussed continuing at home Other Other Pt has ordered but not yet received the [employer] donning device. PT-OP-R Modalities Start: 08/20/22 17:31 Freq: Status: Active Protocol: Document 10/10/22 13:02 AW (Rec: 10/10/22 13:59 AW [id number]) Compression Pump Treatment Treatment Location LLE Pressure Amount (mmHg) (mmHG) 60 Inflation Time (Seconds) 30 Deflation Time (Seconds) 10 Treatment Duration (minutes) 30 Treatment Tolerance Good Treatment Comments BLE today with chip bags situated around ankles. PT-OP-T Assessment and Plan Start: 08/20/22 17:31 Freq: Status: Active Protocol: Document 10/17/22 09:01 AW (Rec: 10/17/22 11:10 AW [id number]) Physical Therapy Assessment Goals Three Impairment lymphedema BLE Short Term Goal (STG) Pt and his spouse will be instructed in all aspects of lymphedema care including skin care, manual lymphatic drainage, lymphedema exercises , and compression garments or alternative. 10/10/22 - PROGRESS primarily regarding consistent compression. Pt still lacks understanding of importance of MLD and consistent exercise. STG Duration 10/02/22 Senior Living Goal (LTG) Pt will demonstrate reduction and stabilization of lymphedema (no change greater than 1 cm over the course of 1 week) and be independent with all aspects of lymphedema self-care including donning/ doffing compression garment or alternative. LTG Duration 11/13/22 Two Impairment impaired balance Logistics Planning Manager Goal (LTG) Pt will improve Tinetti score from 13 to 20 or greater as a measure of reduced falls risk LTG Duration 11/13/22 One Impairment function limited by lymphedema Senior Living Goal (LTG) Pt will score 15 or less on Lymphedema Life Impact Scale ( 36 at initial eval) as a measure of improvement in daily function LTG Duration 11/13/22 Progress Towards Goals Progress Towards Goals Progressing Toward Goals,Slow Progress due to Activity Tolerance Progress Comments Pt has been engaged in his own care regarding need for compression and has been able to manage with some assist at home. He has had good reduction distally. LLE remains more affected than RLE but ankle measurement has reduced ~4 cm circumference. If stable over next few visits , care will shift to strength and balance. Assessment Summary Assessment Stable measurements again today. Pt benefits from double layer of compression. Advised pt to trial nights with no compression in hopes of improved sleep. Will re-assess next visit. Physical Therapy Plan Frequency and Duration Frequency of Treatment 3x/Week Duration of treatment (weeks) 12 Plan of Care Start Date 08/21/22 Plan of Care End Date 11/13/22 Therapeutic Interventions Therapeutic Interventions Balance Training,Gait Training ,Home Exercise Program, Lymphedema Management,Manual Therapy,Patient/Caregiver Education,Self-Care/Home Management,Soft Tissue Mobilization,Therapeutic Activities,Therapeutic Exercises Modalities Cold Pack/Ice Massage, Vasopneumatic Devices Next Visit Focus/Plan Next Note Type Treatment Note Next Visit Plan RETURN MEDI COOK Measure. Continue lymphedema management with MLD, work on compression alternatives. Exercise to promote lymphatic flow and strength.
--- NOTE | 2022-10-29 11:32 | PT.OTN ---
Current Diagnoses Lymphedema, not elsewhere classified (10/29/22) Difficulty in walking, not elsewhere classified (10/29/22) Edema, unspecified (10/29/22) Physical Therapy Treatment Note PT-OP-A Visit Information Start: 08/20/22 17:31 Freq: Status: Active Protocol: Document 10/29/22 10:06 AW (Rec: 10/29/22 11:32 AW [id number]) Out-Patient Physical Therapy Visit Information Visit Information Visit Type Treatment Note Visit Start Time 10:10 Visit Stop Time 11:24 Total Visit Minutes 74 Visit Number 10/28 Evaluation Information Evaluation Date 08/21/22 PT-OP-B Current Condition Start: 08/20/22 17:31 Freq: Status: Active Protocol: Document 08/21/22 10:30 AW (Rec: 08/20/22 17:38 AW [id number]) Current Condition History of Current Condition Onset Date a few years, worsening Current Complaints bilateral lower extremity swelling, impaired mobility History of Current Condition Timothy has dealt with ongoing lower extremity edema that has been present for a few years. Has a history of factor V Leiden mutation, recurrent deep vein thrombosis, on chronic anticoagulation. He has twe-lde-xwoff compression socks and likes how they feel but is unable to don them without great difficulty. His feet feel like balloons at the end of the day. He states they go down at night, but then they re-accumulate. He states elevation helps, but he spends more and more time in the chair. He has tried oral Lasix which has not been helpful and he does not like the side effects, which is causing increased urination. He states elevation does help. Heavy feeling in his legs has been limiting his ability to walk very far and he has had at least two falls in the past few months. He is not using any assistive device today but states he sometimes uses a walking stick or cane. He has trouble picking up objects from the floor. 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 At that time, he broke his right shoulder, his neck, clavicle, 10 ribs, and punctured a lung. He was doing relatively well overall until he fell during a tennis match a few years ago and broke two vertebrae. He had laminectomy and two 16 rods placed in his thoracic spine. He continues to have back and left leg pain. Left leg usually feels achy but is sometimes shooting and radiating into the back of his leg. Prior Treatments and Tests No prior treatment for lymphedema. Pt was seen at this clinic last year but had hoped to decrease swelling by increasing activity and exercise. Treatment Goals Patient/Caregiver Goals Reduce swelling to make it easier to get more exercise. Pt would like to be able to walk 1-2 miles at a time. Prior Functional Status Baseline Function- ADL's Independent Baseline Function- Mobility Independent Baseline Function- Gait Independent, no device Current Functional Impairments (Reported) Functional Limitations- ADL's Difficulty donning regular socks. Only wears shoes he can slip on. Can not don compression socks without assist. Functional Limitations- Mobility/Gait Recent falls reported. Pt able to ambulate ~10 minutes at a time and often needs walking stick or cane. Personal Factors Other Personal Factors That May Effect Pt plans to spend winter in Therapy/[place] [place]. Will leave in November . PT-OP-C Subjective Start: 08/20/22 17:31 Freq: Status: Active Protocol: Document 10/29/22 10:06 AW (Rec: 10/29/22 11:32 AW [id number]) OP-PT Subjective Patient Comments Patient Comments Pt was very sore for 3-4 days after last treatment. Is having worse left knee pain today. PT-OP-D Balance Start: 08/20/22 17:31 Freq: Status: Active Protocol: Document 08/21/22 10:30 AW (Rec: 08/21/22 14:19 AW [id number]) Tinetti Balance Assessment Sitting Balance Sitting Balance Steady, safe Arising from Chair Ability to Arise Able, uses arms to help Attempts to Arise Able, requires >1 attempt Standing Balance Immediate Standing Balance Steady with support Standing Balance Steady, wide stance Nudged Response Begins to fall Standing with Eyes Closed Unsteady Turning Step Pattern Turning 360 Degrees Discontinuous steps Stability Turning 360 Degrees Unsteady, grabs/staggers Sitting Down Sitting Down Uses arms or unsteady Gait and Step Initiation of Gait No hesitancy Right Foot Step Length Does pass stance foot Right Foot Step Height Does not clear floor Left Foot Step Length Does pass stance foot Left Foot Step Height Does not clear floor Step Description Step Symmetry Step length appears equal Step Continuity Steps appear continuous Gait Description Path Description Mild/moderate deviation Trunk Description No sway but posturing Walking Stance Heels apart Scoring and Interpretation Tinetti Composite Score (points) 13 Interpretation of Scores High risk for falls(< 19) Tinetti Impairment Rating from Composite 40 to <60% Impaired (Score 12- Score 16) PT-OP-G Mobility & Gait Start: 08/20/22 17:31 Freq: Status: Active Protocol: Document 08/21/22 10:30 AW (Rec: 08/21/22 14:28 AW [id number]) OP Mobility Evaluation Bed Mobility Supine to and from Sit painful and needing min assist to move legs off table after wrapping treatment Transfers Sit to Stand heavy use of hands Functional Movements Squats unable to pick item up from the floor OP Gait Assessment Gait Gait Assistance Required: Standby Assistance,Contact Guard Assist Assistive Devices Assistive Device None Gait Deviations General Gait Pattern Antalgic,Decreased Stride Length,Decreased Feet Clearance,Flexed Trunk,Wide Based Gait Comments Gait Comments Gait limited by heaviness in lower legs, weakness bilaterally, and poor balance. PT-OP-H Neuro Start: 08/20/22 17:31 Freq: Status: Active Protocol: Document 08/21/22 10:30 AW (Rec: 08/21/22 14:28 AW [id number]) Sensation Evaluation Gross Sensation Gross Sensation Left LE Impaired,Right LE Impaired Sensation Description Numbness Comments Summary Comments Dull light touch sensation in bilateral feet PT-OP-J Posture/Palpation/Skin Start: 08/20/22 17:31 Freq: Status: Active Protocol: Document 08/21/22 10:30 AW (Rec: 08/21/22 14:28 AW [id number]) Skin Assessment Other Assessments Skin Assessment Comments Edematous BLE (3+ pitting) with some skin tautness. No wounds. Ankles and lower legs most affected by swelling. See circumferential measurements documented separately. PT-OP-K Range of Motion Start: 08/20/22 17:31 Freq: Status: Active Protocol: Document 08/21/22 10:30 AW (Rec: 08/21/22 17:37 AW [id number]) Hip Goniometric Range of Motion Hip ROM Limitations Comments AROM hip extension past neutral is limited Knee Goniometric Range of Motion Knee ROM Limitations Knee ROM Limitations Soft Tissue Tightness Comments Pt lacks full knee extension bilaterally but left is more affected than right Ankle and Foot Goniometric Range of Motion Ankle and Foot ROM Limitations ROM Limitations Swelling PT-OP-M Strength Start: 08/20/22 17:31 Freq: Status: Active Protocol: Document 08/21/22 10:30 AW (Rec: 08/21/22 17:37 AW [id number]) Hip Strength Hip Manual Muscle Testing Left Flexion (L2) 4- Good- Extension (S1) 4- Good- Abduction 4- Good- External Rotation 4 Good Internal Rotation 4- Good- Right Flexion (L2) 4 Good Extension (S1) 4 Good Abduction 4 Good External Rotation 4 Good Internal Rotation 4- Good- Knee Strength Knee Manual Muscle Testing bilat Flexion (S2) 4+ Good+ Extension (L3) 5 Normal Ankle/Foot Strength Ankle and Foot Manual Muscle Testing bilat Dorsiflexion (L4) 4 Good Plantarflexion (S1) 4- Good- PT-OP-N Lymphedema Start: 08/20/22 17:31 Freq: Status: Active Protocol: Document 10/29/22 10:06 AW (Rec: 10/29/22 11:32 AW [id number]) Lymphedema Measurements Lower Extremity Circumference Measurements Right Affected MT Heads 25.5 cm Mid-foot 24.2 cm Medial Malleolus 30.5 cm 10 cm From Medial Malleolus 26.2 cm 20 cm From Medial Malleolus 32.2 cm 30 cm From Medial Malleolus 39.4 cm 40 cm From Medial Malleolus 37.8 cm 50 cm From Medial Malleolus 45 cm 60 cm From Medial Malleolus 48.5 cm Left Affected MT Heads 25.7 cm Mid-foot 24.9 cm Medial Malleolus 30.5 cm 10 cm From Medial Malleolus 28.1 cm 20 cm From Medial Malleolus 35.5 cm 30 cm From Medial Malleolus 40.9 cm 40 cm From Medial Malleolus 39.9 cm 50 cm From Medial Malleolus 45.8 cm 60 cm From Medial Malleolus 50 cm - Stable measurements. Excellent reduction since initial evaluation. PT-OP-Q Treatments Start: 08/20/22 17:31 Freq: Status: Active Protocol: Document 10/29/22 10:06 AW (Rec: 10/29/22 11:32 AW [id number]) Cardio Equipment Recumbent Elliptical (BiodCURRENT) Duration (Minutes) 10 Resistance 2 Seat Position 11 Other after MLD and compression Neuro Re-Education Treatment Balance Activities tandem stance Details tandem stance EO Surface firm Equipment // prn Comments HEP SLS Details SLS Surface firm Equipment // prn Comments HEP Guy Details Guy Comments Self-Care/Home Management Treatment Education Patient Education Home Exercise Program Other Education Advised strengthening exercise every other day at least and to continue with lymph exercises including diaphragmatic breathing daily. Added balance exercises to HEP (single leg stance and tandem stance with counter support). Educated pt on Guy score implications and encouraged him to continue using walking stick when feeling unsteady. Lymphedema Treatment Manual Lymphatic Drainage Location BLE Duration 30 min Comments MLD focused on AIA pathways to stimulate lymphangiomotoricity. Lymphedema Wrapping Other Cetaphil lotion applied to BLE . Donned OTC compression socks and Demagrip G toes to knees. Sequential Lymphedema Exercises Location BLE Comments Discussed continuing at home Other Other Pt has own medi cook donning aid at home and has been successful using it daily. PT-OP-R Modalities Start: 08/20/22 17:31 Freq: Status: Active Protocol: Document 10/10/22 13:02 AW (Rec: 10/10/22 13:59 AW [id number]) Compression Pump Treatment Treatment Location LLE Pressure Amount (mmHg) (mmHG) 60 Inflation Time (Seconds) 30 Deflation Time (Seconds) 10 Treatment Duration (minutes) 30 Treatment Tolerance Good Treatment Comments BLE today with chip bags situated around ankles. PT-OP-T Assessment and Plan Start: 08/20/22 17:31 Freq: Status: Active Protocol: Document 10/29/22 10:06 AW (Rec: 10/29/22 11:32 AW [id number]) Physical Therapy Assessment Goals Three Impairment lymphedema BLE Short Term Goal (STG) Pt and his spouse will be instructed in all aspects of lymphedema care including skin care, manual lymphatic drainage, lymphedema exercises , and compression garments or alternative. 10/10/22 - PROGRESS primarily regarding consistent compression. Pt still lacks understanding of importance of MLD and consistent exercise. STG Duration 10/02/22 Manager Cardiovascular Goal (LTG) Pt will demonstrate reduction and stabilization of lymphedema (no change greater than 1 cm over the course of 1 week) and be independent with all aspects of lymphedema self-care including donning/ doffing compression garment or alternative. LTG Duration GOAL MET Two Impairment impaired balance Care Home Goal (LTG) Pt will improve Tinetti score from 13 to 20 or greater as a measure of reduced falls risk Guy Balance Scale 45/56 today . LTG Duration 11/13/22 One Impairment function limited by lymphedema Manager Cardiovascular Goal (LTG) Pt will score 15 or less on Lymphedema Life Impact Scale ( 36 at initial eval) as a measure of improvement in daily function LTG Duration 11/13/22 Assessment Summary Assessment Swelling is well-managed at this point. Directed treatment today to exercise and balance for overall conditioning. Emphasized the importance of continuing exercise at home and benefits of doing so while wearing compression. Plan to assess for discharge at next visit. Physical Therapy Plan Frequency and Duration Frequency of Treatment 3x/Week Duration of treatment (weeks) 12 Plan of Care Start Date 08/21/22 Plan of Care End Date 11/13/22 Therapeutic Interventions Therapeutic Interventions Balance Training,Gait Training ,Home Exercise Program, Lymphedema Management,Manual Therapy,Patient/Caregiver Education,Self-Care/Home Management,Soft Tissue Mobilization,Therapeutic Activities,Therapeutic Exercises Modalities Cold Pack/Ice Massage, Vasopneumatic Devices Next Visit Focus/Plan Next Note Type Discharge Summary
--- NOTE | 2022-11-07 11:00 | PT.OTN ---
Current Diagnoses Lymphedema, not elsewhere classified (11/07/22) Difficulty in walking, not elsewhere classified (11/07/22) Edema, unspecified (11/07/22) Physical Therapy Treatment Note PT-OP-A Visit Information Start: 08/20/22 17:31 Freq: Status: Active Protocol: Document 11/07/22 08:58 AW (Rec: 11/07/22 11:00 AW [id number]) Out-Patient Physical Therapy Visit Information Visit Information Visit Type Discharge Summary Visit Start Time 09:45 Visit Stop Time 10:55 Total Visit Minutes 70 Visit Number Evaluation Information Evaluation Date 08/21/22 PT-OP-B Current Condition Start: 08/20/22 17:31 Freq: Status: Active Protocol: Document 08/21/22 10:30 AW (Rec: 08/20/22 17:38 AW [id number]) Current Condition History of Current Condition Onset Date a few years, worsening Current Complaints bilateral lower extremity swelling, impaired mobility History of Current Condition Timothy has dealt with ongoing lower extremity edema that has been present for a few years. Has a history of factor V Leiden mutation, recurrent deep vein thrombosis, on chronic anticoagulation. He has [id number] compression socks and likes how they feel but is unable to don them without great difficulty. His feet feel like balloons at the end of the day. He states they go down at night, but then they re-accumulate. He states elevation helps, but he spends more and more time in the chair. He has tried oral Lasix which has not been helpful and he does not like the side effects, which is causing increased urination. He states elevation does help. Heavy feeling in his legs has been limiting his ability to walk very far and he has had at least two falls in the past few months. He is not using any assistive device today but states he sometimes uses a walking stick or cane. He has trouble picking up objects from the floor. 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 At that time, he broke his right shoulder, his neck, clavicle, 10 ribs, and punctured a lung. He was doing relatively well overall until he fell during a tennis match a few years ago and broke two vertebrae. He had laminectomy and two 16 rods placed in his thoracic spine. He continues to have back and left leg pain. Left leg usually feels achy but is sometimes shooting and radiating into the back of his leg. Prior Treatments and Tests No prior treatment for lymphedema. Pt was seen at this clinic last year but had hoped to decrease swelling by increasing activity and exercise. Treatment Goals Patient/Caregiver Goals Reduce swelling to make it easier to get more exercise. Pt would like to be able to walk 1-2 miles at a time. Prior Functional Status Baseline Function- ADL's Independent Baseline Function- Mobility Independent Baseline Function- Gait Independent, no device Current Functional Impairments (Reported) Functional Limitations- ADL's Difficulty donning regular socks. Only wears shoes he can slip on. Can not don compression socks without assist. Functional Limitations- Mobility/Gait Recent falls reported. Pt able to ambulate ~10 minutes at a time and often needs walking stick or cane. Personal Factors Other Personal Factors That May Effect Pt plans to spend winter in [place]. Will leave in November . PT-OP-C Subjective Start: 08/20/22 17:31 Freq: Status: Active Protocol: Document 11/07/22 08:58 AW (Rec: 11/07/22 11:00 AW [id number]) OP-PT Subjective Patient Comments Patient Comments Left knee pain is worsening but swelling is stable or possibly slightly worse today PT-OP-D Balance Start: 08/20/22 17:31 Freq: Status: Active Protocol: Document 08/21/22 10:30 AW (Rec: 08/21/22 14:19 AW [id number]) Tinetti Balance Assessment Sitting Balance Sitting Balance Steady, safe Arising from Chair Ability to Arise Able, uses arms to help Attempts to Arise Able, requires >1 attempt Standing Balance Immediate Standing Balance Steady with support Standing Balance Steady, wide stance Nudged Response Begins to fall Standing with Eyes Closed Unsteady Turning Step Pattern Turning 360 Degrees Discontinuous steps Stability Turning 360 Degrees Unsteady, grabs/staggers Sitting Down Sitting Down Uses arms or unsteady Gait and Step Initiation of Gait No hesitancy Right Foot Step Length Does pass stance foot Right Foot Step Height Does not clear floor Left Foot Step Length Does pass stance foot Left Foot Step Height Does not clear floor Step Description Step Symmetry Step length appears equal Step Continuity Steps appear continuous Gait Description Path Description Mild/moderate deviation Trunk Description No sway but posturing Walking Stance Heels apart Scoring and Interpretation Tinetti Composite Score (points) 13 Interpretation of Scores High risk for falls(< 19) Tinetti Impairment Rating from Composite 40 to <60% Impaired (Score 12- Score 16) PT-OP-G Mobility & Gait Start: 08/20/22 17:31 Freq: Status: Active Protocol: Document 08/21/22 10:30 AW (Rec: 08/21/22 14:28 AW [id number]) OP Mobility Evaluation Bed Mobility Supine to and from Sit painful and needing min assist to move legs off table after wrapping treatment Transfers Sit to Stand heavy use of hands Functional Movements Squats unable to pick item up from the floor OP Gait Assessment Gait Gait Assistance Required: Standby Assistance,Contact Guard Assist Assistive Devices Assistive Device None Gait Deviations General Gait Pattern Antalgic,Decreased Stride Length,Decreased Feet Clearance,Flexed Trunk,Wide Based Gait Comments Gait Comments Gait limited by heaviness in lower legs, weakness bilaterally, and poor balance. PT-OP-H Neuro Start: 08/20/22 17:31 Freq: Status: Active Protocol: Document 08/21/22 10:30 AW (Rec: 08/21/22 14:28 AW [id number]) Sensation Evaluation Gross Sensation Gross Sensation Left LE Impaired,Right LE Impaired Sensation Description Numbness Comments Summary Comments Dull light touch sensation in bilateral feet PT-OP-J Posture/Palpation/Skin Start: 08/20/22 17:31 Freq: Status: Active Protocol: Document 08/21/22 10:30 AW (Rec: 08/21/22 14:28 AW [id number]) Skin Assessment Other Assessments Skin Assessment Comments Edematous BLE (3+ pitting) with some skin tautness. No wounds. Ankles and lower legs most affected by swelling. See circumferential measurements documented separately. PT-OP-K Range of Motion Start: 08/20/22 17:31 Freq: Status: Active Protocol: Document 08/21/22 10:30 AW (Rec: 08/21/22 17:37 AW [id number]) Hip Goniometric Range of Motion Hip ROM Limitations Comments AROM hip extension past neutral is limited Knee Goniometric Range of Motion Knee ROM Limitations Knee ROM Limitations Soft Tissue Tightness Comments Pt lacks full knee extension bilaterally but left is more affected than right Ankle and Foot Goniometric Range of Motion Ankle and Foot ROM Limitations ROM Limitations Swelling PT-OP-M Strength Start: 08/20/22 17:31 Freq: Status: Active Protocol: Document 08/21/22 10:30 AW (Rec: 08/21/22 17:37 AW [id number]) Hip Strength Hip Manual Muscle Testing Left Flexion (L2) 4- Good- Extension (S1) 4- Good- Abduction 4- Good- External Rotation 4 Good Internal Rotation 4- Good- Right Flexion (L2) 4 Good Extension (S1) 4 Good Abduction 4 Good External Rotation 4 Good Internal Rotation 4- Good- Knee Strength Knee Manual Muscle Testing bilat Flexion (S2) 4+ Good+ Extension (L3) 5 Normal Ankle/Foot Strength Ankle and Foot Manual Muscle Testing bilat Dorsiflexion (L4) 4 Good Plantarflexion (S1) 4- Good- PT-OP-N Lymphedema Start: 08/20/22 17:31 Freq: Status: Active Protocol: Document 11/07/22 08:58 AW (Rec: 11/07/22 11:00 AW [id number]) Lymphedema Measurements Lower Extremity Circumference Measurements Right Affected MT Heads 25.7 cm Mid-foot 25 cm Medial Malleolus 30.5 cm 10 cm From Medial Malleolus 29.5 cm 20 cm From Medial Malleolus 35.9 cm 30 cm From Medial Malleolus 39.5 cm 40 cm From Medial Malleolus 42.1 cm 50 cm From Medial Malleolus 45.6 cm 60 cm From Medial Malleolus 49.5 cm Left Affected MT Heads 25 cm Mid-foot 24.7 cm Medial Malleolus 32.1 cm 10 cm From Medial Malleolus 31.4 cm 20 cm From Medial Malleolus 35.6 cm 30 cm From Medial Malleolus 40 cm 40 cm From Medial Malleolus 38.6 cm 50 cm From Medial Malleolus 46.2 cm 60 cm From Medial Malleolus 50.5 cm - Slight increase at ankle and distal shank bilaterally. Pt states he has not been wearing double layer of compression regularly. Educated pt to continue with double layer as much as possible, especially during more active periods of the day. PT-OP-Q Treatments Start: 08/20/22 17:31 Freq: Status: Active Protocol: Document 11/07/22 08:58 AW (Rec: 11/07/22 11:00 AW [id number]) Cardio Equipment Recumbent Elliptical (Biodex) Duration (Minutes) 10 Resistance 2 Seat Position 11 Other after MLD and compression Therapeutic Exercises Standing Exercises hip extension Standing Exercise Name hip extension Side bilateral Equipment Used // support Reps/Minutes 2x5 hip abduction Standing Exercise Name hip abduction Side bilateral Equipment Used // support Reps/Minutes 2x5 1/4 squat Standing Exercise Name 1/4 squat Equipment Used // support Reps/Minutes 2x10 Comments HEP heel and toe raises Standing Exercise Name heel and toe raises Side bilateral Equipment Used // support Reps/Minutes 2x10 Comments HEP Therapeutic Activity Therapeutic Activity LB dressing Name donning compression socks Reps/Minutes 10 Comments Used medi cook. Assisted pt to don circular knit OTC compression socks and Tubigrip toes to knees. Educated pt to ensure tubigrip extends to toes for best pressure gradient. Neuro Re-Education Treatment Balance Activities NBOS Details NBOS Surface firm Equipment // prn Comments with and without head turns for HEP tandem stance Details tandem stance EO Surface firm Equipment // prn Comments HEP SLS Details SLS Surface firm Equipment // prn Comments HEP Self-Care/Home Management Treatment Education Patient Education Home Exercise Program Other Education Advised strengthening exercise every other day at least and to continue with lymph exercises including diaphragmatic breathing daily. Added balance exercises to HEP (single leg stance and tandem stance with counter support). Educated pt on Guy score implications and encouraged him to continue using walking stick when feeling unsteady. Lymphedema Treatment Manual Lymphatic Drainage Location BLE Duration 30 min Comments MLD focused on AIA pathways to stimulate lymphangiomotoricity. Lymphedema Wrapping Other Cetaphil lotion applied to BLE . Donned OTC compression socks and Demagrip G toes to knees. Sequential Lymphedema Exercises Location BLE Comments Discussed continuing at home Other Other Pt has own medi cook donning aid at home and has been successful using it daily. PT-OP-R Modalities Start: 08/20/22 17:31 Freq: Status: Active Protocol: Document 10/10/22 13:02 AW (Rec: 10/10/22 13:59 AW [id number]) Compression Pump Treatment Treatment Location LLE Pressure Amount (mmHg) (mmHG) 60 Inflation Time (Seconds) 30 Deflation Time (Seconds) 10 Treatment Duration (minutes) 30 Treatment Tolerance Good Treatment Comments BLE today with chip bags situated around ankles. PT-OP-T Assessment and Plan Start: 08/20/22 17:31 Freq: Status: Active Protocol: Document 11/07/22 08:58 AW (Rec: 11/07/22 11:00 AW [id number]) Physical Therapy Assessment Goals Three Impairment lymphedema BLE Short Term Goal (STG) Pt and his spouse will be instructed in all aspects of lymphedema care including skin care, manual lymphatic drainage, lymphedema exercises , and compression garments or alternative. 10/10/22 - PROGRESS primarily regarding consistent compression. Pt still lacks understanding of importance of MLD and consistent exercise. STG Duration 10/02/22 Penitentiary Goal (LTG) Pt will demonstrate reduction and stabilization of lymphedema (no change greater than 1 cm over the course of 1 week) and be independent with all aspects of lymphedema self-care including donning/ doffing compression garment or alternative. LTG Duration GOAL MET Two Impairment impaired balance Associate Professor Of Philosophy Goal (LTG) Pt will improve Tinetti score from 13 to 20 or greater as a measure of reduced falls risk Guy Balance Scale 45/56 today . LTG Duration 11/13/22 One Impairment function limited by lymphedema Associate Professor Of Philosophy Goal (LTG) Pt will score 15 or less on Lymphedema Life Impact Scale ( 36 at initial eval) as a measure of improvement in daily function LTG Duration 11/13/22 Assessment Summary Assessment Pt had slight increase in circumferential measurements at ankle and distal shank. He reports he has not been using second layer (demagrip) regularly. Educated pt to continue with Demagrip for best compression gradient. Pt has been having increased left knee pain. Recommend pt seek referral to outpatient therapy for left knee while wintering in [place]. Physical Therapy Plan Frequency and Duration Frequency of Treatment 3x/Week Duration of treatment (weeks) 12 Plan of Care Start Date 08/21/22 Plan of Care End Date 11/13/22 Therapeutic Interventions Therapeutic Interventions Balance Training,Gait Training ,Home Exercise Program, Lymphedema Management,Manual Therapy,Patient/Caregiver Education,Self-Care/Home Management,Soft Tissue Mobilization,Therapeutic Activities,Therapeutic Exercises Modalities Cold Pack/Ice Massage, Vasopneumatic Devices Discharge Physical Therapy Discharge Reasons Goals Met Discharge Comments Pt has had significant reduction in distal edema and is independent with exercise and compression to manage long -term. He would benefit from referral to outpatient PT to address left knee pain which may limit his activity if left untreated.
== END 2022-11-07 14:17 | disposition home or self-care (01) ==
LOC: PHYS 09:45
PROVIDERS: PCP Family Medicine; Referring Provider Family Medicine; Visit Provider Family Medicine
DX: I89.0 Lymphedema, not elsewhere classified (principal); R60.9 Edema, unspecified; R26.2 Difficulty in walking, not elsewhere classified
CPT/HCPCS: 97016; 97110; 97112; 97140; 97162; 97530; 97535

== ENCOUNTER 2023-06-22 09:57 | Emergency (ER) | payer MEDICARE, OTHER, SELFPAY ==
[2023-06-22] VITALS (13 sets, daily range): BP systolic 147–188; BP diastolic 74–99; PULSE 78–85; RESP 15–22; TEMP 36.4; O2SAT 91–98; BMI 26.3
--- NOTE | 2023-06-22 10:01 | ED.CHESTPAIN ---
HPI - Chest Pain General Chief Complaint: Chest Pain Stated Complaint: Chest Pain Time Seen by Provider: 06/22/23 09:57 History of Present Illness HPI narrative: Patient 87-year-old male history recurrent DVT, factor 5 Leiden, on Eliquis, hypothyroid presenting today with chest discomfort. He reports that it woke him from sleep it is in the center of his chest that is nonradiating feels like pressure. It is reproducible with deep breathing and palpation. No prior history of coronary artery disease. He feels slightly short of breath. He reports that he is chronic lower extremity swelling worse compression socks no known history of congestive heart failure. Denies any nausea or vomiting. EMS reports significant hypertension with EMS with systolics in the 200s he was given 2 nitro and aspirin. Related Data Previous Rx's Medication Instructions Recorded apixaban 5 mg tablet (Eliquis) See Rx Instructions .Route 05/15/23 .COMPLEX #60 tabs Disabled Parking #1 ea 06/12/23 hydrocodone 5 mg-acetaminophen 325 1 tab PO Q6H PRN pain #10 tabs 06/22/23 mg tablet Allergies Allergy/AdvReac Type Severity Reaction Status Date / Time venom-wasp Allergy Severe Swelling Verified 06/22/23 10:03 iodine [IODINE] Allergy Mild HIVES Verified 06/22/23 10:03 /BLISTERS venom-honey bee Allergy Mild ANGIOEDEMA Verified 06/22/23 10:03 [BEE VENOM (HONEY BEE)] wheat [WHEAT] Allergy Mild GI UPSET Verified 06/22/23 10:03 Review of Systems Review of Systems ROS Unobtainable: All systems reviewed & are unremarkable except as noted in HPI and below Patient History Social History marital status: Smoking Status: Never smoker alcohol intake: never substance use type: does not use Smoking Status: Never smoker Exam Initial Vital Signs Initial Vital Signs: Vital Signs Temperature 97.6 F 06/22/23 10:02 Pulse Rate 84 06/22/23 10:02 Respiratory Rate 20 06/22/23 10:02 Blood Pressure 157/81 H 06/22/23 10:02 Pulse Oximetry 93 06/22/23 10:02 Oxygen Delivery Method Room Air 06/22/23 10:02 GENERAL: Alert pleasant 87-year-old male and in no acute distress. HEENT: Head atraumatic,EOMI, pupils reactive, face symmetric, moist mucous membranes CARDIOVASCULAR: Regular rate and rhythm without murmurs, rubs or gallops. Tender over sternum reproducible with palpation RESPIRATORY: Breath sounds equal bilaterally, no wheezes rales or rhonchi. ABDOMEN: Soft, nontender. Normoactive bowel sounds all 4 quadrants. No guarding or rebound. EXTREMITIES: Normal range of motion, no clubbing or edema. Neurovascularly intact NEUROLOGICAL: Alert and oriented x4.Normal gait and speech. SKIN: Warm, dry, no laceration, no petechiae, no rashes or lesions. Scores HEART Score Heart Score history: Slightly Suspicious Heart Score EKG: Normal Heart Score Age: > or = 65 years old Heart Score risk factors: No known risk factors Heart Score troponin: < or = to normal limit Heart Score Total: 2 Course Orders Ordered: ED Orders 06/22/23 10:00 Complete Blood Count AUTO DIFF Stat Comprehensive Metabolic Panel Stat Lipase Stat Magnesium Stat NT-proBNP (BNP-Adult 18+) Stat PTT Partial Thromboplastin Aaron Stat Prothrombin Time INR Stat Troponin & CK Cardiac Panel Stat 06/22/23 10:02 XR chest 1V Stat EKG-12 Lead Stat 06/22/23 10:13 Covid-19 + FLU A/B + RSV - PCR Stat 06/22/23 12:00 EKG-12 Lead Stat 06/22/23 12:10 Troponin I Stat 06/22/23 13:33 CT angio chest PE protocol Stat Discontinued Medications Hydrocodone Bitart/Acetaminophen (Hydrocodone/Acet 5/325 Tablet) 1 tab PO NOW ONE Stop: 06/22/23 15:32 Last Admin: 06/22/23 15:42 Dose: Not Given Documented By: CTS Diphenhydramine HCl (Diphenhydramine 50 Mg/Ml Vial) 25 mg IV NOW ONE Stop: 06/22/23 13:34 Last Admin: 06/22/23 14:16 Dose: 25 mg Documented By: RLS Methylprednisolone (Methylprednisolone 125 Mg/2 Ml Vial) 125 mg IV NOW ONE Stop: 06/22/23 13:34 Last Admin: 06/22/23 14:16 Dose: 125 mg Documented By: RLS Morphine Sulfate (Morphine 2 Mg/Ml Inj) 2 mg IV NOW ONE Stop: 06/22/23 10:16 Last Admin: 06/22/23 10:33 Dose: 2 mg Documented By: MOHIT Pantoprazole Sodium (Pantoprazole 40 Mg Vial) 40 mg IV NOW ONE Stop: 06/22/23 12:14 Last Admin: 06/22/23 12:20 Dose: 40 mg Documented By: SEBASTIAN Vital Signs Vital signs: Vital Signs - 8 hr 06/22/23 11:00 06/22/23 11:00 06/22/23 11:30 Pulse Rate 78 Respiratory Rate 20 Blood Pressure 154/74 H 147/81 H Pulse Oximetry 98 Oxygen Delivery Method 06/22/23 11:30 06/22/23 12:00 06/22/23 12:00 Pulse Rate 79 79 Respiratory Rate 17 16 Blood Pressure 159/79 H Pulse Oximetry 91 93 Oxygen Delivery Method 06/22/23 12:30 06/22/23 12:30 06/22/23 13:00 Pulse Rate 80 Respiratory Rate 18 Blood Pressure 169/92 H 183/96 H Pulse Oximetry Oxygen Delivery Method 06/22/23 13:00 06/22/23 13:30 06/22/23 13:30 Pulse Rate 79 80 Respiratory Rate 17 21 Blood Pressure 188/99 H Pulse Oximetry 93 92 Oxygen Delivery Method Room Air 06/22/23 14:00 06/22/23 14:00 06/22/23 15:00 Pulse Rate 80 83 Respiratory Rate 19 22 Blood Pressure 174/93 H Pulse Oximetry 92 93 Oxygen Delivery Method 06/22/23 15:02 06/22/23 15:02 06/22/23 15:30 Pulse Rate 81 Respiratory Rate 18 Blood Pressure 183/90 H 165/86 H Pulse Oximetry 93 Oxygen Delivery Method 06/22/23 15:30 Pulse Rate 79 Respiratory Rate 20 Blood Pressure Pulse Oximetry 92 Oxygen Delivery Method MDM - Chest Pain Lab Data 06/22/23 10:00 06/22/23 10:00 Labs: Lab Results 06/22/23 06/22/23 06/22/23 Range/Units 10:00 10:00 10:00 WBC 6.6 (4.5-11.0) X10^3/uL RBC 4.26 L (4.5-5.9) X10^6/uL Hgb 14.6 (13.5-17.5) g/dL Hct 43.0 (41-53) % MCV 100.9 H (80-100) fL MCH 34.3 H (26-34) PG MCHC 33.9 (30-36) % RDW 15.3 H (11.6-14.8) % Plt Count 129 L (150-400) X10^3/uL Neut % (Auto) 73.4 (50-75) % Lymph % (Auto) 16.7 L (25-40) % [place] % (Auto) 5.5 (3-14) % Eos % (Auto) 1.9 L (2-4) % Baso % (Auto) 2.5 H (0-2) % Neut # (Auto) 4800 (9988-6858) /uL Lymph # (Auto) 1100 (0084-3987) /uL [place] # (Auto) 400 (0-900) /uL Eos # (Auto) 100 (0-450) /uL Baso # (Auto) 200 H (0-100) /uL PT 11.1 (10.1-12.7) SECONDS INR 1.0 (0.9-1.3) APTT 27 (26-36) SECONDS Sodium 138 (137-145) mmol/L Potassium 4.1 (3.4-5.1) mmol/L Chloride 101 (98-107) mmol/L Carbon Dioxide 32 (22-32) mmol/L BUN 14 (9-20) mg/dL Creatinine 0.74 (0.66-1.25) mg/dL Estimated GFR > 60 (>60) mL/min BUN/Creatinine Ratio 18.9 (6-22) Glucose 108 (80-110) mg/dL Calcium 9.2 (8.4-10.2) mg/dL Magnesium 2.0 (1.6-2.3) mg/dL Total Bilirubin 1.3 (0.2-1.3) mg/dL AST 30 (17-59) IU/L ALT 30 (<50) IU/L Alkaline Phosphatase 85 (38-126) U/L Total Creatine Kinase 54 L (55-170) U/L Troponin I < 0.012 (0.01-0.034) ng/mL NT-Pro-B Natriuret Pep 362 (<450) pg/mL Total Protein 8.6 H (6.3-8.2) g/dL Albumin 4.3 (3.5-5.0) g/dL Globulin 4.3 H (1.7-4.1) g/dL Albumin/Globulin Ratio 1.0 (1.0-2.8) Lipase 66 (23-300) U/L SARS-CoV-2 (PCR) (Negative) Influenza A (RT-PCR) (NEGATIVE) Influenza B (RT-PCR) (NEGATIVE) RSV (PCR) (Negative) 06/22/23 06/22/23 Range/Units 10:13 12:10 WBC (4.5-11.0) X10^3/uL RBC (4.5-5.9) X10^6/uL Hgb (13.5-17.5) g/dL Hct (41-53) % MCV (80-100) fL MCH (26-34) PG MCHC (30-36) % RDW (11.6-14.8) % Plt Count (150-400) X10^3/uL Neut % (Auto) (50-75) % Lymph % (Auto) (25-40) % [place] % (Auto) (3-14) % Eos % (Auto) (2-4) % Baso % (Auto) (0-2) % Neut # (Auto) (1420-1509) /uL Lymph # (Auto) (1681-3178) /uL [place] # (Auto) (0-900) /uL Eos # (Auto) (0-450) /uL Baso # (Auto) (0-100) /uL PT (10.1-12.7) SECONDS INR (0.9-1.3) APTT (26-36) SECONDS Sodium (137-145) mmol/L Potassium (3.4-5.1) mmol/L Chloride (98-107) mmol/L Carbon Dioxide (22-32) mmol/L BUN (9-20) mg/dL Creatinine (0.66-1.25) mg/dL Estimated GFR (>60) mL/min BUN/Creatinine Ratio (6-22) Glucose (80-110) mg/dL Calcium (8.4-10.2) mg/dL Magnesium (1.6-2.3) mg/dL Total Bilirubin (0.2-1.3) mg/dL AST (17-59) IU/L ALT (<50) IU/L Alkaline Phosphatase (38-126) U/L Total Creatine Kinase (55-170) U/L Troponin I < 0.012 (0.01-0.034) ng/mL NT-Pro-B Natriuret Pep (<450) pg/mL Total Protein (6.3-8.2) g/dL Albumin (3.5-5.0) g/dL Globulin (1.7-4.1) g/dL Albumin/Globulin Ratio (1.0-2.8) Lipase (23-300) U/L SARS-CoV-2 (PCR) Negative (Negative) Influenza A (RT-PCR) Flu a negative (NEGATIVE) Influenza B (RT-PCR) Flu b negative (NEGATIVE) RSV (PCR) Negative (Negative) Imaging Data Chest x-ray: Radiologist's Impression: PROCEDURE:? XR CHEST 1V ? INDICATIONS:? chest pain ? TECHNIQUE:? One view of the chest was acquired.? ? COMPARISON:? None. ? FINDINGS:? ? Surgical changes and devices:? None.? ? Lungs and pleura:? Bibasilar opacities.? No pneumothorax no pleural effusion. ? Mediastinum:? Mediastinal contours appear normal.? Heart size is normal.? ? Bones and chest wall:? No suspicious bony lesions.? Overlying soft tissues appear unremarkable.? ? IMPRESSION:? Bibasilar opacities may represent atelectasis with infection not excluded. ? ? Dictated by: Alexsander Michelle M.D. on 06/22/2023 at 10:05 ? CT scan - chest: Radiologist's Impression: PROCEDURE:? CT ANGIO CHEST PE PROTOCOL ? INDICATIONS:? chest pain sob ? TECHNIQUE:? After the administration of intravenous contrast, 2 mm thick sections acquired from the pulmonary apices to the posterior costophrenic angles.? 3-dimensional maximum intensity projection (MIP) coronal and sagittal reformats were then acquired through the thorax.? For radiation dose reduction, the following was used:? automated exposure control, adjustment of mA and/or kV according to patient size.? ? COMPARISON:? [facility], , XR CHEST 1V, 06/22/2023, 10:20. ? FINDINGS:? Image quality:? Excellent.? ? Pulmonary arteries:? Pulmonary arteries are normal in size, and demonstrate no intraluminal filling defects to suggest central pulmonary embolism.? ? Lungs and pleura:? Small basilar effusions with compressive atelectasis in the bibasilar regions.? Central and peripheral airways are patent.? ? Mediastinum:? Heart size is normal, without pericardial effusion.? No mediastinal or hilar adenopathy.? Thoracic aorta is normal in caliber and enhancement.? Esophagus is normal in caliber, without hiatal hernia.? ? Bones and chest wall:? No suspicious bony lesions.? Ribs and thoracic spine appear intact throughout.? Thyroid gland is unremarkable No axillary or supraclavicular adenopathy.? ? Abdomen:? Visualized upper abdominal solid organs appear normal in the early arterial phase of enhancement.? ? IMPRESSION:? No pulmonary embolus. Bibasilar atelectasis and/or scarring with infection not excluded. ? ? Dictated by: Alexsander Michelle M.D. on 06/22/2023 at 14:07 ?? ECG Data Interpretation: Normal sinus rhythm rate 82 TN interval 128 QRS [address] changes EKG 2. Sinus rhythm rate 79 TN interval 124 QRS [address] changes MDM Narrative Medical decision making narrative: Patient 87-year-old male reports he is actually had ongoing chest pain since yesterday. It is definitely reproducible when I touch it he really has not been able to get pain for eat despite Protonix morphine and nitro in the ED. CT angio rules out dissection and pulmonary embolism. He was also complaining of some shortness of breath no cause of this. There is no infection or evidence of congestive heart failure. 2- troponins. Blood work is overall reassuring. He has a pretty low heart score. With reproducible ongoing chest pain for the last 2 days my suspicion coronary artery disease is quite low nonetheless I have contacted his PCP in regards to close outpatient follow-up. Patient and both understand that if symptoms worsen then he needs to return to ED. Discharge Plan Departure Patient Disposition: Home Clinical Impression: Atypical chest pain Instructions: DI for Atypical Chest Pain Activity Restrictions/Additional Instructions: *You have been diagnosed with atypical chest pain *What to do: At this time please follow-up with Dr. Hoang he may need further testing on your heart. *Continue to take medications as directed Ruth 1 tablet every 6 hours if needed for severe pain *Follow up with your primary care provider in 2-3 days or call [phone] *Return to ER if you should have increasing chest pain shortness of breath or any new, worsening or concerning symptoms CONTROLLED SUBSTANCE DISCHARGE (Narcotoic/benzodiazepine/Flexeril/Phenergan) 1. You have been prescribed narcotic medications, it does have acetaminophen/Tylenol/paracetamol in it, DO NOT TAKE MORE THAN 4,00mg in 24 hours of Tylenol. TRAMADOL DOES NOT CONTAIN TYLENOL 2. Please understand that we cannot provide further refills of narcotics, benzodiazepines or controlled substances through the ED and her pain management will need to be through your provider. 3. While on these medications you cannot drive or operate heavy machinery. 4. You cannot sign legal documents or perform any duties such as this. 5. As long as you're taking opiate pain medications he should also be taking a stool softener such as Colace, Dulcolax, MiraLAX or prune juice, to help avoid constipation. Prescriptions: New hydrocodone-acetaminophen 5-325 mg tablet 1 tab PO Q6H PRN (Reason: pain) Qty: 10 0RF No Action Eliquis 5 mg tablet See Rx Instructions .ROUTE .COMPLEX Qty: 60 5RF Dose Instruction: TAKE ONE TABLET BY MOUTH TWICE DAILY Rx Instructions: TAKE ONE TABLET BY MOUTH TWICE DAILY (DME) Disabled Parking See Rx Instructions .ROUTE .MEDSUPPLY Qty: 1 0RF Rx Instructions: I find this patient to be medically disabled and qualified for Disabled Parking as indicated, and signed, on the Accompanying Disabled Parking Application for Individuals Referrals: Camden Hoang MD [Primary Care Provider] - Stand Alone Forms: Patient Portal/API
--- NOTE | 2023-06-22 10:02 | DI.RAD.S_ITS ---
PROCEDURE: XR CHEST 1V INDICATIONS: chest pain TECHNIQUE: One view of the chest was acquired. COMPARISON: None. FINDINGS: Surgical changes and devices: None. Lungs and pleura: Bibasilar opacities. No pneumothorax no pleural effusion. Mediastinum: Mediastinal contours appear normal. Heart size is normal. Bones and chest wall: No suspicious bony lesions. Overlying soft tissues appear unremarkable. IMPRESSION: Bibasilar opacities may represent atelectasis with infection not excluded. Dictated by: Alexsander Michelle M.D. on 06/22/2023 at 10:05 Approved by: Alexsander Michelle M.D. on 06/22/2023 at 10:06
[2023-06-22 10:11] LABS: Add Manual Diff / Slide Review NO; Basophils Absolute Auto 200 /uL (0-100); Basophils Percent Auto 2.5 % (0-2); Eosinophils Absolute Auto 100 /uL (0-450); Eosinophils Percent Auto 1.9 % (2-4); Hemoglobin 14.6 g/dL (13.5-17.5); Lymphocytes Absolute Auto 1100 /uL (1100-4500); Lymphocytes Percent Auto 16.7 % (25-40); Mean Corpuscular HGB Conc 33.9 % (30-36); Mean Corpuscular Hemoglobin 34.3 PG (26-34); Mean Corpuscular Volume 100.9 fL (80-100); Monocytes Absolute Auto 400 /uL (0-900); Monocytes Percent Auto 5.5 % (3-14); Neutrophils Absolute Auto 4800 /uL (1500-7000); Neutrophils Percent Auto 73.4 % (50-75); Platelet Count 129 X10^3/uL (150-400); Red Blood Cell Count 4.26 X10^6/uL (4.5-5.9); Red Cell Distribution Width 15.3 % (11.6-14.8); White Blood Cell Count 6.6 X10^3/uL (4.5-11.0)
[2023-06-22 10:15] LABS: Prothrombin Time 11.1 SECONDS (10.1-12.7)
[2023-06-22 10:18] LABS: PTT Partial Thromboplastin Tim 27 SECONDS (26-36)
[2023-06-22 10:21] LABS: Alanine Aminotransferase 30 IU/L (<50); Albumin 4.3 g/dL (3.5-5.0); Alkaline Phosphatase 85 U/L (38-126); Aspartate Aminotransferase 30 IU/L (17-59); BUN Creatinine Ratio 18.9 (6-22); Bilirubin Total 1.3 mg/dL (0.2-1.3); Blood Urea Nitrogen 14 mg/dL (9-20); Calcium 9.2 mg/dL (8.4-10.2); Carbon Dioxide 32 mmol/L (22-32); Chloride 101 mmol/L (98-107); Creatine Kinase 54 U/L (55-170); Estimated Glomerular Filt Rate > 60 mL/min (>60); Globulin 4.3 g/dL (1.7-4.1); Glucose 108 mg/dL (80-110); HEMOLYSIS < 15 (0-50); Lipase 66 U/L (23-300); Potassium 4.1 mmol/L (3.4-5.1); Sodium 138 mmol/L (137-145); Total Protein 8.6 g/dL (6.3-8.2)
[2023-06-22 10:32] LABS: NT-proBNP (BNP-Adult 18+) 362 pg/mL (<450); Troponin I < 0.012 ng/mL (0.01-0.034)
[2023-06-22] MEDS: MORPHINE 2 MG/ML INJ IV (10:33)
[2023-06-22 10:53] LABS: Influenza A - CEPHEID Flu A NEGATIVE (NEGATIVE); Influenza B - CEPHEID Flu B NEGATIVE (NEGATIVE); Respiratory Syncytial Virus Negative (Negative)
[2023-06-22 10:54] LABS: COVID-19 CEPHEID 4-PLEX PCR Negative (Negative)
[2023-06-22] MEDS: PANTOPRAZOLE 40 MG VIAL IV (12:20)
[2023-06-22 12:39] LABS: Troponin I < 0.012 ng/mL (0.01-0.034)
--- NOTE | 2023-06-22 13:33 | DI.CT.S_ITS ---
PROCEDURE: CT ANGIO CHEST PE PROTOCOL INDICATIONS: chest pain sob TECHNIQUE: After the administration of intravenous contrast, 2 mm thick sections acquired from the pulmonary apices to the posterior costophrenic angles. 3-dimensional maximum intensity projection (MIP) coronal and sagittal reformats were then acquired through the thorax. For radiation dose reduction, the following was used: automated exposure control, adjustment of mA and/or kV according to patient size. COMPARISON: , CR, XR CHEST 1V, 06/22/2023, 10:20. FINDINGS: Image quality: Excellent. Pulmonary arteries: Pulmonary arteries are normal in size, and demonstrate no intraluminal filling defects to suggest central pulmonary embolism. Lungs and pleura: Small basilar effusions with compressive atelectasis in the bibasilar regions. Central and peripheral airways are patent. Mediastinum: Heart size is normal, without pericardial effusion. No mediastinal or hilar adenopathy. Thoracic aorta is normal in caliber and enhancement. Esophagus is normal in caliber, without hiatal hernia. Bones and chest wall: No suspicious bony lesions. Ribs and thoracic spine appear intact throughout. Thyroid gland is unremarkable No axillary or supraclavicular adenopathy. Abdomen: Visualized upper abdominal solid organs appear normal in the early arterial phase of enhancement. IMPRESSION: No pulmonary embolus. Bibasilar atelectasis and/or scarring with infection not excluded. Dictated by: Alexsander Michelle M.D. on 06/22/2023 at 14:07 Approved by: Alexsander Michelle M.D. on 06/22/2023 at 14:12
[2023-06-22] MEDS: methylPREDNISolone 125 MG/2 ML VIAL IV (14:16)
[2023-06-22] MEDS: diphenhydrAMINE 50 MG/ML VIAL 25 MG IV (14:16)
== END 2023-06-22 15:42 | disposition home or self-care (01) ==
PROVIDERS: Emergency Provider Emergency Medicine; PCP Family Medicine
DX: R07.89 Other chest pain (principal); Z79.01 Long term (current) use of anticoagulants; Z20.822 Contact with and (suspected) exposure to COVID-19
CPT/HCPCS: 0241U; 36415; 71045; 71275; 80053; 82550; 83690; 83735; 83880; 84484; 85025; 85610; 85730; 93005; 93010; 96374; 96375; 99284; 99285; C9113; J1200; J2270; J2930; Q9967

== ENCOUNTER 2023-09-03 19:07 | Emergency (ER) | payer MEDICARE, OTHER, SELFPAY ==
[2023-09-03 19:10] VITALS: BP 140/67; PULSE 86; RESP 16; TEMP 36.6; O2SAT 96; BMI 33.9
--- NOTE | 2023-09-03 19:21 | DI.CT.S_ITS ---
PROCEDURE: CT CERVICAL SPINE WO CON INDICATIONS: fall/hit head TECHNIQUE: Noncontrast 3 mm thick sections acquired from the skull base to the T4 level. Sagittal and coronal reformats were then constructed. For radiation dose reduction, the following was used: automated exposure control, adjustment of mA and/or kV according to patient size. COMPARISON: [facility], CT, CT CERVICAL SPINE WITHOUT CONTRAST, 08/12/2018, 16:08. FINDINGS: Image quality: Excellent. Bones: The craniocervical junction is intact. Mild degenerative space loss and spurring at the atlantodental interval. No cervical vertebral body fractures or pathologic subluxation. Bilateral facet degeneration C3 through C5. There is a stable anterior wedge deformity of T1 vertebral body. Soft tissues: Prevertebral soft tissues are normal in thickness. No paravertebral hematomas. No apical pneumothoraces. Mild circumferential carotid bulb calcification. IMPRESSION: 1. No CT evidence of acute cervical spine trauma. 2. Stable appearance of chronic T1 compression fracture. 3. Facet degeneration. Dictated by: Kayla Hickman M.D. on 09/03/2023 at 20:16 Approved by: Kayla Hickman M.D. on 09/03/2023 at 20:21
--- NOTE | 2023-09-03 19:21 | DI.CT.S_ITS ---
PROCEDURE: CT HEAD/BRAIN WO CON INDICATIONS: fall/hit head TECHNIQUE: Noncontrast 4.5 mm thick angled axial sections acquired from the foramen magnum to the vertex, with coronal and sagittal reformats. For radiation dose reduction, the following was used: automated exposure control, adjustment of mA and/or kV according to patient size. COMPARISON: [facility], CT, HEAD WITHOUT CONTRAST, 05/13/2011, 9:09. FINDINGS: Image quality: Excellent. CSF spaces: Basal cisterns are patent. No extra-axial fluid collections. The ventricles are symmetric in size and shape. Brain: No intracranial bleeds or masses. There is cerebral volume loss for age, with resultant ventricular and sulcal prominence. There are prominent periventricular and deep white matter chronic small vessel ischemic changes. There is intracranial internal carotid artery atherosclerosis. Skull and face: Small subcutaneous hematoma over the left superomedial orbit. No underlying fracture. No radiodense debris. Sinuses: Visualized sinuses and mastoids are clear. IMPRESSION: 1. No CT evidence of acute intracranial trauma. 2. Small left supraorbital subcutaneous hematoma without underlying fracture. 3. Age-appropriate cerebral cortical volume loss and prominent chronic microvascular ischemic changes. Dictated by: Kayla Hickman M.D. on 09/03/2023 at 20:12 Approved by: Kayla Hickman M.D. on 09/03/2023 at 20:16
[2023-09-03 19:53] VITALS: BP 144/71
--- NOTE | 2023-09-03 19:53 | ED.FALL ---
HPI - Fall General Chief Complaint: Fall Stated Complaint: Fall Time Seen by Provider: 09/03/23 19:31 Source: patient, family and EMS Mode of arrival: EMS Limitations: no limitations History of Present Illness HPI Narrative: Patient is an 87-year-old male. He is not currently on anticoagulation although he has been prescribed this in the past. Also has a history of lymphoma. His brought in by EMS for evaluation of a fall and a head injury. He was standing in his kitchen. His was with him when he fell. She is at bedside. She states he was unloading a box of groceries when he seemed to just fall forward and hit his head on the ground. There was potentially a short loss of consciousness. There was no seizure-like activity. Patient reports he does have a slight headache and a bruise on his forehead but no other injuries from the event. Prior to falling over he did not have chest pain or shortness of breath or lightheadedness or vertigo. Related Data Previous Rx's Medication Instructions Recorded apixaban 5 mg tablet (Eliquis) See Rx Instructions .Route 05/15/23 .COMPLEX #60 tabs Disabled Parking #1 ea 06/12/23 hydrocodone 5 mg-acetaminophen 325 1 tab PO Q6H PRN pain #10 tabs 06/22/23 mg tablet Allergies Allergy/AdvReac Type Severity Reaction Status Date / Time venom-wasp Allergy Severe Swelling Verified 06/22/23 10:03 iodine [IODINE] Allergy Mild HIVES Verified 06/22/23 10:03 /BLISTERS venom-honey bee Allergy Mild ANGIOEDEMA Verified 06/22/23 10:03 [BEE VENOM (HONEY BEE)] wheat [WHEAT] Allergy Mild GI UPSET Verified 06/22/23 10:03 Review of Systems Review of Systems ROS Unobtainable: All systems reviewed & are unremarkable except as noted in HPI and below Patient History Social History marital status: Smoking Status: Never smoker alcohol intake: never substance use type: does not use Smoking Status: Never smoker Substance Use Type: does not use Exam Initial Vital Signs Initial Vital Signs: Vital Signs Temperature 97.8 F 09/03/23 19:10 Pulse Rate 86 09/03/23 19:10 Respiratory Rate 16 09/03/23 19:10 Blood Pressure 140/67 09/03/23 19:10 Pulse Oximetry 96 09/03/23 19:10 Oxygen Delivery Method Room Air 09/03/23 19:10 Const General: cooperative, comfortable and No ill appearing HENMT Head: No abrasion, contusion (Right forehead) and No laceration Resp Effort & Inspection: normal respiratory effort Cardio Rate: regular rate GI Inspection: normal to inspection and non-distended Skin Other: Small contusion right forehead Neuro General: patient alert, patient awake, patient oriented x3 and moves all extremities Speech: speech normal Gait: normal gait Extrem General: normal to inspection and capillary refill normal Scores [place] CT Head Rule Age <16 years old: No Patient on blood thinners: No Seizure after injury: No Exclusion: Patient NOT Excluded, Proceed to next steps GCS < 15 at 2 hr post trauma: No Suspected open or depressed skull fracture: No Any sign of basilar skull fracture (hemotympanum, raccoon eyes, Ritter's sign, CSF antoine-/rhinorrhea): No Two or more episodes of vomiting: No Age greater or equal to 65 years: Yes Retrograde amnesia to the event greater or equal to 30 min: No Dangerous Mechanism (pedestrian vs. mv, occupant ejected from mv, fall from >3 ft or > 5 stairs): No Recommendation: Consider CT. The [place] Head CT Rule cannot rule out need for Imaging. GCS [place] coma scale eye opening: Spontaneous Dinah coma scale verbal response: Orientated Dinah coma scale motor response: Obey commands Dinah coma scale total score: 15 Course Orders Ordered: ED Orders 09/03/23 19:21 CT cervical spine wo con Stat CT head/brain wo con Stat 09/03/23 19:31 EKG-12 Lead Stat 09/03/23 20:06 Basic Metabolic Panel Stat Complete Blood Count AUTO DIFF Stat Vital Signs Vital signs: Vital Signs - 8 hr 09/03/23 19:10 09/03/23 19:53 09/03/23 19:54 Temperature 97.8 F Pulse Rate 86 86 Respiratory Rate 16 14 Blood Pressure 140/67 144/71 H Pulse Oximetry 96 93 Oxygen Delivery Method Room Air Room Air 09/03/23 20:00 09/03/23 20:00 09/03/23 20:30 Temperature Pulse Rate 86 Respiratory Rate 16 Blood Pressure 144/76 H 137/74 Pulse Oximetry 95 Oxygen Delivery Method Room Air 09/03/23 20:30 09/03/23 21:00 09/03/23 21:00 Temperature Pulse Rate 83 85 Respiratory Rate 15 17 Blood Pressure 131/65 Pulse Oximetry 93 93 Oxygen Delivery Method Room Air Room Air MDM - Fall Lab Data Attestation: I reviewed the patient's lab results. 09/03/23 20:06 09/03/23 20:06 Labs: Lab Results 09/03/23 Range/Units 20:06 WBC 6.4 (4.5-11.0) X10^3/uL RBC 4.24 L (4.5-5.9) X10^6/uL Hgb 14.5 (13.5-17.5) g/dL Hct 42.4 (41-53) % MCV 99.9 (80-100) fL MCH 34.1 H (26-34) PG MCHC 34.1 (30-36) % RDW 15.0 H (11.6-14.8) % Plt Count 166 (150-400) X10^3/uL Neut % (Auto) 68.6 (50-75) % Lymph % (Auto) 19.5 L (25-40) % [place] % (Auto) 6.4 (3-14) % Eos % (Auto) 5.0 H (2-4) % Baso % (Auto) 0.5 (0-2) % Neut # (Auto) 4400 (9108-0396) /uL Lymph # (Auto) 1200 (8809-2763) /uL [place] # (Auto) 400 (0-900) /uL Eos # (Auto) 300 (0-450) /uL Baso # (Auto) 0 (0-100) /uL Sodium 137 (137-145) mmol/L Potassium 4.2 (3.4-5.1) mmol/L Chloride 101 (98-107) mmol/L Carbon Dioxide 28 (22-32) mmol/L BUN 17 (9-20) mg/dL Creatinine 0.78 (0.66-1.25) mg/dL Estimated GFR > 60 (>60) mL/min BUN/Creatinine Ratio 21.8 (6-22) Glucose 109 (80-110) mg/dL Calcium 9.2 (8.4-10.2) mg/dL Imaging Data CT - cervical spine: Radiologist's Impression: PROCEDURE: CT CERVICAL SPINE WO CON INDICATIONS: fall/hit head TECHNIQUE: Noncontrast 3 mm thick sections acquired from the skull base to the T4 level. Sagittal and coronal reformats were then constructed. For radiation dose reduction, the following was used: automated exposure control, adjustment of mA and/or kV according to patient size. COMPARISON: [facility], CT, CT CERVICAL SPINE WITHOUT CONTRAST, 08/12/2018, 16:08. FINDINGS: Image quality: Excellent. Bones: The craniocervical junction is intact. Mild degenerative space loss and spurring at the atlantodental interval. No cervical vertebral body fractures or pathologic subluxation. Bilateral facet degeneration C3 through C5. There is a stable anterior wedge deformity of T1 vertebral body. Soft tissues: Prevertebral soft tissues are normal in thickness. No paravertebral hematomas. No apical pneumothoraces. Mild circumferential carotid bulb calcification. IMPRESSION: 1. No CT evidence of acute cervical spine trauma. 2. Stable appearance of chronic T1 compression fracture. 3. Facet degeneration. CT scan - head: Radiologist's Impression: PROCEDURE: CT HEAD/BRAIN WO CON INDICATIONS: fall/hit head TECHNIQUE: Noncontrast 4.5 mm thick angled axial sections acquired from the foramen magnum to the vertex, with coronal and sagittal reformats. For radiation dose reduction, the following was used: automated exposure control, adjustment of mA and/or kV according to patient size. COMPARISON: [facility], CT, HEAD WITHOUT CONTRAST, 05/13/2011, 9:09. FINDINGS: Image quality: Excellent. CSF spaces: Basal cisterns are patent. No extra-axial fluid collections. The ventricles are symmetric in size and shape. Brain: No intracranial bleeds or masses. There is cerebral volume loss for age, with resultant ventricular and sulcal prominence. There are prominent periventricular and deep white matter chronic small vessel ischemic changes. There is intracranial internal carotid artery atherosclerosis. Skull and face: Small subcutaneous hematoma over the left superomedial orbit. No underlying fracture. No radiodense debris. Sinuses: Visualized sinuses and mastoids are clear. IMPRESSION: 1. No CT evidence of acute intracranial trauma. 2. Small left supraorbital subcutaneous hematoma without underlying fracture. 3. Age-appropriate cerebral cortical volume loss and prominent chronic microvascular ischemic changes. ECG Data Interpretation: Sinus rhythm Ventricular rate 89 Normal axis Normal QRS Normal QTC No ST T wave changes MDM Narrative Medical decision making narrative: Patient is low risk per the Gobler syncope tool. GCS of 15. Patient had no prodromal symptoms. Not on anticoagulation. Head CT and cervical spine CT unremarkable. Labs unremarkable. No history of heart failure. Is not anemic. Normal sinus rhythm on his EKG. He is no other injuries from the event. We discussed syncope and also falling. No need for admission to the hospital today. Will have him contact his primary doctor for a follow-up. He was given return precautions. He expressed understanding and agreement. Discharge Plan Departure Patient Disposition: Home Clinical Impression: Forehead contusion, Fall Instructions: How to Prevent Falls Activity Restrictions/Additional Instructions: Recommend that you continue to take all of your medications as directed. Keep all of your scheduled medical appointments. Return to the emergency department for new or worsening symptoms. Prescriptions: No Action Eliquis 5 mg tablet See Rx Instructions .ROUTE .COMPLEX Qty: 60 5RF Dose Instruction: TAKE ONE TABLET BY MOUTH TWICE DAILY Rx Instructions: TAKE ONE TABLET BY MOUTH TWICE DAILY (DME) Disabled Parking See Rx Instructions .ROUTE .MEDSUPPLY Qty: 1 0RF Rx Instructions: I find this patient to be medically disabled and qualified for Disabled Parking as indicated, and signed, on the Accompanying Disabled Parking Application for Individuals hydrocodone-acetaminophen 5-325 mg tablet 1 tab PO Q6H PRN (Reason: pain) Qty: 10 0RF Referrals: Camden Hoang MD [Primary Care Provider] - Stand Alone Forms: Patient Portal/API
[2023-09-03 19:54] VITALS: PULSE 86; RESP 14; O2SAT 93
[2023-09-03 20:00] VITALS: BP 144/76; PULSE 86; RESP 16; O2SAT 95
[2023-09-03 20:27] LABS: Add Manual Diff / Slide Review NO; Basophils Absolute Auto 0 /uL (0-100); Basophils Percent Auto 0.5 % (0-2); Eosinophils Absolute Auto 300 /uL (0-450); Hematocrit 42.4 % (41-53); Hemoglobin 14.5 g/dL (13.5-17.5); Lymphocytes Absolute Auto 1200 /uL (1100-4500); Lymphocytes Percent Auto 19.5 % (25-40); Mean Corpuscular HGB Conc 34.1 % (30-36); Mean Corpuscular Hemoglobin 34.1 PG (26-34); Mean Corpuscular Volume 99.9 fL (80-100); Monocytes Absolute Auto 400 /uL (0-900); Monocytes Percent Auto 6.4 % (3-14); Neutrophils Absolute Auto 4400 /uL (1500-7000); Neutrophils Percent Auto 68.6 % (50-75); Platelet Count 166 X10^3/uL (150-400); Red Blood Cell Count 4.24 X10^6/uL (4.5-5.9); White Blood Cell Count 6.4 X10^3/uL (4.5-11.0)
[2023-09-03 20:30] VITALS: BP 137/74; PULSE 83; RESP 15; O2SAT 93
[2023-09-03 20:41] LABS: BUN Creatinine Ratio 21.8 (6-22); Blood Urea Nitrogen 17 mg/dL (9-20); Calcium 9.2 mg/dL (8.4-10.2); Carbon Dioxide 28 mmol/L (22-32); Chloride 101 mmol/L (98-107); Estimated Glomerular Filt Rate > 60 mL/min (>60); Glucose 109 mg/dL (80-110); HEMOLYSIS 19 (0-50); Potassium 4.2 mmol/L (3.4-5.1); Sodium 137 mmol/L (137-145)
[2023-09-03 21:00] VITALS: BP 131/65; PULSE 85; RESP 17; O2SAT 93
--- NOTE | 2023-09-03 21:12 | PC.NURSE ---
Patient ambulated around the unit with a steady gait. Patient denied chest pain, SOB, dizziness or pain. Dr. Peck notified.
== END 2023-09-03 21:31 | disposition home or self-care (01) ==
PROVIDERS: Emergency Provider Emergency Medicine; PCP Family Medicine
DX: S00.83XA Contusion of other part of head, initial encounter (principal); R07.9 Chest pain, unspecified; W18.30XA Fall on same level, unspecified, initial encounter
CPT/HCPCS: 70450; 72125; 80048; 85025; 93005; 93010; 99284

== ENCOUNTER → 2024-04-07 07:35 | Outpatient (CLI) | payer MEDICARE, OTHER, SELFPAY ==
[2024-04-07 08:58] LABS: Add Manual Diff / Slide Review NO; Basophils Absolute Auto 0 /uL (0-100); Basophils Percent Auto 0.4 % (0-2); Eosinophils Absolute Auto 400 /uL (0-450); Eosinophils Percent Auto 7.5 % (2-4); Hematocrit 41.5 % (41-53); Hemoglobin 14.1 g/dL (13.5-17.5); Lymphocytes Absolute Auto 1800 /uL (1100-4500); Lymphocytes Percent Auto 35.2 % (25-40); Mean Corpuscular Hemoglobin 33.8 PG (26-34); Mean Corpuscular Volume 99.3 fL (80-100); Monocytes Absolute Auto 300 /uL (0-900); Neutrophils Absolute Auto 2700 /uL (1500-7000); Neutrophils Percent Auto 51.9 % (50-75); Platelet Count 157 X10^3/uL (150-400); Red Blood Cell Count 4.18 X10^6/uL (4.5-5.9); Red Cell Distribution Width 15.7 % (11.6-14.8); White Blood Cell Count 5.2 X10^3/uL (4.5-11.0)
[2024-04-07 09:18] LABS: Alanine Aminotransferase 22 IU/L (<50); Albumin 3.9 g/dL (3.5-5.0); Albumin Globulin Ratio 1.1 (1.0-2.8); Alkaline Phosphatase 73 U/L (38-126); Aspartate Aminotransferase 30 IU/L (17-59); BUN Creatinine Ratio 21.9 (6-22); Bilirubin Total 1.2 mg/dL (0.2-1.3); Blood Urea Nitrogen 16 mg/dL (9-20); Calcium 8.9 mg/dL (8.4-10.2); Carbon Dioxide 32 mmol/L (22-32); Chloride 105 mmol/L (98-107); Cholesterol 238 mg/dL (140-199); Estimated Glomerular Filt Rate > 60 mL/min (>60); Globulin 3.4 g/dL (1.7-4.1); Glucose 103 mg/dL (80-110); HDL Cholesterol 101 mg/dL (40-60); HEMOLYSIS 50 (0-50); LDL Cholesterol Calculated 122 mg/dL (<100); Potassium 4.4 mmol/L (3.4-5.1); Sodium 139 mmol/L (137-145); Total Protein 7.3 g/dL (6.3-8.2); Triglycerides 74 mg/dL (35-150)
[2024-04-07 09:55] LABS: TSH w/ Reflex to FT4 5.72 uIU/mL (0.47-4.68)
[2024-04-07 10:23] LABS: Free T4, Direct Thyroxine 0.67 ng/dL (0.78-2.19)
== END ==
PROVIDERS: PCP Family Medicine; Referring Provider Family Medicine; Visit Provider Family Medicine
DX: E03.9 Hypothyroidism, unspecified (principal); I82.409 Acute embolism and thrombosis of unspecified deep veins of unspecified lower extremity; I89.0 Lymphedema, not elsewhere classified
CPT/HCPCS: 36415; 80053; 80061; 84439; 84443; 85025

== ENCOUNTER 2024-07-31 09:51 | Emergency (ER) | payer MEDICARE, OTHER, SELFPAY ==
[2024-07-31 09:51] VITALS: BP 158/78; PULSE 85; RESP 20; TEMP 36.3; O2SAT 97; BMI 33.9
--- NOTE | 2024-07-31 09:59 | DI.RAD.S_ITS ---
PROCEDURE: XR TIBIA FIBULA LT 2V INDICATIONS: Left lower leg pain after fall TECHNIQUE: 2 views of the tibia and fibula were acquired. COMPARISON: None. FINDINGS: Bones: No fractures or dislocations. No suspicious bony lesions. Soft tissues: No suspicious soft tissue calcifications or masses. Vascular calcifications. IMPRESSION: No acute bony abnormality. Dictated by: Alexsander Michelle M.D. on 07/31/2024 at 9:45 Approved by: Alexsander Michelle M.D. on 07/31/2024 at 9:46
--- NOTE | 2024-07-31 09:59 | DI.RAD.S_ITS ---
PROCEDURE: XR FEMUR LT MIN 2V INDICATIONS: Left upper leg pain after fall TECHNIQUE: 2 views of the femur were acquired. COMPARISON: [facility], CR, XR TIBIA FIBULA LT 2V, 07/31/2024, 10:12. FINDINGS: Bones: No fractures or dislocations. No suspicious bony lesions. Soft tissues: No suspicious soft tissue calcifications or masses. IMPRESSION: No acute bony abnormality. Dictated by: Alexsander Michelle M.D. on 07/31/2024 at 9:42 Approved by: Alexsander Michelle M.D. on 07/31/2024 at 9:45
--- NOTE | 2024-07-31 10:01 | ED.GENADULT ---
HPI - General Adult General Chief complaint: Extremity Injury, Lower Stated complaint: L leg injury Time Seen by Provider: 07/31/24 09:53 Source: patient and family Mode of arrival: Wheelchair Limitations: no limitations History of Present Illness HPI narrative: Patient is an 88-year-old male here for evaluation of a left leg injury. He was on anticoagulation secondary to prior history of blood clots. Last evening he was sitting in the hot. He got out of the hot tub. Was sitting on a stool next the hot tub. His states that she thinks that the stool gave out from underneath him and he got his left leg caught under him and landed on his left leg. Has had difficulty walking since then. Describes pain in his upper leg and in his lower leg as well. Did not hit his head. No right lower extremity discomfort. No upper extremity discomfort. Related Data Previous Rx's Medication Instructions Recorded Disabled Parking #1 ea 06/12/23 hydrocodone 5 mg-acetaminophen 325 1 tab PO Q6H PRN pain #10 tabs 06/22/23 mg tablet apixaban 5 mg tablet (Eliquis) See Rx Instructions .Route 09/25/23 .COMPLEX #60 tabs levothyroxine 75 mcg capsule 75 mcg PO DAILY #90 caps 04/26/24 hydrocodone 5 mg-acetaminophen 325 1 tab PO Q4-6H PRN pain #10 tabs 07/31/24 mg tablet Allergies Allergy/AdvReac Type Severity Reaction Status Date / Time venom-wasp Allergy Severe Swelling Verified 07/31/24 10:12 iodine [IODINE] Allergy Mild HIVES Verified 07/31/24 10:12 /BLISTERS venom-honey bee Allergy Mild ANGIOEDEMA Verified 07/31/24 10:12 [BEE VENOM (HONEY BEE)] wheat [WHEAT] Allergy Mild GI UPSET Verified 07/31/24 10:12 merbromin Allergy Rash Verified 07/31/24 10:12 [From Mercurochrome] Review of Systems Constitutional Constitutional: Reports system reviewed and no additional complaints, except as documented Musculoskeletal Musculoskeletal: Reports system reviewed and no additional complaints, except as documented Integumentary/Breasts Skin/Breast: Reports system reviewed and no additional complaints, except as documented Neurologic Neurologic: Reports system reviewed and no additional complaints, except as documented Hematologic/Lymphatic On Anticoagulants: Yes Patient History Social History marital status: Smoking Status: Never smoker alcohol intake: never substance use type: does not use Smoking Status: Never smoker Substance Use Type: does not use Exam Initial Vital Signs Initial Vital Signs: Vital Signs Temperature 97.3 F L 07/31/24 09:51 Pulse Rate 85 07/31/24 09:51 Respiratory Rate 20 07/31/24 09:51 Blood Pressure 158/78 H 07/31/24 09:51 Pulse Oximetry 97 07/31/24 09:51 Oxygen Delivery Method Room Air 07/31/24 09:51 Const General: cooperative and comfortable HENMT Head: normal to inspection and normocephalic Skin Other: Chronic changes in the skin and lower extremity secondary to edema. Neuro General: patient alert and patient awake Extrem Other: No gross deformities but does have discomfort with palpation of the upper leg and distal to the knee. Course Orders Ordered: ED Orders 07/31/24 09:59 XR femur LT min 2V Stat XR tibia fibula LT 2V Stat 07/31/24 10:54 XR foot LT min 3V Stat Discontinued Medications Hydrocodone Bitart/Acetaminophen (Hydrocodone/Acet 5/325 Tablet) 1 tab PO NOW ONE Stop: 07/31/24 10:39 Last Admin: 07/31/24 10:49 Dose: 1 tab Documented By: SEBASTIAN Vital Signs Vital signs: Vital Signs - 8 hr 07/31/24 09:51 Temperature 97.3 F L Pulse Rate 85 Respiratory Rate 20 Blood Pressure 158/78 H Pulse Oximetry 97 Oxygen Delivery Method Room Air Medical Decision Making Imaging Data Extremity x-ray #1: Radiologist's Impression: PROCEDURE: XR TIBIA FIBULA LT 2V INDICATIONS: Left lower leg pain after fall TECHNIQUE: 2 views of the tibia and fibula were acquired. COMPARISON: None. FINDINGS: Bones: No fractures or dislocations. No suspicious bony lesions. Soft tissues: No suspicious soft tissue calcifications or masses. Vascular calcifications. IMPRESSION: No acute bony abnormality. Extremity x-ray #2: Radiologist's Impression: PROCEDURE: XR FEMUR LT MIN 2V INDICATIONS: Left upper leg pain after fall TECHNIQUE: 2 views of the femur were acquired. COMPARISON: [facility], , XR TIBIA FIBULA LT 2V, 07/31/2024, 10:12. FINDINGS: Bones: No fractures or dislocations. No suspicious bony lesions. Soft tissues: No suspicious soft tissue calcifications or masses. IMPRESSION: No acute bony abnormality. Extremity x-ray #3: Radiologist's Impression: PROCEDURE: XR FOOT LT MIN 3V INDICATIONS: L foot pain after fall injury TECHNIQUE: 3 views of the foot were acquired. COMPARISON: [facility], CR, XR TIBIA FIBULA LT 2V, 07/31/2024, 10:12. FINDINGS: Nonstandard patient positioning and patient compliance degraded imaging. Bones: No fractures or dislocations. No suspicious bony lesions. Soft tissues: No tibiotalar joint effusion. Achilles tendon appears normal. Vascular calcifications. IMPRESSION: No acute bony abnormality. MDM Narrative Medical decision making narrative: According to the patient's description of the event this does appear to be a mechanical fall. There are no fractures noted on the x-rays of his left lower extremity. He does report some improvement of symptoms with pain medication. He does not have pain medication at home. He was on anticoagulation but did not hit his head. He was a walker and a cane at home. Will discharge home with symptom control. He was given return precautions. He expressed understanding and agreement. Discharge Plan Departure Patient Disposition: Home Clinical Impression: Lower extremity pain, left Instructions: How to Prevent Falls Activity Restrictions/Additional Instructions: No fractures were noted on any of the x-rays today. You can walk 1 your left leg as tolerated however over the next couple days you may need to use the cane and walker that you have at home. Pain medications were sent to [facility]. Return to the emergency department for new symptoms. Prescriptions: New hydrocodone-acetaminophen 5-325 mg tablet 1 tab PO Q4-6H PRN (Reason: pain) Qty: 10 0RF No Action (DME) Disabled Parking See Rx Instructions .ROUTE .MEDSUPPLY Qty: 1 0RF Rx Instructions: I find this patient to be medically disabled and qualified for Disabled Parking as indicated, and signed, on the Accompanying Disabled Parking Application for Individuals Eliquis 5 mg tablet See Rx Instructions .ROUTE .COMPLEX Qty: 60 5RF Dose Instruction: TAKE ONE TABLET BY MOUTH TWICE DAILY Rx Instructions: TAKE ONE TABLET BY MOUTH TWICE DAILY levothyroxine 75 mcg capsule 75 mcg PO DAILY Qty: 90 3RF hydrocodone-acetaminophen 5-325 mg tablet 1 tab PO Q6H PRN (Reason: pain) Qty: 10 0RF Referrals: Camden Hoang MD [Primary Care Provider] - Stand Alone Forms: Patient Portal/API
[2024-07-31] MEDS: HYDROCODONE/ACET 5/325 TABLET 1 TAB PO (10:49)
--- NOTE | 2024-07-31 10:54 | DI.RAD.S_ITS ---
PROCEDURE: XR FOOT LT MIN 3V INDICATIONS: L foot pain after fall injury TECHNIQUE: 3 views of the foot were acquired. COMPARISON: [facility], CR, XR TIBIA FIBULA LT 2V, 07/31/2024, 10:12. FINDINGS: Nonstandard patient positioning and patient compliance degraded imaging. Bones: No fractures or dislocations. No suspicious bony lesions. Soft tissues: No tibiotalar joint effusion. Achilles tendon appears normal. Vascular calcifications. IMPRESSION: No acute bony abnormality. Dictated by: Alexsander Michelle M.D. on 07/31/2024 at 10:42 Approved by: Alexsander Michelle M.D. on 07/31/2024 at 10:45
[2024-07-31 12:24] VITALS: BP 148/80; PULSE 85; O2SAT 93
== END 2024-07-31 12:43 | disposition home or self-care (01) ==
PROVIDERS: Emergency Provider Emergency Medicine; PCP Family Medicine
DX: S89.92XA Unspecified injury of left lower leg, initial encounter (principal); W07.XXXA Fall from chair, initial encounter; Z79.01 Long term (current) use of anticoagulants
CPT/HCPCS: 73552; 73590; 73630; 99283

== ENCOUNTER → 2024-08-17 07:46 | Outpatient (CLI) | payer MEDICARE, OTHER, SELFPAY ==
--- NOTE | 2024-08-17 07:47 | DI.MRI.S_ITS ---
PROCEDURE: MR KNEE LT WO CON INDICATIONS: Injury to left knee; suspect cartilage/ligament tear TECHNIQUE: Noncontrast sagittal PD fast spin echo and T2 fast spin echo with fat saturation, sagittal 3-D FLASH with fat saturation; coronal T1 spin echo and PD fast spin echo with fat saturation, and axial PD fast spin echo with fat saturation through the knee. COMPARISON: None. FINDINGS: Image quality: Excellent. Menisci: Peripheral displacement of medial meniscus bowing medial collateral ligament is seen. Complex flap tear involving body and posterior horn of medial meniscus is seen extending to both superior and inferior articulating surfaces. There is also subtle oblique tear involving posterior horn of lateral meniscus extending to inferior articulating surfaces. Low-grade partial-thickness tear involving posterior medial meniscal root is seen. Cruciate ligaments: The anterior cruciate ligament appears thickened with intrasubstance T2 hyperintense signal near its distal insertion. The posterior cruciate ligament is intact. Medial structures: The medial collateral ligament appears thickened with surrounding soft tissue edema and intrasubstance T2 hyperintense signal. Visualized portions of the pes anserinus tendons appear normal. No abnormal bursal fluid. Lateral structures: The lateral collateral ligament, long and short heads of the biceps femoris tendon appear intact. The popliteus tendon appears intact. Iliotibial band appears normal. Anterior structures: Soft tissue swelling and edema along anterior aspect of patella and patella tendon is seen. Distal quadriceps tendinosis at its superior patellar insertion is seen. The patellar tendon is intact. Patellar alignment is normal. No femoral trochlear dysplasia or ventral trochlear prominence. No edema in the infrapatellar fat pad. Bones and cartilage: There is marrow edema involving posterior aspect of proximal tibia near PCL insertion. Additional ill-defined area of edema is also seen involving medial and lateral periphery of tibial plateau without discrete fracture line. Moderate tricompartmental osteoarthritis and chondromalacia is seen most notably in medial femoral tibial compartment. No fracture or dislocation. Joint space: There is small to moderate knee joint fluid. No Moses's cyst. Normal appearing synovial plicae are incidentally noted. IMPRESSION: 1. 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 No acute fracture or dislocation. Likely contusion involving medial and lateral periphery of proximal tibia as well as posterior aspect of proximal tibia extending to base of tibial spine near PCL insertion. 2. Small to moderate joint effusion, no loose bodies. 3. Complex flap tear involving body and posterior horn of medial meniscus extending to both superior and inferior articulating surfaces. Subtle oblique tear involving posterior horn of lateral meniscus extending to inferior articulating surface. Low-grade partial-thickness tear involving posterior medial meniscal root. 4. Sprain/intrasubstance partial-thickness tear involving ACL. No ACL rupture. The PCL is intact. 5. Low-grade MCL sprain/partial-thickness tear. 6. Distal quadriceps tendinosis. Dictated by: Marvin Faustin M.D. on 08/17/2024 at 11:57 Approved by: Marvin Faustin M.D. on 08/17/2024 at 12:02
== END ==
PROVIDERS: PCP Family Medicine; Referring Provider Physician Assistant; Visit Provider Physician Assistant
DX: S83.232A Complex tear of medial meniscus, current injury, left knee, initial encounter (principal); S83.282A Other tear of lateral meniscus, current injury, left knee, initial encounter; S83.8X2A Sprain of other specified parts of left knee, initial encounter; S83.512A Sprain of anterior cruciate ligament of left knee, initial encounter; S83.412A Sprain of medial collateral ligament of left knee, initial encounter; S89.92XA Unspecified injury of left lower leg, initial encounter; M79.605 Pain in left leg; M23.92 Unspecified internal derangement of left knee; M17.12 Unilateral primary osteoarthritis, left knee; M94.262 Chondromalacia, left knee; M25.462 Effusion, left knee; X58.XXXA Exposure to other specified factors, initial encounter
CPT/HCPCS: 73721

== ENCOUNTER 2025-04-18 14:52 | Emergency (ER) | payer MEDICARE, OTHER, SELFPAY ==
[2025-04-18 14:58] VITALS: BP 136/78; PULSE 80; RESP 20; TEMP 36.7; O2SAT 98; BMI 33.9
--- NOTE | 2025-04-18 15:06 | EKG_ITS ---
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
--- NOTE | 2025-04-18 19:21 | DI.RAD.S_ITS ---
PROCEDURE: XR CHEST 1V INDICATIONS: Chest Pain TECHNIQUE: One view of the chest was acquired. COMPARISON: [facility], CR, XR CHEST 1V, 06/22/2023, 10:20. FINDINGS: Surgical changes and devices: Postsurgical changes are noted in lower thoracic and lumbar spine. Lungs and pleura: Chronic emphysematous changes are seen. Right basilar scarring/atelectasis is noted. No definite focal infiltrate. No pleural effusions or pneumothorax. Mediastinum: Mediastinal contours appear normal. Heart size is normal. Bones and chest wall: No suspicious bony lesions. Overlying soft tissues appear unremarkable. IMPRESSION: COPD. Right basilar scarring/atelectasis. No definite focal infiltrate. Pneumothorax. Dictated by: Marvin Faustin M.D. on 04/18/2025 at 19:55 Approved by: Marvin Faustin M.D. on 04/18/2025 at 19:55
[2025-04-18 19:48] LABS: Add Manual Diff / Slide Review NO; Basophils Absolute Auto 0 /uL (0-100); Basophils Percent Auto 0.9 % (0-2); Eosinophils Absolute Auto 400 /uL (0-450); Eosinophils Percent Auto 7.3 % (2-4); Hematocrit 41.1 % (41-53); Lymphocytes Absolute Auto 1400 /uL (1100-4500); Lymphocytes Percent Auto 29.2 % (25-40); Mean Corpuscular HGB Conc 34.1 % (30-36); Mean Corpuscular Hemoglobin 33.5 PG (26-34); Mean Corpuscular Volume 98.5 fL (80-100); Monocytes Absolute Auto 200 /uL (0-900); Monocytes Percent Auto 4.7 % (3-14); Neutrophils Absolute Auto 2800 /uL (1500-7000); Neutrophils Percent Auto 57.9 % (50-75); Platelet Count 146 X10^3/uL (150-400); Red Blood Cell Count 4.17 X10^6/uL (4.5-5.9); White Blood Cell Count 4.9 X10^3/uL (4.5-11.0)
[2025-04-18 19:50] LABS: Prothrombin Time 11.8 SECONDS (9.4-12.5)
[2025-04-18 19:53] LABS: PTT Partial Thromboplastin Tim 30 SECONDS (25.1-36.5)
[2025-04-18 20:02] LABS: Alanine Aminotransferase 25 IU/L (<50); Albumin 4.2 g/dL (3.5-5.0); Albumin Globulin Ratio 1.2 (1.0-2.8); Alkaline Phosphatase 74 U/L (38-126); Aspartate Aminotransferase 29 IU/L (17-59); BUN Creatinine Ratio 20.8 (6-22); Bilirubin Total 1.4 mg/dL (0.2-1.3); Blood Urea Nitrogen 16 mg/dL (9-20); Calcium 9.2 mg/dL (8.4-10.2); Carbon Dioxide 27 mmol/L (22-32); Chloride 103 mmol/L (98-107); Creatine Kinase 45 U/L (55-170); Estimated Glomerular Filt Rate > 60 mL/min (>60); Globulin 3.5 g/dL (1.7-4.1); Glucose 99 mg/dL (70-99); HEMOLYSIS < 15 (0-50); Lipase 79 U/L (23-300); Potassium 4.2 mmol/L (3.4-5.1); Sodium 137 mmol/L (137-145); Total Protein 7.7 g/dL (6.3-8.2)
[2025-04-18 20:13] LABS: NT-proBNP (BNP-Adult 18+) 218 pg/mL (<450); Troponin I < 0.012 ng/mL (0.01-0.034)
== END 2025-04-18 20:08 | disposition left against medical advice (07) ==
PROVIDERS: Emergency Provider Emergency Medicine; PCP Family Medicine
DX: R07.9 Chest pain, unspecified (principal); Z53.21 Procedure and treatment not carried out due to patient leaving prior to being seen by health care provider
CPT/HCPCS: 71045; 80053; 82550; 83690; 83735; 83880; 84484; 85025; 85610; 85730; 93005; 99281

== ENCOUNTER 2025-05-08 17:49 | Inpatient (IN) | payer MEDICARE, OTHER, SELFPAY ==
[2025-05-08] VITALS (12 sets, daily range): BP systolic 129–150; BP diastolic 67–83; PULSE 91–111; RESP 13–24; TEMP 36.7; O2SAT 91–93; BMI 33.9; BMI 33.5
--- NOTE | 2025-05-08 18:00 | ED.FALL ---
HPI - Fall General Chief Complaint: Fall Stated Complaint: GLF Time Seen by Provider: 05/08/25 17:56 Source: patient Mode of arrival: EMS History of Present Illness HPI Narrative: Patient is a 88-year-old male history of factor 5 Leiden mutation, hypothyroidism, on Eliquis comes into the ED from home for evaluation of generalized weakness patient was brought in by EMS for generalized weakness, according to the patient he has been having multiple falls over the past several days, today he did not actually ?fall onto the floor states that he had to be slowly lowered to it. States that he has also been having intermittent chest pain over the past 2 days, currently complaining of chest pressure but denies any other symptoms such as headache visual disturbances shortness breath fever chills nausea vomiting abdominal pain or any other GI/ symptoms time. He states that today he was walking felt weak and his son was able to lower him to the floor he denies any actual pain trauma. States that the weakness has been ongoing persistent for the past week. Related Data Previous Rx's ?Medication ?Instructions ?Recorded Disabled Parking #1 ea 06/12/23 levothyroxine 75 mcg capsule 75 mcg PO DAILY #90 caps 04/26/24 hydrocodone 5 mg-acetaminophen 325 1 tab PO Q4-6H PRN pain #10 tabs 07/31/24 mg tablet apixaban 5 mg tablet (Eliquis) 5 mg PO BID #180 tabs 11/01/24 Allergies Allergy/AdvReac Type Severity Reaction Status Date / Time venom-wasp Allergy Severe Swelling Verified 05/08/25 17:55 iodine (IODINE) Allergy Mild HIVES Verified 05/08/25 17:55 /BLISTERS venom-honey bee (BEE VENOM Allergy Mild ANGIOEDEMA Verified 05/08/25 17:55 (HONEY BEE)) wheat (WHEAT) Allergy Mild GI UPSET Verified 05/08/25 17:55 Sulfa (Sulfonamide Allergy Unknown Verified 05/08/25 17:55 Antibiotics) merbromin (From Allergy Rash Verified 05/08/25 17:55 Mercurochrome) gluten AdvReac Unknown Verified 05/08/25 17:55 Review of Systems Review of Systems Narrative: General: Positive generalized weakness Denies fever, chills, weight loss HEENT: Denies headache, eye drainage, eye irritation, head trauma, sore throat, voice change Cardiovascular: Denies any chest pain, palpitations, tachycardia Respiratory: Denies any shortness of breath, cough, wheeze, stridor GI/: Denies any abdominal pain, nausea, vomiting, diarrhea, bright red blood per rectum, melanotic stools, urinary frequency, urinary retention, dysuria, hematuria MSK: Denies any joint pain, muscle pains, swelling Skin: Denies any rashes, lesions, discoloration Neuro: Denies any headache, lightheadedness, dizziness, fainting, weakness Psych: Denies SI/HI Patient History Social History marital status: Smoking Status: Never smoker alcohol intake: never substance use type: does not use Smoking Status: Never smoker Alcohol type: beer Exam Narrative Exam Narrative: General: Cooperative, well-developed, not in acute distress HEENT: Normocephalic, atraumatic, PERRLA, normal sclera, eyelids normal Neck: Active full range of motion, atraumatic Chest: Normal to inspection, negative crepitus, no overlying erythema ecchymosis Respiratory: Normal respiratory effort, not in acute respiratory distress, clear to auscultation bilaterally negative cough, wheeze, tachypnea, rhonchi, rales Cardiology: Regular rate rhythm negative gallop, murmur, rubs GI/: No tenderness to palpation, soft, non rigid, normal to inspection, exam deferred MSK: Full active range of motion in all 4 extremities, atraumatic, no tenderness to palpation of any bony prominences Skin: No rashes or lesions noted Neuro: Alert awake oriented x3, moves all 4 extremities spontaneously, cranial nerves intact, able to answer all questions appropriately follows commands appropriately Psych: Cooperative, negative suicidal or homicidal ideations Initial Vital Signs Initial Vital Signs: Vital Signs Temperature 98.1 F 05/08/25 17:50 Pulse Rate 99 H 05/08/25 17:50 Respiratory Rate 17 05/08/25 17:50 Blood Pressure 129/67 05/08/25 17:50 Pulse Oximetry 93 05/08/25 17:50 Oxygen Delivery Method Room Air 05/08/25 17:50 Course Orders Ordered: ED Orders 05/08/25 17:58 Complete Blood Count AUTO DIFF Stat Comprehensive Metabolic Panel Stat Lactate (Lactic Acid) Stat Lipase Stat MAG [Magnesium] Stat NT-proBNP (BNP-Adult 18+) Stat PTT Partial Thromboplastin Aaron Stat Prothrombin Time INR Stat Troponin & CK Cardiac Panel Stat 05/08/25 18:13 XR chest 1V Stat Urinalysis and Microscopic Stat EKG-12 Lead Stat 05/08/25 18:14 CT head/brain wo con Stat 05/08/25 18:33 Covid-19 + FLU A/B + RSV - PCR Stat 05/08/25 18:47 CT chest abd pel wo con Stat Discontinued Medications Ceftriaxone Sodium 1,000 mg/ (Sodium Chloride) 100 mls @ 200 mls/hr IV NOW ONE Stop: 05/08/25 19:44 Last Infusion: 05/08/25 20:31 Dose: Infused Documented By: Admin: 05/08/25 20:01 Dose: 200 mls/hr Documented By: ADELA Doxycycline Hyclate 100 mg/ (Sodium Chloride) 100 mls @ 100 mls/hr IV NOW ONE Stop: 05/08/25 19:44 Last Admin: 05/08/25 20:27 Dose: 100 mls/hr Documented By: ADELA Vital Signs Vital signs: Vital Signs - 8 hr 05/08/25 17:50 05/08/25 17:56 05/08/25 17:57 Temperature 98.1 F Pulse Rate 99 H 99 H 99 H Respiratory Rate 17 13 14 Blood Pressure 129/67 Pulse Oximetry 93 91 93 Oxygen Delivery Method Room Air 05/08/25 17:57 05/08/25 18:00 05/08/25 18:00 Temperature Pulse Rate 97 H Respiratory Rate 13 Blood Pressure 129/67 129/70 Pulse Oximetry 91 Oxygen Delivery Method 05/08/25 18:30 05/08/25 18:30 05/08/25 18:58 Temperature Pulse Rate 96 H 111 H Respiratory Rate 24 24 Blood Pressure 133/68 Pulse Oximetry 92 93 Oxygen Delivery Method 05/08/25 18:58 05/08/25 19:00 05/08/25 19:00 Temperature Pulse Rate 109 H Respiratory Rate Blood Pressure 149/83 H 150/80 H Pulse Oximetry 93 Oxygen Delivery Method 05/08/25 19:30 05/08/25 19:30 05/08/25 20:00 Temperature Pulse Rate 107 H 106 H Respiratory Rate 17 Blood Pressure 140/71 Pulse Oximetry 92 93 Oxygen Delivery Method 05/08/25 20:00 05/08/25 20:30 05/08/25 20:30 Temperature Pulse Rate 93 H Respiratory Rate 24 Blood Pressure 144/72 H 138/74 Pulse Oximetry 92 Oxygen Delivery Method 05/08/25 21:00 05/08/25 21:00 Temperature Pulse Rate 92 H Respiratory Rate 24 Blood Pressure 150/74 H Pulse Oximetry 92 Oxygen Delivery Method MDM - Fall Differential Diagnosis Differential diagnosis: Likely other (CVA, electrolyte abnormality, COVID, flu, ACS, urinary tract infection) Lab Data 05/08/25 17:58 05/08/25 17:58 Labs: Lab Results 05/08/25 05/08/25 Range/Units 17:58 18:33 WBC 6.3 (4.5-11.0) X10^3/uL RBC 3.74 L (4.5-5.9) X10^6/uL Hgb 12.6 L (13.5-17.5) g/dL Hct 36.9 L (41-53) % MCV 98.6 (80-100) fL MCH 33.6 (26-34) PG MCHC 34.1 (30-36) % RDW 15.5 H (11.6-14.8) % Plt Count 142 L (150-400) X10^3/uL Neut % (Auto) 83.5 H (50-75) % Lymph % (Auto) 11.3 L (25-40) % Hartley % (Auto) 4.8 (3-14) % Eos % (Auto) 0.2 L (2-4) % Baso % (Auto) 0.2 (0-2) % Neut # (Auto) 5200 (0291-1098) /uL Lymph # (Auto) 700 L (3760-8209) /uL Hartley # (Auto) 300 (0-900) /uL Eos # (Auto) 0 (0-450) /uL Baso # (Auto) 0 (0-100) /uL PT 14.5 H (9.4-12.5) SECONDS INR 1.3 (0.9-1.3) APTT 27 (25.1-36.5) SECONDS Sodium 130 L (137-145) mmol/L Potassium 4.4 (3.4-5.1) mmol/L Chloride 98 (98-107) mmol/L Carbon Dioxide 28 (22-32) mmol/L BUN 15 (9-20) mg/dL Creatinine 0.80 (0.66-1.25) mg/dL Estimated GFR > 60 (>60) mL/min BUN/Creatinine Ratio 18.8 (6-22) Glucose 149 H (70-99) mg/dL Lactate 1.4 (0.7-2.1) mmol/L Calcium 8.6 (8.4-10.2) mg/dL Magnesium 1.8 (1.6-2.3) mg/dL Total Bilirubin 1.7 H (0.2-1.3) mg/dL AST 201 H (17-59) IU/L ALT 142 H (<50) IU/L Alkaline Phosphatase 121 (38-126) U/L Total Creatine Kinase 34 L (55-170) U/L Troponin I < 0.012 (0.01-0.034) ng/mL NT-Pro-B Natriuret Pep 1210 H (<450) pg/mL Total Protein 7.6 (6.3-8.2) g/dL Albumin 3.6 (3.5-5.0) g/dL Globulin 4.0 (1.7-4.1) g/dL Albumin/Globulin Ratio 0.9 L (1.0-2.8) Lipase 30 (23-300) U/L SARS-CoV-2 (PCR) Negative (Negative) Influenza A (RT-PCR) Flu a negative (NEGATIVE) Influenza B (RT-PCR) Flu b negative (NEGATIVE) RSV (PCR) Negative (Negative) Imaging Data CT scan - head: Radiologist's Impression: [address] [address] [address] Scan Report Signed Patient: Timothy Best MR#: [id number] : 1935 Acct:[id number] Age/Sex: 89 / M Date of Service: 05/08/25 Loc: ED Accession Number: [id number] Procedure: CT head/brain wo con Ordering Provider: Mitch Perez D.O. PROCEDURE: CT HEAD/BRAIN WO CON INDICATIONS: weakness TECHNIQUE: Noncontrast 4.5 mm thick angled axial sections acquired from the foramen magnum to the vertex, with coronal and sagittal reformats. For radiation dose reduction, the following was used: automated exposure control, adjustment of mA and/or kV according to patient size. COMPARISON: [facility], CT, CT HEAD/BRAIN WO CON, 09/03/2023, 19:26. FINDINGS: Image quality: Diagnostic. CSF spaces: Basal cisterns are patent. No extra-axial fluid collections. The ventricles are symmetric in size and shape. Brain: No acute intracranial hemorrhage or mass effect. 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 There is moderate cerebral volume loss, with resultant ventricular and sulcal prominence. There are moderate to severe periventricular and deep white matter chronic small vessel ischemic changes. There is intracranial internal carotid artery atherosclerosis. Skull and face: Calvarium and visualized facial bones appear intact, without suspicious lesions. Sinuses: Visualized sinuses and mastoids are clear. IMPRESSION: 1. No acute intracranial pathology. 2. 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 3. At least moderate chronic microvascular ischemic changes and generalized parenchymal volume loss. Chest x-ray: Radiologist's Impression: [address] [address] XRay Report Signed Patient: Timothy Best MR#: [id number] : 1935 Acct:[id number] Age/Sex: 89 / M Date of Service: 05/08/25 Loc: ED Accession Number: [id number] Procedure: XR chest 1V Ordering Provider: Mitch Perez D.O. PROCEDURE: XR CHEST 1V INDICATIONS: weakness TECHNIQUE: One view of the chest was acquired. COMPARISON: [facility], CR, XR CHEST 1V, 04/18/2025, 19:36. [facility], CR, XR CHEST 1V, 06/22/2023, 10:20. FINDINGS AND IMPRESSION: Limited single view radiograph with low lung volumes. Suspect left lung base opacity, which may be infectious. No drainable effusions. Mediastinal contours are difficult to evaluate due to patient rotation. Normal heart size. Degenerative osseous changes. ECG Data Interpretation: EKG interpreted ED physician sinus 96 beats per minute, QTC 447, nonspecific ST changes no STEMI MDM Narrative Medical decision making narrative: 89-year-old male with a past medical history of factor 5 Leiden mutation on Eliquis, hypothyroidism, comes into the ED from home for evaluation of generalized weakness. States it has been ongoing persistent for the past week, also been complaining of intermittent chest pain, states that it is a pressure, states that he did see his primary care doctor for this and was told that it was MSK in nature. Patient states that today he was walking felt weaker had his son lower him to the floor he did not actually fallen no trauma. On exam patient without any traumatic injury no bony tenderness to palpation, neurovascularly intact bilateral upper lower extremity NIH of 0. He just states that he feels weaker than normal. Patient had lab work imaging urinalysis EKG performed here in the emergency department. Chest x-ray did initially show possible left lobe pneumonia, Lab work without any leukocytosis patient does have a history of elevated bilirubin today 1.7, previously was 1.4, also with mildly elevated LFTs otherwise Chem panel unremarkable, therefore CT chest abdomen and pelvis was ordered. Lactate was normal. CT scan of the head without any acute findings, was noted to have a remote lacunar infarct in the left thalamus. CT chest abdomen and pelvis showing left-sided pneumonia. Given patient with generalized weakness we will treat for pneumonia, and admit patient given generalized weakness, Rocepeduardo robbins ordered. Review of records show that patient did see his primary care doctor on 05/05/2025 for chest pain, in review of records EKG was nonischemic in nature, however he signed out against medical advice to the fact that he is from the [facility] and needed to catch the [place], patient did tell me that this started when he was in his truck and he reached in the back to grab something. No further workup was performed and given the fact that patient left Against Medical Advice, however at that time patient was not complaining of any generalized weakness, but when I asked the patient he states that the weakness had already been going on at that time. 1845: Noted patient with allergy to iodine, when discussing with the patient and the they state that they are not sure if he has had CT scans with IV iodine, they state that remotely he had an allergic reaction to topical iodine he had his laminectomy, states that he ?had to be admitted after therefore we will proceed with CT chest abdomen and pelvis without contrast to evaluate for pneumonia and the gallbladder The patient's management plan was discussed Dr. Worrell, who agrees to admit the patient to their service and assumes care of this patient at this time. Full admission orders will be placed by the primary team. Discharge Plan Departure Patient Disposition: Admitted As Inpatient Clinical Impression: Pneumonia, Generalized weakness
--- NOTE | 2025-05-08 18:13 | EKG_ITS ---
[facility] [address] [place] [address] Test Date: 2025-05-08 Pat Name: Timothy Best Department: [facility] Room: Gender: Male [employer] Supervisor: TABATHA : 1935 Requested By: Order Number: [id number] Reading MD: Reynold Worrell MD Measurements Intervals [place] Rate: 96 P: -36 AR: 124 QRS: 28 QRSD: 90 T: 10 QT: 354 QTc: 447 Interpretive Statements Unusual P axis, possible ectopic atrial rhythm Electronically Signed On 05-09-2025 7:45:26 PDT by Reynold Worrell MD
--- NOTE | 2025-05-08 18:13 | DI.RAD.S_ITS ---
PROCEDURE: XR CHEST 1V INDICATIONS: weakness TECHNIQUE: One view of the chest was acquired. COMPARISON: [facility], , XR CHEST 1V, 04/18/2025, 19:36. [facility], CR, XR CHEST 1V, 06/22/2023, 10:20. FINDINGS AND IMPRESSION: Limited single view radiograph with low lung volumes. Suspect left lung base opacity, which may be infectious. No drainable effusions. Mediastinal contours are difficult to evaluate due to patient rotation. Normal heart size. Degenerative osseous changes. Dictated by: Leroy Gipson M.D. on 05/08/2025 at 17:31 Approved by: Leroy Gipson M.D. on 05/08/2025 at 17:32
--- NOTE | 2025-05-08 18:14 | DI.CT.S_ITS ---
PROCEDURE: CT HEAD/BRAIN WO CON INDICATIONS: weakness TECHNIQUE: Noncontrast 4.5 mm thick angled axial sections acquired from the foramen magnum to the vertex, with coronal and sagittal reformats. For radiation dose reduction, the following was used: automated exposure control, adjustment of mA and/or kV according to patient size. COMPARISON: [facility], CT, CT HEAD/BRAIN WO CON, 09/03/2023, 19:26. FINDINGS: Image quality: Diagnostic. CSF spaces: Basal cisterns are patent. No extra-axial fluid collections. The ventricles are symmetric in size and shape. Brain: No acute intracranial hemorrhage or mass effect. 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 There is moderate cerebral volume loss, with resultant ventricular and sulcal prominence. There are moderate to severe periventricular and deep white matter chronic small vessel ischemic changes. There is intracranial internal carotid artery atherosclerosis. Skull and face: Calvarium and visualized facial bones appear intact, without suspicious lesions. Sinuses: Visualized sinuses and mastoids are clear. IMPRESSION: 1. No acute intracranial pathology. 2. 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 3. At least moderate chronic microvascular ischemic changes and generalized parenchymal volume loss. Approved by: Hari Carrera M.D. on 05/08/2025 at 19:24
[2025-05-08 18:24] LABS: INR 1.3 (0.9-1.3); Prothrombin Time 14.5 SECONDS (9.4-12.5)
[2025-05-08 18:25] LABS: Add Manual Diff / Slide Review NO; Hematocrit 36.9 % (41-53); Hemoglobin 12.6 g/dL (13.5-17.5); Lymphocytes Absolute Auto 700 /uL (1100-4500); Mean Corpuscular HGB Conc 34.1 % (30-36); Mean Corpuscular Hemoglobin 33.6 PG (26-34); Mean Corpuscular Volume 98.6 fL (80-100); Platelet Count 142 X10^3/uL (150-400)
[2025-05-08 18:26] LABS: PTT Partial Thromboplastin Tim 27 SECONDS (25.1-36.5)
[2025-05-08 18:27] LABS: Lactate (Lactic Acid) 1.4 mmol/L (0.7-2.1)
[2025-05-08 18:28] LABS: Alanine Aminotransferase 142 IU/L (<50); Albumin 3.6 g/dL (3.5-5.0); Albumin Globulin Ratio 0.9 (1.0-2.8); Alkaline Phosphatase 121 U/L (38-126); Blood Urea Nitrogen 15 mg/dL (9-20); Calcium 8.6 mg/dL (8.4-10.2); Carbon Dioxide 28 mmol/L (22-32); Chloride 98 mmol/L (98-107); Creatine Kinase 34 U/L (55-170); Estimated Glomerular Filt Rate > 60 mL/min (>60); Globulin 4.0 g/dL (1.7-4.1); Glucose 149 mg/dL (70-99); HEMOLYSIS < 15 (0-50); Lipase 30 U/L (23-300); Magnesium 1.8 mg/dL (1.6-2.3); Potassium 4.4 mmol/L (3.4-5.1); Sodium 130 mmol/L (137-145); Total Protein 7.6 g/dL (6.3-8.2)
[2025-05-08 18:38] LABS: NT-proBNP (BNP-Adult 18+) 1210 pg/mL (<450)
[2025-05-08 18:41] LABS: Troponin I < 0.012 ng/mL (0.01-0.034)
--- NOTE | 2025-05-08 18:47 | DI.CT.S_ITS ---
PROCEDURE: CT CHEST ABD PEL WO CON INDICATIONS: cxr with possible pnumonia, elevated bili TECHNIQUE: After the administration of oral contrast, 5 mm thick sections acquired from the lung apices to the symphysis pubis. 5 mm thick coronal and sagittal reformats acquired, with additional 7 mm coronal MIP reformats through the lungs. For radiation dose reduction, the following was used: automated exposure control, adjustment of mA and/or kV according to patient size. COMPARISON: [facility], CR, XR CHEST 1V, 05/08/2025, 18:09. FINDINGS: Image quality: Diagnostic. CHEST: Lower Neck: No enlarged lymph nodes. Thyroid: No thyroid nodules which require sonographic follow up, per consensus guidelines. Axillae: No enlarged lymph nodes. Chest Wall: Unremarkable. Bones: Unremarkable. Lungs and Pleura: Dense left upper lobe consolidation. Band like opacities at the lung bases with mild volume loss. Trace bilateral pleural effusions. No pneumothorax. Heart: Heart size is normal. No pericardial effusion. Moderate coronary artery calcifications. Thoracic Vessels: The aorta and pulmonary arteries demonstrate normal size. Mediastinum and Aarti: No enlarged lymph nodes. Esophagus: No wall thickening. No hiatal hernia. ABDOMEN: Liver: No solid mass. Gallbladder: Status post cholecystectomy. Biliary ducts: No biliary dilation. Pancreas: No ductal dilation. Spleen: Size is within normal limits. Adrenal Glands: No adrenal nodules. Kidneys and Ureters: No hydronephrosis. No solid mass. No complex renal cystic lesion which requires follow up. Benign-appearing left renal cysts. 2 mm nonobstructing calculus at the superior pole the right kidney. Stomach and Bowel: Diverticulum is noted at the 2nd portion of the duodenum. Small bowel loops are nondilated. Peritoneum: No abnormal intraperitoneal fluid. No free air. Mild nonspecific central mesenteric edema. Ventral Wall: No hernia. Abdominal Nodes: No retroperitoneal or mesenteric adenopathy by size criteria. Vessels: Aorta and inferior vena cava are normal in size. PELVIS: Pelvic Organs: Unremarkable. Bladder: Unremarkable. Pelvic Nodes: No enlarged lymph nodes. Miscellaneous: Small fat containing inguinal hernias. Bones: No aggressive osseous abnormality. Postsurgical changes are seen from prior posterior spinal fixation at T9 through L3. Exaggerated thoracic kyphosis. IMPRESSION: 1. Dense left upper lobe consolidation is suspicious for pneumonia. Patchy band like opacities at the lung bases are less specific and may be secondary to atelectasis/scarring versus pneumonia. 2. Trace bilateral pleural effusions. 3. Status post cholecystectomy. No biliary duct dilatation. 4. Nonobstructing 2 mm right renal calculus. No hydronephrosis. Approved by: Hari Carrera M.D. on 05/08/2025 at 19:32
[2025-05-08 19:17] LABS: Influenza A - CEPHEID Flu A NEGATIVE (NEGATIVE); Influenza B - CEPHEID Flu B NEGATIVE (NEGATIVE)
[2025-05-08 19:19] LABS: COVID-19 CEPHEID 4-PLEX PCR Negative (Negative)
[2025-05-08] MEDS: DOXYCYCLINE 100 MG in SODIUM CHLORIDE 0.9% 100 ML IV (20:27)
[2025-05-08] MEDS: SODIUM CHLORIDE 0.9% 1,000 ML 80 ML IV (21:57)
[2025-05-08 22:29] LABS: Coronavirus NL 63 Not Detected (Not Detect); SARS- CoV-2 Not Detected (Not Detecte)
[2025-05-09 04:03] LABS: Appearance Urine UA CLEAR; Bilirubin Urine UA 1+ (NEGATIVE); Color Urine UA YELLOW; Glucose Urine UA NEGATIVE (Negative); Ketones Urine UA 2+ (NEGATIVE); Leukocyte Esterase Urine UA NEGATIVE (NEGATIVE); Nitrite Urine UA NEGATIVE (Negative); Occult Blood Urine UA TRACE-INTACT (Negative); Protein Urine UA 2+ (Negative); Specific Gravity Urine UA >=1.030 (1.000-1.035); Urobilinogen Urine UA 1.0 E.U./dL (0.2); pH Urine UA 6.0 (4.5-8.0)
[2025-05-09 04:21] LABS: Ictotest Urine Negative (Negative)
[2025-05-09 04:22] LABS: Culture Indicated Urine Cult Not Indicated
[2025-05-09 06:00] VITALS: BP 145/86; PULSE 93; RESP 21; TEMP 37.4; O2SAT 92
[2025-05-09] MEDS: LEVOTHYROXINE 75 MCG TABLET PO (06:08)
[2025-05-09 08:00] VITALS: BP 132/90; PULSE 91; RESP 20; TEMP 37.7; O2SAT 94
--- NOTE | 2025-05-09 08:24 | P.HP_ITS ---
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 And he could not get out of the chair. Because of weakness. He tried to walk on his own and was not in the able to do so. In the process of walking he took a small fall where he said he did not injure anything he just slid to the ground. Had to wait for his son in his to come get him. Because of his weakness he was brought into the emergency department for evaluation. Patient denies any other symptoms other than weakness no headache. He says he is a little bit dizzy when he tries to stand. No coughing no fevers or chills no abdominal pain. He says he has been eating okay. Said good urination and normal bowel movements. He has very sensitive lower extremity and some chronic venous stasis and edema. In the emergency department he had a workup with the advanced imaging of CT of head CT chest abdomen and pelvis chest x-ray laboratory tests. These were reviewed. Ultimately has found the patient to have a pneumonia with left upper lung bilateral pleural effusion. Patient was not hypoxic or hypotensive. But weak enough he could not ambulate. He was admitted to the hospital [facility] Social History marital status: household members: spouse Smoking Status: Never smoker alcohol intake: current substance use type: does not use Meds Home Medications and Allergies Home Medications ?Medication ?Instructions ?Recorded ?Confirmed ?Type Disabled Parking #1 ea 06/12/23 05/08/25 Rx levothyroxine 75 mcg capsule 75 mcg PO DAILY #90 caps 04/26/24 05/08/25 Rx hydrocodone 5 mg-acetaminophen 325 1 tab PO Q4-6H PRN pain #10 tabs 07/31/24 05/08/25 Rx mg tablet apixaban 5 mg tablet (Eliquis) 5 mg PO BID #180 tabs 1 01/02/24 05/08/25 Rx Allergies Allergy/AdvReac Type Severity Reaction Status Date / Time venom-wasp Allergy Severe Swelling Verified 05/08/25 17:55 iodine (IODINE) Allergy Mild HIVES Verified 05/08/25 17:55 /BLISTERS venom-honey bee (BEE VENOM Allergy Mild ANGIOEDEMA Verified 05/08/25 17:55 (HONEY BEE)) wheat (WHEAT) Allergy Mild GI UPSET Verified 05/08/25 17:55 Sulfa (Sulfonamide Allergy Unknown Verified 05/08/25 17:55 Antibiotics) merbromin (From Allergy Rash Verified 05/08/25 17:55 Mercurochrome) gluten AdvReac Unknown Verified 05/08/25 17:55 Exam Vital Signs (past 8 hours): - 05/09/25 06:00 Temperature 99.4 F Pulse Rate 93 H Respiratory Rate 21 Blood Pressure 145/86 H Pulse Oximetry 92 Oxygen Flow Rate 0 Oxygen Delivery Method Room Air Oxygen Flow Rate 0 Narrative Exam Narrative: Gen.: Alert good historian HEENT: Pupils equal round and reactive or mucosa is moist Cardio: S1-S2 regular rate and rhythm Respiratory: Normal respiratory efforts decreased breath sounds at the bases Abdomen: Soft mild distention umbilical hernia Extremities: 2 to 3+ lower extremity edema SCDs in place Neurologic: No focal deficits Objective Labs 05/08/25 17:58 05/08/25 17:58 Labs: Laboratory Results - last 24 hr 05/08/25 05/08/25 05/08/25 17:58 18:33 21:30 WBC 6.3 RBC 3.74 L Hgb 12.6 L Hct 36.9 L MCV 98.6 MCH 33.6 MCHC 34.1 RDW 15.5 H Plt Count 142 L Neut % (Auto) 83.5 H Lymph % (Auto) 11.3 L [place] % (Auto) 4.8 Eos % (Auto) 0.2 L Baso % (Auto) 0.2 Neut # (Auto) 5200 Lymph # (Auto) 700 L [place] # (Auto) 300 Eos # (Auto) 0 Baso # (Auto) 0 PT 14.5 H INR 1.3 APTT 27 Sodium 130 L Potassium 4.4 Chloride 98 Carbon Dioxide 28 BUN 15 Creatinine 0.80 Estimated GFR > 60 BUN/Creatinine Ratio 18.8 Glucose 149 H Lactate 1.4 Calcium 8.6 Magnesium 1.8 Total Bilirubin 1.7 H AST 201 H ALT 142 H Alkaline Phosphatase 121 Total Creatine Kinase 34 L Troponin I < 0.012 NT-Pro-B Natriuret Pep 1210 H Total Protein 7.6 Albumin 3.6 Globulin 4.0 Albumin/Globulin Ratio 0.9 L Lipase 30 Urine Color Urine Appearance Urine pH Ur Specific [place] Urine Protein Urine Glucose (UA) Urine Ketones Urine Occult Blood Urine Nitrate Urine Bilirubin Ur Bilirubin Confirm Urine Urobilinogen Ur Leukocyte Esterase Urine RBC Urine WBC Ur Squamous Epith Cells Urine Bacteria Ur Culture Indicated? Vol Urine Centrifuged Chlamy pneumoniae PCR Not detected Adenovirus (PCR) Not detected B. pertussis DNA (PCR) Not detected B.parapertussis DNA PCR Not detected Coronavirus OC43 (PCR) Not detected Coronavirus HKU1 (PCR) Not detected Coronavirus 229E (PCR) Not detected SARS-CoV-2 (PCR) Negative Not detected Coronavirus NL63 (PCR) Not detected Human Metapneumovir PCR Not detected Influenza A (RT-PCR) Flu a negative Influenza Type A (PCR) Not detected Influenza B (RT-PCR) Flu b negative Influenza Type B (PCR) Not detected M. pneumoniae (PCR) Not detected Parainfluenza 1 (PCR) Not detected Parainfluenza 2 (PCR) Not detected Parainfluenza 3 (PCR) Not detected Parainfluenza 4 (PCR) Not detected RSV (PCR) Negative Not detected Entero/Rhino (PCR) Not detected 05/09/25 03:43 WBC RBC Hgb Hct MCV MCH MCHC RDW Plt Count Neut % (Auto) Lymph % (Auto) [place] % (Auto) Eos % (Auto) Baso % (Auto) Neut # (Auto) Lymph # (Auto) [place] # (Auto) Eos # (Auto) Baso # (Auto) PT INR APTT Sodium Potassium Chloride Carbon Dioxide BUN Creatinine Estimated GFR BUN/Creatinine Ratio Glucose Lactate Calcium Magnesium Total Bilirubin AST ALT Alkaline Phosphatase Total Creatine Kinase Troponin I NT-Pro-B Natriuret Pep Total Protein Albumin Globulin Albumin/Globulin Ratio Lipase Urine Color Yellow Urine Appearance Clear Urine pH 6.0 Ur Specific [place] >=1.030 H Urine Protein 2+ H Urine Glucose (UA) Negative Urine Ketones 2+ H Urine Occult Blood Trace-intact Urine Nitrate Negative Urine Bilirubin 1+ H Ur Bilirubin Confirm Negative Urine Urobilinogen 1.0 Ur Leukocyte Esterase Negative Urine RBC 0-1/hpf Urine WBC None seen Ur Squamous Epith Cells 0-1 /hpf Urine Bacteria None seen Ur Culture Indicated? Cult not indicated Vol Urine Centrifuged 10ml (spun) Chlamy pneumoniae PCR Adenovirus (PCR) B. pertussis DNA (PCR) B.parapertussis DNA PCR Coronavirus OC43 (PCR) Coronavirus HKU1 (PCR) Coronavirus 229E (PCR) SARS-CoV-2 (PCR) Coronavirus NL63 (PCR) Human Metapneumovir PCR Influenza A (RT-PCR) Influenza Type A (PCR) Influenza B (RT-PCR) Influenza Type B (PCR) M. pneumoniae (PCR) Parainfluenza 1 (PCR) Parainfluenza 2 (PCR) Parainfluenza 3 (PCR) Parainfluenza 4 (PCR) RSV (PCR) Entero/Rhino (PCR) Assessment & Plan Assessment and plan (1) Pneumonia: Status: Acute Plan Community-acquired pneumonia. Patient with community-acquired pneumonia no recent hospitalizations. Dense consolidation on CT scan well visualized on x- ray has some small bilateral pleural effusions. Patient was started on ceftriaxone Zithromax and this will be continued during his hospital stay. He is not hypoxic. He will have vital signs per protocol. He does not need nebulizers at this appointment. Has a significant amount of weakness and we will have him work with physical therapy we will recheck his blood counts and electrolytes. Will have a general diet. Hyponatremia. Patient with low-sodium. This is new for him presumed due to his pneumonia. Will continue with normal saline for 24 hours and continue to monitor his electrolytes at that point we will go ahead and stop. History of follicular lymphoma. No active disease. On CT scan of chest abdomen and pelvis no significant lymph node enlargement. Factor 5 Leiden mutation with history of recurrent venous thromboembolism. Patient will be continued on his Eliquis during his hospital stay. He has normal kidney function. Hypothyroidism. Patient with thyroid replacement last TSH was normal he will be continued on his thyroid medication. Code status full code. Disposition and plan. Physical therapy today IV antibiotics. SCDs DVT prophylaxis with Eliquis hospitalization for another 24-48 hours. Time-Based Coding :: [TOTAL MINUTES] spent with patient and on the chart (including review of chart, obtaining history, exam, reviewing outside data, placing orders, documenting exam and treatment plan, and counseling patient) on [DATE]. Quality VTE Deep Vein Thrombosis/Pulmonary Embolism Present on Admission: No IH PROFEE Olive Grader Document charge(s): No Charge Codes Initial inpatient/observation care: 50011
[2025-05-09 09:03] VITALS: TEMP 38
[2025-05-09] MEDS: ACETAMINOPHEN 325 MG TABLET 650 MG PO ×2 (09:03→18:00)
[2025-05-09] MEDS: SODIUM CHLORIDE 0.9% 1,000 ML 80 ML IV (09:04)
[2025-05-09] MEDS: APIXABAN 5 MG TABLET PO (09:04)
--- NOTE | 2025-05-09 11:38 | CM.DANOTE ---
DCP Assessment Note pt is a 89yo M admitted with pneumonia/weakness after a GLF. getting IV abx now, on room air. has a fever of 100 Friday morning PCP Natalya Payer NILDA and commercial ins MINE ENVIRONMENTAL ENGINEER reviewed EMR. per Natalya note, anticipate dc home in another 24-48hrs. pending PT/OT evals. MINE ENVIRONMENTAL ENGINEER met with pt in room and introduced self and role. pt resting in bed. reports living with spouse Del indep on [address], son lives next door and helps as needed. no Hx of SNF/HH. reports was not able to get up with nursing staff with a walker yesterday. uses a cane at home normally. MINE ENVIRONMENTAL ENGINEER reviewed SNF vs HH options. preference would be to return home, open to HH. but if can't move with therapies may be interested in SNF. P: pending medical improvement/therapy recs for DCP. may be home with potential HH and family support. CM team will continue to follow closely for DCP coordination CHRISTOPHER Clay Discharge Planning/Care Management CM Discharge Assessment Start: 05/08/25 21:22 Freq: Status: Active Protocol: Document 05/09/25 11:35 SL (Rec: 05/09/25 11:36 SL Desktop) Discharge Planning Assessment Assigned Discharge CHRISTOPHER Gonzalez Conference Reservationist DPOA/Assigned del, spouse Designee Name Contact Information [phone] Advance Directives? Yes: POLST, Health Care Directive & Supplement, Contingent DPOA Advance Directives Yes on File History Provided By Patient Prior Living House Arrangements Household Members spouse Independent with ADL Yes 's Is patient alert and Yes oriented? DME Already Rented / Cane Owned Discharge Plan Home Additional Comment pending PT/OT eval Whiteboard Updated Yes in Patient Room with name and ext. # of Rn Sane Review Status In Process Please Provide Date 05/09/25 Initial DC Assessment Was Performed Next Review Type Continued Stay Review
[2025-05-09 12:00] VITALS: BP 112/64; PULSE 92; RESP 15; TEMP 36.7; O2SAT 95
--- NOTE | 2025-05-09 12:33 | OT.IP.EVAL ---
Current Diagnoses Pneumonia, unspecified organism (05/08/25) Occupational Therapy Inpatient Evaluation/Re-Eval M1 PT/OT-IP Prior Functional Status Start: 05/09/25 09:20 Freq: NEEDED Status: Active Protocol: Document 05/09/25 13:35 [facility] (Rec: 05/09/25 13:49 [facility] Desktop) Medical Review Prior Functional Status Medical History Yes Reviewed Communication WFL Mobility and Gait Was using a cane at times but not out in the garden ( has raised garden beds and would put weight on those) Activities of Daily Reports he was able to do most ADLS although was not Living and IADL's putting on his compression stockings. 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 Social History Household Members spouse Living Arrangements House Number of Floors ( One Floor Floors) Number of Stairs To ramp Enter/Railing? Home Environment High Toilet,Tub/Shower Home Equipment Front Wheel Walker,Straight Cane,Grab Bars Near Toilet Additional Social lives with his on [address] History Comment M2 OT-IP Current Condition Start: 05/09/25 13:35 Freq: Status: Active Protocol: Document 05/09/25 13:35 [facility] (Rec: 05/09/25 13:49 [facility] Desktop) Occupational Therapy Current Condition Current Condition Evaluation Date 05/09/25 Treatment Diagnosis PNA Diagnosis Onset Date 05/08/25 M3 OT- IP Subjective and Pain Start: 05/09/25 13:35 Freq: Status: Active Protocol: Document 05/09/25 13:35 [facility] (Rec: 05/09/25 13:49 [facility] Desktop) OT- Subjective Occupational Therapy Visit Type Type Initial Evaluation Visit Start Time 12:00 Visit Stop Time 12:33 Occupational Therapy Visit Comments Patient Comments Pt agreed to try to get up. Patient/Caregiver TO get better. Goals OT Pain Assessment Pain When Pain Assessed During Mobility Pain Present Pain Present Pain Reported Location Back Pain Behaviors Facial Grimacing,Holding Area M4 OT- IP ADL's Start: 05/09/25 13:35 Freq: Status: Active Protocol: Document 05/09/25 13:35 [facility] (Rec: 05/09/25 13:49 [facility] Desktop) OT [id number] Comments OT Self-Feeding Not at meal time. Comments OT ADL-Grooming Comments OT Grooming Comments NOt performed. OT ADL-Oral Care Comments Oral Care Comments Not observed. OT ADL-Dressing Comments OT Dressing Comments NOt performed. OT ADL-Toileting Comments OT Toileting Not performed. Comments OT ADL-Bathing Comments OT Bathing Comments Sponge bath more appropriate at this time. M5 OT- IP IADL's Start: 05/09/25 13:35 Freq: Status: Active Protocol: Document 05/09/25 13:35 [facility] (Rec: 05/09/25 13:49 [facility] Desktop) OT-Instrumental Activities of Daily Living Deficits IADL Deficits Deficits Identified Home Safety Awareness Awareness of Need Good Awareness for Assistance at Home Home Safety Comments Pt aware not able to care fore himself at this time. Medication Management Medication Prior pt did on his own. Management Comments Meal Preparation Meal Preparation Caregiver Provides Assist Bread Panner Bread Panner Caregiver Provides Assist M6 OT- IP Functional Cognition Start: 05/09/25 13:35 Freq: Status: Active Protocol: Document 05/09/25 13:35 [facility] (Rec: 05/09/25 13:49 [facility] Desktop) Cognitive Factors Limiting Selfcare Function Cognitive Ability Level of Alertness Alert Patient Orientation Name,Place,Situation Attention Span Capable of Focused Attention,Capable of Sustained Ability Attention Cognitive Comments Cognitive Assessment Pt able to follow commands for mobility needs and Comments needing increased time to follow as needing rest breaks as tiring quickly. OT- Vision and Hearing OT- Vision Assessment Vision Assessment NT to assess tomorrow. Comments M7 OT- IP Mobility and Balance Start: 05/09/25 13:35 Freq: Status: Active Protocol: Document 05/09/25 13:35 [facility] (Rec: 05/09/25 13:49 [facility] Desktop) OT- Bed Mobility Assessment Supine to Sit Supine to Sit Assist Moderate Assistance,1 Person Assistance,Bedrails Sit to Supine Sit to Supine Assist Maximum Assistance,2 Person Assistance OT-Transfer Assessment Comments Mobility Comments Pt needing heavy use of grab bar to assist and help get his trunk upright with MODA X1. BP HOB up 93/60, supine 99/60 and sitting 129/81 and 112/64. OT- Balance Assessment Sitting Balance and Reactions Static Sitting Poor Balance Ability Dynamic Sitting Poor Balance Ability Comments Other Balance Tests/ Pt needing from CGA to MAX AX for sitting balance as Deviations/Treatment too tired and weak to be able to hold himself up at : this time. Pt not wanting to stand at this time and wanting to lie back down. M8 OT- IP Objective Assessments Start: 05/09/25 13:35 Freq: Status: Active Protocol: Document 05/09/25 13:35 [facility] (Rec: 05/09/25 13:49 [facility] Desktop) OT Gross Range of Motion Upper Extremity Range of Motion ROM Impairments Grossly WFL OT Strength Comments Strength Comments WFL for BUE 4+/5 OT- Coordination Assessment Upper Extremity Finger to Nose Test Within Functional Limits M9 OT- IP Assessment and Plan Start: 05/09/25 13:35 Freq: Status: Active Protocol: Document 05/09/25 13:35 [facility] (Rec: 05/09/25 13:49 [facility] Desktop) OT Summary Assessment and Plan Potential Rehabilitation Good Potential Analytic Complexity Moderate at Evaluation Summary OT Impairments Strength,Balance,Functional Mobility,Grooming,Dressing, Toileting,Bathing,Toilet Transfers,Shower Transfers, Activity Tolerance Progress Towards Slow Progress due to Pain,Slow Progress due to Medical Goals Issues,Slow Progress due to Activity Tolerance Assessment Summary Pt MOD complexity and main barriers are decreased sitting balance and needing from CGA to MAX AX 1 to sit to the edge of the bed, decreased activity tolerance and endurance, and overall weakness. Pt prior MODA I with SPC and just needing assist for his compression stockings from his and use of SPC. Pt would benefit from skilled rehab at this time. Pt on RA and O2 readings from 91-96% during OT eval. Goals Self-Feeding Goal Independent Grooming Goal Independent Dressing Goal Minimal Assistance Toileting Goal Independent Bathing Goal Standby Assistance Toilet Transfer Goal Standby Assistance Shower Transfer Goal Contact Guard Assistance OT-Other Goals Unable to get pt on his feet for OT eval and OT goals to change as pt progresses. Days to Meet Goals 25 Frequency of Treatment Other frequency 5x/week Treatment Plan OT Treatment Plan ADL Training,Functional Mobility,Patient/Family Education,Discharge Planning Other Treatment Pt to be able to sit on the EOB with SBA and do oral Recommendations and care needs. Next Treatment Focus Discharge Recommendations OT Discharge SNF Rehab Recommendations Transportation Needs Wheelchair/Cabulance at Discharge
--- NOTE | 2025-05-09 13:07 | PT.IIE ---
Current Diagnoses Pneumonia, unspecified organism (05/08/25) Physical Therapy Inpatient Evaluation/Re-Eval M1 PT/OT-IP Prior Functional Status Start: 05/09/25 09:20 Freq: NEEDED Status: Active Protocol: Document 05/09/25 12:34 AMB (Rec: 05/09/25 13:05 AMB [id number]) Medical Review Prior Functional Status Medical History Yes Reviewed Communication WFL Mobility and Gait Was using a cane at times but not out in the garden ( has raised garden beds and would put weight on those) Activities of Daily Reports he was able to do most ADLS although was not Living and IADL's putting on his compression stockings Social History Household Members spouse Living Arrangements House Number of Floors ( One Floor Floors) Number of Stairs To ramp Enter/Railing? Home Environment High Toilet Home Equipment Front Wheel Walker,Straight Cane Additional Social lives with his on [address] History Comment M2 PT-IP Current Condition Start: 05/09/25 09:20 Freq: NEEDED Status: Active Protocol: Document 05/09/25 12:34 AMB (Rec: 05/09/25 13:05 AMB [id number]) Physical Therapy Current Condition Current Condition Evaluation Date 05/09/25 Treatment Diagnosis weakness secondary to pneumonia Onset Date 05/08/25 M3 PT-IP Subjective Start: 05/09/25 09:20 Freq: NEEDED Status: Active Protocol: Document 05/09/25 12:34 AMB (Rec: 05/09/25 13:05 AMB [id number]) Subjective Physical Therapy Visit Type Type Initial Evaluation Visit Start Time 12:10 Visit Stop Time 12:40 Physical Therapy Visit Comments Patient Comments Patient is in bed with at bedside, he states he has low back pain and his legs hurt when people touch them but are ok at rest Therapy Pain Assessment Pain When Pain Assessed At Rest Pain Present Pain Present Denied Pain M4 PT-IP Mobility and Gait Start: 05/09/25 09:20 Freq: NEEDED Status: Active Protocol: Document 05/09/25 12:34 AMB (Rec: 05/09/25 13:05 AMB [id number]) PT-Bed Mobility Assessment Rolling Type of Rolling Log Rolling,Roll to Right Level of Assist Minimal Assistance,1 Person Assistance Supine to Sit Supine to Sit Moderate Assistance,1 Person Assistance,Head of Bed Elevated,Bedrails Sit to Supine Sit to Supine Maximum Assistance,2 Person Assistance,Head of Bed Elevated,Bedrails Scooting Scooting to Edge of Minimal Assistance Bed Scooting Up and Down Dependent in Bed PT-Transfer Assessment Comments Mobility Comments Timothy was able to log roll to the right with increased time and cueing for sequencing, he was able to do most of the roll on his own as he dislikes people touching his legs due to pain, he did need Cammy to move from sidelying to sit with heavy UE use and then needed Cammy to maintain sitting balance and not fall backwards, he was quite hesitant and nervous about falling out of the bed despite his being quite far away from the edge which likely increased his posterior lean. He did need ModA to manage his LEs back into bed which increased his leg pain, but was able to scoot his hips (but not his shoulders) in the bed independently. He was able to maintain good blood pressure numbers throughout and SpO2 was in the low 90s throughout movement. PT-Balance Assessment Sitting Balance and Reactions Static Sitting Poor Balance Ability Dynamic Sitting Poor Balance Ability M5 PT-IP Objective Assessments Start: 05/09/25 09:20 Freq: NEEDED Status: Active Protocol: Document 05/09/25 12:34 AMB (Rec: 05/09/25 13:05 AMB [id number]) Strength Lower Extremity Strength Hip 2 Knee 2 Ankle 3 M6 PT-IP Treatment Start: 05/09/25 09:20 Freq: NEEDED Status: Active Protocol: Document 05/09/25 12:34 AMB (Rec: 05/09/25 13:05 AMB [id number]) Physical Therapy Treatment Exercises Exercises Ankle Pumps M7 PT-IP Assessment and Plan Start: 05/09/25 09:20 Freq: NEEDED Status: Active Protocol: Document 05/09/25 12:34 AMB (Rec: 05/09/25 13:05 AMB [id number]) PT Summary Assessment and Plan Potential Rehabilitation Good Potential Status of Condition Evolving at Evaluation Summary Impairments Pain,Strength,Bed Mobility,Transfers,Activity Tolerance Assessment Summary Timothy was unable to walk yesterday while at home, fell lightly due to weakness, and came to the hospital. He was diagnosed with pneumonia and has been in bed since being admitted. Timothy required 2person Mod/MaxA for bed mobility had poor sitting balance (would have fallen backwards without ModA), and was unable to tolerate standing. His blood pressure was well maintained during movement and SpO2 was never observed to be below 92 on room air. He lives with his on [address] but given his significant weakness at this time would benefit from SNF placement to work on improving his strength and independence, as certainly his would be unable to physically assist him at this time. He is not near his baseline of being independent with ADLs and being able to walk with a SPC at this time. Goals Bed Mobility Goal Contact Guard Assistance Transfer Goal Minimal Assistance,Front Wheeled Walker Gait Goal Minimal Assistance,Front Wheel Walker Gait Distance 50 Days to Meet Goals 5 Frequency of Treatment Frequency Of Once a Day Treatment Treatment Plan Physical Therapy Bed Mobility Training,Transfer Training,Gait Training, Treatment Plan Therapeutic Exercise,Neuromuscular Re-ed,Manual Therapy Recommendations To Nursing Amount of Assist 2 Person Assist,Mechanical Lift Needed Discharge Recommendations PT Discharge SNF Rehab Recommendations Transportation Needs Wheelchair/Cabulance at Discharge
--- NOTE | 2025-05-09 13:09 | CM.MNRNOTE ---
Patient given tylenol for fever of 100.4, he is lying supine and watching television.. LS are clear, patient complained of slight sternal pain but this resolved. He has 2+ edema to his bilateral lower legs greater on the left. Worked with PT and did not tolerate well, hard time standing. was in room and visited for a while. He is eating lunch now.
[2025-05-09 16:15] VITALS: BP 143/80; PULSE 92; RESP 17; O2SAT 95
[2025-05-09 18:00] VITALS: TEMP 38.7
[2025-05-09] MEDS: AZITHROMYCIN 250 MG TABLET 500 MG PO (19:01)
[2025-05-09] MEDS: APIXABAN 5 MG TABLET 2.5 MG PO (20:22)
[2025-05-10] VITALS: BP 107/57; PULSE 88; RESP 16; TEMP 36.9; O2SAT 92
[2025-05-10 05:38] LABS: Add Manual Diff / Slide Review NO; Hematocrit 33.0 % (41-53); Hemoglobin 11.1 g/dL (13.5-17.5); Lymphocytes Absolute Auto 600 /uL (1100-4500); Mean Corpuscular HGB Conc 33.6 % (30-36); Mean Corpuscular Hemoglobin 33.1 PG (26-34); Mean Corpuscular Volume 98.5 fL (80-100); Platelet Count 132 X10^3/uL (150-400)
[2025-05-10 05:59] LABS: Alanine Aminotransferase 440 IU/L (<50); Albumin 2.5 g/dL (3.5-5.0); Albumin Globulin Ratio 0.8 (1.0-2.8); Alkaline Phosphatase 161 U/L (38-126); Blood Urea Nitrogen 11 mg/dL (9-20); Calcium 7.9 mg/dL (8.4-10.2); Carbon Dioxide 24 mmol/L (22-32); Chloride 100 mmol/L (98-107); Estimated Glomerular Filt Rate > 60 mL/min (>60); Globulin 3.2 g/dL (1.7-4.1); Glucose 111 mg/dL (70-99); HEMOLYSIS < 15 (0-50); Potassium 4.0 mmol/L (3.4-5.1); Sodium 128 mmol/L (137-145); Total Protein 5.7 g/dL (6.3-8.2)
[2025-05-10 06:00] VITALS: BP 131/82; PULSE 91; RESP 18; TEMP 37.2; O2SAT 92
[2025-05-10] MEDS: LEVOTHYROXINE 75 MCG TABLET PO (06:44)
[2025-05-10 07:00] VITALS: O2SAT 92
--- NOTE | 2025-05-10 07:46 | PM.PN.IH.1 ---
Subjective Subjective Date Patient Seen: 05/10/25 Time Patient Seen: 07:51 Interval history: Patient seen this morning. Says things go well last night. Okay with sleep. Physical therapy did not go well. Quite weak. Says his legs are very tender history of neuropathy in his feet. He is eating okay. Has not been out of bed much she had at all. Some fever yesterday high temp of 101.7?. Urinations going well bowel movements going well. Patient's blood pressures been stable no significant tachycardia. Exam Vital Signs (past 8 hours): - 05/10/25 00:00 05/10/25 06:00 Temperature 98.5 F 98.9 F Pulse Rate 88 91 H Respiratory Rate 16 18 Blood Pressure 107/57 L 131/82 Pulse Oximetry 92 92 Oxygen Flow Rate 0 0 Oxygen Delivery Method Room Air Oxygen Flow Rate 0 Narrative Exam Narrative: Gen.: Alert good historian HEENT: Pupils equal round and reactive or mucosa is moist Cardio: S1-S2 systolic murmur Respiratory: Normal respiratory effort lower lung sounds some rhonchorous breath sounds. Abdomen: Soft distended no tenderness Extremities: 2+ lower extremity edema Neurologic: No focal deficits generalized weakness Objective Labs 05/10/25 05:12 05/10/25 05:12 Labs: Laboratory Results - last 24 hr 05/10/25 05:12 WBC 3.8 L RBC 3.35 L Hgb 11.1 L Hct 33.0 L MCV 98.5 MCH 33.1 MCHC 33.6 RDW 15.4 H Plt Count 132 L Neut % (Auto) 77.7 H Lymph % (Auto) 16.1 L [place] % (Auto) 5.0 Eos % (Auto) 0.9 L Baso % (Auto) 0.3 Neut # (Auto) 3000 Lymph # (Auto) 600 L [place] # (Auto) 200 Eos # (Auto) 0 Baso # (Auto) 0 Sodium 128 L Potassium 4.0 Chloride 100 Carbon Dioxide 24 BUN 11 Creatinine 0.56 L Estimated GFR > 60 BUN/Creatinine Ratio 19.6 Glucose 111 H Calcium 7.9 L Total Bilirubin 1.0 AST 741 H ALT 440 H Alkaline Phosphatase 161 H Total Protein 5.7 L Albumin 2.5 L Globulin 3.2 Albumin/Globulin Ratio 0.8 L PFSH Social History marital status: household members: spouse Smoking Status: Never smoker alcohol intake: current substance use type: does not use Assessment & Plan Assessment and plan (1) Pneumonia: Status: Acute (2) Generalized weakness: Status: Acute Assessment & Plan narrative: Community acquired pneumonia patient with CT scan shows left upper lobe pneumonia consolidation. Community-acquired treatment covering staff strep Haemophilus with ceftriaxone and Zithromax. Not requiring oxygen. Had a temperature yesterday. White blood cell count is low this morning. Will continue with IV antibiotics. Monitor blood counts. Background history of follicular lymphoma. Does not appear to be this on CT scan from radiology report. Acute hepatitis patient with increasing liver enzyme elevation. Unknown etiology at this point. Possibly due to infection versus medication. Previous history of cholecystectomy. CT scan of liver was reviewed. Continue to monitor at this point. Acute hyponatremia patient received normal saline yesterday. Patient maybe a little bit of fluid overload. I will go ahead and restrict free water. Give a dose of Lasix today see if this would help with the his sodium. Continue to monitor electrolytes kidney function is normal. Generalized weakness profound weakness. Patient unable to ambulate. May need long-term facility. 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 Follicular lymphoma history of. No signs of reoccurrence although white blood cell counts low. Consolidation of lung. Hypothyroidism acquired continue with thyroid replacement Code status full code DVT prophylaxis on anticoagulation with SCDs Disposition and plan hospitalization for 24-48 more hours diuresis today IV antibiotics work with physical therapy repeat echocardiogram. May need long-term at the time of discharge Time-Based Coding :: [TOTAL MINUTES] spent with patient and on the chart (including review of chart, obtaining history, exam, reviewing outside data, placing orders, documenting exam and treatment plan, and counseling patient) on [DATE]. Quality VTE Deep Vein Thrombosis/Pulmonary Embolism Present on Admission: No [facility] PROFEE Net Programmer Analyst Document charge(s): Yes Charge Codes Subsequent inpatient/observation care: [id number]
--- NOTE | 2025-05-10 07:49 | DI.ECHO.S_ITS ---
[facility] : : [address] : : [place] : : [address] : : Phone: [phone] Echocardiogram Report + + :Name: JOO MENA Study Date: 05/10/2025 Height: 72 in : :[facility] ReadingLocation: Weight: 247 lb : : Gender: Male BSA: 2.3 m2 : :: 1935 Age: 89 yrs BP: 131/82 mmHg: :Reason For Study: MURMUR : :Ordering Physician: KUSUM, : :CAMDEN Performed By: Camden Espinosa : :Referring: CAMDEN NOE : + + Interpretation Summary The study quality was technically difficult. The left ventricular ejection fraction is grossly normal. No significant valvular pthology noted on this suboptimal study. Procedure: A two-dimensional transthoracic echocardiogram with color flow and Doppler was performed. A contrast injection of Definity was performed to improve assessment of LV function. The study quality was technically difficult. Images were not obtained from all of the standard acoustic windows due to the limited scope of the study. Comparison is made with the echocardiogram of 05/09/2021. The patient was in normal sinus rhythm during the exam. Left Ventricle: The left ventricular cavity is small. The left ventricular ejection fraction is grossly normal. Right Ventricle: The right ventricle is mildly dilated. Atria: The left atrium is not well visualized. The right atrium is mildly dilated. There is no Doppler evidence for an atrial septal defect. Mitral Valve: The mitral valve is not well visualized. There is no mitral regurgitation noted. Aortic Valve: The aortic valve opens well. The aortic valve is mildly calcified. Cannot r/o a bicuspid valve. No aortic regurgitation is present. Tricuspid Valve: The tricuspid valve is not well visualized. No tricuspid regurgitation. Pulmonic Valve: The pulmonic valve is not well visualized. There is no pulmonic valvular regurgitation. Great Vessels: The aortic root is not well visualized but is probably normal size. The ascending aorta could not be visualized. The pulmonary artery is normal size. The IVC is dilated (diameter is greater than 2.1 cm) and it collapses less than 50% with a sniff. This suggests a high right atrial pressure of 15 mm Hg. Pericardium/ Pleura There is no pericardial effusion. There is no pleural effusion. MMode/2D Measurements & Calculations LVIDd: 4.0 cm LVOT diam: 2.1 cm LVIDs: 2.4 cm Ao root diam: 3.6 cm FS: 40.6 % LV cisse. diameter/BSA (cm/m^2): 1.7 LV sys. diameter/BSA (cm/m^2): 1.0 LA A4 area: 27.4 cm2 RA long axis: 5.5 cm LA length (vol): 6.2 cm RA area: 23.9 cm2 RA vol: 87.4 ml RA : 37.5 ml/m2 IVC diam: 2.3 cm RVD1 (basal): 4.3 cm RVD2 (mid): 3.3 cm Doppler Measurements & Calculations Ao V2 max: 96.1 cm/sec LVOT Max Casey: 56.7 cm/sec Ao V2 mean: 71.8 cm/sec LV V1 max P.3 mmHg Ao max P.7 mmHg LV V1 VTI: 12.4 cm Ao mean P.2 mmHg NORTH(I,D): 2.9 cm2 Ao V2 VTI: 15.0 cm NORTH(V,D): 2.1 cm2 sev ratio: 0.83 NORTH indexed to BSA (cm^2/m^2): 1.3 MV E max casey: 46.8 cm/sec PA V2 max: 83.8 cm/sec MV A max casey: 64.4 cm/sec PA V2 mean: 61.1 cm/sec MV E/A: 0.73 PA mean P.6 mmHg MV dec time: 0.24 sec PA pr(Accel): 49.9 mmHg SV(LVOT): 44.1 ml Reading Physician:10:18 AM
[2025-05-10 08:00] VITALS: BP 135/86; PULSE 89; RESP 16; TEMP 37.1; O2SAT 91
[2025-05-10] MEDS: APIXABAN 5 MG TABLET 2.5 MG PO ×2 (08:36→20:35)
[2025-05-10] MEDS: FUROSEMIDE 40 MG/4 ML VIAL IV (10:59)
--- NOTE | 2025-05-10 11:30 | PT.IPTN ---
Current Diagnoses Pneumonia, unspecified organism (05/08/25) Weakness (05/08/25) Physical Therapy Treatment Note M2 PT-IP Current Condition Start: 05/09/25 09:20 Freq: NEEDED Status: Active Protocol: Document 05/09/25 12:34 AMB (Rec: 05/09/25 13:05 AMB [id number]) Physical Therapy Current Condition Current Condition Evaluation Date 05/09/25 Treatment Diagnosis weakness secondary to pneumonia Onset Date 05/08/25 M3 PT-IP Subjective Start: 05/09/25 09:20 Freq: NEEDED Status: Active Protocol: Document 05/10/25 11:30 AB (Rec: 05/10/25 13:24 AB [id number]) Subjective Physical Therapy Visit Type Type Treatment Note Visit Start Time 11:30 Visit Stop Time 11:55 Number of ADVERTISING SALES MANAGER Visits 0 Physical Therapy Visit Comments Patient Comments able to make needs known M4 PT-IP Mobility and Gait Start: 05/09/25 09:20 Freq: NEEDED Status: Active Protocol: Document 05/10/25 11:30 AB (Rec: 05/10/25 13:24 AB [id number]) PT-Bed Mobility Assessment Supine to Sit Supine to Sit Maximum Assistance,1 Person Assistance,2 Person Assistance,Head of Bed Elevated,Bedrails PT-Transfer Assessment Sit to and From Stand Sit to and from Maximum Assistance,2 Person Assistance,Use of Upper Stand Extremities Equipment Transfer Assistive Gait Belt,Front Wheeled Walker Device Orthotic/Prosthetic No Devices or Brace: Transfers Transfer Destination Chair Transfer Technique ambulated Transfer Ability Level of Assist Maximum Assistance,1 Person Assistance,2 Person Assistance,Use of Upper Extremities Comments Mobility Comments pt in bed and agreed to get up. completed supine to sit max A x 1-2 and max cues. HOB elevated and pt used bed rail to assist. pt requested to use the toilet. NAC assisted pt with urinal use. pt requested to use his shoes and refuse to use non-skid socks. attempted to put shoes on in sitting position but unable despite assist. pt wants to put them on in standing. sit to stand max A x 2 and max cues. max A x 2 for standing balance while putting his shoes on using fWW for support. pt then ambulated to the chair using FWW max A x 1-2 and max cues. presents with unsteady shuffling gait. positioned pt on the chair. call light and table placed within reach. Gait Assessment Gait Gait Assistance Maximum Assistance,1 Person Assist,2 Person Assist Required: Distance (Feet) 12 Able to Maintain Yes Weight Bearing Status During Gait Assistive Devices Assistive Device Gait Belt,Front Wheeled Walker Orthotic/Prosthetic No Devices or Brace: Gait Deviations General Gait Pattern Ataxic,Decreased Stride Length,Decreased Feet Clearance ,Step-to Gait Factors Limiting Gait Function Factors Limiting Decreased Activity Tolerance,Decreased Strength, Gait Function Difficulty Following Directions,Limited Range of Motion ,Pain,Poor Balance,Poor Safety Awareness M5 PT-IP Objective Assessments Start: 05/09/25 09:20 Freq: NEEDED Status: Active Protocol: Document 05/09/25 12:34 AMB (Rec: 05/09/25 13:05 AMB [id number]) Strength Lower Extremity Strength Hip 2 Knee 2 Ankle 3 M6 PT-IP Treatment Start: 05/09/25 09:20 Freq: NEEDED Status: Active Protocol: Document 05/10/25 11:30 AB (Rec: 05/10/25 13:24 AB [id number]) Physical Therapy Treatment Education Education Provided Safety M7 PT-IP Assessment and Plan Start: 05/09/25 09:20 Freq: NEEDED Status: Active Protocol: Document 05/10/25 11:30 AB (Rec: 05/10/25 13:24 AB [id number]) PT Summary Assessment and Plan Potential Rehabilitation Fair Potential Summary Impairments Pain,ROM,Strength,Balance,Coordination,Sensation,Tone, Cognition,Bed Mobility,Transfers,Gait,Activity Tolerance Progress Towards Slow Progress due to Medical Issues,Slow Progress due Goals to Activity Tolerance Assessment Summary pt requiring max A x 1-2 and max cues and unable to tolerate much activity. pt will require SNF rehab to improve overall strength and mobility. Goals Bed Mobility Goal Contact Guard Assistance Transfer Goal Minimal Assistance,Front Wheeled Walker Gait Goal Minimal Assistance,Front Wheel Walker Gait Distance 50 Days to Meet Goals 10 Frequency of Treatment Frequency Of Once a Day Treatment Treatment Plan Physical Therapy Bed Mobility Training,Transfer Training,Gait Training, Treatment Plan Therapeutic Exercise,Neuromuscular Re-ed,Manual Therapy Recommendations To Nursing Amount of Assist 2 Person Assist Needed Discharge Recommendations PT Discharge SNF Rehab Recommendations Transportation Needs Wheelchair/Cabulance at Discharge
[2025-05-10 12:30] VITALS: BP 122/73; PULSE 96; RESP 20; TEMP 36.8; O2SAT 94
--- NOTE | 2025-05-10 13:24 | OT.IP.TRT ---
Current Diagnoses Pneumonia, unspecified organism (05/08/25) Weakness (05/08/25) Occupational Therapy Treatment Note M2 OT-IP Current Condition Start: 05/09/25 13:35 Freq: Status: Active Protocol: Document 05/09/25 13:35 [facility] (Rec: 05/09/25 13:49 [facility] Desktop) Occupational Therapy Current Condition Current Condition Evaluation Date 05/09/25 Treatment Diagnosis PNA Diagnosis Onset Date 05/08/25 M3 OT- IP Subjective and Pain Start: 05/09/25 13:35 Freq: Status: Active Protocol: Document 05/10/25 13:25 [facility] (Rec: 05/10/25 13:42 [facility] Desktop) OT- Subjective Occupational Therapy Visit Type Type Treatment Note Visit Start Time 12:45 Visit Stop Time 13:24 Occupational Therapy Visit Comments Patient Comments Pt agreeing to get up to brush his teeth at the sink. Patient/Caregiver To go home if able. Goals OT Pain Assessment Pain When Pain Assessed During Mobility Pain Present Pain Present Pain Reported Location Back Pain Behaviors Facial Grimacing M4 OT- IP ADL's Start: 05/09/25 13:35 Freq: Status: Active Protocol: Document 05/10/25 13:25 [facility] (Rec: 05/10/25 13:42 [facility] Desktop) OT [id number] Comments OT Self-Feeding Not at meal time. Comments OT ADL-Grooming General Evaluation Grooming Ability Standby Assistance Areas Needing Retrieving/Set-up of Grooming Items Assistance Comments OT Grooming Comments Able to do while standing at the sink with FWW. OT ADL-Oral Care General Eval Oral Care Ability Independent OT ADL-Dressing Comments OT Dressing Comments Pt able to kick on his shoes while seated. OT ADL-Toileting General Evaluation Toileting Ability Standby Assistance Comments OT Toileting Pt able to use the urinal while after set-up while Comments seated. OT ADL-Bathing Comments OT Bathing Comments Pt moving better and tomorrow if willing would benefit from showering. M5 OT- IP IADL's Start: 05/09/25 13:35 Freq: Status: Active Protocol: Document 05/09/25 13:35 [facility] (Rec: 05/09/25 13:49 [facility] Desktop) OT-Instrumental Activities of Daily Living Deficits IADL Deficits Deficits Identified Home Safety Awareness Awareness of Need Good Awareness for Assistance at Home Home Safety Comments Pt aware not able to care fore himself at this time. Medication Management Medication Prior pt did on his own. Management Comments Meal Preparation Meal Preparation Caregiver Provides Assist Mash Processing Operator Mash Processing Operator Caregiver Provides Assist M6 OT- IP Functional Cognition Start: 05/09/25 13:35 Freq: Status: Active Protocol: Document 05/10/25 13:25 [facility] (Rec: 05/10/25 13:42 [facility] Desktop) Cognitive Factors Limiting Selfcare Function Cognitive Comments Cognitive Assessment Pt having difficulty to work his phone to see who just Comments called him. Pt admit that he is not good with technology. Pt may benefit from SLUMS. M7 OT- IP Mobility and Balance Start: 05/09/25 13:35 Freq: Status: Active Protocol: Document 05/10/25 13:25 [facility] (Rec: 05/10/25 13:42 [facility] Desktop) OT- Bed Mobility Assessment Sit to Supine Sit to Supine Assist Moderate Assistance,2 Person Assistance OT-Transfer Assessment Sit to and From Stand Sit to and from Maximum Assistance,2 Person Assistance Stand Transfers Transfer Ability Minimal Assistance,1 Person Assistance Technique Transfer Destination Bed,Chair Transfer Technique Stand Step Pivot Devices Transfer Assistive Gait Belt,Front Wheeled Walker Devices Comments Mobility Comments Sitting BP 130/74 and standing 136/74. MAXAx2 to stand from lower surface and once on his feet TONEY with FWW. MODA X 2 to help get from sitting to supine at this time. OT- Balance Assessment Sitting Balance and Reactions Static Sitting Good Balance Ability Dynamic Sitting Good Balance Ability Standing Balance and Reactions Static Standing Fair Balance Ability Dynamic Standing Fair Balance Ability Comments Other Balance Tests/ Pt doing much better today and able to transfer and Deviations/Treatment walk with the FWW to the sink and bed with one person : assist. M8 OT- IP Objective Assessments Start: 05/09/25 13:35 Freq: Status: Active Protocol: Document 05/09/25 13:35 [facility] (Rec: 05/09/25 13:49 [facility] Desktop) OT Gross Range of Motion Upper Extremity Range of Motion ROM Impairments Grossly WFL OT Strength Comments Strength Comments WFL for BUE 4+/5 OT- Coordination Assessment Upper Extremity Finger to Nose Test Within Functional Limits M9 OT- IP Assessment and Plan Start: 05/09/25 13:35 Freq: Status: Active Protocol: Document 05/10/25 13:25 [facility] (Rec: 05/10/25 13:42 [facility] Desktop) OT Summary Assessment and Plan Potential Rehabilitation Good Potential Analytic Complexity Moderate at Evaluation Summary OT Impairments Strength,Balance,Functional Mobility,Grooming,Dressing, Toileting,Bathing,Toilet Transfers,Shower Transfers, Activity Tolerance Progress Towards Progressing Toward Goals Goals Assessment Summary Pt mobilizing much better after having 2 person assist to come to stand to the FWW. Pt one person assist with the FWW in the room. Pt will still benefit from skilled rehab to improve on bed mobility, coming to stand to from lower surfaces and ADL needs. Goals Self-Feeding Goal Independent Grooming Goal Independent Dressing Goal Standby Assistance Toileting Goal Independent Bathing Goal Standby Assistance Toilet Transfer Goal Independent Shower Transfer Goal Independent Days to Meet Goals 15 Frequency of Treatment Other frequency 5x/week Treatment Plan OT Treatment Plan ADL Training,Functional Mobility,Patient/Family Education,Discharge Planning Other Treatment Shower/SLUMS Recommendations and Next Treatment Focus Discharge Recommendations OT Discharge SNF Rehab Recommendations Transportation Needs Wheelchair/Cabulance at Discharge
--- NOTE | 2025-05-10 13:51 | CM.DPNOTE ---
DCP Note TEACHING PASTOR reviewed EMR per chart review, pt requiring max assist. rec SNF. per Dr. Hoang, due to liver enzyme abnormalities will definitely need another few days. per pt, confirms if not able to ambulate and needs SNF preference is [facility]. overall preference would prefer to return home with HH. TEACHING PASTOR sent initial referral information to Reyna from . Acceptance pending. PASRR needed P: SNF at pending acceptance vs home with [facility] (referral needed). CM team will continue to follow closely for DCP coordination CHRISTOPHER Urrutia
[2025-05-10 18:00] VITALS: BP 129/83; PULSE 92; RESP 20; TEMP 36.8; O2SAT 93
[2025-05-11 00:40] VITALS: BP 121/69; PULSE 87; RESP 16; TEMP 37.1; O2SAT 94
[2025-05-11 04:56] LABS: Add Manual Diff / Slide Review NO; Hematocrit 34.3 % (41-53); Hemoglobin 11.7 g/dL (13.5-17.5); Lymphocytes Absolute Auto 1000 /uL (1100-4500); Mean Corpuscular HGB Conc 34.0 % (30-36); Mean Corpuscular Hemoglobin 33.2 PG (26-34); Mean Corpuscular Volume 97.7 fL (80-100); Platelet Count 171 X10^3/uL (150-400)
[2025-05-11 05:06] LABS: Alanine Aminotransferase 567 IU/L (<50); Albumin 3.0 g/dL (3.5-5.0); Albumin Globulin Ratio 0.8 (1.0-2.8); Alkaline Phosphatase 200 U/L (38-126); Blood Urea Nitrogen 12 mg/dL (9-20); Calcium 8.2 mg/dL (8.4-10.2); Carbon Dioxide 28 mmol/L (22-32); Chloride 98 mmol/L (98-107); Estimated Glomerular Filt Rate > 60 mL/min (>60); Globulin 3.8 g/dL (1.7-4.1); Glucose 110 mg/dL (70-99); HEMOLYSIS < 15 (0-50); Potassium 3.7 mmol/L (3.4-5.1); Sodium 131 mmol/L (137-145); Total Protein 6.8 g/dL (6.3-8.2)
[2025-05-11] MEDS: LEVOTHYROXINE 75 MCG TABLET PO (06:08)
[2025-05-11 07:00] VITALS: O2SAT 92
[2025-05-11] MEDS: FUROSEMIDE 40 MG/4 ML VIAL IV (08:15)
[2025-05-11] MEDS: APIXABAN 5 MG TABLET 2.5 MG PO ×2 (08:15→21:27)
[2025-05-11 09:01] VITALS: BP 137/87; PULSE 82; RESP 18; TEMP 37; O2SAT 92
--- NOTE | 2025-05-11 09:45 | PM.PN.IH.1 ---
Exam Vital Signs (past 8 hours): - 05/11/25 09:01 Temperature 98.6 F Pulse Rate 82 Respiratory Rate 18 Blood Pressure 137/87 Pulse Oximetry 92 Oxygen Flow Rate 0 Oxygen Delivery Method Room Air Oxygen Flow Rate 0 Objective Labs 05/11/25 04:33 05/11/25 04:33 Labs: Laboratory Results - last 24 hr 05/11/25 04:33 WBC 3.8 L RBC 3.51 L Hgb 11.7 L Hct 34.3 L MCV 97.7 MCH 33.2 MCHC 34.0 RDW 15.5 H Plt Count 171 Neut % (Auto) 64.1 Lymph % (Auto) 25.5 [place] % (Auto) 6.5 Eos % (Auto) 3.5 Baso % (Auto) 0.4 Neut # (Auto) 2400 Lymph # (Auto) 1000 L [place] # (Auto) 200 Eos # (Auto) 100 Baso # (Auto) 0 Sodium 131 L Potassium 3.7 Chloride 98 Carbon Dioxide 28 BUN 12 Creatinine 0.68 Estimated GFR > 60 BUN/Creatinine Ratio 17.6 Glucose 110 H Calcium 8.2 L Total Bilirubin 0.7 AST 680 H ALT 567 H Alkaline Phosphatase 200 H Total Protein 6.8 Albumin 3.0 L Globulin 3.8 Albumin/Globulin Ratio 0.8 L PFSH Social History marital status: household members: spouse Smoking Status: Never smoker alcohol intake: current substance use type: does not use Assessment & Plan Assessment and plan (1) Pneumonia: Status: Acute (2) Generalized weakness: Status: Acute Plan Community acquired pneumonia patient with CT scan shows left upper lobe pneumonia consolidation. Community-acquired treatment covering staff strep Haemophilus.I made changes to his antibiotics yesterday after consulting with pharmacy. Due to elevation of liver enzymes. Stopped his ceftriaxone and azithromycin placed him on a respiratory fluoroquinolone. Patient feeling well. Has increasing strength today still no hypoxia. Fever pattern is improved. Acute hepatitis patient with increasing liver enzyme elevation. Possibility includes due to infection pneumonia hypotension versus medication. Antibiotics were adjusted today liver enzymes are improved a little bit today but still in the 600 range. Acute hyponatremia. Normal saline stopped. Some diuresis with Lasix yesterday. Continue with IV Lasix sodium is improved from 128-131. Think there is a component of excess free water. Echocardiogram was reviewed showed normal ejection fraction and no significant valvular heart disease. Generalized weakness profound weakness. Probably due to underlying infection pneumonia. Ultrasound of heart was reviewed. Continue to work with physical therapy making some significant progress. 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 Follicular lymphoma history of. No signs of reoccurrence although white blood cell counts low. Consolidation of lung. do not think this is impacting his current care. But certainly will keep a close eye on his blood counts and lung consolidation. Hypothyroidism acquired continue with thyroid replacement Code status full code DVT prophylaxis on anticoagulation with SCDs Disposition and plan Plan for discharge home tomorrow with home Health. Oral antibiotics. Time-Based Coding :: [TOTAL MINUTES] spent with patient and on the chart (including review of chart, obtaining history, exam, reviewing outside data, placing orders, documenting exam and treatment plan, and counseling patient) on [DATE]. Quality VTE Deep Vein Thrombosis/Pulmonary Embolism Present on Admission: No PROFEE Director Of Contracts Document charge(s): Yes Charge Codes Subsequent inpatient/observation care: [id number]
--- NOTE | 2025-05-11 10:20 | PT.IPTN ---
Current Diagnoses Pneumonia, unspecified organism (05/08/25) Weakness (05/08/25) Physical Therapy Treatment Note M2 PT-IP Current Condition Start: 05/09/25 09:20 Freq: NEEDED Status: Active Protocol: Document 05/09/25 12:34 AMB (Rec: 05/09/25 13:05 AMB [id number]) Physical Therapy Current Condition Current Condition Evaluation Date 05/09/25 Treatment Diagnosis weakness secondary to pneumonia Onset Date 05/08/25 M3 PT-IP Subjective Start: 05/09/25 09:20 Freq: NEEDED Status: Active Protocol: Document 05/11/25 10:20 AB (Rec: 05/11/25 12:51 AB [id number]) Subjective Physical Therapy Visit Type Type Treatment Note Visit Start Time 10:20 Visit Stop Time 10:40 Number of WOOD FLOOR REFINISHER Visits 0 M4 PT-IP Mobility and Gait Start: 05/09/25 09:20 Freq: NEEDED Status: Active Protocol: Document 05/11/25 10:20 AB (Rec: 05/11/25 12:51 AB [id number]) PT-Transfer Assessment Sit to and From Stand Sit to and from Maximum Assistance,1 Person Assistance,Use of Upper Stand Extremities Equipment Transfer Assistive Gait Belt,Front Wheeled Walker Device Orthotic/Prosthetic No Devices or Brace: Comments Mobility Comments pt sitting on the chair and spouse in room. pt tends to direct his own care and needs encouragement to participate and focus on task. completed sit to stand max A and max cues. pt ambulated in room using FWW ~ 100 ft min A and cues for safety. pt can be impulsive. pt sat back on chair. positioned pt on the chair. call light and table placed within reach. spouse concerned about pt going home and stated that she will not be able to get pt up. informed case manager specialist regarding SNF recommendation. Gait Assessment Gait Gait Assistance Minimum Assistance,1 Person Assist Required: Distance (Feet) 100 Able to Maintain Yes Weight Bearing Status During Gait Assistive Devices Assistive Device Gait Belt,Front Wheeled Walker Orthotic/Prosthetic No Devices or Brace: Gait Deviations General Gait Pattern Antalgic,Ataxic,Decreased Stride Length,Decreased Feet Clearance,Step-to Gait Factors Limiting Gait Function Factors Limiting Decreased Activity Tolerance,Decreased Strength,Limited Gait Function Range of Motion,Pain,Poor Balance,Poor Safety Awareness M5 PT-IP Objective Assessments Start: 05/09/25 09:20 Freq: NEEDED Status: Active Protocol: Document 05/09/25 12:34 AMB (Rec: 05/09/25 13:05 AMB [id number]) Strength Lower Extremity Strength Hip 2 Knee 2 Ankle 3 M6 PT-IP Treatment Start: 05/09/25 09:20 Freq: NEEDED Status: Active Protocol: Document 05/11/25 10:20 AB (Rec: 05/11/25 12:51 AB [id number]) Physical Therapy Treatment Education Education Provided Safety M7 PT-IP Assessment and Plan Start: 05/09/25 09:20 Freq: NEEDED Status: Active Protocol: Document 05/11/25 10:20 AB (Rec: 05/11/25 12:51 AB [id number]) PT Summary Assessment and Plan Potential Rehabilitation Fair Potential Summary Impairments Pain,ROM,Strength,Balance,Coordination,Sensation,Tone, Cognition,Bed Mobility,Transfers,Gait,Activity Tolerance Progress Towards Slow Progress due to Medical Issues,Slow Progress due Goals to Activity Tolerance Assessment Summary pt requiring max A for sit to stand and min A for ambulation using FWW. pt will need 24/7 assist and will benefit from SNF rehab. Spouse has limited capability to provide assistance to pt. will continue to assess progress. Goals Bed Mobility Goal Contact Guard Assistance Transfer Goal Standby Assistance,Front Wheeled Walker Gait Goal Standby Assistance,Front Wheel Walker Gait Distance 150 Days to Meet Goals 10 Frequency of Treatment Frequency Of Once a Day Treatment Treatment Plan Physical Therapy Bed Mobility Training,Transfer Training,Gait Training, Treatment Plan Therapeutic Exercise,Neuromuscular Re-ed,Manual Therapy Recommendations To Nursing Amount of Assist 1 Person Assist Needed Discharge Recommendations PT Discharge SNF Rehab Recommendations Transportation Needs Wheelchair/Cabulance at Discharge
--- NOTE | 2025-05-11 11:10 | OT.IP.TRT ---
Current Diagnoses Pneumonia, unspecified organism (05/08/25) Weakness (05/08/25) Occupational Therapy Treatment Note M2 OT-IP Current Condition Start: 05/09/25 13:35 Freq: Status: Active Protocol: Document 05/09/25 13:35 [facility] (Rec: 05/09/25 13:49 [facility] Desktop) Occupational Therapy Current Condition Current Condition Evaluation Date 05/09/25 Treatment Diagnosis PNA Diagnosis Onset Date 05/08/25 M3 OT- IP Subjective and Pain Start: 05/09/25 13:35 Freq: Status: Active Protocol: Document 05/11/25 11:10 [facility] (Rec: 05/11/25 11:22 [facility] Desktop) OT- Subjective Occupational Therapy Visit Type Type Treatment Note Visit Start Time 10:40 Visit Stop Time 11:10 Occupational Therapy Visit Comments Patient Comments Pt not wanting to get up and insistent that he will be going home. Patient/Caregiver TO go home. Pt's wanting pt to go to skilled rehab Goals . OT Pain Assessment Pain When Pain Assessed At Rest Pain Present Pain Present Denied Pain M5 OT- IP IADL's Start: 05/09/25 13:35 Freq: Status: Active Protocol: Document 05/09/25 13:35 [facility] (Rec: 05/09/25 13:49 [facility] Desktop) OT-Instrumental Activities of Daily Living Deficits IADL Deficits Deficits Identified Home Safety Awareness Awareness of Need Good Awareness for Assistance at Home Home Safety Comments Pt aware not able to care fore himself at this time. Medication Management Medication Prior pt did on his own. Management Comments Meal Preparation Meal Preparation Caregiver Provides Assist Promotions Manager Promotions Manager Caregiver Provides Assist M6 OT- IP Functional Cognition Start: 05/09/25 13:35 Freq: Status: Active Protocol: Document 05/11/25 11:10 [facility] (Rec: 05/11/25 11:22 [facility] Desktop) Cognitive Factors Limiting Selfcare Function Cognitive Ability Level of Alertness Alert Patient Orientation Name,Age,Birthday,Month,Date,Year,Day of Week,Place, Situation Attention Span Capable of Focused Attention,Capable of Sustained Ability Attention Ability to Follow Able to Follow One Step Commands with Increased Time, Commands Able to Follow One Step Commands with Repetition Memory Description Short Term Impaired,Working Impaired Executive Function Unable to Hold Focus,Unable to Remember Details Ability Cognitive Tests SLUMS Pt scored 20/30 on the SLUMS which 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 Pt's felt that he has been thinking much better still coming to the hospital but not at his baseline as prior capable of doing math calculations faster. Pt also needing questions repeated over and over. Pt able to recall 2/5 objects after time passed, not able to state 4 digit number backwards, and just able to answer 1/4 questions after time passed. Cognitive Comments Cognitive Assessment Pt is very insistent on going home and feel that his Comments set-up and is capable to be able to care for himself. Pt's states in addition to this recent fall has also fallen in the garden in October. Pt however open to the back up plan of going to skilled rehab. Pt's trying to convince pt to go. Pt has a family friend come in the room and asked the pt if it was ok to do cognitive test and discuss his needs in front of her. Pt agreed. M7 OT- IP Mobility and Balance Start: 05/09/25 13:35 Freq: Status: Active Protocol: Document 05/10/25 13:25 [facility] (Rec: 05/10/25 13:42 [facility] Desktop) OT- Bed Mobility Assessment Sit to Supine Sit to Supine Assist Moderate Assistance,2 Person Assistance OT-Transfer Assessment Sit to and From Stand Sit to and from Maximum Assistance,2 Person Assistance Stand Transfers Transfer Ability Minimal Assistance,1 Person Assistance Technique Transfer Destination Bed,Chair Transfer Technique Stand Step Pivot Devices Transfer Assistive Gait Belt,Front Wheeled Walker Devices Comments Mobility Comments Sitting BP 130/74 and standing 136/74. MAXAx2 to stand from lower surface and once on his feet TONEY with FWW. MODA X 2 to help get from sitting to supine at this time. OT- Balance Assessment Sitting Balance and Reactions Static Sitting Good Balance Ability Dynamic Sitting Good Balance Ability Standing Balance and Reactions Static Standing Fair Balance Ability Dynamic Standing Fair Balance Ability Comments Other Balance Tests/ Pt doing much better today and able to transfer and Deviations/Treatment walk with the FWW to the sink and bed with one person : assist. M8 OT- IP Objective Assessments Start: 05/09/25 13:35 Freq: Status: Active Protocol: Document 05/09/25 13:35 [facility] (Rec: 05/09/25 13:49 [facility] Desktop) OT Gross Range of Motion Upper Extremity Range of Motion ROM Impairments Grossly WFL OT Strength Comments Strength Comments WFL for BUE 4+/5 OT- Coordination Assessment Upper Extremity Finger to Nose Test Within Functional Limits M9 OT- IP Assessment and Plan Start: 05/09/25 13:35 Freq: Status: Active Protocol: Document 05/11/25 11:10 [facility] (Rec: 05/11/25 11:22 [facility] Desktop) OT Summary Assessment and Plan Potential Rehabilitation Good Potential Analytic Complexity Moderate at Evaluation Summary OT Impairments Strength,Balance,Functional Mobility,Grooming,Dressing, Toileting,Bathing,Toilet Transfers,Shower Transfers, Activity Tolerance Progress Towards Slow Progress due to Medical Issues,Slow Progress due Goals to Cognition Assessment Summary Pt still needing extensive assist to stand and has difficulty with bed mobility needs. Pt scored 20/30 on the SLUMS which implies borderline dementia versus mild cognitive disorder. Pt's feels that pt not at his baseline for cognitive needs yet. Pt's in full agreement of pt going to skilled rehab. Pt is insistent on going home at this time. Still highly recommend pt to go to skilled rehab when medically stable. Goals Self-Feeding Goal Independent Grooming Goal Independent Dressing Goal Standby Assistance Toileting Goal Independent Bathing Goal Standby Assistance Toilet Transfer Goal Independent Shower Transfer Goal Independent Days to Meet Goals 15 Frequency of Treatment Other frequency 5x/week Treatment Plan OT Treatment Plan ADL Training,Functional Mobility,Patient/Family Education,Discharge Planning Discharge Recommendations OT Discharge SNF Rehab Recommendations Transportation Needs Wheelchair/Cabulance at Discharge
[2025-05-11 12:00] VITALS: BP 128/82; PULSE 86; RESP 16; TEMP 36.2; O2SAT 95
[2025-05-11] MEDS: FUROSEMIDE 40 MG/4 ML VIAL 20 MG IV (13:19)
--- NOTE | 2025-05-11 14:43 | CM.DPNOTE ---
DCP note TANDEM MILL OPERATOR reviewed EMR per chart review, continue to rec SNF. Per Amrit at [facility], not able to accept referral at this time due to not serving [place]. per Reyna at , can accept pt tomorrow afternoon, time pending. per OT, spouse wants him to dc to SNF. pt hesitant TANDEM MILL OPERATOR met with pt in room. pt agreeable to SNF as backup plan. PASRR needed if SNF. P: dc to for SNF transport via facility vehicle vs home with family support. CM team will continue to follow closely for DCP coordination CHRISTOPHER Urrutia
[2025-05-11 18:26] VITALS: BP 132/73; PULSE 88; RESP 18; TEMP 36.1; O2SAT 92
[2025-05-11 20:00] VITALS: BP 121/74; PULSE 89; RESP 16; TEMP 36.4; O2SAT 94
[2025-05-12 04:16] VITALS: BP 116/73; PULSE 83; RESP 17; TEMP 36.3; O2SAT 93
[2025-05-12] MEDS: LEVOTHYROXINE 75 MCG TABLET PO (05:06)
[2025-05-12 06:04] LABS: Alanine Aminotransferase 475 IU/L (<50); Albumin 3.0 g/dL (3.5-5.0); Albumin Globulin Ratio 0.8 (1.0-2.8); Alkaline Phosphatase 233 U/L (38-126); Blood Urea Nitrogen 16 mg/dL (9-20); Calcium 8.3 mg/dL (8.4-10.2); Carbon Dioxide 32 mmol/L (22-32); Chloride 97 mmol/L (98-107); Estimated Glomerular Filt Rate > 60 mL/min (>60); Globulin 3.7 g/dL (1.7-4.1); Glucose 114 mg/dL (70-99); HEMOLYSIS < 15 (0-50); Potassium 3.8 mmol/L (3.4-5.1); Sodium 132 mmol/L (137-145); Total Protein 6.7 g/dL (6.3-8.2)
[2025-05-12 08:00] VITALS: BP 143/83; PULSE 78; RESP 18; TEMP 36.5; O2SAT 93
[2025-05-12] MEDS: FUROSEMIDE 40 MG/4 ML VIAL IV (08:01)
[2025-05-12] MEDS: APIXABAN 5 MG TABLET 2.5 MG PO (08:01)
--- NOTE | 2025-05-12 08:05 | P.DS_ITS ---
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 And he could not get out of the chair. Because of weakness. He tried to walk on his own and was not in the able to do so. In the process of walking he took a small fall where he said he did not injure anything he just slid to the ground. Had to wait for his son in his to come get him. Because of his weakness he was brought into the emergency department for evaluation. Patient denies any other symptoms other than weakness no headache. He says he is a little bit dizzy when he tries to stand. No coughing no fevers or chills no abdominal pain. He says he has been eating okay. Said good urination and normal bowel movements. He has very sensitive lower extremity and some chronic venous stasis and edema. In the emergency department he had a workup with the advanced imaging of CT of head CT chest abdomen and pelvis chest x-ray laboratory tests. These were reviewed. Ultimately has found the patient to have a pneumonia with left upper lung bilateral pleural effusion. Patient was not hypoxic or hypotensive. But weak enough he could not ambulate. He was admitted to the hospital Discharge Providers Provider Date of admission: 05/08/25 21:09 Discharge Date: 05/12/25 Primary care physician: Camden Hoang MD Consults: 05/08/25 21:34 Consult to Discharge Planning Routine Comment: Consult to Occupational Therapy Evaluate & Treat Comment: Physician Instructions: Evaluate and treat Consult to Physical Therapy Evaluate & Treat Comment: Physician Instructions: Evaluate and Treat 05/09/25 08:24 Consult to Physical Therapy Evaluate & Treat Comment: Physician Instructions: Evaluate and Treat Discharge provider: Camden Hoang MD Summary Hospital Course Discharge Diagnosis: Community acquired pneumonia Acute hepatitis Acute hyponatremia Generalized profound weakness Factor 5 Leiden deficiency History recurrent venous thromboembolism History of follicular lymphoma Hypothyroidism Hospital Course: Patient was admitted to the hospital with significant weakness and pneumonia. He was placed on IV antibiotics and IV fluids. He initially had good blood pressure. Had a fever. Some mild tachycardia. During the hospital stay he had adjustment of his antibiotics initially started on ceftriaxone and doxycycline had elevation of liver enzymes and ultimately was placed on Levaquin. His liver enzyme trended up and then started to trend down. During the hospital stay he had low sodium. Which worsened with IV fluids. His IV fluid was stopped and he was given IV Lasix. Had improvement of his sodium. He had some significant weakness that was working with him with physical therapy was eating well. Urinating well. In still weak at the time of discharge. During his hospital stay was started back on his anticoagulation. CT scan of chest abdomen and pelvis was done as well as echocardiogram because of his weakness and heart murmur. His echocardiogram shows normal ejection fraction and no significant valvular heart disease. Discharge plan. Patient was still weak. He will be discharged home with home health. His and a son who will be there to be able to help take care of him. He adamantly refused going to a correction facility. Exam Vital Signs (past 8 hours): - 05/12/25 04:16 Temperature 97.3 F L Pulse Rate 83 Respiratory Rate 17 Blood Pressure 116/73 Pulse Oximetry 93 Oxygen Flow Rate 0 Oxygen Delivery Method Room Air Oxygen Flow Rate 0 Objective Labs 05/11/25 04:33 05/12/25 05:36 Labs: Laboratory Results - last 24 hr 05/12/25 05:36 Sodium 132 L Potassium 3.8 Chloride 97 L Carbon Dioxide 32 BUN 16 Creatinine 0.65 L Estimated GFR > 60 BUN/Creatinine Ratio 24.6 H Glucose 114 H Calcium 8.3 L Total Bilirubin 0.6 AST 382 H ALT 475 H Alkaline Phosphatase 233 H Total Protein 6.7 Albumin 3.0 L Globulin 3.7 Albumin/Globulin Ratio 0.8 L PFSH Social History marital status: household members: spouse Smoking Status: Never smoker alcohol intake: current substance use type: does not use Discharge Plan Discharge Plan Patient Disposition: Home Provider Discharge Comment: Home follow up in [address] Hoang. PT and home health at discharge Discharge orders & Medications Prescriptions: New levofloxacin 500 mg tablet 500 mg PO DAILY Qty: 7 0RF polyethylene glycol 3350 [Miralax] 17 gram powder in packet 17 g PO DAILY Qty: 14 0RF Continued (DME) Disabled Parking See Rx Instructions .ROUTE .MEDSUPPLY Qty: 1 0RF Rx Instructions: I find this patient to be medically disabled and qualified for Disabled Parking as indicated, and signed, on the Accompanying Disabled Parking Application for Individuals Eliquis 5 mg tablet 5 mg PO BID Qty: 180 3RF levothyroxine 75 mcg capsule 75 mcg PO DAILY Qty: 90 3RF hydrocodone-acetaminophen 5-325 mg tablet 1 tab PO Q4-6H PRN (Reason: pain) Qty: 10 0RF Follow up/Referrals: Camden Hoang MD [Primary Care Provider, Family Practice] Diet/Activity/Treatments Diet comment: General diet Activity: Activity as tolerated Visit Report/Discharge Packet Stand Alone Forms: Patient Portal/API, Stroke Signs & Symptoms Discharge Data Primary Care Provider: Camden Hoang Quality VTE Deep Vein Thrombosis/Pulmonary Embolism Present on Admission: No IH PROFEE Charge Codes Discharge inpatient/observation: [id number]
[2025-05-12 08:08] VITALS: O2SAT 93
--- NOTE | 2025-05-12 09:40 | OT.IP.TRT ---
Current Diagnoses Pneumonia, unspecified organism (05/08/25) Weakness (05/08/25) Occupational Therapy Treatment Note M2 OT-IP Current Condition Start: 05/09/25 13:35 Freq: Status: Active Protocol: Document 05/09/25 13:35 [facility] (Rec: 05/09/25 13:49 [facility] Desktop) Occupational Therapy Current Condition Current Condition Evaluation Date 05/09/25 Treatment Diagnosis PNA Diagnosis Onset Date 05/08/25 M3 OT- IP Subjective and Pain Start: 05/09/25 13:35 Freq: Status: Active Protocol: Document 05/12/25 10:17 [facility] (Rec: 05/12/25 10:34 [facility] Desktop) OT- Subjective Occupational Therapy Visit Type Type Treatment Note Visit Start Time 08:55 Visit Stop Time 09:40 Occupational Therapy Visit Comments Patient Comments Pt still insistent to go home. Pt's still insisting on pt going to skilled rehab but pt adamantly refusing. Patient/Caregiver TO go home. Goals OT Pain Assessment Pain When Pain Assessed At Rest Pain Present Pain Present Denied Pain M4 OT- IP ADL's Start: 05/09/25 13:35 Freq: Status: Active Protocol: Document 05/10/25 13:25 [facility] (Rec: 05/10/25 13:42 [facility] Desktop) OT CVA-[id number] Comments OT Self-Feeding Not at meal time. Comments OT ADL-Grooming General Evaluation Grooming Ability Standby Assistance Areas Needing Retrieving/Set-up of Grooming Items Assistance Comments OT Grooming Comments Able to do while standing at the sink with FWW. OT ADL-Oral Care General Eval Oral Care Ability Independent OT ADL-Dressing Comments OT Dressing Comments Pt able to kick on his shoes while seated. OT ADL-Toileting General Evaluation Toileting Ability Standby Assistance Comments OT Toileting Pt able to use the urinal while after set-up while Comments seated. OT ADL-Bathing Comments OT Bathing Comments Pt moving better and tomorrow if willing would benefit from showering. M5 OT- IP IADL's Start: 05/09/25 13:35 Freq: Status: Active Protocol: Document 05/09/25 13:35 [facility] (Rec: 05/09/25 13:49 [facility] Desktop) OT-Instrumental Activities of Daily Living Deficits IADL Deficits Deficits Identified Home Safety Awareness Awareness of Need Good Awareness for Assistance at Home Home Safety Comments Pt aware not able to care fore himself at this time. Medication Management Medication Prior pt did on his own. Management Comments Meal Preparation Meal Preparation Caregiver Provides Assist Meter Inspector Meter Inspector Caregiver Provides Assist M6 OT- IP Functional Cognition Start: 05/09/25 13:35 Freq: Status: Active Protocol: Document 05/12/25 10:17 [facility] (Rec: 05/12/25 10:34 [facility] Desktop) Cognitive Factors Limiting Selfcare Function Cognitive Ability Level of Alertness Alert Patient Orientation Name,Age,Birthday,Month,Date,Year,Day of Week,Place, Situation Attention Span Capable of Focused Attention,Capable of Sustained Ability Attention Ability to Follow Able to Follow One Step Commands with Increased Time, Commands Able to Follow One Step Commands with Repetition Memory Description Short Term Impaired,Working Impaired Cognitive Comments Cognitive Assessment Pt's admit pt progressively has gotten worse with Comments his memory. Pt very adamant of going home. M7 OT- IP Mobility and Balance Start: 05/09/25 13:35 Freq: Status: Active Protocol: Document 05/12/25 10:17 [facility] (Rec: 05/12/25 10:34 [facility] Desktop) OT- Bed Mobility Assessment Sit to Supine Sit to Supine Assist Standby Assistance OT-Transfer Assessment Sit to and From Stand Sit to and from Contact Guard Assistance Stand Transfers Transfer Ability Contact Guard Assistance,Minimal Assistance Technique Transfer Destination Bed,Chair Transfer Technique Stand Step Pivot Devices Transfer Assistive Gait Belt,Front Wheeled Walker Devices Comments Mobility Comments Pt able to stand with CGA/close SBA from the recliner which is much improved from yesterday. Pt able to walk with the FWW with close SBA to CGA. Pt able to walk to the bathroom and and needing TONEY from LOB. On the way to the bed with FWW also needing CGA for loss of balance x2. Able to educated pt's how to yamileth/doff the gait belt and emphasized that pt should have someone with him at all times if ends up going home. OT- Balance Assessment Sitting Balance and Reactions Static Sitting Good Balance Ability Dynamic Sitting Good Balance Ability Standing Balance and Reactions Static Standing Fair Balance Ability Dynamic Standing Poor Balance Ability Comments Other Balance Tests/ Pt moving better but still having poor dynamic balance Deviations/Treatment and is a high fall risk. : M8 OT- IP Objective Assessments Start: 05/09/25 13:35 Freq: Status: Active Protocol: Document 05/09/25 13:35 [facility] (Rec: 05/09/25 13:49 [facility] Desktop) OT Gross Range of Motion Upper Extremity Range of Motion ROM Impairments Grossly WFL OT Strength Comments Strength Comments WFL for BUE 4+/5 OT- Coordination Assessment Upper Extremity Finger to Nose Test Within Functional Limits M9 OT- IP Assessment and Plan Start: 05/09/25 13:35 Freq: Status: Active Protocol: Document 05/12/25 10:17 [facility] (Rec: 05/12/25 10:34 [facility] Desktop) OT Summary Assessment and Plan Potential Rehabilitation Good Potential Analytic Complexity Moderate at Evaluation Summary OT Impairments Strength,Balance,Functional Mobility,Grooming,Dressing, Toileting,Bathing,Toilet Transfers,Shower Transfers, Activity Tolerance Progress Towards Progressing Toward Goals Goals Assessment Summary Pt moving much better however still unsteady on his feet and having one loss of balance and needing several assist for CGA and unsteady with the FWW. Pt will greatly benefit from skilled rehab as pt is a high fall risk. Pt is adamantly refusing to go to skilled rehab. Goals Self-Feeding Goal Independent Grooming Goal Independent Dressing Goal Standby Assistance Toileting Goal Independent Bathing Goal Standby Assistance Toilet Transfer Goal Independent Shower Transfer Goal Independent Days to Meet Goals 10 Frequency of Treatment Other frequency 5x/week Treatment Plan OT Treatment Plan ADL Training,Functional Mobility,Patient/Family Education,Discharge Planning Discharge Recommendations OT Discharge SNF Rehab, if pt is adamant to going home will need 24/7 assist and home health Recommendations Transportation Needs Wheelchair/Cabulance at Discharge
--- NOTE | 2025-05-12 11:14 | PT.IPTN ---
Current Diagnoses Pneumonia, unspecified organism (05/08/25) Weakness (05/08/25) Physical Therapy Treatment Note M2 PT-IP Current Condition Start: 05/09/25 09:20 Freq: NEEDED Status: Active Protocol: Document 05/09/25 12:34 AMB (Rec: 05/09/25 13:05 AMB [id number]) Physical Therapy Current Condition Current Condition Evaluation Date 05/09/25 Treatment Diagnosis weakness secondary to pneumonia Onset Date 05/08/25 M3 PT-IP Subjective Start: 05/09/25 09:20 Freq: NEEDED Status: Active Protocol: Document 05/12/25 11:14 DLM (Rec: 05/12/25 11:30 DLM Desktop) Subjective Physical Therapy Visit Type Type Treatment Note Visit Start Time 10:30 Visit Stop Time 11:14 Notes 44 min Number of COMPANION Visits 0 Physical Therapy Visit Comments Patient Comments His wishes he could participate in more therapy. Pt wants to go home. He reports discoloration of left knee is baseline from an old injury. He describes left LE as tender to the touch. Patient Goals Go home M4 PT-IP Mobility and Gait Start: 05/09/25 09:20 Freq: NEEDED Status: Active Protocol: Document 05/12/25 11:14 DLM (Rec: 05/12/25 11:30 DLM Desktop) PT-Bed Mobility Assessment Supine to Sit Supine to Sit Standby Assistance,Head of Bed Elevated Scooting Scooting to Edge of Standby Assistance Bed PT-Transfer Assessment Sit to and From Stand Sit to and from Standby Assistance Stand Equipment Transfer Assistive Gait Belt,Front Wheeled Walker Device Transfers Transfer Destination Chair Transfer Technique Stand Step Pivot Transfer Ability Level of Assist Standby Assistance Comments Mobility Comments Head of bed elevated 20 degrees when getting out of bed . He reports it is hard to scoot on the hospital bed. He needed extra time to get seated on edge of bed. He was able stand from the bed with stand by assist and use of UE's. He finds the recliner low for him and anticipate he needs more assist to stand from the recliner. Pt has more edema left LE than right. Gait Assessment Gait Gait Assistance Standby Assistance,Contact Guard Assist Required: Distance (Feet) 180 Assistive Devices Assistive Device Gait Belt,Front Wheeled Walker Gait Deviations General Gait Pattern Decreased Stride Length,Decreased Feet Clearance Factors Limiting Gait Function Factors Limiting Decreased Activity Tolerance,Decreased Sensation, Gait Function Decreased Strength,Poor Balance Comments Gait Comments one episode of pt catching his foot on floor but able to regain balance with use of FWW, pt wearing shoes for gait, slow pace of gait but functional, pt functionally using FWW for balance PT-Balance Assessment Sitting Balance and Reactions Static Sitting Good Balance Ability Dynamic Sitting Good Balance Ability Standing Balance and Reactions Static Standing Good Balance Ability Dynamic Standing Fair Balance Ability Device Used fWW M5 PT-IP Objective Assessments Start: 05/09/25 09:20 Freq: NEEDED Status: Active Protocol: Document 05/12/25 11:14 DLM (Rec: 05/12/25 11:30 DLM Desktop) Orientation Orientation/Cognition Level of Alertness Alert Safety Awareness Decreased Safety Awareness Coordination Assessment Gross Coordination Gross Coordination Impaired Assessment Foot Tapping Test Minimal Impairment Sensation Assessment Sensation Gross Sensation Right LE Impaired,Left LE Impaired Proprioception ( Impaired Position) Sensation Numbness Description Comments Sensation Comments pt reports chronic numbness in feet M6 PT-IP Treatment Start: 05/09/25 09:20 Freq: NEEDED Status: Active Protocol: Document 05/12/25 11:14 DLM (Rec: 05/12/25 11:30 DLM Desktop) Physical Therapy Treatment Exercises Exercises Ankle Pumps,Heel Slides,Straight Leg Raises,Supine Hip Abduction,Short Arc Quads Education Education Provided Safety M7 PT-IP Assessment and Plan Start: 05/09/25 09:20 Freq: NEEDED Status: Active Protocol: Document 05/12/25 11:14 DLM (Rec: 05/12/25 11:30 DLM Desktop) PT Summary Assessment and Plan Summary Impairments Pain,ROM,Strength,Balance,Coordination,Sensation,Tone, Cognition,Bed Mobility,Transfers,Gait,Activity Tolerance Progress Towards Progressing Toward Goals Goals Assessment Summary Timothy shows good progress this visit. His is present today for therapy. He shows improved mobility and gait. No shortness of breath with activity. His pace of gait is slow with the FWW but functional. His impaired sensation in his feet increase his risk of falls. He was able to ambulate in the kent with FWW and stand by assist. Pt does not want to go to SNF rehab and wants to discharge home. Recommend he have assist at home to help manage his fall risks. 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 Recommend out-pt PT if pt can get [facility]. Goals Bed Mobility Goal Contact Guard Assistance Transfer Goal Standby Assistance,Front Wheeled Walker Gait Goal Standby Assistance,Front Wheel Walker Gait Distance 150 Days to Meet Goals 10 Frequency of Treatment Frequency Of Once a Day Treatment Treatment Plan Physical Therapy Bed Mobility Training,Transfer Training,Gait Training, Treatment Plan Therapeutic Exercise,Balance Retraining,Discharge Planning,Neuromuscular Re-ed,Coordination Retraining Precautions Other Precautions fall risk Recommendations To Nursing Amount of Assist 1 Person Assist Needed Discharge Recommendations PT Discharge SNF Rehab Recommendations Transportation Needs Private Vehicle at Discharge - PT assist 1
--- NOTE | 2025-05-12 11:31 | PC.NURSE ---
Day shift: Discharge instructions gone over with patient and patient's spouse. Patient and spouse stated understanding, all questions answered. PIV remoeved prior to discharge. Pt saw PT and OT before discharge. They both did not recommend going home - and recommended SNF. Pt adamantly refused going to SNF and insisted on going home. MD Hoang aware and spoke with patient about this this morning. They agreed to go home with HH. JOSEE Martinez escorted patient to exit via wheelchair.
== END 2025-05-12 11:34 | disposition home health service (06) | DRG 194 ==
LOC: ED 19:58 → AC 21:11
PROVIDERS: Admitting Provider Internal Medicine; Emergency Provider Student in an Organized Health Care Education/Training Program; PCP Family Medicine; Referring Provider Student in an Organized Health Care Education/Training Program; Visit Provider Family Medicine
DX: J18.9 Pneumonia, unspecified organism (principal); B17.9 Acute viral hepatitis, unspecified; D68.51 Activated protein C resistance; E87.1 Hypo-osmolality and hyponatremia; J91.8 Pleural effusion in other conditions classified elsewhere; E03.9 Hypothyroidism, unspecified; R53.1 Weakness; R00.0 Tachycardia, unspecified; Z86.718 Personal history of other venous thrombosis and embolism; Z85.72 Personal history of non-Hodgkin lymphomas; Z79.01 Long term (current) use of anticoagulants; Z79.890 Hormone replacement therapy
CPT/HCPCS: 0241U; 36415; 70450; 71045; 71250; 74176; 80053; 81001; 82550; 83605; 83690; 83735; 83880; 84484; 85025; 85610; 85730; 87633; 93005; 93010; 96365; 96367; 97110; 97116; 97129; 97130; 97162; 97166; 97530; 97535; 99284; C8929; J0696; J1938; J1956; Q9957

== ENCOUNTER → 2025-05-23 16:30 | Outpatient (CLI) | payer MEDICARE, OTHER, SELFPAY ==
[2025-05-08 21:22] VITALS: BMI 33.5
[2025-05-23 17:04] LABS: Add Manual Diff / Slide Review NO; Hematocrit 39.2 % (41-53); Hemoglobin 13.2 g/dL (13.5-17.5); Lymphocytes Absolute Auto 1500 /uL (1100-4500); Mean Corpuscular HGB Conc 33.6 % (30-36); Mean Corpuscular Hemoglobin 32.7 PG (26-34); Mean Corpuscular Volume 97.1 fL (80-100); Platelet Count 323 X10^3/uL (150-400)
[2025-05-23 17:22] LABS: Alanine Aminotransferase 65 IU/L (<50); Albumin 3.5 g/dL (3.5-5.0); Albumin Globulin Ratio 0.9 (1.0-2.8); Alkaline Phosphatase 130 U/L (38-126); Blood Urea Nitrogen 15 mg/dL (9-20); Calcium 9.2 mg/dL (8.4-10.2); Carbon Dioxide 29 mmol/L (22-32); Chloride 102 mmol/L (98-107); Estimated Glomerular Filt Rate > 60 mL/min (>60); Globulin 3.8 g/dL (1.7-4.1); Glucose 166 mg/dL (70-99); HEMOLYSIS < 15 (0-50); Potassium 4.4 mmol/L (3.4-5.1); Sodium 137 mmol/L (137-145); Total Protein 7.3 g/dL (6.3-8.2)
== END ==
PROVIDERS: PCP Family Medicine; Referring Provider Family Medicine; Visit Provider Family Medicine
DX: C82.90 Follicular lymphoma, unspecified, unspecified site (principal); E03.9 Hypothyroidism, unspecified; K75.9 Inflammatory liver disease, unspecified
CPT/HCPCS: 36415; 80053; 85025